=== PATIENT | male | born 1945 | race Caucasian/White ===

== ENCOUNTER → 2017-01-25 | Outpatient (CLI) | payer MEDICARE ==
[~2017-01-25] MED LIST: /MOM400 PO; /TIOT18INH INH; /WARF25TA PO; ACET50TA PO; ALDA25TA2 PO; ASPI325T PO; COMBVENT INH; FLAG500T; FLOVENT INH; LASI20TA PO; LEVA500T; LOPR50TA; NITROQUICK SL; OXYGEN; PERC7.5T12 PO; PRED10TA2; SENO8.6T9 PO; SIMV20TA2 PO; THERGRAN PO; TOPR25TA PO; XOPEAER INH
--- NOTE | 2017-01-25 11:09 | REP ---
PA and lateral chest: Comparisons are the PA and lateral chest dated 04/19/[address] of 03/12/2007. There is a chronic curvilinear parenchymal scar inferiorly in the left lung, unchanged, 2014. There is thickening of the minor fissure on the right as an interval change from both prior studies. This could represent fibrosis or a tiny volume of fluid in the minor fissure. No pleural fluid is identified in the lateral posterior sulci. There is chronic interstitial coarsening, unchanged, compatible with chronic lung disease. On the comparison CT there are numerous bulla throughout the lung mcadams compatible with bullous emphysema. Cardiac size is borderline, unchanged. There are sternotomy wires, unchanged from 2014 but not present on the comparison CT of 2006. The jeanie, mediastinum, and bony thorax are unchanged. Impression: Thickening of the minor fissure as a change from the prior studies, fibrosis versus small volume of fluid in the minor fissure. Parenchymal scar inferiorly in the left lung. Chronic lung disease with multiple small bulla and interstitial chronic coarsening. Sternotomy. Signed by Daniel Millan MD 01/25/2017 11:01 A
== END ==
LOC: M SMT 10:09
PROVIDERS: ATTEND Physician Assistant
DX: J44.1 Chronic obstructive pulmonary disease with (acute) exacerbation (principal); I50.32 Chronic diastolic (congestive) heart failure

== ENCOUNTER → 2017-01-29 | Outpatient (REF) | payer MEDICARE ==
[2017-01-29 19:50] LABS: ALBUMIN 3.4 GM/DL (3.2-5.2); ALBUMIN/GLOBULIN RATIO 1.03 (1.00-1.93); ALKALINE PHOSPHATASE 55 U/L (45-117); ALT/SGPT 21 U/L (12-78); ANION GAP 6 MEQ/L (8-16); AST/SGOT 16 U/L (15-37); BILIRUBIN,TOTAL 0.7 MG/DL (0.2-1.0); BLOOD UREA NITROGEN 24 MG/DL (7-18); CALCIUM LEVEL 9.2 MG/DL (8.8-10.2); CARBON DIOXIDE LEVEL 36 MEQ/L (21-32); CHLORIDE LEVEL 101 MEQ/L (98-107); CHOLESTEROL LEVEL 165 MG/DL (<200); CREATININE FOR GFR 1.08 MG/DL (0.70-1.30); GLOMERULAR FILTRATION RATE > 60.0 (>42); GLUCOSE, FASTING 97 MG/DL (83-110); POTASSIUM SERUM 4.5 MEQ/L (3.5-5.1); SODIUM LEVEL 143 MEQ/L (136-145); TOTAL PROTEIN 6.7 GM/DL (6.4-8.2); TRIGLYCERIDES LEVEL 110 MG/DL (<150)
== END ==
LOC: M LABDRWCV 16:15
PROVIDERS: ATTEND Physician Assistant
DX: I25.10 Atherosclerotic heart disease of native coronary artery without angina pectoris (principal); E78.00 Pure hypercholesterolemia, unspecified; I50.32 Chronic diastolic (congestive) heart failure

== ENCOUNTER → 2017-03-26 | Outpatient (CLI) | payer MEDICARE ==
[~2017-03-26] MED LIST changes: +ACET-683 PO; +ALBU17IN INH; +ATOR80TA59 PO; +AZIT500T2 PO; +BENCRE3 EXT; +FLUT22IN INH; +FURO40TA2 PO; +INCR1INH INH; +IPRASOL4 INH; +NITR4TASL SL; +PRED10TA2 PO; +SPIR25TA2 PO; +TOPR50TA PO; +VITMTA PO
--- NOTE | 2017-03-26 15:23 | REP ---
Chest x-ray: Two views. History: COPD. Comparison chest x-ray January 25, 2017. Findings: There is bibasilar linear fibrosis versus plate-like atelectasis. Median sternotomy wires and mediastinal clips are seen. The aorta is tortuous as before. Heart is at the upper range of normal in size. No pleural effusion is seen. No acute infiltrate is seen. No significant bony abnormality noted. Impression: Bibasilar fibrosis versus discoid atelectasis. Some interstitial fibrosis and pleural changes noted. Borderline heart size. Prior sternotomy. No acute infiltrate seen. Signed by Steven Blackman MD 03/26/2017 04:47 P
== END ==
LOC: M SMT 14:48
PROVIDERS: ATTEND Physician Assistant
DX: J44.1 Chronic obstructive pulmonary disease with (acute) exacerbation (principal); J98.4 Other disorders of lung
CPT/HCPCS: 71020; G0463

== ENCOUNTER → 2017-05-03 | Outpatient (REF) | payer MEDICARE ==
[2017-05-03 17:50] LABS: ALBUMIN 3.7 GM/DL (3.2-5.2); ANION GAP 3 MEQ/L (8-16); BLOOD UREA NITROGEN 20 MG/DL (7-18); CALCIUM LEVEL 9.2 MG/DL (8.8-10.2); CARBON DIOXIDE LEVEL 35 MEQ/L (21-32); CHLORIDE LEVEL 103 MEQ/L (98-107); CREATININE FOR GFR 1.09 MG/DL (0.70-1.30); GLOMERULAR FILTRATION RATE > 60.0 (>42); GLUCOSE, FASTING 93 MG/DL (83-110); MAGNESIUM LEVEL 2.5 MG/DL (1.8-2.4); PHOSPHORUS LEVEL 4.1 MG/DL (2.5-4.9); POTASSIUM SERUM 4.6 MEQ/L (3.5-5.1); SODIUM LEVEL 141 MEQ/L (136-145)
== END ==
LOC: M LABDRWCV 16:32
PROVIDERS: ATTEND Physician Assistant
DX: I50.32 Chronic diastolic (congestive) heart failure (principal); E83.42 Hypomagnesemia

== ENCOUNTER 2017-05-11 03:44 | Inpatient (IN) | payer MEDICARE ==
[~2017-05-11] VITALS: Ht 195.6 cm; Wt 101.4 kg
[2017-05-11] VITALS (9 sets, daily range): BP systolic 109–118; BP diastolic 51–66; O2SAT 88–94
[~2017-05-11 03:44] MED LIST changes: -ACET-683 PO; -ALBU17IN INH; -ATOR80TA59 PO; -AZIT500T2 PO; -BENCRE3 EXT; -FLUT22IN INH; -FURO40TA2 PO; -INCR1INH INH; -IPRASOL4 INH; -NITR4TASL SL; -PRED10TA2 PO; -SPIR25TA2 PO; -TOPR50TA PO; -VITMTA PO
[2017-05-11] MEDS ORDERED: IPRASOL4 INH (04:21)
[2017-05-11] MEDS ORDERED: INCR1INH INH (04:21)
[2017-05-11] MEDS ORDERED: IPRATROPIUM 0.5MG/ALBUTEROL 2.5MG INH SOL UD 3ML (DUONEB)(J7620) NEB ONE (04:45)
[2017-05-11] MEDS ORDERED: dexameTHASONE 20 MG/5 ML VIAL (J1100) IV ONE (04:45)
[2017-05-11 04:57] LABS: ADD MANUAL DIFFER YES; MEAN CORPUSCULAR HEMOGLOBIN 31.8 pg (27.0-33.0); MEAN CORPUSCULAR HGB CONC 33.2 g/dl (32.0-36.5); MEAN CORPUSCULAR VOLUME 95.7 fl (80.0-96.0); PLATELET COUNT, AUTOMATED 207 k/mm3 (150-450); RED CELL DISTRIBUTION WIDTH 13.9 % (11.5-14.5)
[2017-05-11 05:09] LABS: ANION GAP 5 MEQ/L (8-16); BLOOD UREA NITROGEN 25 MG/DL (7-18); CALCIUM LEVEL 9.1 MG/DL (8.8-10.2); CARBON DIOXIDE LEVEL 32 MEQ/L (21-32); CHLORIDE LEVEL 100 MEQ/L (98-107); CREATININE FOR GFR 1.14 MG/DL (0.70-1.30); GLOMERULAR FILTRATION RATE > 60.0 (>42); GLUCOSE, FASTING 147 MG/DL (83-110); POTASSIUM SERUM 4.1 MEQ/L (3.5-5.1); SODIUM LEVEL 137 MEQ/L (136-145)
[2017-05-11 05:17] LABS: ABG BASE EXCESS 3.4 (-2.0-2.0); ABG HCO3 29.7 MEQ/L (22.0-26.0); ABG PARTIAL PRESSURE CO2 51.7 mmHg (35.0-45.0); ABG PARTIAL PRESSURE O2 66.2 mmHg (75.0-100.0); ABG STANDARD HCO3 27.4 MEQ/L (22.0-26.0); ABG TOTAL CO2 31.3 MEQ/L (23.0-31.0); ABG pH (ARTERIAL) 7.377 UNITS (7.350-7.450)
[2017-05-11 05:19] LABS: BANDS 2 % (< 11)
[2017-05-11] MEDS ORDERED: CEFUROXIME SODIUM 1.5 GM in D5W MINI-BAG PLUS 50 ML IV ONE (05:30)
[2017-05-11] MEDS ORDERED: ALBU17IN INH (06:15)
[2017-05-11] MEDS ORDERED: VITMTA PO (06:15)
[2017-05-11] MEDS ORDERED: NITR4TASL SL (06:15)
[2017-05-11] MEDS ORDERED: ASPI325T PO (06:15)
[2017-05-11] MEDS ORDERED: FLUT22IN INH (06:15)
[2017-05-11] MEDS ORDERED: FURO40TA2 PO (06:15)
[2017-05-11] MEDS ORDERED: BENCRE3 EXT (06:15)
[2017-05-11] MEDS ORDERED: TOPR50TA PO (06:15)
[2017-05-11] MEDS ORDERED: ATOR80TA59 PO (06:15)
[2017-05-11] MEDS ORDERED: ACET-683 PO (06:15)
[2017-05-11] MEDS ORDERED: IPRATROPIUM 0.5MG/ALBUTEROL 2.5MG INH SOL UD 3ML (DUONEB)(J7620) NEB PRN (06:15)
[2017-05-11] MEDS ORDERED: SPIR25TA2 PO (06:15)
[2017-05-11] MEDS ORDERED: ONDANSETRON 4MG/2ML VIAL (J2405) IV PRN (06:15)
[2017-05-11] MEDS ORDERED: ACETAMINOPHEN TAB 650MG DOSE (2X325MG) PO PRN (06:15)
[2017-05-11] MEDS ORDERED: ANALGESIC BALM CRM 120 GM EXT PRN (06:30)
--- NOTE | 2017-05-11 07:38 | REP ---
PA and lateral chest: Comparison is 03/26/2017 and 04/19/2015. There is bibasilar chronic parenchymal scarring, unchanged from both prior studies. On the lateral view there is increased radiodensity posteriorly as a change from the comparison studies, compatible with lower lobe infiltrates. This should be correlated with clinical findings. Sternotomy wires mediastinal surgical clips are again identified. Cardiac size is borderline enlarged, unchanged. Impression: Question lower lobe infiltrates as seen on the lateral view. Chronic bibasilar parenchymal scarring. Borderline cardiac size, chronic. Signed by Daniel Millan MD 05/11/2017 07:30 A
--- NOTE | 2017-05-11 07:41 | ECGEPIP ---
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
[2017-05-11] MEDS ORDERED: methylPREDNISolone INJ 125 MG/2 ML VIAL (J2930) IV SCH (08:00)
[2017-05-11] MEDS: cefTRIAXone SOD 2 GM in D5W MINI-BAG PLUS 50 ML IV SCH (08:00)
[2017-05-11] MEDS: TIOTROPIUM INHALER/CAPSULE (SPIRIVA) INH SCH (08:09)
[2017-05-11] MEDS: FLUTICASONE HFA 220 MCG 12 GM INHALER (FLOVENT) INH SCH ×2 (08:10→20:09)
[2017-05-11] MEDS: guaiFENesin ER 600 MG TAB PO SCH ×2 (08:29→21:51)
[2017-05-11] MEDS: ASPIRIN 325 MG TAB PO SCH (08:30)
[2017-05-11] MEDS: SPIRONOLACTONE 25 MG TAB PO SCH (08:30)
[2017-05-11] MEDS: SENOKOT S TAB PO SCH ×2 (08:31→21:00)
[2017-05-11] MEDS: MULTIVITAMINS/MINERALS THERAP 1 TAB PO SCH (08:31)
[2017-05-11] MEDS: METOPROLOL SUCC (TopROL XL) 50MG **XL** TAB PO SCH (08:32)
[2017-05-11] MEDS: ENOXAPARIN 30 MG/0.3 ML SYR (J1650) SC SCH (08:32)
[2017-05-11] MEDS: AZITHROMYCIN INJ 500 MG, VIAL MATE ADAPTER 1 EACH in D5W 250 ML IV SCH (08:47)
[2017-05-11] MEDS: IPRATROPIUM 0.5MG/ALBUTEROL 2.5MG INH SOL UD 3ML (DUONEB)(J7620) NEB SCH ×3 (08:53→20:00)
--- NOTE | 2017-05-11 08:57 | HPE ---
DATE OF ADMISSION: 05/11/2017 PRIMARY CARE PROVIDER: NIKOLAY Vance Shortness of breath and subjective fevers and chill. HISTORY OF PRESENT ILLNESS: This is a 72-year-old male patient with underlying medical history of chronic obstructive pulmonary disease (COPD), oxygen dependent on 2 liters at home, and coronary artery disease with questionable congestive heart failure. As per patient, he was in his normal state of health until earlier last night developed an episode of shortness of breath with slightly worsening cough productive of mucus clear white and also feeling chills and shaking. As per patient, he gets upper respiratory tract infections quite often and has previously been treated with antibiotic by his primary doctor with azithromycin and prednisone with slight improvement, but this time has gotten worse again. In the emergency room, patient was found hypoxic down to 85, was requiring 35% Ventimask because patient was a mouth breather. Patient denies any chest pain, pressure or discomfort. Denies any palpitations, nausea or vomiting, abdominal pain. No sick contact at home. Otherwise, patient feels comfortable. After nebulizer treatment and steroid, patient reported feeling better. ALLERGIES: NO KNOWN DRUG ALLERGIES. PAST MEDICAL HISTORY: 1. COPD. 2. Coronary artery disease. 3. Questionable congestive heart failure (CHF). PAST SURGICAL HISTORY: 1. Coronary artery bypass graft (CABG) 2006. 2. Right hip arthroplasty secondary to fracture. SOCIAL HISTORY: Patient lives at [place] with his . History of smoking, quit smoking 2006, 1 pack per day for 40 years, 1 can of beers every month on average. FAMILY HISTORY: Father lived up to 94. Mother lived up to 87. Generally, family has been healthy. No history of cancer. REVIEW OF SYSTEMS: Reported shortness of breath, chills, shaking and cough. All other review of systems are negative. HOME MEDICATION: - acetaminophen 500 mg by mouth every 4 hours as needed - Ventolin inhalers every 6 hours as needed - DuoNebs every 6 hours as needed - aspirin 325 mg by mouth daily - Lipitor 80 mg by mouth nightly - Bengay as needed topical cream - Flovent inhalation twice a day - Lasix 40 mg by mouth daily - Ellipta 62.5 mcg inhalation daily - metoprolol succinate 50 mg by mouth daily - multivitamin one tablet by mouth daily - sublingual nitro 0.4 mg as needed - spironolactone 12.5 mg by mouth daily VITAL SIGNS: Temperature 97.6, pulse 85, respiration 22, blood pressure 109/70, pulse oximetry 88% on 3 liter nasal cannula. GENERAL: Patient alert, oriented times three, in no acute distress. HEENT: Normocephalic, atraumatic. CARDIAC: Regular rate and rhythm. S1, S2. No murmurs detected. PULMONARY: Right-sided rhonchi. No significant wheeze. ABDOMEN: Soft. Nontender. Positive bowel sounds. EXTREMITIES: No edema bilateral lower extremities. NEUROLOGIC: No focal deficits. EKG: Sinus rhythm at 89. T wave inversion V1 through V3, which is present on previous EKG as well. LABORATORY: WBC 11, hemoglobin and hematocrit 14.4/43.4, platelets 207. Chemistry: Sodium 137, potassium 4.1, chloride 100, bicarbonate 32, BUN 25, creatinine 1.14, C-reactive protein 1.12, brain natriuretic peptide 62.5. AB.37, 51.7, 66.8. ASSESSMENT AND PLAN: This is a 72-year-old male patient with underlying medical history of coronary artery disease with questionable congestive heart failure, chronic obstructive pulmonary disease, oxygen dependent, admitted for community-acquired bacterial pneumonia and hypoxia. PROBLEMS: 1. Acute hypoxic respiratory failure with chronic hypercarbia and hypoxia. Patient is on oxygen at home 2 liters. Likely secondary to upper respiratory infection (URI) verus early right-sided pneumonia. Followup respiratory panel, sputum cultures, blood cultures. Rocephin and azithromycin. Will start Solu-Medrol, nebulizer treatments. Continue home inhalers. 2. Coronary artery disease. Continue home medication, aspirin, beta-blockers, statins. 3. Hypertension. Patient has borderline blood pressure. Will continue beta-lyubov with holding parameters. Continue to monitor. 4. History of congestive heart failure. Patient currently compensated. Given active infection, will hold diuretics for now and continue to monitor. Strict intake and output, daily weight. 5. Deep venous thrombosis (DVT) prophylaxis. Lovenox subcu. DISPOSITION PLANNING: Pending clinical improvement. Physical therapy has been ordered.
[2017-05-11] MEDS ORDERED: SYMBICORT 160/4.5MCG INHALER 6GM INH SCH (09:00)
[2017-05-11] MEDS: methylPREDNISolone INJ 125 MG/2 ML VIAL (J2930) IV SCH ×2 (11:05→18:55)
--- NOTE | 2017-05-11 17:54 | IPNPDOC ---
Text Note Date of Service The patient was seen on 05/11/17. NOTE Patient was admitted early this a.m. by my colleague Dr. Stout. He was seen and examined by myself today 72-year-old male with COPD on 2 L, CAD status post CABG, potential history of CHF who presented to the emergency department with shortness of breath as well as subjective fever and chills. He is admitted with community-acquired pneumonia and COPD exacerbation. 1. Community-acquired pneumonia: The patient is requiring 4 L of oxygen, but usually only requires 2 L at home. He is currently afebrile with a white count of 11. We will continue him on the azithromycin and Rocephin. Blood cultures are pending, and we'll get a sputum culture. 2. COPD exacerbation: Continue Solu-Medrol and DuoNeb's. Continue home Flonase, Spiriva. 3. CAD status post CABG: The patient is currently without chest pain and his troponins are negative. Continue home beta lyubov, aspirin, statin. 4. Potential history of CHF: The patient currently appears compensated. Given his active infection, we are currently holding his home Lasix. We'll continue him on his home spironolactone. DVT prophylaxis: lovenox VS,Fishbone, I+O VS, Fishbone, I+O Laboratory Tests 05/11/17 04:41 Red Blood Count 4.54, Mean Corpuscular Volume 95.7, Mean Corpuscular Hemoglobin 31.8, Mean Corpuscular Hemoglobin Concent 33.2, Red Cell Distribution Width 13.9 , Calcium Level 9.1 Vital Signs Date Time Temp Pulse Resp B/P (MAP) Pulse Ox O2 Delivery O2 Flow Rate FiO2 05/11/17 15:30 98.0 72 18 117/66 (83) 90 Nasal Cannula 4.0 DAVID CAZARES May 11, 2017 17:54
[2017-05-11] MEDS: ATORVASTATIN 20 MG TAB PO SCH (21:52)
[2017-05-12] VITALS (23 sets, daily range): BP systolic 105–138; BP diastolic 60–74; O2SAT 79–96
[2017-05-12] MEDS: IPRATROPIUM 0.5MG/ALBUTEROL 2.5MG INH SOL UD 3ML (DUONEB)(J7620) NEB SCH ×4 (01:47→19:45)
[2017-05-12] MEDS: methylPREDNISolone INJ 125 MG/2 ML VIAL (J2930) IV SCH ×2 (03:26→11:24)
[2017-05-12 06:37] LABS: MEAN CORPUSCULAR HEMOGLOBIN 31.2 pg (27.0-33.0); MEAN CORPUSCULAR HGB CONC 32.4 g/dl (32.0-36.5); MEAN CORPUSCULAR VOLUME 96.4 fl (80.0-96.0); RED CELL DISTRIBUTION WIDTH 13.9 % (11.5-14.5); WHITE BLOOD COUNT 12.7 K/mm3 (4.0-10.0)
[2017-05-12 06:53] LABS: ANION GAP 5 MEQ/L (8-16); BLOOD UREA NITROGEN 23 MG/DL (7-18); CALCIUM LEVEL 9.1 MG/DL (8.8-10.2); CARBON DIOXIDE LEVEL 30 MEQ/L (21-32); CHLORIDE LEVEL 103 MEQ/L (98-107); CREATININE FOR GFR 0.86 MG/DL (0.70-1.30); GLOMERULAR FILTRATION RATE > 60.0 (>42); GLUCOSE, FASTING 146 MG/DL (83-110); MAGNESIUM LEVEL 2.5 MG/DL (1.8-2.4); POTASSIUM SERUM 4.4 MEQ/L (3.5-5.1); SODIUM LEVEL 138 MEQ/L (136-145)
[2017-05-12] MEDS: TIOTROPIUM INHALER/CAPSULE (SPIRIVA) INH SCH (07:56)
[2017-05-12] MEDS: FLUTICASONE HFA 220 MCG 12 GM INHALER (FLOVENT) INH SCH ×2 (07:57→19:45)
[2017-05-12] MEDS: cefTRIAXone SOD 2 GM in D5W MINI-BAG PLUS 50 ML IV SCH (08:47)
[2017-05-12] MEDS: ASPIRIN 325 MG TAB PO SCH (08:48)
[2017-05-12] MEDS: SPIRONOLACTONE 25 MG TAB PO SCH (08:48)
[2017-05-12] MEDS: SENOKOT S TAB PO SCH ×2 (08:48→21:09)
[2017-05-12] MEDS: ENOXAPARIN 30 MG/0.3 ML SYR (J1650) SC SCH (08:48)
[2017-05-12] MEDS: MULTIVITAMINS/MINERALS THERAP 1 TAB PO SCH (08:48)
[2017-05-12] MEDS: guaiFENesin ER 600 MG TAB PO SCH ×2 (08:49→21:08)
[2017-05-12] MEDS: METOPROLOL SUCC (TopROL XL) 50MG **XL** TAB PO SCH (08:50)
[2017-05-12] MEDS: AZITHROMYCIN INJ 500 MG, VIAL MATE ADAPTER 1 EACH in D5W 250 ML IV SCH (09:57)
--- NOTE | 2017-05-12 12:31 | IPNPDOC ---
Date Seen The patient was seen on 05/12/17. Progress Note Hospitalist Progress Note Subjective: Patient states that his breathing is very good. He has no complaints , and his sitting on the couch reading a book. Objective: Physical Exam: Vitals: Vital Sign - Last 24 Hours 05/11/17 05/11/17 05/11/17 05/11/17 12:30 12:45 13:00 13:15 Pulse 68 68 74 70 Pulse Ox 93 93 92 05/11/17 05/11/17 05/11/17 05/11/17 13:16 13:30 13:45 14:00 Pulse 72 68 66 B/P (MAP) 132/72 (92) Pulse Ox 91 92 91 05/11/17 05/11/17 05/11/17 05/11/17 14:15 14:16 14:30 14:30 Temp 98.9 Pulse 66 68 B/P (MAP) 127/70 (89) Pulse Ox 94 91 05/11/17 05/11/17 05/11/17 05/11/17 14:45 15:00 15:12 15:30 Pulse 70 70 Resp 18 B/P (MAP) 129/66 (87) Pulse Ox 91 90 O2 Delivery Nasal Cannula Nasal Cannula O2 Flow Rate 4.0 4.0 05/11/17 05/11/17 05/11/17 05/11/17 15:30 16:00 18:00 19:00 Temp 98.0 98.0 Pulse 72 74 Resp 18 20 B/P (MAP) 117/66 (83) 118/62 (80) Pulse Ox 90 94 94 91 O2 Delivery Nasal Cannula Nasal Cannula Nasal Cannula Nasal Cannula O2 Flow Rate 4.0 4.0 4.0 4.0 05/11/17 05/11/17 05/11/17 05/11/17 19:45 20:00 20:40 21:00 Temp 98.3 Pulse 66 Resp 20 B/P (MAP) 109/51 (70) Pulse Ox 89 89 91 O2 Delivery Nasal Cannula Nasal Cannula Nasal Cannula Nasal Cannula O2 Flow Rate 4.0 4.0 4.0 4.0 05/11/17 05/11/17 05/12/17 05/12/17 22:00 23:00 00:00 00:04 Temp 98.3 Pulse 77 Resp 20 B/P (MAP) 129/73 (91) Pulse Ox 88 93 87 90 O2 Delivery Nasal Cannula Nasal Cannula Nasal Cannula Nasal Cannula O2 Flow Rate 4.0 4.0 4.0 4.0 05/12/17 05/12/17 05/12/17 05/12/17 01:00 02:00 03:00 03:24 Temp 97.8 Pulse 70 Resp 20 B/P (MAP) 123/65 (84) Pulse Ox 89 92 88 88 O2 Delivery Nasal Cannula Nasal Cannula Nasal Cannula Nasal Cannula O2 Flow Rate 3.0 3.0 3.0 4.0 05/12/17 05/12/17 05/12/17 05/12/17 04:00 05:00 06:00 08:00 Temp 99.5 Pulse 75 Resp 18 B/P (MAP) 115/64 (81) Pulse Ox 91 92 92 92 O2 Delivery Nasal Cannula Nasal Cannula Nasal Cannula Nasal Cannula O2 Flow Rate 3.0 3.0 3.0 4.0 05/12/17 05/12/17 05/12/17 08:30 08:50 12:00 Temp 99.2 Pulse 75 67 Resp 18 B/P (MAP) 115/64 130/74 (92) Pulse Ox 93 O2 Delivery Nasal Cannula Nasal Cannula O2 Flow Rate 4.0 4.0 General: Awake, alert, no acute distress HEENT: Normocephalic, atraumatic, extraocular movements intact, moist mucous membranes CV: Regular rate and rhythm Lungs: Diminished at bases, with coarse breath sounds throughout, but no distinct wheeze or rhonchi Abd: Soft, nontender, nondistended Extremities: No edema Neuro: Alert and oriented 3, normal speech Psych: Normal Mood and affect Labs and Imaging: Laboratory Tests 05/12/17 06:02 Calcium Level 9.1 05/12/17 06:03 Red Blood Count 4.49, Mean Corpuscular Volume 96.4 H, Mean Corpuscular Hemoglobin 31.2, Mean Corpuscular Hemoglobin Concent 32.4, Red Cell Distribution Width 13.9 Assessment and Plan: 72-year-old male with COPD on 2 L, CAD status post CABG, potential history of CHF who presented to the emergency department with shortness of breath as well as subjective fever and chills. He is admitted with community-acquired pneumonia and COPD exacerbation. 1. Community-acquired pneumonia: The patient is requiring 3 L of oxygen, but usually only requires 2 L at home. He is currently afebrile. We will continue him on the azithromycin and Rocephin. Blood cultures and sputum cultures are pending. 2. COPD exacerbation: Wean Solu-Medrol and continue DuoNeb's. Continue home Flonase, Spiriva. 3. CAD status post CABG: The patient is currently without chest pain and his troponins are negative. Continue home beta lyubov, aspirin, statin. 4. Potential history of CHF: The patient currently appears compensated. Restart home Lasix. We'll continue him on his home spironolactone. DVT prophylaxis: lovenox VS, I&O, 24H, Fishbone Vital Signs/I&O Vital Signs Date Time Temp Pulse Resp B/P (MAP) Pulse Ox O2 Delivery O2 Flow Rate FiO2 05/12/17 12:00 99.2 67 18 130/74 (92) 93 Nasal Cannula 4.0 I&O- Last 24 Hours up to 6 AM 05/12/17 06:00 Intake Total 730 ml Output Total 600 ml Balance 130 ml Laboratory Data 24H LABS Laboratory Tests 2 05/12/17 06:02: Anion Gap 5L, Glomerular Filtration Rate > 60.0, Blood Urea Nitrogen 23H, Creatinine 0.86, Sodium Level 138, Potassium Level 4.4, Chloride Level 103, Carbon Dioxide Level 30, Calcium Level 9.1, Magnesium Level 2.5H, C-Reactive Protein, Quantitative 10.10H CBC/BMP Laboratory Tests 05/12/17 06:02 Calcium Level 9.1 05/12/17 06:03 Red Blood Count 4.49, Mean Corpuscular Volume 96.4 H, Mean Corpuscular Hemoglobin 31.2, Mean Corpuscular Hemoglobin Concent 32.4, Red Cell Distribution Width 13.9 Microbiology Microbiology 05/11/17 Blood Culture - Preliminary, Resulted No growth after 24 hours . All specim... 05/11/17 Blood Culture - Preliminary, Resulted No growth after 24 hours . All specim... DAVID CAZARES May 12, 2017 12:31
[2017-05-12] MEDS: FUROSEMIDE 40 MG TAB PO SCH (13:43)
[2017-05-12] MEDS: methylPREDNISolone INJ 40 MG/1 ML VIAL (J2920) IV SCH (18:59)
[2017-05-12] MEDS: ATORVASTATIN 20 MG TAB PO SCH (21:07)
[2017-05-13] VITALS (7 sets, daily range): BP systolic 118–136; BP diastolic 62–76; O2SAT 92–95
[2017-05-13] MEDS: IPRATROPIUM 0.5MG/ALBUTEROL 2.5MG INH SOL UD 3ML (DUONEB)(J7620) NEB SCH ×4 (01:38→19:46)
[2017-05-13] MEDS: methylPREDNISolone INJ 40 MG/1 ML VIAL (J2920) IV SCH ×2 (02:28→11:46)
[2017-05-13 06:46] LABS: MEAN CORPUSCULAR HEMOGLOBIN 31.5 pg (27.0-33.0); MEAN CORPUSCULAR HGB CONC 33.2 g/dl (32.0-36.5); WHITE BLOOD COUNT 11.5 K/mm3 (4.0-10.0)
[2017-05-13 07:09] LABS: ANION GAP 3 MEQ/L (8-16); BLOOD UREA NITROGEN 30 MG/DL (7-18); CALCIUM LEVEL 8.8 MG/DL (8.8-10.2); CARBON DIOXIDE LEVEL 32 MEQ/L (21-32); CHLORIDE LEVEL 102 MEQ/L (98-107); CREATININE FOR GFR 0.88 MG/DL (0.70-1.30); GLOMERULAR FILTRATION RATE > 60.0 (>42); GLUCOSE, FASTING 137 MG/DL (83-110); MAGNESIUM LEVEL 2.4 MG/DL (1.8-2.4); POTASSIUM SERUM 4.1 MEQ/L (3.5-5.1); SODIUM LEVEL 137 MEQ/L (136-145)
[2017-05-13] MEDS: TIOTROPIUM INHALER/CAPSULE (SPIRIVA) INH SCH (07:28)
[2017-05-13] MEDS: FLUTICASONE HFA 220 MCG 12 GM INHALER (FLOVENT) INH SCH ×2 (07:29→19:47)
[2017-05-13] MEDS: cefTRIAXone SOD 2 GM in D5W MINI-BAG PLUS 50 ML IV SCH (08:46)
[2017-05-13] MEDS: ASPIRIN 325 MG TAB PO SCH (08:47)
[2017-05-13] MEDS: ENOXAPARIN 30 MG/0.3 ML SYR (J1650) SC SCH (08:47)
[2017-05-13] MEDS: SPIRONOLACTONE 12.5MG PER 1/2 TABLET PO SCH (08:47)
[2017-05-13] MEDS: MULTIVITAMINS/MINERALS THERAP 1 TAB PO SCH (08:50)
[2017-05-13] MEDS: METOPROLOL SUCC (TopROL XL) 50MG **XL** TAB PO SCH (08:50)
[2017-05-13] MEDS: guaiFENesin ER 600 MG TAB PO SCH ×2 (08:50→20:47)
[2017-05-13] MEDS: FUROSEMIDE 40 MG TAB PO SCH (08:50)
[2017-05-13] MEDS: SENOKOT S TAB PO SCH ×2 (08:51→20:48)
[2017-05-13] MEDS: AZITHROMYCIN INJ 500 MG, VIAL MATE ADAPTER 1 EACH in D5W 250 ML IV SCH (10:21)
--- NOTE | 2017-05-13 10:43 | IPNPDOC ---
Date Seen The patient was seen on 05/13/17. Progress Note Hospitalist Progress Note Subjective: Patient states he feels well but was not able to sleep much last night Objective: Physical Exam: Vitals: Vital Sign - Last 24 Hours 05/12/17 05/12/17 05/12/17 05/12/17 11:00 12:00 12:00 13:00 Temp 99.2 Pulse 67 Resp 18 B/P (MAP) 130/74 (92) Pulse Ox 95 93 91 94 O2 Delivery Nasal Cannula Nasal Cannula Nasal Cannula Nasal Cannula O2 Flow Rate 3.0 4.0 3.0 3.0 05/12/17 05/12/17 05/12/17 05/12/17 14:00 15:00 16:00 17:00 Pulse Ox 96 93 94 93 O2 Delivery Nasal Cannula Nasal Cannula Nasal Cannula Nasal Cannula O2 Flow Rate 3.0 3.0 3.0 3.0 05/12/17 05/12/17 05/12/17 05/12/17 18:30 18:54 19:55 20:00 Temp 99.8 Pulse 79 Resp 20 B/P (MAP) 105/60 (75) Pulse Ox 93 79 90 O2 Delivery Nasal Cannula Nasal Cannula Room Air Nasal Cannula O2 Flow Rate 3.0 3.0 3.0 05/12/17 05/12/17 05/13/17 05/13/17 20:00 20:00 00:00 05:00 Temp 99.3 99.3 Pulse 75 77 Resp 20 18 B/P (MAP) 138/73 (94) 119/62 (81) Pulse Ox 90 93 95 O2 Delivery Nasal Cannula Nasal Cannula Nasal Cannula Nasal Cannula O2 Flow Rate 3.0 3.0 3.0 2.5 05/13/17 05/13/17 05/13/17 05/13/17 05:00 08:00 08:26 08:50 Temp 98.9 Pulse 75 74 Resp 18 B/P (MAP) 124/67 (86) 124/67 Pulse Ox 95 90 92 O2 Delivery Nasal Cannula Nasal Cannula Nasal Cannula O2 Flow Rate 2.5 2.5 2.5 General: Awake, alert, no acute distress HEENT: Normocephalic, atraumatic, extraocular movements intact, moist mucous membranes CV: Regular rate and rhythm Lungs: Diminished at bases, with coarse breath sounds throughout, but no distinct wheeze or rhonchi Abd: Soft, nontender, nondistended Extremities: No edema Neuro: Alert and oriented 3, normal speech Psych: Normal Mood and affect Labs and Imaging: Laboratory Tests 05/13/17 06:16 Red Blood Count 4.24 L, Mean Corpuscular Volume 95.0, Mean Corpuscular Hemoglobin 31.5, Mean Corpuscular Hemoglobin Concent 33.2, Red Cell Distribution Width 14.0 05/13/17 06:17 Calcium Level 8.8 Assessment and Plan: 72-year-old male with COPD on 2 L, CAD status post CABG, potential history of CHF who presented to the emergency department with shortness of breath as well as subjective fever and chills. He is admitted with community-acquired pneumonia and COPD exacerbation. 1. Community-acquired pneumonia: The patient is requiring 2.5 L of oxygen, but usually only requires 2 L at home. He is currently afebrile. We will continue him on the azithromycin and Rocephin. Blood cultures and RVP are negative, and sputum cultures are pending. 2. COPD exacerbation: Wean Solu-Medrol and continue DuoNeb's. Continue home Flonase, Spiriva. 3. CAD status post CABG: The patient is currently without chest pain and his troponins are negative. Continue home beta lyubov, aspirin, statin. 4. Potential history of CHF: The patient currently appears compensated. Continue home Lasix and spironolactone. DVT prophylaxis: lovenox Dispo: anticipate home tomorrow VS, I&O, 24H, Fishbone Vital Signs/I&O Vital Signs Date Time Temp Pulse Resp B/P (MAP) Pulse Ox O2 Delivery O2 Flow Rate FiO2 05/13/17 08:50 74 124/67 05/13/17 08:26 92 Nasal Cannula 2.5 05/13/17 08:00 98.9 18 I&O- Last 24 Hours up to 6 AM 05/13/17 06:00 Intake Total 900 ml Output Total 1875 ml Balance -975 ml Laboratory Data 24H LABS Laboratory Tests 2 05/13/17 06:17: Anion Gap 3L, Glomerular Filtration Rate > 60.0, Blood Urea Nitrogen 30H, Creatinine 0.88, Sodium Level 137, Potassium Level 4.1, Chloride Level 102, Carbon Dioxide Level 32, Calcium Level 8.8, Magnesium Level 2.4, C-Reactive Protein, Quantitative 5.07H CBC/BMP Laboratory Tests 05/13/17 06:16 Red Blood Count 4.24 L, Mean Corpuscular Volume 95.0, Mean Corpuscular Hemoglobin 31.5, Mean Corpuscular Hemoglobin Concent 33.2, Red Cell Distribution Width 14.0 05/13/17 06:17 Calcium Level 8.8 Microbiology Microbiology 05/11/17 Blood Culture - Preliminary, Resulted No Growth after 48 hours. All Specime... 05/11/17 Blood Culture - Preliminary, Resulted No Growth after 48 hours. All Specime... 05/13/17 Gram Stain - Final, Resulted 05/13/17 Sputum Culture, Resulted Pending 05/12/17 Respiratory Virus Panel (PCR) ([facility]) - Final, Complete DAVID CAZARES May 13, 2017 10:43
[2017-05-13] MEDS ORDERED: SLF 3 ML SYR IV PRN (12:45)
[2017-05-13] MEDS: SLF 3 ML SYR IV SCH (13:36)
[2017-05-13] MEDS: ATORVASTATIN 20 MG TAB PO SCH (20:47)
[2017-05-14] VITALS (9 sets, daily range): BP systolic 121–133; BP diastolic 70–84; O2SAT 91–94
[2017-05-14] MEDS: methylPREDNISolone INJ 40 MG/1 ML VIAL (J2920) IV SCH ×2 (00:42→12:07)
[2017-05-14] MEDS: SLF 3 ML SYR IV SCH ×3 (00:43→14:00)
[2017-05-14] MEDS: IPRATROPIUM 0.5MG/ALBUTEROL 2.5MG INH SOL UD 3ML (DUONEB)(J7620) NEB SCH ×3 (01:14→14:53)
[2017-05-14 07:01] LABS: MEAN CORPUSCULAR HEMOGLOBIN 31.7 pg (27.0-33.0); MEAN CORPUSCULAR HGB CONC 33.4 g/dl (32.0-36.5); RED CELL DISTRIBUTION WIDTH 14.1 % (11.5-14.5); WHITE BLOOD COUNT 9.7 K/mm3 (4.0-10.0)
[2017-05-14 07:22] LABS: ANION GAP 6 MEQ/L (8-16); BLOOD UREA NITROGEN 30 MG/DL (7-18); CALCIUM LEVEL 8.9 MG/DL (8.8-10.2); CARBON DIOXIDE LEVEL 32 MEQ/L (21-32); CHLORIDE LEVEL 99 MEQ/L (98-107); CREATININE FOR GFR 0.87 MG/DL (0.70-1.30); GLOMERULAR FILTRATION RATE > 60.0 (>42); GLUCOSE, FASTING 143 MG/DL (83-110); MAGNESIUM LEVEL 2.5 MG/DL (1.8-2.4); POTASSIUM SERUM 4.2 MEQ/L (3.5-5.1); SODIUM LEVEL 137 MEQ/L (136-145)
[2017-05-14] MEDS: TIOTROPIUM INHALER/CAPSULE (SPIRIVA) INH SCH (07:29)
[2017-05-14] MEDS: FLUTICASONE HFA 220 MCG 12 GM INHALER (FLOVENT) INH SCH (07:30)
[2017-05-14] MEDS: cefTRIAXone SOD 2 GM in D5W MINI-BAG PLUS 50 ML IV SCH (07:59)
[2017-05-14] MEDS: guaiFENesin ER 600 MG TAB PO SCH (08:49)
[2017-05-14] MEDS: ENOXAPARIN 30 MG/0.3 ML SYR (J1650) SC SCH (08:49)
[2017-05-14] MEDS: ASPIRIN 325 MG TAB PO SCH (08:49)
[2017-05-14] MEDS: SPIRONOLACTONE 12.5MG PER 1/2 TABLET PO SCH (08:49)
[2017-05-14] MEDS: FUROSEMIDE 40 MG TAB PO SCH (08:50)
[2017-05-14] MEDS: METOPROLOL SUCC (TopROL XL) 50MG **XL** TAB PO SCH (08:50)
[2017-05-14] MEDS: MULTIVITAMINS/MINERALS THERAP 1 TAB PO SCH (08:50)
[2017-05-14] MEDS: SENOKOT S TAB PO SCH (08:54)
[2017-05-14] MEDS ORDERED: AZITHROMYCIN 250 MG TAB PO SCH (09:00)
[2017-05-14] MEDS ORDERED: PRED10TA2 PO (14:18)
[2017-05-14] MEDS ORDERED: AZIT500T2 PO (14:18)
--- NOTE | 2017-05-14 14:20 | DS.PDOC ---
Discharge Summary General Date of Admission May 11, 2017 at 06:03 Date of Discharge 05/14/2017 Discharge Summary DISCHARGE SUMMARY DATE OF ADMISSION: 05/11/2017 DATE OF DISCHARGE: 05/14/2017 PRIMARY CARE PHYSICIAN: NIKOLAY Dasilva at [facility] in [place] DISCHARGE DIAGNOS(E)S: Community-acquired pneumonia COPD exacerbation HPI & HOSPITAL COURSE: 72-year-old male with COPD on 2 L, CAD status post CABG, potential history of CHF who presented to the emergency department with shortness of breath as well as subjective fever and chills. He is admitted with community-acquired pneumonia and COPD exacerbation. 1. Community-acquired pneumonia: The patient is requiring 2L of oxygen, which is what he reports he uses at home. He is currently afebrile. We will continue him on the azithromycin at discharge. Blood cultures and RVP are negative, and sputum cultures are pending. 2. COPD exacerbation: Wean Solu-Medrol to a prednisone taper at discharge and continue DuoNeb's. Continue home Flonase, Spiriva. The patient requested a prescription for portable oxygen, which was supplied to him at discharge. 3. CAD status post CABG: The patient is currently without chest pain and his troponins are negative. Continue home beta lyubov, aspirin, statin. 4. Potential history of CHF: The patient currently appears compensated. Continue home Lasix and spironolactone. DVT prophylaxis: lovenox PHYSICAL EXAMINATION ON DISCHARGE: VITAL SIGNS: Vital Sign - Last 24 Hours 05/13/17 05/13/17 05/13/17 05/13/17 16:00 20:30 20:30 20:30 Temp 99.0 98.4 Pulse 72 72 Resp 18 18 B/P (MAP) 118/63 (81) 136/76 (96) Pulse Ox 91 92 92 O2 Delivery Nasal Cannula Nasal Cannula Nasal Cannula Nasal Cannula O2 Flow Rate 2.5 2.5 2.5 2.5 05/14/17 05/14/17 05/14/17 05/14/17 00:00 01:00 04:15 06:15 Temp 99.9 Pulse 70 Resp 18 B/P (MAP) 127/72 (90) Pulse Ox 94 94 93 91 O2 Delivery Nasal Cannula Nasal Cannula Nasal Cannula Nasal Cannula O2 Flow Rate 2.0 2.0 2.0 05/14/17 05/14/17 05/14/1724/17 06:46 08:00 08:00 08:00 Temp 96.6 Pulse 63 Resp 22 B/P (MAP) 133/84 (100) Pulse Ox 93 93 98 O2 Delivery Nasal Cannula Nasal Cannula Nasal Cannula O2 Flow Rate 2.0 2.0 2.0 05/14/17 05/14/17 08:50 11:45 Pulse 70 B/P (MAP) 127/72 Pulse Ox 82 O2 Delivery Room Air General: Awake, alert, no acute distress HEENT: Normocephalic, atraumatic, extraocular movements intact, moist mucous membranes CV: Regular rate and rhythm Lungs: Diminished at bases, with coarse breath sounds throughout, but no distinct wheeze or rhonchi Abd: Soft, nontender, nondistended Extremities: No edema Neuro: Alert and oriented 3, normal speech Psych: Normal Mood and affect DISPOSITION: Home DISCHARGE INSTRUCTIONS: Follow-up with PCP within one week. If symptoms return, or if you experience worsening of your symptoms, please call your doctor or return to the emergency department. ITEMS THAT NEED OUTPATIENT FOLLOWUP: None Patient was seen and examined by me on the day of discharge, and I spent a total time of greater than 30 minutes on this discharge. Vital Signs/I&Os Vital Signs Date Time Temp Pulse Resp B/P (MAP) Pulse Ox O2 Delivery O2 Flow Rate FiO2 05/14/17 11:45 82 Room Air 05/14/17 08:50 70 127/72 05/14/17 08:00 96.6 22 05/14/17 08:00 2.0 I&O- Last 24 Hours up to 6 AM 05/14/17 06:00 Intake Total 1500 ml Output Total 2275 ml Balance -775 ml Laboratory Data Labs 24H Laboratory Tests 2 05/14/17 06:47: Anion Gap 6L, Glomerular Filtration Rate > 60.0, Blood Urea Nitrogen 30H, Creatinine 0.87, Sodium Level 137, Potassium Level 4.2, Chloride Level 99, Carbon Dioxide Level 32, Calcium Level 8.9, Magnesium Level 2.5H, C-Reactive Protein, Quantitative 2.47H CBC/BMP Laboratory Tests 05/14/17 06:47 Red Blood Count 4.34, Mean Corpuscular Volume 95.0, Mean Corpuscular Hemoglobin 31.7, Mean Corpuscular Hemoglobin Concent 33.4, Red Cell Distribution Width 14.1 , Calcium Level 8.9 Microbiology Microbiology 05/11/17 Blood Culture - Preliminary, Resulted No Growth after 72 hours. All specime... 05/11/17 Blood Culture - Preliminary, Resulted No Growth after 72 hours. All specime... 05/13/17 Gram Stain - Final, Resulted 05/13/17 Sputum Culture, Resulted Pending 05/12/17 Respiratory Virus Panel (PCR) (TUAN) - Final, Complete Discharge Medications Scheduled (Incruse Ellipta) 62.5 Mcg/Inh Inh, 62.5 MCG INH DAILY, (Reported) Aspirin (Aspirin) 325 Mg Tab, 325 MG PO DAILY, (Reported) Atorvastatin Calcium (Atorvastatin Calcium) 80 Mg Tab, 80 MG PO QHS, (Reported) Azithromycin (Azithromycin) 500 Mg Tab, 500 MG PO DAILY Fluticasone Propionate (Flovent Hfa 220 MCG) 120 Puff/12 Gm Aero, 2 PUFF INH BID , (Reported) Furosemide (Furosemide) 40 Mg Tab, 40 MG PO DAILY, (Reported) Metoprolol Succinate (Toprol Xl) 50 Mg Tab, 50 MG PO DAILY, (Reported) Multivitamins *[facility] STOCKED* (Thera M Plus *[facility] STOCKED*) 1 Tab Tab, 1 TAB PO DAILY, (Reported) Prednisone (Prednisone) 10 Mg Tab, 10 MG PO TAPER Take 4 tabs daily x 3 days, then 3 tabs daily x 3 days, then 2 tabs daily x 3 days, then 1 tab daily x 3 days and stop Spironolactone (Spironolactone) 25 Mg Tab, 12.5 MG PO DAILY, (Reported) Scheduled PRN (Bengay Greaseless 10-15 %) 1 Cre Cre, 1 CRE EXT DAILY PRN for PAIN, (Reported) USES ON SHOULDERS Acetaminophen (Acetaminophen Extra Stren) 500 Mg Tab, 500 MG PO Q4H PRN for PAIN , (Reported) Albuterol Sulfate (Ventolin Hfa) 200 Puff/8 Gm Aers, 2 PUFF INH Q6H PRN for SHORTNESS OF BREATH, (Reported) Albuterol/Ipratropium (Ipratropium [place]/Albut 0.5-2.5 (3) mg/3Ml) 1 Butch Butch, 1 BUTCH INH Q6H PRN for SHORTNESS OF BREATH, (Reported) Nitroglycerin (Nitrostat) 0.4 Mg Subl, 0.4 MG SL NITRO PRN for CHEST PAIN, ( Reported) Allergies Coded Allergies: No Known Drug Allergy (Verified Allergy, Unknown, 01/21/13) DAVID CAZARES May 14, 2017 14:20
== END 2017-05-14 18:09 | disposition home or self-care (01) | DRG 190 ==
LOC: M ED 03:44 → M ED INP 06:03 → M PCU 15:23 → M PED 05-12 18:11
PROVIDERS: ADMIT Hospitalist; ATTEND Hospitalist
DX: J44.1 Chronic obstructive pulmonary disease with (acute) exacerbation (principal); J96.21 Acute and chronic respiratory failure with hypoxia; J15.9 Unspecified bacterial pneumonia; J96.12 Chronic respiratory failure with hypercapnia; I50.9 Heart failure, unspecified; I25.10 Atherosclerotic heart disease of native coronary artery without angina pectoris; Z79.899 Other long term (current) drug therapy; Z79.82 Long term (current) use of aspirin; Z99.81 Dependence on supplemental oxygen; Z87.891 Personal history of nicotine dependence

== ENCOUNTER → 2017-05-29 | Outpatient (CLI) | payer MEDICARE ==
[~2017-05-29] MED LIST changes: +ACET-683 PO; +ALBU17IN INH; +ATOR80TA59 PO; +AZIT500T2 PO; +BENCRE3 EXT; +FLUT22IN INH; +FURO40TA2 PO; +INCR1INH INH; +IPRASOL4 INH; +NITR4TASL SL; +PRED10TA2 PO; +SPIR25TA2 PO; +TOPR50TA PO; +VITMTA PO
--- NOTE | 2017-05-29 12:42 | REP ---
Follow-up PA and lateral chest: Comparison is 05/11/2017. The bibasilar infiltrates have significantly improved. The remainder of the lung mcadams remain clear. Cardiac size is borderline enlarged, unchanged. Sternotomy wires and surgical clips are unchanged. Impression: Significantly improved bibasilar infiltrates. Signed by Daniel Millan MD 05/29/2017 12:34 P
== END ==
LOC: M SMT 11:05
PROVIDERS: ATTEND Physician Assistant
DX: J18.9 Pneumonia, unspecified organism (principal)

== ENCOUNTER → 2017-08-22 | Outpatient (REF) | payer MEDICARE ==
[2017-08-22 18:38] LABS: ALBUMIN 4.2 GM/DL (3.2-5.2); ALKALINE PHOSPHATASE 50 U/L (45-117); ALT/SGPT 25 U/L (12-78); ANION GAP 5 MEQ/L (8-16); AST/SGOT 25 U/L (7-37); BILIRUBIN,TOTAL 0.9 MG/DL (0.2-1.0); BLOOD UREA NITROGEN 24 MG/DL (7-18); CALCIUM LEVEL 9.3 MG/DL (8.8-10.2); CARBON DIOXIDE LEVEL 34 MEQ/L (21-32); CHLORIDE LEVEL 102 MEQ/L (98-107); CREATININE FOR GFR 1.25 MG/DL (0.70-1.30); GLOMERULAR FILTRATION RATE > 60.0 (>42); GLUCOSE, FASTING 108 MG/DL (83-110); POTASSIUM SERUM 4.5 MEQ/L (3.5-5.1); SODIUM LEVEL 141 MEQ/L (136-145)
== END ==
LOC: M LABDRWCV 16:35
PROVIDERS: ATTEND Physician Assistant
DX: I25.10 Atherosclerotic heart disease of native coronary artery without angina pectoris (principal); I50.32 Chronic diastolic (congestive) heart failure; E78.00 Pure hypercholesterolemia, unspecified; Z23 Encounter for immunization
CPT/HCPCS: 36415; 80053; 90662; G0008

== ENCOUNTER 2017-11-15 00:52 | Inpatient (IN) | payer MEDICARE ==
[2017-11-15] MEDS: methylPREDNISolone INJ 125 MG/2 ML VIAL (J2930) IV (01:45)
[2017-11-15 01:57] LABS: BASO % 0.2 % (0.0-1.0); EOS % 0.3 % (0.0-3.0); HEMOGLOBIN 13.5 g/dl (14.0-18.0); IMMATURE GRANULOCYTE % 0.3 % (0-0); LYMPH # 0.8 10^3/uL (1.5-4.5); LYMPH % 6.4 % (24.0-44.0); MEAN CORPUSCULAR HEMOGLOBIN 30.9 pg (27.0-33.0); MEAN CORPUSCULAR HGB CONC 32.9 g/dl (32.0-36.5); MEAN CORPUSCULAR VOLUME 93.8 fl (80.0-96.0); MONO # 0.7 10^3/uL (0.0-0.8); MONO % 5.8 % (0.0-5.0); NEUTROPHILS # 10.2 10^3/uL (1.8-7.7); PLATELET COUNT, AUTOMATED 162 10^3/uL (150-450); RED BLOOD COUNT 4.37 10^6/uL (4.30-6.10); RED CELL DISTRIBUTION WIDTH 14.8 % (11.5-14.5); WHITE BLOOD COUNT 11.7 10^3/uL (4.0-10.0)
[2017-11-15] MEDS: IPRATROPIUM 0.5MG/ALBUTEROL 2.5MG INH SOL UD 3ML (DUONEB)(J7620) NEB ×8 (01:58→22:43)
[2017-11-15 02:02] LABS: ABG BASE EXCESS 4.3 (-2.0-2.0); ABG HCO3 29.5 MEQ/L (22.0-26.0); ABG O2 SATURATION 94.3 % (95.0-99.0); ABG PARTIAL PRESSURE CO2 46.6 mmHg (35.0-45.0); ABG PARTIAL PRESSURE O2 65.7 mmHg (75.0-100.0); ABG STANDARD HCO3 28.2 MEQ/L (22.0-26.0)
[2017-11-15 02:27] LABS: LACTIC ACID SEPSIS PROTOCOL 1.3 MMOL/L (0.4-2.0)
[2017-11-15 02:28] LABS: ANION GAP 6 MEQ/L (8-16); BLOOD UREA NITROGEN 27 MG/DL (7-18); CALCIUM LEVEL 8.7 MG/DL (8.8-10.2); CARBON DIOXIDE LEVEL 32 MEQ/L (21-32); CHLORIDE LEVEL 102 MEQ/L (98-107); CPK CREATINE PHOSPHOKINASE 174 U/L (39-308); CREATININE FOR GFR 1.37 MG/DL (0.70-1.30); GLOMERULAR FILTRATION RATE 54.5 (>42); GLUCOSE, FASTING 125 MG/DL (70-100); POTASSIUM SERUM 4.4 MEQ/L (3.5-5.1); SODIUM LEVEL 140 MEQ/L (136-145); TROPONIN I < 0.02 NG/ML (< 0.10)
[2017-11-15 02:29] LABS: CK-MB VALUE MASS 1.4 NG/ML (0.0-3.6)
[2017-11-15 02:33] LABS: NT-PRO BNP 557 PG/ML (<125)
[2017-11-15] MEDS ORDERED: ONDANSETRON 4MG/2ML VIAL (J2405) IV (03:30)
[2017-11-15] MEDS: AZITHROMYCIN INJ 500 MG, VIAL MATE ADAPTER 1 EACH in D5W 250 ML IV (03:30)
[2017-11-15] MEDS ORDERED: ACETAMINOPHEN TAB 650MG DOSE (2X325MG) PO (03:30)
[2017-11-15] MEDS: CEFTRIAXONE SOD 2 GM in APPROPRIATE DILUENT 1 EA IV (03:41)
[2017-11-15] MEDS ORDERED: SPIRONOLACTONE 12.5MG PER 1/2 TABLET PO (09:00)
[2017-11-15] MEDS ORDERED: FUROSEMIDE 40 MG TAB PO (09:00)
[2017-11-15] MEDS: ASPIRIN ENTERIC 325 MG TAB PO (09:00)
[2017-11-15] MEDS: METOPROLOL SUCC (TopROL XL) 50MG **XL** TAB PO (09:00)
[2017-11-15] MEDS: FLUTICASONE HFA 220 MCG 12 GM INHALER (FLOVENT) INH ×2 (10:02→22:42)
[2017-11-15] MEDS: ENOXAPARIN 30 MG/0.3 ML SYR (J1650) SC (10:36)
[2017-11-15] MEDS: MULTIVITAMINS/MINERALS THERAP 1 TAB PO (10:36)
[2017-11-15] MEDS ORDERED: methylPREDNISolone 500 MG, VIAL MATE ADAPTER 1 EACH in D5W 250 ML IV (12:00)
[2017-11-15 12:22] LABS: CK-MB VALUE MASS 1.3 NG/ML (0.0-3.6); CPK CREATINE PHOSPHOKINASE 133 U/L (39-308); MB/CK RELATIVE INDEX 0.97 (< OR =4); TROPONIN I < 0.02 NG/ML (< 0.10)
[2017-11-15] MEDS: predniSONE 20 MG TAB PO (16:06)
[2017-11-15] MEDS: NS 1,000 ML IV (17:29)
[2017-11-15 18:55] LABS: CK-MB VALUE MASS 1.8 NG/ML (0.0-3.6); CPK CREATINE PHOSPHOKINASE 128 U/L (39-308); TROPONIN I < 0.02 NG/ML (< 0.10)
[2017-11-15] MEDS: ATORVASTATIN 20 MG TAB PO (21:11)
[2017-11-16 01:04] LABS: CK-MB VALUE MASS 1.4 NG/ML (0.0-3.6); CPK CREATINE PHOSPHOKINASE 106 U/L (39-308); MB/CK RELATIVE INDEX 1.32 (< OR =4); TROPONIN I < 0.02 NG/ML (< 0.10)
[2017-11-16] MEDS: IPRATROPIUM 0.5MG/ALBUTEROL 2.5MG INH SOL UD 3ML (DUONEB)(J7620) NEB ×6 (03:45→23:37)
[2017-11-16] MEDS: CEFTRIAXONE SOD 2 GM in APPROPRIATE DILUENT 1 EA IV (04:07)
[2017-11-16] MEDS: AZITHROMYCIN INJ 500 MG, VIAL MATE ADAPTER 1 EACH in D5W 250 ML IV (04:16)
[2017-11-16 06:53] LABS: BASO % 0.1 % (0.0-1.0); HEMATOCRIT 39.1 % (42.0-52.0); HEMOGLOBIN 12.8 g/dl (14.0-18.0); IMMATURE GRANULOCYTE # 0.1 10^3/uL (0-0); IMMATURE GRANULOCYTE % 0.6 % (0-0); LYMPH # 0.8 10^3/uL (1.5-4.5); LYMPH % 6.1 % (24.0-44.0); MEAN CORPUSCULAR HEMOGLOBIN 30.8 pg (27.0-33.0); MEAN CORPUSCULAR HGB CONC 32.7 g/dl (32.0-36.5); MEAN CORPUSCULAR VOLUME 94.2 fl (80.0-96.0); MONO % 7.4 % (0.0-5.0); NEUTROPHILS # 11.4 10^3/uL (1.8-7.7); NEUTROPHILS % 85.8 % (36.0-66.0); PLATELET COUNT, AUTOMATED 157 10^3/uL (150-450); RED BLOOD COUNT 4.15 10^6/uL (4.30-6.10); RED CELL DISTRIBUTION WIDTH 15.1 % (11.5-14.5); WHITE BLOOD COUNT 13.3 10^3/uL (4.0-10.0)
[2017-11-16 07:10] LABS: ANION GAP 3 MEQ/L (8-16); BLOOD UREA NITROGEN 25 MG/DL (7-18); CALCIUM LEVEL 9.3 MG/DL (8.8-10.2); CARBON DIOXIDE LEVEL 33 MEQ/L (21-32); CHLORIDE LEVEL 104 MEQ/L (98-107); CREATININE FOR GFR 0.98 MG/DL (0.70-1.30); GLOMERULAR FILTRATION RATE > 60.0 (>42); GLUCOSE, FASTING 132 MG/DL (70-100); POTASSIUM SERUM 4.5 MEQ/L (3.5-5.1); SODIUM LEVEL 140 MEQ/L (136-145)
[2017-11-16] MEDS: FLUTICASONE HFA 220 MCG 12 GM INHALER (FLOVENT) INH ×2 (08:10→21:28)
[2017-11-16] MEDS: predniSONE 20 MG TAB PO (08:32)
[2017-11-16] MEDS: MULTIVITAMINS/MINERALS THERAP 1 TAB PO (08:32)
[2017-11-16] MEDS: ENOXAPARIN 30 MG/0.3 ML SYR (J1650) SC (08:32)
[2017-11-16] MEDS: ASPIRIN ENTERIC 325 MG TAB PO (08:32)
[2017-11-16] MEDS: METOPROLOL SUCC (TopROL XL) 50MG **XL** TAB PO (08:32)
[2017-11-16] MEDS: INCRUSE ELLIPTA 62.5MCG (PATIENT'S OWN MED) INH (18:25)
[2017-11-16] MEDS ORDERED: NITROGLYCERIN 0.4 MG SUBL TABLET SL (19:00)
[2017-11-16] MEDS: ATORVASTATIN 20 MG TAB PO (21:20)
[2017-11-17] MEDS: IPRATROPIUM 0.5MG/ALBUTEROL 2.5MG INH SOL UD 3ML (DUONEB)(J7620) NEB ×3 (02:14→11:31)
[2017-11-17] MEDS: CEFTRIAXONE SOD 2 GM in APPROPRIATE DILUENT 1 EA IV (04:21)
[2017-11-17] MEDS: AZITHROMYCIN INJ 500 MG, VIAL MATE ADAPTER 1 EACH in D5W 250 ML IV (04:21)
[2017-11-17 06:01] LABS: BASO % 0.2 % (0.0-1.0); EOS % 0.1 % (0.0-3.0); IMMATURE GRANULOCYTE # 0.1 10^3/uL (0-0); IMMATURE GRANULOCYTE % 0.6 % (0-0); LYMPH # 0.9 10^3/uL (1.5-4.5); LYMPH % 9.1 % (24.0-44.0); MEAN CORPUSCULAR HEMOGLOBIN 30.3 pg (27.0-33.0); MEAN CORPUSCULAR HGB CONC 31.7 g/dl (32.0-36.5); MEAN CORPUSCULAR VOLUME 95.6 fl (80.0-96.0); MONO # 0.8 10^3/uL (0.0-0.8); MONO % 7.9 % (0.0-5.0); NEUTROPHILS # 8.1 10^3/uL (1.8-7.7); NEUTROPHILS % 82.1 % (36.0-66.0); PLATELET COUNT, AUTOMATED 187 10^3/uL (150-450); RED BLOOD COUNT 4.29 10^6/uL (4.30-6.10); RED CELL DISTRIBUTION WIDTH 15.2 % (11.5-14.5); WHITE BLOOD COUNT 9.8 10^3/uL (4.0-10.0)
[2017-11-17 06:18] LABS: ANION GAP 3 MEQ/L (8-16); BLOOD UREA NITROGEN 26 MG/DL (7-18); CALCIUM LEVEL 9.1 MG/DL (8.8-10.2); CARBON DIOXIDE LEVEL 34 MEQ/L (21-32); CHLORIDE LEVEL 103 MEQ/L (98-107); CREATININE FOR GFR 0.95 MG/DL (0.70-1.30); GLOMERULAR FILTRATION RATE > 60.0 (>42); GLUCOSE, FASTING 129 MG/DL (70-100); POTASSIUM SERUM 3.9 MEQ/L (3.5-5.1); SODIUM LEVEL 140 MEQ/L (136-145)
[2017-11-17] MEDS: METOPROLOL SUCC (TopROL XL) 50MG **XL** TAB PO (08:09)
[2017-11-17] MEDS: SPIRONOLACTONE 12.5MG PER 1/2 TABLET PO (08:09)
[2017-11-17] MEDS: ASPIRIN ENTERIC 325 MG TAB PO (08:09)
[2017-11-17] MEDS: MULTIVITAMINS/MINERALS THERAP 1 TAB PO (08:09)
[2017-11-17] MEDS: predniSONE 20 MG TAB PO (08:09)
[2017-11-17] MEDS: ENOXAPARIN 30 MG/0.3 ML SYR (J1650) SC (08:10)
[2017-11-17] MEDS: PNEUMOCOCCAL VACCINE 0.5ML SYRINGE(90732) PNEUMOVAX 23 IM (08:11)
[2017-11-17] MEDS: INCRUSE ELLIPTA 62.5MCG (PATIENT'S OWN MED) INH (08:18)
[2017-11-17] MEDS: FLUTICASONE HFA 220 MCG 12 GM INHALER (FLOVENT) INH (08:18)
[2017-11-17 14:12] LABS: BODY FLUID CULTURE Not Indicated (.); LEGIONELLA ANTIGEN URINE Negative (Negative); ORGANISM ID Not indicated. (.); SPECIMEN SOURCE Urine (.); URINE STREP PNEUMONIAE ANTIGEN Negative (Negative)
== END 2017-11-17 14:09 | disposition home or self-care (01) | DRG 194 ==
LOC: M MSPAV 03:25 → M ED 00:52 → M ED INP 03:25 → M MSPAV 13:53
DX: J18.9 Pneumonia, unspecified organism (principal); J44.1 Chronic obstructive pulmonary disease with (acute) exacerbation; I50.32 Chronic diastolic (congestive) heart failure; N17.9 Acute kidney failure, unspecified; I25.10 Atherosclerotic heart disease of native coronary artery without angina pectoris; I11.0 Hypertensive heart disease with heart failure; Z79.899 Other long term (current) drug therapy; Z87.891 Personal history of nicotine dependence; Z79.82 Long term (current) use of aspirin

== ENCOUNTER → 2017-11-20 | Outpatient (REF) | payer MEDICARE ==
[2017-11-20 18:10] LABS: ALBUMIN 3.8 GM/DL (3.2-5.2); ANION GAP 6 MEQ/L (8-16); BLOOD UREA NITROGEN 28 MG/DL (7-18); CALCIUM LEVEL 8.8 MG/DL (8.8-10.2); CARBON DIOXIDE LEVEL 31 MEQ/L (21-32); CHLORIDE LEVEL 101 MEQ/L (98-107); CREATININE FOR GFR 1.14 MG/DL (0.70-1.30); GLOMERULAR FILTRATION RATE > 60.0 (>42); GLUCOSE, FASTING 106 MG/DL (70-100); PHOSPHORUS LEVEL 4.2 MG/DL (2.5-4.9); POTASSIUM SERUM 4.6 MEQ/L (3.5-5.1); SODIUM LEVEL 138 MEQ/L (136-145)
== END ==
LOC: M LAB REF 16:40
DX: I50.32 Chronic diastolic (congestive) heart failure (principal)
CPT/HCPCS: 80069

== ENCOUNTER → 2018-02-25 | Outpatient (REF) | payer MEDICARE ==
[2018-02-25 18:28] LABS: ALBUMIN 3.9 GM/DL (3.2-5.2); ALBUMIN/GLOBULIN RATIO 1.26 (1.00-1.93); ALKALINE PHOSPHATASE 54 U/L (45-117); ALT/SGPT 19 U/L (12-78); ANION GAP 4 MEQ/L (8-16); AST/SGOT 26 U/L (7-37); BILIRUBIN,TOTAL 0.9 MG/DL (0.2-1.0); BLOOD UREA NITROGEN 20 MG/DL (7-18); CARBON DIOXIDE LEVEL 32 MEQ/L (21-32); CHLORIDE LEVEL 106 MEQ/L (98-107); CHOLESTEROL LEVEL 121 MG/DL (<200); CHOLESTEROL RISK RATIO 2.086 (<5); CREATININE FOR GFR 1.13 MG/DL (0.70-1.30); GLOMERULAR FILTRATION RATE > 60.0 (>42); GLUCOSE, FASTING 88 MG/DL (70-100); HDL CHOLESTEROL 58 MG/DL (>40); LDL CHOLESTEROL 49.4 MG/DL (<100); NON-HDL-C 63 MG/DL; POTASSIUM SERUM 4.4 MEQ/L (3.5-5.1); SODIUM LEVEL 142 MEQ/L (136-145); TRIGLYCERIDES LEVEL 68 MG/DL (<150)
[2018-02-25 18:43] LABS: HEMATOCRIT 41.4 % (42.0-52.0); HEMOGLOBIN 13.1 g/dl (13.5-17.5); MEAN CORPUSCULAR HEMOGLOBIN 30.3 pg (27.0-33.0); MEAN CORPUSCULAR HGB CONC 31.6 g/dl (32.0-36.5); MEAN CORPUSCULAR VOLUME 95.8 fl (80.0-96.0); PLATELET COUNT, AUTOMATED 215 10^3/uL (150-450); RED BLOOD COUNT 4.32 10^6/uL (4.30-6.10); RED CELL DISTRIBUTION WIDTH 15.3 % (11.5-14.5); WHITE BLOOD COUNT 5.7 10^3/uL (4.0-10.0)
== END ==
LOC: M LAB REF 17:40
DX: I25.10 Atherosclerotic heart disease of native coronary artery without angina pectoris (principal); I50.32 Chronic diastolic (congestive) heart failure; E78.00 Pure hypercholesterolemia, unspecified
CPT/HCPCS: 80053

== ENCOUNTER → 2018-06-07 | Outpatient (CLI) | payer MEDICARE | LOC: M CLY 09:39 | DX: M50.222 Other cervical disc displacement at C5-C6 level (principal); M50.221 Other cervical disc displacement at C4-C5 level | CPT/HCPCS: 72052 ==

== ENCOUNTER → 2018-06-26 | Outpatient (REF) | payer MEDICARE ==
[2018-06-26 19:48] LABS: ANION GAP 10 MEQ/L (8-16); BLOOD UREA NITROGEN 27 MG/DL (7-18); CALCIUM LEVEL 9.3 MG/DL (8.8-10.2); CARBON DIOXIDE LEVEL 29 MEQ/L (21-32); CHLORIDE LEVEL 103 MEQ/L (98-107); CREATININE FOR GFR 1.37 MG/DL (0.70-1.30); GLOMERULAR FILTRATION RATE 54.4 (>42); GLUCOSE, FASTING 80 MG/DL (70-100); POTASSIUM SERUM 4.4 MEQ/L (3.5-5.1); SODIUM LEVEL 142 MEQ/L (136-145)
== END ==
LOC: M LABDRWCV 18:31
DX: I50.32 Chronic diastolic (congestive) heart failure (principal)
CPT/HCPCS: 80048

== ENCOUNTER → 2018-09-25 | Outpatient (REF) | payer MEDICARE ==
[2018-09-25 17:09] LABS: ANION GAP 4 MEQ/L (8-16); BLOOD UREA NITROGEN 29 MG/DL (7-18); CALCIUM LEVEL 9.3 MG/DL (8.8-10.2); CARBON DIOXIDE LEVEL 34 MEQ/L (21-32); CHLORIDE LEVEL 102 MEQ/L (98-107); CREATININE FOR GFR 1.38 MG/DL (0.70-1.30); GLOMERULAR FILTRATION RATE 53.9 (>42); GLUCOSE, FASTING 78 MG/DL (70-100); POTASSIUM SERUM 4.5 MEQ/L (3.5-5.1); SODIUM LEVEL 140 MEQ/L (136-145)
== END ==
LOC: M LABDRWCV 16:24
DX: I50.32 Chronic diastolic (congestive) heart failure (principal)
CPT/HCPCS: 80048

== ENCOUNTER → 2018-12-16 | Outpatient (REF) | payer MEDICARE ==
[~2018-12-16] MED LIST changes: +ALEV220T26 PO; +ASPI325T25 PO; -BENCRE3 EXT; +BENG1CRE3 EXT; +CEFD1CAP8 PO; +IPRA0.00 INH; -IPRASOL4 INH; +MELO15TA28 PO; +MUCI600T37 PO; +SPIR-10 PO; -SPIR25TA2 PO; +TIOT18INH INH; -TOPR50TA PO; +TOPR50TA23 PO; +VENTAER INH; +[UNRECOGNIZED DRUG - CODE] EXT
[2018-12-16 17:35] LABS: CALCIUM LEVEL 8.9 MG/DL (8.8-10.2); CREATININE FOR GFR 1.33 MG/DL (0.70-1.30); GLOMERULAR FILTRATION RATE 56.3 (>42); MAGNESIUM LEVEL 2.2 MG/DL (1.8-2.4); POTASSIUM SERUM 4.7 MEQ/L (3.5-5.1)
== END ==
LOC: M LABDRWCV 16:53
PROVIDERS: ATTEND Physician Assistant
DX: I50.32 Chronic diastolic (congestive) heart failure (principal); E83.42 Hypomagnesemia

== ENCOUNTER 2019-01-10 16:22 | Inpatient (IN) | payer MEDICARE ==
[~2019-01-10] VITALS: Ht 195.6 cm; Wt 99.2 kg
[~2019-01-10 16:22] MED LIST changes: -MELO15TA28 PO; -VENTAER INH
[2019-01-10 17:23] LABS: BASO # 0.1 10^3/uL (0.0-0.2); BASO % 0.7 % (0.0-1.0); EOS # 0.2 10^3/uL (0.0-0.50); EOS % 2.3 % (0.0-3.0); HEMATOCRIT 28.5 % (42.0-52.0); HEMOGLOBIN 8.9 g/dl (13.5-17.5); LYMPH # 1.2 10^3/uL (1.5-4.5); LYMPH % 15.5 % (24.0-44.0); MEAN CORPUSCULAR HGB CONC 31.2 g/dl (32.0-36.5); MONO # 0.6 10^3/uL (0.0-0.8); MONO % 8.1 % (0.0-5.0); NEUTROPHILS # 5.5 10^3/uL (1.8-7.7); PLATELET COUNT, AUTOMATED 180 10^3/uL (150-450); RED BLOOD COUNT 2.97 10^6/uL (4.30-6.10); WHITE BLOOD COUNT 7.5 10^3/uL (4.0-10.0)
[2019-01-10 17:31] LABS: INR 1.12; PROTHROMBIN TIME 14.5 SECONDS (12.1-14.4)
[2019-01-10 17:47] LABS: ALBUMIN 3.3 GM/DL (3.2-5.2); ALT/SGPT 18 U/L (12-78); BILIRUBIN,DIRECT < 0.1 MG/DL (0.0-0.2); BILIRUBIN,TOTAL 0.4 MG/DL (0.2-1.0); BLOOD UREA NITROGEN 72 MG/DL (7-18); CALCIUM LEVEL 8.5 MG/DL (8.8-10.2); CARBON DIOXIDE LEVEL 28 MEQ/L (21-32); CHLORIDE LEVEL 106 MEQ/L (98-107); CPK CREATINE PHOSPHOKINASE 137 U/L (39-308); CREATININE FOR GFR 1.33 MG/DL (0.70-1.30); GLOMERULAR FILTRATION RATE 56.1 (>42); GLUCOSE, FASTING 127 MG/DL (70-100); INFLUENZA A AMPLIFICATION NEGATIVE (NEGATIVE); INFLUENZA B AMPLIFICATION NEGATIVE (NEGATIVE); MB/CK RELATIVE INDEX 2.19 (< OR =4); POTASSIUM SERUM 5.3 MEQ/L (3.5-5.1); SODIUM LEVEL 140 MEQ/L (136-145); TOTAL PROTEIN 5.9 GM/DL (6.4-8.2); TROPONIN I < 0.02 NG/ML (< 0.10)
[2019-01-10] MEDS ORDERED: PANTOPRAZOLE 40MG INJ (PROTONIX) (C9113) IV ONE (18:15)
[2019-01-10] MEDS ORDERED: VENTAER INH (18:46)
[2019-01-10] MEDS ORDERED: MELO15TA28 PO (18:46)
[2019-01-10] MEDS ORDERED: NS 500 ML IV ONE (19:00)
--- NOTE | 2019-01-10 20:56 | REP ---
CHEST, TWO VIEWS: Two views of the chest are performed. COMPARISON: 01/17/2018 There is chronic pleural and parenchymal fibrotic changes which appear stable. No definite new infiltrate is seen. Heart is not enlarged. Mediastinal silhouette is unchanged. Multiple sternal wires and mediastinal clips are present. There are degenerative changes of the spine. IMPRESSION: Stable chronic changes without acute infiltrate. Electronically Signed by Daniel Mcgovern MD 01/11/2019 06:41 P
[2019-01-10] MEDS ORDERED: MORPHINE 4 MG/ML 1ML VIAL/SYRINGE (J2270) IV PRN (21:00)
[2019-01-10] MEDS ORDERED: ACETAMINOPHEN TAB 650MG DOSE (2X325MG) PO PRN (21:00)
[2019-01-10] MEDS ORDERED: ONDANSETRON 4 MG TAB (S0181) PO PRN (21:00)
[2019-01-10] MEDS ORDERED: BISACODYL 5 MG TAB PO PRN (21:00)
[2019-01-10 22:40] VITALS: BP 110/70
[2019-01-11] VITALS: BP 112/68
--- NOTE | 2019-01-11 00:20 | HPEPDOC ---
[facility] Medical History & Physical Date of Admission Jan 10, 2019 History and Physical CHIEF COMPLAINT: [weakness] HPI - This is a 74 yo male with pmhx of CAD s/p quadrouple bypass onb 325 of aspirin, who presented to the ED for weakness and black stool. He noticed the black stool yesterday, since then had multiple episodes. Also noted on patient's med list is meloxican. Patient said this never happened before. He has been feeling lightheaded as well and syncopized while sitting in the ED. He denied any fever, chills, chest pain, sob hematuria, dysuria, nausea, vomiting or diarrhea. He complained of headache 2-3/10, said he usually have headaches in the morning when he wakes up, "more like a hang over feeling - nothing too serious ". ROS - all 14 point ros negative except for what's stated in HPI PAST MEDICAL HISTORY: 1. COPD ON 2L NC 2. Coronary artery disease. 3. Diastolic congestive heart failure (CHF). PAST SURGICAL HISTORY: 1. Coronary artery bypass graft (CABG) 2006. 2. Right hip arthroplasty secondary to fracture. 3. inguinal hernia repair SOCIAL HISTORY: Patient lives at [facility] with his . History of smoking, quit smoking 2006, 1 pack per day for 40 years, 1 can of beers every month on average. FAMILY HISTORY: Father lived up to 94. Mother lived up to 87 HTN, CAD. Brother has heart disease Physical Exam GEN: NAD , normal built, pale conjunctiva HEENT: normocephalic, atraumatic, PERRLA, EOMI, external ears appears normal, neck supple, no pharyngeal erythema CVS : normal S1, S2 no murmur, rubs or gallops , PMI nondisplaced RESP: no rals, rhonchi, crackles, or wheezes, LCTAB ABD - +BS, soft, NT, ND , no cva tenderness MSK no joint swelling, FROM, no muscle tenderness Neuro no focal deficit, AOAX3 Lymphatics- no lymphedema, no lymphadenopathy in cervical and supraclavicular chains Psych- normal mood and affect, good judgement and insight ALLERGIES: Please see below. HOME MEDICATIONS: Please see below. IMAGING: [ekg- NSR with first degree heart block, cxr - no acute process] MICROBIOLOGY: Please see below. ASSESSMENT AND PLAN UPPER GIB - s/p iv protonix 80mg - c/w iv 40mg bid protonix - npo for now - holding aspirin and meloxicam - GI consult - s/p one unit of prbc - H and H q6h - monitor for worsened gib or signs of hemodynamic instability Acute renal failure - likely due to acute blood loss and volume depletion - was orthostatic hypotensive in ED - syncopized - s/p prbc 1 unit - c/w ivf - transfuse if patient continues to lose blood and is symptomatic CAD s/p cabg//htn//chf - hold aspirin - monitor BP - hold bp meds for now - c/w metoprolol for now COPD on 2 L NC - resp status stable - monitor for now -c/w home meds - duoneb prn - c./w breo elipta dvt ppx - scd gi ppx full code, from home, Vital Signs Vital Signs Date Time Temp Pulse Resp B/P (MAP) Pulse Ox O2 Delivery O2 Flow Rate FiO2 01/10/19 21:00 98.0 82 16 96/66 (76) 97 Nasal Cannula 2.0 Laboratory Data Labs 24H Laboratory Tests 2 01/10/19 16:42: Immature Granulocyte % (Auto) 0.4, White Blood Count 7.5, Red Blood Count 2.97L, Hemoglobin 8.9L, Hematocrit 28.5L, Mean Corpuscular Volume 96.0, Mean Corpuscular Hemoglobin 30.0, Mean Corpuscular Hemoglobin Concent 31.2L, Red Cell Distribution Width 15.8H, Platelet Count 180, Neutrophils (%) (Auto) 73.0H, Lymphocytes (%) (Auto) 15.5L, Monocytes (%) (Auto) 8.1H, Eosinophils (%) (Auto) 2.3, Basophils (%) (Auto) 0.7, Neutrophils # (Auto) 5.5, Lymphocytes # (Auto) 1.2L, Monocytes # (Auto) 0.6, Eosinophils # (Auto) 0.2, Basophils # (Auto) 0.1, Nucleated Red Blood Cells % (auto) 0.0, Prothrombin Time 14.5H, Prothromb Time International Ratio 1.12, Anion Gap 6L, Glomerular Filtration Rate 56.1, Calcium Level 8.5L, Aspartate Amino Transf (AST/SGOT) 17, Alanine Aminotransferase (ALT/SGPT) 18, Alkaline Phosphatase 45, Total Bilirubin 0.4, Direct Bilirubin < 0.1, Total Creatine Kinase 137, Creatine Kinase MB 3.0, Creatine Kinase MB Relative Index 2.19, Troponin I < 0.02, Total Protein 5.9L, Albumin 3.3, Albumin/Globulin Ratio 1.27, Thyroid Stimulating Hormone (TSH) 2.370, Influenza Type A (RT-PCR) NEGATIVE, Influenza Type B (RT-PCR) NEGATIVE CBC/BMP Laboratory Tests 01/10/19 16:42 Red Blood Count 2.97 L, Mean Corpuscular Volume 96.0, Mean Corpuscular Hemoglobin 30.0, Mean Corpuscular Hemoglobin Concent 31.2 L, Red Cell Distribution Width 15.8 H, Neutrophils (%) (Auto) 73.0 H, Lymphocytes (%) (Auto) 15.5 L, Monocytes (%) (Auto) 8.1 H, Eosinophils (%) (Auto) 2.3, Basophils (%) (Auto) 0.7, Neutrophils # (Auto) 5.5, Lymphocytes # (Auto) 1.2 L, Monocytes # (Auto) 0.6, Eosinophils # (Auto) 0.2, Basophils # (Auto) 0.1 Home Medications Scheduled (Incruse Ellipta) 62.5 Mcg/Inh Inh, 62.5 MCG INH DAILY Aspirin (Aspirin EC) 325 Mg Tabec, 325 MG PO DAILY Atorvastatin Calcium (Atorvastatin Calcium) 80 Mg Tab, 80 MG PO QHS Fluticasone Propionate (Flovent Hfa) 220 Mcg/Act Aer, 2 PUFF INH BID Furosemide (Furosemide) 40 Mg Tab, 40 MG PO DAILY Meloxicam (Meloxicam) 15 Mg Tab, 15 MG PO DAILY Metoprolol Succinate (Toprol Xl) 50 Mg Tab, 50 MG PO DAILY Multivitamins *[facility] STOCKED* (Thera M Plus *[facility] STOCKED*) 1 Tab Tab, 1 TAB PO DAILY Spironolactone (Spironolactone) 25 Mg Tab, 12.5 MG PO DAILY Scheduled PRN Acetaminophen (Acetaminophen Extra Stren) 500 Mg Tab, 500 MG PO Q4H PRN for PAIN Albuterol Sulfate (Ventolin Hfa) 108 Mcg/Act Aer, 2 PUFFS INH QID PRN for SHORTNESS OF BREATH Albuterol/Ipratropium (Ipratropium [place]/Albut 0.5-2.5 (3) mg/3Ml) 1 Butch Butch, 1 BUTCH INH Q6H PRN for SHORTNESS OF BREATH Nitroglycerin (Nitrostat) 0.4 Mg Subl, 0.4 MG SL NITRO PRN for CHEST PAIN Allergies Coded Allergies: No Known Drug Allergy (Verified Allergy, Unknown, 11/15/17) BROOKLYN HARDEN MD Jan 10, 2019 22:00
[2019-01-11] MEDS ORDERED: IPRATROPIUM 0.5MG/ALBUTEROL 2.5MG INH SOL UD 3ML (DUONEB)(J7620) NEB PRN (01:00)
[2019-01-11 04:00] VITALS: BP 107/58
[2019-01-11] MEDS: NS 1,000 ML IV SCH ×2 (04:05→15:43)
[2019-01-11 05:08] LABS: BASO % 0.3 % (0.0-1.0); EOS # 0.2 10^3/uL (0.0-0.50); EOS % 2.8 % (0.0-3.0); HEMATOCRIT 24.6 % (42.0-52.0); HEMOGLOBIN 7.9 g/dl (13.5-17.5); LYMPH # 1.1 10^3/uL (1.5-4.5); LYMPH % 13.9 % (24.0-44.0); MEAN CORPUSCULAR HEMOGLOBIN 30.4 pg (27.0-33.0); MEAN CORPUSCULAR HGB CONC 32.1 g/dl (32.0-36.5); MEAN CORPUSCULAR VOLUME 94.6 fl (80.0-96.0); MONO # 0.6 10^3/uL (0.0-0.8); MONO % 8.1 % (0.0-5.0); NEUTROPHILS # 5.9 10^3/uL (1.8-7.7); NEUTROPHILS % 74.5 % (36.0-66.0); PLATELET COUNT, AUTOMATED 156 10^3/uL (150-450); WHITE BLOOD COUNT 7.9 10^3/uL (4.0-10.0)
[2019-01-11 05:37] LABS: BLOOD UREA NITROGEN 68 MG/DL (7-18); CALCIUM LEVEL 8.2 MG/DL (8.8-10.2); CARBON DIOXIDE LEVEL 29 MEQ/L (21-32); CHLORIDE LEVEL 108 MEQ/L (98-107); GLOMERULAR FILTRATION RATE > 60.0 (>42); GLUCOSE, FASTING 116 MG/DL (70-100); MAGNESIUM LEVEL 2.3 MG/DL (1.8-2.4); POTASSIUM SERUM 4.6 MEQ/L (3.5-5.1); SODIUM LEVEL 143 MEQ/L (136-145)
--- NOTE | 2019-01-11 07:17 | ECGEPIP ---
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
[2019-01-11 08:00] VITALS: BP 119/70
[2019-01-11] MEDS: PANTOPRAZOLE SODIUM 40 MG in D5W 50 ML IV SCH ×3 (08:09→17:06)
[2019-01-11] MEDS: FLUTICASONE HFA 220 MCG 12 GM INHALER (FLOVENT) INH SCH ×2 (08:11→20:51)
[2019-01-11] MEDS: ADVAIR HFA 115/21MCG INHALER INH SCH ×2 (09:00→20:50)
[2019-01-11] MEDS ORDERED: PANTOPRAZOLE 40MG INJ (PROTONIX) (C9113) IV SCH ×2 (09:00→21:00)
[2019-01-11] MEDS ORDERED: ENTER DRUG NAME HERE (PATIENT'S OWN MED) INH SCH (09:00)
[2019-01-11] MEDS ORDERED: LIDOCAINE 2% INJ 100 MG/5 ML SDV (FOR ANES.) As Ordered ONE (10:25)
[2019-01-11] MEDS ORDERED: PROPOFOL 200 MG/20 ML VIAL As Ordered ONE ×2 (10:25→10:26)
[2019-01-11] MEDS ORDERED: PHENYLephrine HCL 500 MCG/5 ML (100MCG/ML) SYRINGE (J2370) As Ordered ONE (10:26)
[2019-01-11] MEDS ORDERED: ePHEDrine SULFATE 25 MG/5 ML(5MG/ML) SYRINGE As Ordered ONE (10:32)
--- NOTE | 2019-01-11 11:10 | ROOR ---
Patient Name: Caesar Ruby Procedure Date: 01/11/2019 9:57 AM Date of : 1945 Age: 74 Gender: Male Note Status: Finalized Procedure: Upper GI endoscopy Indications: Acute post hemorrhagic anemia, Melena Providers: Willi TANG MD Referring MD: 2. Inpatient 2. Inpatient Requesting Provider: Medicines: Monitored Anesthesia Care Complications: No immediate complications. Procedure: Pre-Anesthesia Assessment: - The heart rate, respiratory rate, oxygen saturations, blood pressure, adequacy of pulmonary ventilation, and response to care were monitored throughout the procedure. The Endoscope was introduced through the mouth, and advanced to the third part of duodenum. The upper GI endoscopy was accomplished without difficulty. The patient tolerated the procedure well. Findings: One shallow gastric ulcer with two red spots/stigmata of recent bleeding was found in the gastric body. The lesion was 8 mm in largest dimension. For hemostasis, four hemostatic clips were successfully placed. There was no bleeding at the end of the procedure. Multiple small punctate erosions were found in the gastric fundus and in the gastric body. Biopsies were taken with a cold forceps for histology. A large hiatal hernia was present. The examined esophagus was normal. The examined duodenum was normal. Impression: - Non-bleeding gastric ulcer with two red spots (probable stigma of recent bleed). Clips were placed for bleeding prophylaxis. - Erosive gastropathy. Biopsied. - Large hiatal hernia. - Normal esophagus. - Normal examined duodenum. Recommendation: - Observe patient's clinical course. - Use PPI IV/PO. - Clear liquid diet today. - Recommend transfusion/observation on clears--BUN should decline over 24 hrs. - Advance diet tomorrow if stable Hct/vitals and decline in BUN. - Colonoscopy is on hold for now. Willi Tang MD Willi TANG MD 01/11/2019 11:09:24 AM Electronically signed by Willi TANG MD Number of Addenda: 0 Note Initiated On: 01/11/2019 9:57 AM Estimated Blood Loss: Estimated blood loss: none.
[2019-01-11 12:00] VITALS: BP 126/63
[2019-01-11 12:05] LABS: HEMATOCRIT 24.3 % (42.0-52.0); HEMOGLOBIN 7.8 g/dl (13.5-17.5)
[2019-01-11] MEDS: MULTIVITAMINS/MINERALS THERAP 1 TAB PO SCH (12:16)
[2019-01-11] MEDS: METOPROLOL SUCC (TopROL XL) 50MG **XL** TAB PO SCH (12:16)
[2019-01-11 16:00] VITALS: BP 118/66
[2019-01-11 18:34] LABS: HEMATOCRIT 26.2 % (42.0-52.0); HEMOGLOBIN 8.5 g/dl (13.5-17.5)
[2019-01-11 20:00] VITALS: BP 116/65
[2019-01-11] MEDS: ATORVASTATIN 20 MG TAB PO SCH (20:42)
[2019-01-12] VITALS (7 sets, daily range): BP systolic 81–140; BP diastolic 50–78
[2019-01-12 00:17] LABS: HEMATOCRIT 24.6 % (42.0-52.0); HEMOGLOBIN 8.1 g/dl (13.5-17.5)
[2019-01-12] MEDS: ADVAIR HFA 115/21MCG INHALER INH SCH ×2 (08:00→20:40)
[2019-01-12] MEDS: FLUTICASONE HFA 220 MCG 12 GM INHALER (FLOVENT) INH SCH ×2 (08:00→20:40)
[2019-01-12 08:08] LABS: HEMATOCRIT 26.3 % (42.0-52.0); HEMOGLOBIN 8.6 g/dl (13.5-17.5); MEAN CORPUSCULAR HEMOGLOBIN 30.1 pg (27.0-33.0); MEAN CORPUSCULAR HGB CONC 32.7 g/dl (32.0-36.5); PLATELET COUNT, AUTOMATED 135 10^3/uL (150-450); RED BLOOD COUNT 2.86 10^6/uL (4.30-6.10); WHITE BLOOD COUNT 6.8 10^3/uL (4.0-10.0)
[2019-01-12 08:36] LABS: BLOOD UREA NITROGEN 36 MG/DL (7-18); CALCIUM LEVEL 7.9 MG/DL (8.8-10.2); CARBON DIOXIDE LEVEL 28 MEQ/L (21-32); CHLORIDE LEVEL 110 MEQ/L (98-107); CREATININE FOR GFR 0.89 MG/DL (0.70-1.30); GLOMERULAR FILTRATION RATE > 60.0 (>42); GLUCOSE, FASTING 99 MG/DL (70-100); MAGNESIUM LEVEL 2.3 MG/DL (1.8-2.4); SODIUM LEVEL 143 MEQ/L (136-145)
[2019-01-12] MEDS ORDERED: SLF 3 ML SYR IV PRN (09:45)
[2019-01-12] MEDS: MULTIVITAMINS/MINERALS THERAP 1 TAB PO SCH (10:27)
[2019-01-12] MEDS: METOPROLOL SUCC (TopROL XL) 50MG **XL** TAB PO SCH (10:27)
[2019-01-12] MEDS: PANTOPRAZOLE 40MG TAB (PROTONIX) PO SCH ×2 (10:42→20:48)
--- NOTE | 2019-01-12 11:04 | IPN ---
DATE: 01/11/2019 The patient is seen and examined. No acute events overnight. Continued to have melanotic stool. Denies any chest pain, pressure or discomfort. Underwent esophagogastroduodenoscopy (EGD) today with non bleeding gastric ulcers with clipping. Denies any chest pain, pressure or discomfort. Still appears to be pale. VITAL SIGNS: Temperature 98.1, pulse 71, respirations 18, blood pressure 118/66, pulse oximetry 98% on 2 liters nasal cannula. LABORATORY DATA: WBC 7.9, hemoglobin and hematocrit 7.9/24.6, platelets 156. Chemistry: Sodium 143, potassium 4.6, chloride 108, bicarbonate 29, BUN 68, creatinine 1.2. PHYSICAL EXAMINATION: GENERAL: The patient is pale, alert, comfortable, in no acute distress. HEENT: Normocephalic, atraumatic. Extraocular muscles intact. PULMONARY: CARDIAC: Regular S1, S2. No murmurs detected. ABDOMEN: Soft, nontender. Positive bowel sounds. EXTREMITIES: No clubbing, cyanosis or edema. ASSESSMENT AND PLAN: This is a 74-year-old male patient with underlying medical history of coronary arterial disease with coronary artery bypass graft (CABG) on 325 mg of aspirin, sees Dr. Foote, chronic obstructive pulmonary disease (COPD) on 2 liters of oxygen, diastolic congestive heart failure (CHF), who presented with weakness, black stool, and upper gastrointestinal bleed. 1. Upper gastrointestinal bleed. Status post EGD with clipping by Dr. Tang. Clear liquid diet and advance as tolerated. Holding aspirin and meloxicam. Followup hemoglobin and hematocrit. Status post a total of 4 units of packed red blood cells. Hemoglobin and hematocrit every 6 hours. Protonix twice a day. Further recommendation as per GI. 2. Acute elevation of creatinine. Possibly secondary to gastrointestinal bleed. Currently improved after transfusion. We will monitor clinically. 3. Coronary arterial disease with coronary artery bypass graft (CABG). Holding aspirin. Beta lyubov has been restarted. Continue statin. 4. Chronic obstructive pulmonary disease (COPD). Continue home medications and oxygen supplementation. The patient currently does not have any wheeze. 5. Hypertension. Continue beta lyubov. Monitor blood pressure. 6. History of congestive heart failure (CHF). Monitor for volume overload. Lasix on hold. Consider giving additional Lasix if worsening respirations. Consider starting Lasix tomorrow. 7. Chronic obstructive pulmonary disease (COPD). Nebulizer treatments. Continue inhaler as ordered. Currently does not have any wheeze. Oxygen supplementation. 8. Deep vein thrombosis (DVT) prophylaxis. Thromboembolic compression stockings (TEDS) and sequentials. DISPOSITION: Stable hemoglobin and hematocrit. Physical therapy (PT) has been ordered.
[2019-01-12 12:12] LABS: HEMATOCRIT 27.8 % (42.0-52.0); HEMOGLOBIN 8.9 g/dl (13.5-17.5)
[2019-01-12] MEDS: SLF 3 ML SYR IV SCH ×2 (14:00→20:49)
--- NOTE | 2019-01-12 16:08 | IPNPDOC ---
Text Note Date of Service The patient was seen on 01/12/19. NOTE The patient is seen and examined. No acute events overnight. No further melanotic stool. Denies any chest pain, pressure or discomfort. Denies any chest pain, pressure or discomfort. Still appears to be pale. PHYSICAL EXAMINATION: GENERAL: The patient is pale, alert, comfortable, in no acute distress. HEENT: Normocephalic, atraumatic. Extraocular muscles intact. PULMONARY: clear to auscultation b/l CARDIAC: Regular S1, S2. No murmurs detected. ABDOMEN: Soft, nontender. Positive bowel sounds. EXTREMITIES: No clubbing, cyanosis or edema. ASSESSMENT AND PLAN: This is a 74-year-old male patient with underlying medical history of coronary arterial disease with coronary artery bypass graft (CABG) on 325 mg of aspirin, sees Dr. Foote, chronic obstructive pulmonary disease (COPD) on 2 liters of oxygen, diastolic congestive heart failure (CHF), who presented with weakness, black stool, and upper gastrointestinal bleed. 1. Upper gastrointestinal bleed. Status post EGD with clipping by Dr. Tang. advanced diet. Holding aspirin and meloxicam. Followup hemoglobin and hematocrit. Status post a total of 4 units of packed red blood cells. Hemoglobin and hematocrit every 6 hours. Protonix twice a day. Further recommendation as per GI. f/u orthostatic BP 2. Acute elevation of creatinine. Possibly secondary to gastrointestinal bleed. Currently improved after transfusion. We will monitor clinically. 3. Coronary arterial disease with coronary artery bypass graft (CABG). Holding aspirin. Beta lyubov has been restarted. Continue statin. 4. Chronic obstructive pulmonary disease (COPD). Continue home medications and oxygen supplementation. The patient currently does not have any wheeze. 5. Hypertension. Continue beta lyubov. Monitor blood pressure. 6. History of congestive heart failure (CHF). Monitor for volume overload. Lasix on hold. Consider giving additional Lasix if worsening respirations. Consider starting Lasix tomorrow. 7. Chronic obstructive pulmonary disease (COPD). Nebulizer treatments. Continue inhaler as ordered. Currently does not have any wheeze. Oxygen supplementation. 8. Deep vein thrombosis (DVT) prophylaxis. Thromboembolic compression stockings (TEDS) and sequentials. DISPOSITION: Stable hemoglobin and hematocrit. Physical therapy (PT) has been ordered. VS,Noemi, I+O VS, Noemi, I+O Laboratory Tests 01/11/19 18:15 01/12/19 00:01 01/12/19 07:47 Red Blood Count 2.86 L, Mean Corpuscular Volume 92.0, Mean Corpuscular Hemog lobin 30.1, Mean Corpuscular Hemoglobin Concent 32.7, Red Cell Distribution Width 15.9 H, Calcium Level 7.9 L 01/12/19 11:42 Vital Signs Date Time Temp Pulse Resp B/P (MAP) Pulse Ox O2 Delivery O2 Flow Rate FiO2 01/12/19 12:00 98.2 65 18 140/78 (98) 98 2.0 01/10/19 22:15 Nasal Cannula I&O- Last 24 Hours up to 6 AM 01/12/19 06:00 Intake Total 2216 ml Output Total 1400 ml Balance 816 ml ANDRZEJ COBURN MD Jan 12, 2019 16:08
[2019-01-12 18:15] LABS: HEMATOCRIT 27.2 % (42.0-52.0); HEMOGLOBIN 8.7 g/dl (13.5-17.5)
[2019-01-12] MEDS: ATORVASTATIN 20 MG TAB PO SCH (20:49)
[2019-01-13] VITALS (10 sets, daily range): BP systolic 80–130; BP diastolic 40–69
[2019-01-13 00:28] LABS: HEMATOCRIT 27.8 % (42.0-52.0)
[2019-01-13] MEDS ORDERED: NS 500 ML IV ONE (04:45)
[2019-01-13] MEDS: SLF 3 ML SYR IV SCH ×3 (04:47→20:50)
[2019-01-13 05:07] LABS: HEMATOCRIT 26.9 % (42.0-52.0); HEMOGLOBIN 8.6 g/dl (13.5-17.5); MEAN CORPUSCULAR HEMOGLOBIN 30.5 pg (27.0-33.0); MEAN CORPUSCULAR VOLUME 95.4 fl (80.0-96.0); PLATELET COUNT, AUTOMATED 151 10^3/uL (150-450); RED BLOOD COUNT 2.82 10^6/uL (4.30-6.10); WHITE BLOOD COUNT 6.1 10^3/uL (4.0-10.0)
[2019-01-13 05:27] LABS: BLOOD UREA NITROGEN 29 MG/DL (7-18); CALCIUM LEVEL 8.1 MG/DL (8.8-10.2); CARBON DIOXIDE LEVEL 32 MEQ/L (21-32); CHLORIDE LEVEL 109 MEQ/L (98-107); CREATININE FOR GFR 0.93 MG/DL (0.70-1.30); GLOMERULAR FILTRATION RATE > 60.0 (>42); GLUCOSE, FASTING 106 MG/DL (70-100); MAGNESIUM LEVEL 2.2 MG/DL (1.8-2.4); POTASSIUM SERUM 3.9 MEQ/L (3.5-5.1); SODIUM LEVEL 144 MEQ/L (136-145)
[2019-01-13] MEDS: FLUTICASONE HFA 220 MCG 12 GM INHALER (FLOVENT) INH SCH ×2 (08:05→20:41)
[2019-01-13] MEDS: ADVAIR HFA 115/21MCG INHALER INH SCH ×2 (08:08→20:41)
[2019-01-13] MEDS: METOPROLOL SUCC *XL* 25MG TAB (TopROL *XL*) PO SCH (08:21)
[2019-01-13] MEDS: PANTOPRAZOLE 40MG TAB (PROTONIX) PO SCH ×2 (08:21→20:49)
[2019-01-13] MEDS: MULTIVITAMINS/MINERALS THERAP 1 TAB PO SCH (08:21)
[2019-01-13] MEDS: MIDODRINE 2.5 MG TAB PO SCH ×2 (10:35→16:27)
[2019-01-13 14:14] LABS: HEMATOCRIT 30.2 % (42.0-52.0); HEMOGLOBIN 9.6 g/dl (13.5-17.5)
[2019-01-13] MEDS: ASPIRIN 81 MG ENTERIC TAB PO SCH (16:26)
--- NOTE | 2019-01-13 18:24 | IPNPDOC ---
Text Note Date of Service The patient was seen on 01/13/19. NOTE The patient is seen and examined. No acute events overnight. No further melanotic stool. Denies any chest pain, pressure or discomfort. Denies any chest pain, pressure or discomfort. orthostatic positive. But patient asymptomatic. PHYSICAL EXAMINATION: GENERAL: alert, comfortable, in no acute distress. HEENT: Normocephalic, atraumatic. Extraocular muscles intact. PULMONARY: clear to auscultation b/l CARDIAC: Regular S1, S2. No murmurs detected. ABDOMEN: Soft, nontender. Positive bowel sounds. EXTREMITIES: No clubbing, cyanosis or edema. ASSESSMENT AND PLAN: This is a 74-year-old male patient with underlying medical history of coronary arterial disease with coronary artery bypass graft (CABG) on 325 mg of aspirin, sees Dr. Foote, chronic obstructive pulmonary disease (COPD) on 2 liters of oxygen, diastolic congestive heart failure (CHF), who presented with weakness, black stool, and upper gastrointestinal bleed. 1. Upper gastrointestinal bleed. Status post EGD with clipping by Dr. Tang. advanced diet. Holding meloxicam. Followup hemoglobin and hematocrit. Status post a total of 4 units of packed red blood cells. Hemoglobin and hematocrit every 6 hours. Protonix twice a day. Further recommendation as per GI. f/u orthostatic BP. f/u GI in 2-3 months. d/w cardiology Dr Hdz and Dr Tang resume 81mg asa 2. Acute elevation of creatinine. Possibly secondary to gastrointestinal bleed. Currently improved after transfusion. We will monitor clinically. 3. Coronary arterial disease with coronary artery bypass graft (CABG). restart asa at 81mg . Beta lyubov has been restarted. Continue statin. 4. Chronic obstructive pulmonary disease (COPD). Continue home medications and oxygen supplementation. The patient currently does not have any wheeze. 5. Hypertension. Continue beta lyubov reduced dose. Monitor blood pressure. 6. History of congestive heart failure (CHF). Monitor for volume overload. Lasix on hold. Consider giving additional Lasix if worsening respirations. 7. Chronic obstructive pulmonary disease (COPD). Nebulizer treatments. Continue inhaler as ordered. Currently does not have any wheeze. Oxygen supplementation. 8. orthostatic hypotension, likely due to autonomic neuropathy, given hh improved, no further evidence of bleeding. patient asymptomatic. metoprolol decreased. Midodrine low dose. PT, fall precaution. 9. Deep vein thrombosis (DVT) prophylaxis. Thromboembolic compression stockings (TEDS) and sequentials. DISPOSITION: Stable hemoglobin and hematocrit. Physical therapy (PT) has been ordered. VS,Fishbone, I+O VS, Fishbone, I+O Laboratory Tests 01/12/19 23:54 01/13/19 04:36 Red Blood Count 2.82 L, Mean Corpuscular Volume 95.4, Mean Corpuscular Hemoglobin 30.5, Mean Corpuscular Hemoglobin Concent 32.0, Red Cell Distribution Width 15.8 H, Calcium Level 8.1 L 01/13/19 13:57 Vital Signs Date Time Temp Pulse Resp B/P (MAP) Pulse Ox O2 Delivery O2 Flow Rate FiO2 01/13/19 16:00 2.0 01/13/19 15:48 64 101/59 (73) 73 90/51 (64) 74 83/45 (58) 01/13/19 15:44 97.0 18 97 01/10/19 22:15 Nasal Cannula I&O- Last 24 Hours up to 6 AM 01/13/19 06:00 Intake Total 2230 ml Output Total 2100 ml Balance 130 ml ANDRZEJ COBURN MD Jan 13, 2019 18:24
[2019-01-13] MEDS: ATORVASTATIN 20 MG TAB PO SCH (20:49)
[2019-01-13] MEDS ORDERED: ANALGESIC BALM CRM 120 GM TOP PRN (23:00)
[2019-01-14] VITALS (8 sets, daily range): BP systolic 55–127; BP diastolic 45–74
[2019-01-14 06:00] LABS: HEMATOCRIT 27.7 % (42.0-52.0); HEMOGLOBIN 8.9 g/dl (13.5-17.5); MEAN CORPUSCULAR HEMOGLOBIN 30.7 pg (27.0-33.0); MEAN CORPUSCULAR HGB CONC 32.1 g/dl (32.0-36.5); MEAN CORPUSCULAR VOLUME 95.5 fl (80.0-96.0); PLATELET COUNT, AUTOMATED 176 10^3/uL (150-450); WHITE BLOOD COUNT 6.2 10^3/uL (4.0-10.0)
[2019-01-14] MEDS: SLF 3 ML SYR IV SCH ×3 (06:00→20:10)
[2019-01-14 06:21] LABS: BLOOD UREA NITROGEN 21 MG/DL (7-18); CALCIUM LEVEL 8.2 MG/DL (8.8-10.2); CARBON DIOXIDE LEVEL 30 MEQ/L (21-32); CHLORIDE LEVEL 107 MEQ/L (98-107); CREATININE FOR GFR 0.84 MG/DL (0.70-1.30); GLOMERULAR FILTRATION RATE > 60.0 (>42); GLUCOSE, FASTING 103 MG/DL (70-100); MAGNESIUM LEVEL 2.1 MG/DL (1.8-2.4); POTASSIUM SERUM 4.1 MEQ/L (3.5-5.1); SODIUM LEVEL 142 MEQ/L (136-145)
[2019-01-14] MEDS: PERCOCET 5MG/325MG TAB PO PRN ×2 (06:53→20:10)
[2019-01-14] MEDS: ASPIRIN 81 MG ENTERIC TAB PO SCH (08:06)
[2019-01-14] MEDS: METOPROLOL SUCC *XL* 25MG TAB (TopROL *XL*) PO SCH (08:06)
[2019-01-14] MEDS: MULTIVITAMINS/MINERALS THERAP 1 TAB PO SCH (08:06)
[2019-01-14] MEDS: PANTOPRAZOLE 40MG TAB (PROTONIX) PO SCH ×2 (08:06→20:10)
[2019-01-14] MEDS: MIDODRINE 2.5 MG TAB PO SCH ×2 (08:06→15:44)
[2019-01-14] MEDS: ADVAIR HFA 115/21MCG INHALER INH SCH ×2 (09:08→21:00)
[2019-01-14] MEDS: FLUTICASONE HFA 220 MCG 12 GM INHALER (FLOVENT) INH SCH ×2 (09:09→21:00)
[2019-01-14] MEDS: ATORVASTATIN 20 MG TAB PO SCH (20:09)
--- NOTE | 2019-01-14 22:32 | IPNPDOC ---
Text Note Date of Service The patient was seen on 01/14/19. NOTE The patient is seen and examined. No acute events overnight. No further melanotic stool. Denies any chest pain, pressure or discomfort. Denies any chest pain, pressure or discomfort. orthostatic positive. But patient asymptomatic. PHYSICAL EXAMINATION: GENERAL: alert, comfortable, in no acute distress. HEENT: Normocephalic, atraumatic. Extraocular muscles intact. PULMONARY: clear to auscultation b/l CARDIAC: Regular S1, S2. No murmurs detected. ABDOMEN: Soft, nontender. Positive bowel sounds. EXTREMITIES: No clubbing, cyanosis or edema. ASSESSMENT AND PLAN: This is a 74-year-old male patient with underlying medical history of coronary arterial disease with coronary artery bypass graft (CABG) on 325 mg of aspirin, sees Dr. Foote, chronic obstructive pulmonary disease (COPD) on 2 liters of oxygen, diastolic congestive heart failure (CHF), who presented with weakness, black stool, and upper gastrointestinal bleed. 1. acute blood loss anemia 2/2 Upper gastrointestinal bleed. Status post EGD with clipping by Dr. Tang. advanced diet. Holding meloxicam. Followup hemoglobin and hematocrit. Status post a total of 4 units of packed red blood cells. Hemoglobin and hematocrit every 6 hours. Protonix twice a day. Further recommendation as per GI. f/u orthostatic BP. f/u GI in 2-3 months. d/w cardiology Dr Hdz and Dr Tang resume 81mg asa 2. Acute elevation of creatinine. Possibly secondary to gastrointestinal bleed. Currently improved after transfusion. We will monitor clinically. 3. Coronary arterial disease with coronary artery bypass graft (CABG). restart asa at 81mg . Beta lyubov has been restarted. Continue statin. 4. Chronic obstructive pulmonary disease (COPD). Continue home medications and oxygen supplementation. The patient currently does not have any wheeze. 5. Hypertension. Continue beta lyubov reduced dose. Monitor blood pressure. 6. History of congestive heart failure (CHF). Monitor for volume overload. Lasix on hold given GI bleed and orthostatic hypotension. Consider giving addit ional Lasix if worsening respirations. 7. Chronic obstructive pulmonary disease (COPD). Nebulizer treatments. Continue inhaler as ordered. Currently does not have any wheeze. Oxygen supplementation. 8. orthostatic hypotension, likely due to autonomic neuropathy, given hh improved, no further evidence of bleeding. patient asymptomatic. metoprolol decreased. Midodrine low dose. PT, fall precaution. 9. Deep vein thrombosis (DVT) prophylaxis. Thromboembolic compression stockings (TEDS) and sequentials. DISPOSITION: Stable hemoglobin and hematocrit. Physical therapy (PT) has been ordered. VS,Fishbone, I+O VS, Fishbone, I+O Laboratory Tests 01/14/19 05:08 Red Blood Count 2.90 L, Mean Corpuscular Volume 95.5, Mean Corpuscular Hemoglobin 30.7, Mean Corpuscular Hemoglobin Concent 32.1, Red Cell Distribution Width 15.8 H, Calcium Level 8.2 L Vital Signs Date Time Temp Pulse Resp B/P (MAP) Pulse Ox O2 Delivery O2 Flow Rate FiO2 01/14/19 21:27 18 01/14/19 20:00 2.0 01/14/19 16:03 97.7 70 119/63 (81) 98 01/10/19 22:15 Nasal Cannula I&O- Last 24 Hours up to 6 AM0 01/14/19 06:00 Intake Total 1300 ml Output Total 350 ml Balance 950 ml ANDRZEJ COBURN MD Jan 14, 2019 22:32
[2019-01-15] VITALS: BP 116/65
[2019-01-15 05:37] VITALS: BP 104/59
[2019-01-15] MEDS: SLF 3 ML SYR IV SCH ×2 (05:39→14:00)
[2019-01-15 06:08] LABS: HEMATOCRIT 28.8 % (42.0-52.0); HEMOGLOBIN 9.3 g/dl (13.5-17.5); MEAN CORPUSCULAR HEMOGLOBIN 30.3 pg (27.0-33.0); MEAN CORPUSCULAR HGB CONC 32.3 g/dl (32.0-36.5); MEAN CORPUSCULAR VOLUME 93.8 fl (80.0-96.0); PLATELET COUNT, AUTOMATED 201 10^3/uL (150-450); RED BLOOD COUNT 3.07 10^6/uL (4.30-6.10); WHITE BLOOD COUNT 5.8 10^3/uL (4.0-10.0)
[2019-01-15 06:32] LABS: BLOOD UREA NITROGEN 17 MG/DL (7-18); CALCIUM LEVEL 8.6 MG/DL (8.8-10.2); CARBON DIOXIDE LEVEL 32 MEQ/L (21-32); CHLORIDE LEVEL 105 MEQ/L (98-107); GLOMERULAR FILTRATION RATE > 60.0 (>42); GLUCOSE, FASTING 103 MG/DL (70-100); MAGNESIUM LEVEL 2.1 MG/DL (1.8-2.4); POTASSIUM SERUM 4.1 MEQ/L (3.5-5.1); SODIUM LEVEL 140 MEQ/L (136-145)
[2019-01-15 08:00] VITALS: BP 108/66
[2019-01-15 08:15] VITALS: BP_SYST 108
[2019-01-15] MEDS: MIDODRINE 2.5 MG TAB PO SCH ×3 (08:15→15:17)
[2019-01-15] MEDS: PANTOPRAZOLE 40MG TAB (PROTONIX) PO SCH (08:15)
[2019-01-15] MEDS: ASPIRIN 81 MG ENTERIC TAB PO SCH (08:15)
[2019-01-15] MEDS: MULTIVITAMINS/MINERALS THERAP 1 TAB PO SCH (08:15)
[2019-01-15] MEDS: FLUTICASONE HFA 220 MCG 12 GM INHALER (FLOVENT) INH SCH (08:45)
[2019-01-15] MEDS: ADVAIR HFA 115/21MCG INHALER INH SCH (08:45)
[2019-01-15] MEDS ORDERED: METOPROLOL SUCC *XL* 12.5MG PER 1/2 TAB (TopROL *XL*) PO SCH (09:00)
[2019-01-15] MEDS ORDERED: MIDO2.5T PO (11:20)
[2019-01-15] MEDS ORDERED: PANT40TA3 PO (11:20)
[2019-01-15] MEDS ORDERED: METO1TAB32 PO (11:20)
[2019-01-15] MEDS ORDERED: ASPI81TAEC PO (11:20)
[2019-01-15 12:00] VITALS: BP 121/67
--- NOTE | 2019-01-15 20:26 | DSES ---
DATE OF ADMISSION: 01/10/2019 DATE OF DISCHARGE: 01/15/2019 PRIMARY CARE PROVIDER: Kanchan Argueta SURFACE HYDROLOGIST: Dr. Willi Tang EVAPORATOR HELPER: Dr. Foote covered by Dr. Hdz FINAL DIAGNOSES: 1. Acute blood loss anemia secondary to upper gastrointestinal bleed, status post esophagogastroduodenoscopy (EGD) and clipping. 2. Acute elevation of creatinine. 3. Prerenal azotemia due to gastrointestinal bleed. 4. History of coronary arterial disease with coronary artery bypass graft (CABG). 5. Chronic obstructive pulmonary disease (COPD). 6. Hypertension. 7. History of congestive heart failure (CHF). 8. Orthostatic hypotension. 9. Deconditioning. HISTORY OF PRESENT ILLNESS: This is a 74-year-old male patient with underlying medical history of coronary arterial disease with CABG and on 325 mg of aspirin, as well as COPD on 2 liters of oxygen intermittently at home, diastolic congestive heart failure (CHF), who presented to the emergency room with weakness and black stool. Noticed blood in the stool the day before admission with multiple episodes. The patient is on meloxicam. The patient denies any previous episode. Reported lightheadedness and syncope while sitting in the emergency department. Denies any fever or chills, chest pain, pressure or discomfort. Denies any shortness of breath, dyspnea. Does report headache that is not out of the ordinary, as per patient. HOSPITAL COURSE: THe patient was admitted to the hospital. Consulted hair or beauty salon manager. The patient was transfused. The patient's aspirin and meloxicam were on hold. 4 units of packed red blood cells were given. EGD was done by Dr. Tang with clipping. Serial hemoglobin and hematocrit checks were done. Protonix twice a day. Orthostatic vital signs were followed. The patient's kidney function was also monitored. Home medications of beta lyubov and statin were continued. Fluid status was monitored carefully. Blood pressure was monitored carefully. Blood pressure medications were initially on hold. Later attempted to start beta lyubov and the patient continued to be orthostatic, even with stable hemoglobin and hematocrit. Subsequently, beta lyubov was decreased. Case discussed with Dr. Hdz, who is covering for Dr. Foote, and Dr. Tang agreed to resume aspirin 81 mg. The patient's diuretic was on hold given severe orthostatic hypotension. Physical therapy (PT) was consulted. Midodrine was started and dose was adjusted. Currently, the patient is tolerating orally, still with orthostatic hypotension but much improved with no symptoms. Able to ambulate. Passed physical therapy (PT). Tolerating oral with no further signs of bleeding. Ready to be discharged for further care as an outpatient. VITAL SIGNS: Temperature 97.9, pulse 79, respirations 18, blood pressure 121/67, pulse oximetry 95% on 2 liters nasal cannula. LABORATORY DATA WBC 5.8, hemoglobin and hematocrit 9.3/28.8, platelets 201. Chemistry: Sodium 140, potassium 4.1, chloride 4.1, chloride 105, bicarbonate 32, BUN 17, creatinine 0.9. GENERAL: The patient is alert, comfortable and in no acute distress. HEENT: Normocephalic, atraumatic. PULMONARY: Bilaterally clear. CARDIAC: Regular. S1, S2. ABDOMEN: Soft, nontender. Positive bowel sounds. EXTREMITIES: No edema in bilateral lower extremities. DISCHARGE MEDICATIONS: - aspirin 81 mg by mouth daily enteric coated - metoprolol succinate 12.5 mg by mouth twice a day - midodrine 2.5 mg by mouth three times a day - Protonix 40 mg by mouth twice a day - acetaminophen 500 mg by mouth every 4 hours as needed - Ventolin inhaler four times a day as needed - DuoNeb every 6 hours as needed - Lipitor 80 mg by mouth at night - Flovent inhalation twice a day - Ellipta inhalation daily - resume meloxicam 15 mg by mouth daily - multivitamin one tablet by mouth daily DISCHARGE INSTRUCTIONS: Please see primary care provider in 5 days. Please see stopper setter as soon as possible. Followup orthostatic vital signs with stopper setter. Adjust blood pressure medication as per stopper setter. Restart diuretic as per stopper setter. Daily weights and call provider if weight gain more than 3 pounds to restart diuretic. Please check complete blood count (CBC), basic metabolic panel (BMP) with primary care provider. Please see DR. Tang in 2 weeks. Return if symptoms worsen.
== END 2019-01-15 15:21 | disposition home or self-care (01) | DRG 378 ==
LOC: M ED 16:22 → M ED INP 20:51 → M PCU 22:37
PROVIDERS: ADMIT Internal Medicine; ATTEND Hospitalist
PROC: 0DB68ZX Excision of Stomach, Via Natural or Artificial Opening Endoscopic, Diagnostic (ICD-10-PCS; 2019-01-10)
PROC: 30233N1 Transfusion of Nonautologous Red Blood Cells into Peripheral Vein, Percutaneous Approach (ICD-10-PCS; principal; 2019-01-11 01:51)
DX: K25.4 Chronic or unspecified gastric ulcer with hemorrhage (principal); D62 Acute posthemorrhagic anemia; I50.32 Chronic diastolic (congestive) heart failure; N17.9 Acute kidney failure, unspecified; G90.9 Disorder of the autonomic nervous system, unspecified; I95.1 Orthostatic hypotension; I11.0 Hypertensive heart disease with heart failure; I25.10 Atherosclerotic heart disease of native coronary artery without angina pectoris; Z95.1 Presence of aortocoronary bypass graft; J44.9 Chronic obstructive pulmonary disease, unspecified; Z79.82 Long term (current) use of aspirin; Z79.899 Other long term (current) drug therapy; Z87.891 Personal history of nicotine dependence; K44.9 Diaphragmatic hernia without obstruction or gangrene

== ENCOUNTER → 2019-01-20 | Outpatient (REF) | payer MEDICARE ==
[~2019-01-20] MED LIST changes: -/MOM400 PO; -/TIOT18INH INH; -/WARF25TA PO; -ACET50TA PO; +ASPI-1 PO; +ASPI-255 PO; -ASPI325T25 PO; +ASPI81TAEC PO; +COUM1TAB18 PO; +MAPA500T17 PO; +MELO15TA28 PO; +METO-1 PO; +METO1TAB32 PO; +MIDO2.5T PO; +MILK10SU PO; +PANT40TA3 PO; +SPIR1CAP INH; -TOPR25TA PO; +TOPR50TA PO; -TOPR50TA23 PO; +VENTAER INH
[2019-01-20 17:16] LABS: ALBUMIN 3.5 GM/DL (3.2-5.2); BILIRUBIN,TOTAL 0.7 MG/DL (0.2-1.0); CALCIUM LEVEL 8.6 MG/DL (8.8-10.2); CREATININE FOR GFR 1.45 MG/DL (0.70-1.30); GLOMERULAR FILTRATION RATE 50.8 (>42); POTASSIUM SERUM 4.7 MEQ/L (3.5-5.1); TOTAL PROTEIN 6.2 GM/DL (6.4-8.2)
[2019-01-20 17:28] LABS: BASO % 0.6 % (0.0-1.0); EOS # 0.3 10^3/uL (0.0-0.50); EOS % 5.4 % (0.0-3.0); HEMATOCRIT 29.8 % (42.0-52.0); HEMOGLOBIN 9.2 g/dl (13.5-17.5); LYMPH % 18.8 % (24.0-44.0); MEAN CORPUSCULAR HEMOGLOBIN 30.1 pg (27.0-33.0); MEAN CORPUSCULAR HGB CONC 30.9 g/dl (32.0-36.5); MEAN CORPUSCULAR VOLUME 97.4 fl (80.0-96.0); MONO # 0.6 10^3/uL (0.0-0.8); MONO % 11.1 % (0.0-5.0); NEUTROPHILS # 3.2 10^3/uL (1.8-7.7); NEUTROPHILS % 63.9 % (36.0-66.0); PLATELET COUNT, AUTOMATED 294 10^3/uL (150-450); RED BLOOD COUNT 3.06 10^6/uL (4.30-6.10)
== END ==
LOC: M SFHCCAPE 11:37
PROVIDERS: ATTEND Physician Assistant
DX: D50.0 Iron deficiency anemia secondary to blood loss (chronic) (principal)
CPT/HCPCS: 36415; 80053; 85025; 99496; G0463

== ENCOUNTER → 2019-02-03 | Outpatient (REF) | payer MEDICARE ==
[2019-02-03 19:08] LABS: CALCIUM LEVEL 8.9 MG/DL (8.8-10.2); CREATININE FOR GFR 1.34 MG/DL (0.70-1.30); GLOMERULAR FILTRATION RATE 55.6 (>42); POTASSIUM SERUM 4.2 MEQ/L (3.5-5.1)
== END ==
LOC: M LABDRWCV 16:58
PROVIDERS: ATTEND Physician Assistant
DX: I50.32 Chronic diastolic (congestive) heart failure (principal)

== ENCOUNTER → 2019-02-19 | Outpatient (REF) | payer MEDICARE ==
[2019-02-19 19:16] LABS: CALCIUM LEVEL 9.1 MG/DL (8.8-10.2); CREATININE FOR GFR 1.48 MG/DL (0.70-1.30); GLOMERULAR FILTRATION RATE 49.6 (>42); POTASSIUM SERUM 4.2 MEQ/L (3.5-5.1)
== END ==
LOC: M LABDRWCV 16:58
PROVIDERS: ATTEND Physician Assistant
DX: I50.32 Chronic diastolic (congestive) heart failure (principal)
CPT/HCPCS: 36415; 80048; G0463

== ENCOUNTER → 2019-03-05 | Outpatient (REF) | payer MEDICARE ==
[2019-03-05 16:48] LABS: BASO % 0.9 % (0.0-1.0); EOS # 0.5 10^3/uL (0.0-0.50); EOS % 11.6 % (0.0-3.0); HEMATOCRIT 32.4 % (42.0-52.0); HEMOGLOBIN 9.9 g/dl (13.5-17.5); LYMPH # 0.9 10^3/uL (1.5-4.5); MEAN CORPUSCULAR HEMOGLOBIN 27.9 pg (27.0-33.0); MEAN CORPUSCULAR HGB CONC 30.6 g/dl (32.0-36.5); MEAN CORPUSCULAR VOLUME 91.3 fl (80.0-96.0); MONO # 0.6 10^3/uL (0.0-0.8); MONO % 13.8 % (0.0-5.0); NEUTROPHILS # 2.4 10^3/uL (1.8-7.7); NEUTROPHILS % 53.5 % (36.0-66.0); PLATELET COUNT, AUTOMATED 229 10^3/uL (150-450); RED BLOOD COUNT 3.55 10^6/uL (4.30-6.10); WHITE BLOOD COUNT 4.5 10^3/uL (4.0-10.0)
[2019-03-05 16:56] LABS: CALCIUM LEVEL 9.6 MG/DL (8.8-10.2); CREATININE FOR GFR 1.47 MG/DL (0.70-1.30); POTASSIUM SERUM 4.3 MEQ/L (3.5-5.1)
== END ==
LOC: M LABDRWCV 16:18
PROVIDERS: ATTEND Internal Medicine Gastroenterology
DX: D62 Acute posthemorrhagic anemia (principal)

== ENCOUNTER → 2019-06-19 | Outpatient (REF) | payer MEDICARE ==
[2019-06-19 18:06] LABS: ALBUMIN 3.9 GM/DL (3.2-5.2); ALT/SGPT 21 U/L (12-78); BASO % 0.8 % (0.0-1.0); BILIRUBIN,TOTAL 0.8 MG/DL (0.2-1.0); BLOOD UREA NITROGEN 25 MG/DL (7-18); CALCIUM LEVEL 8.8 MG/DL (8.8-10.2); CARBON DIOXIDE LEVEL 33 MEQ/L (21-32); CHLORIDE LEVEL 102 MEQ/L (98-107); CREATININE FOR GFR 1.51 MG/DL (0.70-1.30); EOS # 0.4 10^3/uL (0.0-0.50); EOS % 7.9 % (0.0-3.0); FOLATE > 24.0 NG/ML; GLOMERULAR FILTRATION RATE 48.5 (>42); GLUCOSE, FASTING 133 MG/DL (70-100); HEMATOCRIT 33.6 % (42.0-52.0); IRON (FE) 37 UG/DL (65-175); LYMPH # 1.2 10^3/uL (1.5-4.5); LYMPH % 25.7 % (24.0-44.0); MEAN CORPUSCULAR HEMOGLOBIN 23.9 pg (27.0-33.0); MEAN CORPUSCULAR HGB CONC 29.8 g/dl (32.0-36.5); MEAN CORPUSCULAR VOLUME 80.4 fl (80.0-96.0); MONO # 0.6 10^3/uL (0.0-0.8); MONO % 13.3 % (0.0-5.0); NEUTROPHILS # 2.5 10^3/uL (1.8-7.7); NEUTROPHILS % 52.1 % (36.0-66.0); PERCENT SATURATION 7.5 % (19.7-50.0); PLATELET COUNT, AUTOMATED 261 10^3/uL (150-450); POTASSIUM SERUM 4.7 MEQ/L (3.5-5.1); RED BLOOD COUNT 4.18 10^6/uL (4.30-6.10); SODIUM LEVEL 139 MEQ/L (136-145); TOTAL IRON BINDING CAPACITY 493 UG/DL (250-450); TOTAL PROTEIN 7.1 GM/DL (6.4-8.2); VITAMIN B12 LEVEL 664 PG/ML; WHITE BLOOD COUNT 4.8 10^3/uL (4.0-10.0)
== END ==
LOC: M LABDRWCV 16:37
PROVIDERS: ATTEND Internal Medicine Gastroenterology
DX: D62 Acute posthemorrhagic anemia (principal)

== ENCOUNTER → 2019-06-24 | Outpatient (CLI) | payer MEDICARE ==
--- NOTE | 2019-06-24 08:45 | REP ---
Clinical: Follow up abnormal lung findings. Technique: PA and lateral. Comparison: 01/10/2019. Findings: Mediastinum and cardiac silhouette are stable with evidence for prior sternotomy and CABG again noted. Mild chronic cardiomegaly cannot be excluded. Lung mcadams demonstrate diffuse chronic interstitial changes. Superimposed bibasilar infiltrate/atelectasis cannot be excluded and should be correlated clinically. No pneumothorax. Skeletal structures intact. Impression: Chronic changes. Cannot exclude superimposed bibasilar infiltrate/atelectasis. Electronically Signed by Macario Bryant MD 06/24/2019 08:37 A
== END ==
LOC: M SMT 08:17
PROVIDERS: ATTEND Internal Medicine Pulmonary Disease
DX: R91.8 Other nonspecific abnormal finding of lung field (principal); J84.10 Pulmonary fibrosis, unspecified

== ENCOUNTER → 2019-07-08 | Outpatient (REF) | payer MEDICARE ==
[2019-07-08 17:13] LABS: HEMATOCRIT 34.4 % (42.0-52.0); HEMOGLOBIN 10.3 g/dl (13.5-17.5); MEAN CORPUSCULAR HEMOGLOBIN 24.1 pg (27.0-33.0); MEAN CORPUSCULAR HGB CONC 29.9 g/dl (32.0-36.5); MEAN CORPUSCULAR VOLUME 80.4 fl (80.0-96.0); PLATELET COUNT, AUTOMATED 248 10^3/uL (150-450); RED BLOOD COUNT 4.28 10^6/uL (4.30-6.10); WHITE BLOOD COUNT 5.3 10^3/uL (4.0-10.0)
[2019-07-08 17:15] LABS: ALBUMIN 3.8 GM/DL (3.2-5.2); BILIRUBIN,TOTAL 0.6 MG/DL (0.2-1.0); CALCIUM LEVEL 9.4 MG/DL (8.8-10.2); CHOLESTEROL RISK RATIO 2.096 (<5); CREATININE FOR GFR 1.49 MG/DL (0.70-1.30); GLOMERULAR FILTRATION RATE 49.2 (>42); MAGNESIUM LEVEL 2.5 MG/DL (1.8-2.4); POTASSIUM SERUM 4.4 MEQ/L (3.5-5.1); TOTAL PROTEIN 7.3 GM/DL (6.4-8.2)
== END ==
LOC: M LABDRWCV 16:15
PROVIDERS: ATTEND Physician Assistant
DX: I25.10 Atherosclerotic heart disease of native coronary artery without angina pectoris (principal); I50.32 Chronic diastolic (congestive) heart failure; E78.00 Pure hypercholesterolemia, unspecified; E83.42 Hypomagnesemia

== ENCOUNTER 2019-08-26 09:30 | Day surgery (SDC) | payer MEDICARE ==
[~2019-08-26] VITALS: Ht 195.6 cm; Wt 103.4 kg
[~2019-08-26 09:30] MED LIST changes: -AZIT500T2 PO; +AZIT500T5 PO; +NS 1,000 ML IV ONE
[2019-08-26] MEDS ORDERED: FURO40TA2 PO (10:39)
[2019-08-26] MEDS ORDERED: PROPOFOL 200 MG/20 ML VIAL As Ordered ONE ×2 (10:51→10:52)
[2019-08-26] MEDS ORDERED: LIDOCAINE 2% INJ 100 MG/5 ML SDV (FOR ANES.) As Ordered ONE ×2 (10:51→10:52)
--- NOTE | 2019-08-26 12:23 | ROOR ---
Patient Name: Caesar Ruby Procedure Date: 08/26/2019 11:57 AM Date of : 1945 Age: 74 Room: [facility] Gender: Male Note Status: Finalized Procedure: Upper GI endoscopy Indications: Iron deficiency anemia, Follow-up of acute gastric ulcer with hemorrhage Providers: Willi TANG MD Referring MD: NIKOLAY Vivar pa-c Requesting Provider: Medicines: Monitored Anesthesia Care Complications: No immediate complications. Procedure: Pre-Anesthesia Assessment: - The heart rate, respiratory rate, oxygen saturations, blood pressure, adequacy of pulmonary ventilation, and response to care were monitored throughout the procedure. The Endoscope was introduced through the mouth, and advanced to the third part of duodenum. The upper GI endoscopy was accomplished without difficulty. The patient tolerated the procedure well. Findings: Diffuse, white plaques were found in the entire esophagus. Biopsies were taken with a cold forceps for histology. A medium-sized hiatal hernia was present. The exam of the stomach was otherwise normal. The examined duodenum was normal. Biopsies for histology were taken with a cold forceps for evaluation of celiac disease. Impression: - Esophageal plaques were found, consistent with candidiasis. Biopsied. - Medium-sized hiatal hernia. - Previously seen erosions/ulcer has completely healed. Four hemoclips present in proximal gastric body. - Stomach is otherwise normal. - Normal examined duodenum. Biopsied. Recommendation: - Continue present medications. - Nystatin suspension 100,000 units PO QID for 2 weeks. Willi Tang MD Willi TANG MD 08/26/2019 12:23:06 PM Electronically signed by Willi TANG MD Number of Addenda: 0 Note Initiated On: 08/26/2019 11:57 AM Estimated Blood Loss: Estimated blood loss: none.
--- NOTE | 2019-08-26 12:59 | ROOR ---
Patient Name: Caesar Ruby Procedure Date: 08/26/2019 11:58 AM Date of : 1945 Age: 74 Room: [facility] Gender: Male Note Status: Finalized Procedure: Colonoscopy Indications: Iron deficiency anemia Providers: Willi TANG MD Referring MD: NIKOLAY Vivar pa-c Requesting Provider: Medicines: Monitored Anesthesia Care Complications: No immediate complications. Procedure: Pre-Anesthesia Assessment: - The heart rate, respiratory rate, oxygen saturations, blood pressure, adequacy of pulmonary ventilation, and response to care were monitored throughout the procedure. The Colonoscope was introduced through the anus and advanced to the terminal ileum, with identification of the appendiceal orifice and IC valve. The colonoscopy was somewhat difficult due to a redundant colon and suboptimal prep. Successful completion of the procedure was aided by lavage. The patient tolerated the procedure well. The quality of the bowel preparation was adequate. Findings: The perianal and digital rectal examinations were normal. Three sessile polyps were found in the ascending colon and cecum. The polyps were 5 to 6 mm in size. These polyps were removed with a cold snare. Resection and retrieval were complete. Multiple small and large-mouthed diverticula were found in the sigmoid colon. Internal hemorrhoids were found during retroflexion. The hemorrhoids were moderate. The exam was otherwise without abnormality on direct and retroflexion views. (EXAM: Complete, PREP: Fair/Adequate) Impression: - (EXAM: Complete, PREP: Fair/Adequate) - Three 5 to 6 mm polyps in the ascending colon and in the cecum, removed with a cold snare. Resected and retrieved. - Diverticulosis in the sigmoid colon. - Internal hemorrhoids. - The examination was otherwise normal on direct and retroflexion views. Recommendation: - To visualize the small bowel, perform video capsule endoscopy at appointment to be scheduled. - My office will call you in the next few days to set you up for this study/exam. - Repeat colonoscopy in 2 years because the bowel preparation was suboptimal. Willi Tang MD Willi TANG MD 08/26/2019 12:59:12 PM Electronically signed by Willi TANG MD Number of Addenda: 0 Note Initiated On: 08/26/2019 11:58 AM Estimated Blood Loss: Estimated blood loss: none.
[2019-08-26 13:25] VITALS: BP 101/60
== END 2019-08-26 13:43 | disposition home or self-care (01) ==
LOC: M OPP 09:30
PROVIDERS: ATTEND Internal Medicine Gastroenterology
DX: D12.2 Benign neoplasm of ascending colon (principal); D12.0 Benign neoplasm of cecum; K64.8 Other hemorrhoids; K57.30 Diverticulosis of large intestine without perforation or abscess without bleeding; D50.9 Iron deficiency anemia, unspecified; K22.9 Disease of esophagus, unspecified; K44.9 Diaphragmatic hernia without obstruction or gangrene; K25.0 Acute gastric ulcer with hemorrhage; I25.799 Atherosclerosis of other coronary artery bypass graft(s) with unspecified angina pectoris; J44.9 Chronic obstructive pulmonary disease, unspecified; Z79.82 Long term (current) use of aspirin; Z79.899 Other long term (current) drug therapy; Z87.891 Personal history of nicotine dependence

== ENCOUNTER → 2019-10-16 | Outpatient (REF) | payer MEDICARE ==
[~2019-10-16] MED LIST changes: -NS 1,000 ML IV ONE
[2019-10-16 19:49] LABS: CREATININE FOR GFR 1.43 MG/DL (0.70-1.30); GLOMERULAR FILTRATION RATE 51.6 (>42); POTASSIUM SERUM 4.7 MEQ/L (3.5-5.1)
== END ==
LOC: M LABDRWCV 16:34
PROVIDERS: ATTEND Physician Assistant
DX: I50.32 Chronic diastolic (congestive) heart failure (principal)

== ENCOUNTER → 2019-11-19 | Outpatient (CLI) | payer OTHER ==
--- NOTE | 2019-11-20 01:23 | REP ---
Clinical: Foreign body. Technique: Two supine views of the abdomen/pelvis. Findings: Rectangular foreign body in the left upper quadrant likely within the proximal descending colon consistent with camera pill. Moderate to significant fecal stasis suggested throughout the colon. No bowel obstruction. No obvious organomegaly. Skeletal structures demonstrate age-related degenerative changes. Impression: 1. Foreign body (camera pole) identified in the left upper quadrant likely within the proximal descending colon. Electronically Signed by Macario Bryant MD 11/20/2019 01:14 A
== END ==
LOC: M CLY 12:55
PROVIDERS: ATTEND Internal Medicine Gastroenterology
DX: T18.4XXA Foreign body in colon, initial encounter (principal); T18.3XXA Foreign body in small intestine, initial encounter

== ENCOUNTER → 2020-02-10 | Outpatient (REF) | payer OTHER ==
[2020-02-10 18:08] LABS: CALCIUM LEVEL 9.8 MG/DL (8.8-10.2); CREATININE FOR GFR 1.59 MG/DL (0.70-1.30); GLOMERULAR FILTRATION RATE 45.5 (>42)
== END ==
LOC: M LABDRAWC 16:10
PROVIDERS: ATTEND Physician Assistant
DX: I50.32 Chronic diastolic (congestive) heart failure (principal)

== ENCOUNTER → 2020-05-10 | Outpatient (REF) | payer OTHER ==
[~2020-05-10] MED LIST changes: +PANT40TA29 PO; -PANT40TA3 PO; +VALA1TAB5 PO
[2020-05-10 16:37] LABS: CALCIUM LEVEL 9.2 MG/DL (8.8-10.2); CREATININE FOR GFR 1.55 MG/DL (0.70-1.30); GLOMERULAR FILTRATION RATE 46.9 (>42); POTASSIUM SERUM 4.5 MEQ/L (3.5-5.1)
== END ==
LOC: M LABDRAWC 16:03
PROVIDERS: ATTEND Physician Assistant
DX: I50.32 Chronic diastolic (congestive) heart failure (principal); Z79.82 Long term (current) use of aspirin

== ENCOUNTER 2020-06-13 03:41 | Emergency (ER) | payer OTHER ==
[~2020-06-13] VITALS: Ht 195.6 cm; Wt 97.7 kg
[~2020-06-13 03:41] MED LIST changes: -VALA1TAB5 PO
[2020-06-13] MEDS ORDERED: VALA1TAB5 PO (03:50)
[2020-06-13] MEDS ORDERED: ACETAMINOPHEN 325 MG TAB PO ONE (06:30)
[2020-06-13 07:07] LABS: BASO % 0.7 % (0.0-1.0); EOS # 0.4 10^3/uL (0.0-0.5); EOS % 7.1 % (0.0-3.0); HEMATOCRIT 34.8 % (42.0-52.0); LYMPH # 0.9 10^3/uL (1.5-5.0); LYMPH % 16.3 % (24.0-44.0); MEAN CORPUSCULAR HEMOGLOBIN 26.3 pg (27.0-33.0); MEAN CORPUSCULAR HGB CONC 31.6 g/dl (32.0-36.5); MEAN CORPUSCULAR VOLUME 83.3 fl (80.0-96.0); MONO # 0.6 10^3/uL (0.0-0.8); MONO % 9.5 % (0.0-5.0); NEUTROPHILS # 3.8 10^3/uL (1.5-8.5); NEUTROPHILS % 66.2 % (36.0-66.0); PLATELET COUNT, AUTOMATED 265 10^3/uL (150-450); RED BLOOD COUNT 4.18 10^6/uL (4.30-6.10); WHITE BLOOD COUNT 5.8 10^3/uL (4.0-10.0)
[2020-06-13 07:39] LABS: ALBUMIN 3.7 GM/DL (3.2-5.2); ALT/SGPT 23 U/L (12-78); BILIRUBIN,DIRECT 0.3 MG/DL (0.0-0.2); BLOOD UREA NITROGEN 19 MG/DL (7-18); CALCIUM LEVEL 9.1 MG/DL (8.8-10.2); CARBON DIOXIDE LEVEL 32 MEQ/L (21-32); CHLORIDE LEVEL 99 MEQ/L (98-107); CREATININE FOR GFR 1.08 MG/DL (0.70-1.30); GLOMERULAR FILTRATION RATE > 60.0 (>42); GLUCOSE, FASTING 94 MG/DL (70-100); NT-PRO BNP 166 PG/ML (<125); POTASSIUM SERUM 4.4 MEQ/L (3.5-5.1); SODIUM LEVEL 136 MEQ/L (136-145); TOTAL PROTEIN 7.3 GM/DL (6.4-8.2)
[2020-06-13 07:49] VITALS: BP 158/79
[2020-06-13 08:02] LABS: INR 1.05; PROTHROMBIN TIME 13.9 SECONDS (11.8-14.0)
[2020-06-13 08:03] LABS: PARTIAL THROMBOPLASTIN TIME 33.9 SECONDS (25.0-38.4)
--- NOTE | 2020-07-16 09:30 | REP ---
EMERGENCY LEFT LOWER EXTREMITY DUPLEX VENOUS ULTRASOUND HISTORY: Swelling and pain, rule out deep vein thrombosis (DVT). FINDINGS: The deep veins are anechoic and fully compressible from the groin to the popliteal fossa in the left lower extremity on two-dimensional scanning. Color flow imaging is homogeneous. Spectral Doppler interrogation demonstrates intact respiratory variation flow and normal manual augmentation of flow. There is no evidence of DVT. IMPRESSION: Negative left lower extremity duplex venous ultrasound. No evidence of deep vein thrombosis (DVT). MTDD
== END 2020-06-13 08:20 | disposition home or self-care (01) ==
LOC: M ED 03:41
DX: B02.9 Zoster without complications (principal); R22.42 Localized swelling, mass and lump, left lower limb; I25.10 Atherosclerotic heart disease of native coronary artery without angina pectoris; J44.9 Chronic obstructive pulmonary disease, unspecified; E78.5 Hyperlipidemia, unspecified; F17.210 Nicotine dependence, cigarettes, uncomplicated; Z79.51 Long term (current) use of inhaled steroids; Z79.899 Other long term (current) drug therapy; J90 Pleural effusion, not elsewhere classified

== ENCOUNTER → 2020-07-13 | Outpatient (REF) | payer OTHER, MEDICARE ==
[~2020-07-13] MED LIST changes: +VALA1TAB5 PO
[2020-07-13 12:55] LABS: CALCIUM LEVEL 9.5 MG/DL (8.8-10.2); CREATININE FOR GFR 1.28 MG/DL (0.70-1.30); GLOMERULAR FILTRATION RATE 58.5 (>42); POTASSIUM SERUM 4.8 MEQ/L (3.5-5.1)
== END ==
LOC: M SFHCCLAY 11:39
PROVIDERS: ATTEND Physician Assistant
DX: B02.9 Zoster without complications (principal)

== ENCOUNTER → 2020-08-10 | Outpatient (REF) | payer OTHER, MEDICARE ==
[2020-08-10 16:46] LABS: CALCIUM LEVEL 9.5 MG/DL (8.8-10.2); CREATININE FOR GFR 1.39 MG/DL (0.70-1.30); GLOMERULAR FILTRATION RATE 53.2 (>42); POTASSIUM SERUM 4.5 MEQ/L (3.5-5.1)
== END ==
LOC: M LABDRAWC 15:51
PROVIDERS: ATTEND Physician Assistant
DX: I50.32 Chronic diastolic (congestive) heart failure (principal)

== ENCOUNTER → 2020-09-27 | Outpatient (REF) | payer MEDICARE ==
[2020-09-27 16:27] LABS: BASO % 0.7 % (0.0-1.0); EOS # 0.4 10^3/uL (0.0-0.5); EOS % 5.9 % (0.0-3.0); HEMATOCRIT 39.6 % (42.0-52.0); HEMOGLOBIN 11.6 g/dl (13.5-17.5); LYMPH # 1.3 10^3/uL (1.5-5.0); MEAN CORPUSCULAR HEMOGLOBIN 25.3 pg (27.0-33.0); MEAN CORPUSCULAR HGB CONC 29.3 g/dl (32.0-36.5); MEAN CORPUSCULAR VOLUME 86.3 fl (80.0-96.0); MONO # 0.8 10^3/uL (0.0-0.8); NEUTROPHILS # 3.5 10^3/uL (1.5-8.5); NEUTROPHILS % 58.2 % (36.0-66.0); PLATELET COUNT, AUTOMATED 215 10^3/uL (150-450); RED BLOOD COUNT 4.59 10^6/uL (4.30-6.10); WHITE BLOOD COUNT 5.9 10^3/uL (4.0-10.0)
[2020-09-27 17:07] LABS: ALBUMIN 3.8 GM/DL (3.2-5.2); BILIRUBIN,TOTAL 0.6 MG/DL (0.2-1.0); CALCIUM LEVEL 9.5 MG/DL (8.8-10.2); CHOLESTEROL RISK RATIO 1.848 (<5); CREATININE FOR GFR 1.44 MG/DL (0.70-1.30); GLOMERULAR FILTRATION RATE 51.1 (>42); POTASSIUM SERUM 4.6 MEQ/L (3.5-5.1); THYROID STIMULATING HORMONE 2.35 uIU/ML (0.358-3.740); TOTAL PROTEIN 7.5 GM/DL (6.4-8.2)
== END ==
LOC: M SFHCCLAY 10:15
PROVIDERS: ATTEND Physician Assistant
DX: E78.2 Mixed hyperlipidemia (principal)

== ENCOUNTER → 2020-11-15 | Outpatient (REF) | payer MEDICARE ==
[2020-11-15 11:58] LABS: HEMATOCRIT 39.1 % (42.0-52.0); HEMOGLOBIN 11.5 g/dl (13.5-17.5); MEAN CORPUSCULAR HEMOGLOBIN 24.9 pg (27.0-33.0); MEAN CORPUSCULAR HGB CONC 29.4 g/dl (32.0-36.5); MEAN CORPUSCULAR VOLUME 84.6 fl (80.0-96.0); PLATELET COUNT, AUTOMATED 202 10^3/uL (150-450); RED BLOOD COUNT 4.62 10^6/uL (4.30-6.10); WHITE BLOOD COUNT 5.3 10^3/uL (4.0-10.0)
[2020-11-15 12:41] LABS: ALBUMIN 3.9 GM/DL (3.2-5.2); BILIRUBIN,TOTAL 0.7 MG/DL (0.2-1.0); CALCIUM LEVEL 9.4 MG/DL (8.8-10.2); CHOLESTEROL RISK RATIO 1.76 (<5); CREATININE FOR GFR 1.39 MG/DL (0.70-1.30); GLOMERULAR FILTRATION RATE 53.2 (>42); MAGNESIUM LEVEL 2.5 MG/DL (1.8-2.4); POTASSIUM SERUM 4.8 MEQ/L (3.5-5.1); TOTAL PROTEIN 7.2 GM/DL (6.4-8.2)
== END ==
LOC: M LABDRAWC 11:33
PROVIDERS: ATTEND Physician Assistant
DX: I25.10 Atherosclerotic heart disease of native coronary artery without angina pectoris (principal); I50.32 Chronic diastolic (congestive) heart failure; E78.00 Pure hypercholesterolemia, unspecified; E83.42 Hypomagnesemia

== ENCOUNTER → 2021-02-23 | Outpatient (REF) | payer MEDICARE ==
[~2021-02-23] MED LIST changes: +ASPI-569 PO; -ASPI81TAEC PO
[2021-02-23 17:14] LABS: BASO # 0.1 10^3/uL (0.0-0.2); BASO % 1.1 % (0.0-1.0); EOS # 0.3 10^3/uL (0.0-0.5); EOS % 7.4 % (0.0-3.0); HEMOGLOBIN 11.5 g/dl (13.5-17.5); LYMPH # 1.1 10^3/uL (1.5-5.0); LYMPH % 23.4 % (24.0-44.0); MEAN CORPUSCULAR HEMOGLOBIN 23.8 pg (27.0-33.0); MEAN CORPUSCULAR HGB CONC 28.8 g/dl (32.0-36.5); MEAN CORPUSCULAR VOLUME 82.6 fl (80.0-96.0); MONO # 0.8 10^3/uL (0.0-0.8); MONO % 16.8 % (2.0-8.0); NEUTROPHILS # 2.3 10^3/uL (1.5-8.5); NEUTROPHILS % 51.1 % (36.0-66.0); PLATELET COUNT, AUTOMATED 208 10^3/uL (150-450); RED BLOOD COUNT 4.84 10^6/uL (4.30-6.10); WHITE BLOOD COUNT 4.6 10^3/uL (4.0-10.0)
[2021-02-23 17:30] LABS: ALBUMIN 3.5 GM/DL (3.2-5.2); ALT/SGPT 17 U/L (12-78); BILIRUBIN,TOTAL 0.6 MG/DL (0.2-1.0); BLOOD UREA NITROGEN 22 MG/DL (7-18); CALCIUM LEVEL 9.3 MG/DL (8.8-10.2); CARBON DIOXIDE LEVEL 39 MEQ/L (21-32); CHLORIDE LEVEL 100 MEQ/L (98-107); CREATININE FOR GFR 1.18 MG/DL (0.70-1.30); GLOMERULAR FILTRATION RATE > 60.0 (>42); GLUCOSE, FASTING 70 MG/DL (70-100); POTASSIUM SERUM 4.9 MEQ/L (3.5-5.1); RHEUMATOID FACTOR QUANT 10.5 IU/ML (<15.0); SODIUM LEVEL 140 MEQ/L (136-145); TOTAL PROTEIN 7.4 GM/DL (6.4-8.2)
[2021-02-23 17:31] LABS: VITAMIN B12 LEVEL 783 PG/ML
[2021-02-23 17:32] LABS: FOLATE > 24.0 NG/ML
[2021-02-23 18:05] LABS: HEMOGLOBIN A1c 6.3 %
[2021-02-23 18:17] LABS: ERYTHROCYTE SEDIMENTATION RATE 9 mm/hr (0-20)
[2021-02-24 14:10] LABS: ALBUMIN 3.89 GM/DL (3.29-5.55); ALBUMIN % 52.6 % (55.8-66.1); ALPHA-1-GLOBULIN % 4.7 % (2.9-4.9); ALPHA-1-GLOBULINS 0.35 GM/DL (0.17-0.41); ALPHA-2-GLOBULINS 0.81 GM/DL (0.42-0.99); ALPHA-2-GLOBULINS % 10.9 % (7.1-11.8); BETA-1-GLOBULINS 0.53 GM/DL (0.28-0.60)
[2021-02-24 14:11] LABS: BETA-1-GLOBULINS % 7.1 % (4.7-7.2); BETA-2-GLOBULINS 0.44 GM/DL (0.19-0.55); GAMMA GLOBULIN % 18.7 % (11.1-18.8); GAMMA GLOBULINS 1.38 GM/DL (0.65-1.58)
[2021-03-01 15:09] LABS: ANTINUCLEAR ANTIBODIES DIRECT Negative (Negative); VITAMIN B1 LEVEL WHOLE BLOOD 177.8 nmol/L (66.5-200.0)
== END ==
LOC: M LABDRWCV 16:06
PROVIDERS: ATTEND Psychiatry & Neurology Neurology
DX: G62.9 Polyneuropathy, unspecified (principal); Z79.899 Other long term (current) drug therapy

== ENCOUNTER → 2021-03-04 | Outpatient (CLI) | payer MEDICARE ==
--- NOTE | 2021-03-06 06:53 | REP ---
INDICATION: R/O FOREIGN BODY/METAL COMPARISON: None. TECHNIQUE: AP, lateral views of the skull.. FINDINGS: There is a tiny 2 mm metallic trudy in the region of the left orbit. IMPRESSION: Tiny metallic foreign body trudy in the region of the left orbit.. <Electronically signed by Macario Bryant > 03/06/21 0623
== END ==
LOC: M WUC 12:54
PROVIDERS: ATTEND Psychiatry & Neurology Neurology
DX: Z18.9 Retained foreign body fragments, unspecified material (principal)

== ENCOUNTER → 2021-03-15 | Outpatient (REF) | payer MEDICARE ==
[2021-03-15 16:57] LABS: CALCIUM LEVEL 9.7 MG/DL (8.8-10.2); CREATININE FOR GFR 1.36 MG/DL (0.70-1.30); GLOMERULAR FILTRATION RATE 54.4 (>42); POTASSIUM SERUM 4.8 MEQ/L (3.5-5.1)
== END ==
LOC: M LABDRWCV 15:45
PROVIDERS: ATTEND Physician Assistant
DX: I50.32 Chronic diastolic (congestive) heart failure (principal)

== ENCOUNTER → 2021-05-19 | Outpatient (CLI) | payer MEDICARE | LOC: M PLAIMG 13:45 | PROVIDERS: ATTEND Physician Assistant Medical | DX: M54.10 Radiculopathy, site unspecified (principal) ==

== ENCOUNTER → 2021-06-30 | Outpatient (REF) | payer MEDICARE ==
[2021-06-30 16:35] LABS: BLOOD UREA NITROGEN 23 MG/DL (7-18); CALCIUM LEVEL 9.1 MG/DL (8.8-10.2); CARBON DIOXIDE LEVEL 40 MEQ/L (21-32); CHLORIDE LEVEL 100 MEQ/L (98-107); CREATININE FOR GFR 1.26 MG/DL (0.70-1.30); GLOMERULAR FILTRATION RATE 59.4 (>42); GLUCOSE, FASTING 97 MG/DL (70-100); POTASSIUM SERUM 4.7 MEQ/L (3.5-5.1); SODIUM LEVEL 139 MEQ/L (136-145)
== END ==
LOC: M LABDRWCV 15:49
PROVIDERS: ATTEND Physician Assistant
DX: I50.32 Chronic diastolic (congestive) heart failure (principal)

== ENCOUNTER 2021-08-07 08:47 | Inpatient (IN) | payer MEDICARE ==
[~2021-08-07] VITALS: Ht 195.6 cm; Wt 102.1 kg
[~2021-08-07 08:47] MED LIST changes: -IPRA0.00 INH; +IPRA0.00 NEB
--- OUTSIDE RECORDS SUMMARY | 2021-08-07 08:56 | CCD | Continuity of Care Document ---
Author Author Caesar CRABTREE P.A.-C. Organization Unknown Address [address] [place] [address] Phone [phone] Care Team Providers Care Irrigation Tax Assessor Collector Name Role Phone Karen Argueta PA-C AUTM [phone] Problems Description No Information Available Social History Type Date Description Comments Sex Unknown Allergies, Adverse Reactions, Alerts Description No Known Drug Allergies Medications Description No Information Available Immunizations Description No Information Available Vital Signs Date Vital Result Comment 04/13/2021 8:28am BP Systolic 110 mmHg BP Diastolic 70 mmHg Heart Rate 76 /min Respiratory Rate 20 /min Results Test Acquired Date Facility Test Result H/L Range Note Hemoglobin A1c 02/23/2021 [facility] Hemoglobin A1c 6.3 % Normal 1 Estimated Average Glucose 134 mg/dL High 60-110 CBC With Differential 02/23/2021 [facility] White Blood Count 4.6 10 Normal 4.0-10.0 Red Blood Count 4.84 10 Normal 4.30-6.10 Hemoglobin 11.5 g/dL Low 13.5-17.5 Hematocrit 40.0 % Low 42.0-52.0 Mean Corpuscular Volume 82.6 fl Normal 80.0-96.0 Mean Corpuscular Hemoglobin 23.8 pg Low 27.0-33.0 Mean Corpuscular HGB Conc 28.8 g/dL Low 32.0-36.5 Red Cell Distribution Width 19.7 % High 11.5-14.5 Platelet Count, Automated 208 10 Normal 150-450 Neutrophils % 51.1 % Normal 36.0-66.0 Lymph % 23.4 % Low 24.0-44.0 [place] % 16.8 % High 2.0-8.0 Eos % 7.4 % High 0.0-3.0 Baso % 1.1 % High 0.0-1.0 Immature Granulocyte % 0.2 % Normal 0-3.0 Nucleated Red Blood Cell % 0.0 % Normal 0-0 Neutrophils # 2.3 10 Normal 1.5-8.5 Lymph # 1.1 10 Low 1.5-5.0 [place] # 0.8 10 Normal 0.0-0.8 Eos # 0.3 10 Normal 0.0-0.5 Baso # 0.1 10 Normal 0.0-0.2 Laboratory test finding 02/23/2021 [facility] Erythrocyte Sedimentation Rate 9 mm/hr Normal 0-20 Comprehensive Metabolic Profil 02/23/2021 [facility] Glucose, Fasting 70 mg/dL Normal 70-100 Blood Urea Nitrogen 22 mg/dL High 7-18 Creatinine For GFR 1.18 mg/dL Normal 0.70-1.30 Glomerular Filtration Rate > 60.0 Normal >42 2 Sodium Level 140 mEq/L Normal 136-145 Potassium Serum 4.9 mEq/L Normal 3.5-5.1 Chloride Level 100 mEq/L Normal 98-107 Carbon Dioxide Level 39 mEq/L High 21-32 Anion Gap 1 mEq/L Low 8-16 Calcium Level 9.3 mg/dL Normal 8.8-10.2 Ast/Sgot 21 U/L Normal 7-37 Alt/SGPT 17 U/L Normal 12-78 Alkaline Phosphatase 66 U/L Normal 45-117 Bilirubin,Total 0.6 mg/dL Normal 0.2-1.0 Total Protein 7.4 GM/DL Normal 6.4-8.2 Albumin 3.5 GM/DL Normal 3.2-5.2 Albumin/Globulin Ratio 0.9 Normal Serum Protein Electrophoresis 02/23/2021 [facility] Albumin % 52.6 % Low 55.8-66.1 Txtdy-8-Kxhvdkef % 4.7 % Normal 2.9-4.9 Xshri-2-Iptumkppc % 10.9 % Normal 7.1-11.8 Hubd-3-Nftzdobeh % 7.1 % Normal 4.7-7.2 Joup-6-Pspoagpbo % 6.0 % Normal 3.2-6.5 Gamma Globulin % 18.7 % Normal 11.1-18.8 Albumin 3.89 GM/DL Normal 3.29-5.55 Altlz-2-Apriddjvi 0.35 GM/DL Normal 0.17-0.41 Vrvgr-2-Kgympimyt 0.81 GM/DL Normal 0.42-0.99 Ayzy-6-Hjxklvkto 0.53 GM/DL Normal 0.28-0.60 Pzhh-7-Mkkzpcflu 0.44 GM/DL Normal 0.19-0.55 Gamma Globulins 1.38 GM/DL Normal 0.65-1.58 Total Protein 7.4 GM/DL Normal 6.4-8.2 Spep Interpretation SEE COMMENT Normal 3 Spep Pathologist Review REV'D BY Lolita KENNEY Normal Laboratory test finding 02/23/2021 [facility] Thyroid Stimulating Hormone 2.030 uIU/ML Normal 0.358-3.740 Vitamin B12 & Folate 02/23/2021 [facility] Vitamin B12 Level 783 pg/mL Normal 4 Folate > 24.0 NG/ML Normal 5 Laboratory test finding 02/23/2021 [facility] Syphilis NONREACTIVE Normal Nonreactive Rheumatoid Factor Quant 10.5 IU/mL Normal <15.0 Vitamin B1 Level Whole Blood 177.8 nmol/L Normal 66.5-200.0 6 Antinuclear Antibodies 02/23/2021 [facility] Antinuclear Antibodies Direct Negative Normal Negative 7 1 REFERENCE RANGES: <=5.6% NORMAL 5.7-6.4% SUGGESTS IMPAIRED GLUCOSE META BOLISM/PREDIABETIC >= 6.5% ABNORMAL 2 Units are mL/min/1.73 m2 Chronic Kidney Disease Staging per NKF: Stage I & II GFR >=60 Normal to Mildly Decreased Stage III GFR 30-59 Moderately Decreased Stage IV GFR 15-29 Severely Decreased Stage V GFR <15 Very Little GFR Left ESRD GFR <15 on DRILL PRESS OPERATOR FOR METAL 3 NO M-SPIKE(S)NOTED. 4 VITAMIN B12 NORMAL RANGE NORMAL 247 - 911 PG/ML INDETERMINATE 211 - 246 PG/ML DEFICIENT LESS THAN 211 PG/ML 5 FOLATE NORMAL RANGE NORMAL GREATER THAN 5.4 NG/ML INDETERMINATE 3.4-5.4 NG/ML DEFICIENT LESS THAN 3.4 NG/ML 6 Specimen Comment: Test(s) 12 1188-Vit. B1, Whole Blood Specimen Comment: was developed and its performance characteristics Specimen Comment: determined by [facility]. It has not been cleared or approved Specimen Comment: by the Food and Drug Administration. 7 Performed at: [address], [place] [id number] 61 Water Resource Engineer: Bal Dubose MD, Phone: [phone] Performed at: - [facility] [address] [id number] Water Resource Engineer: Marisabel Phillips MD, Phone: [phone] Procedures Date Code Description Status 06/21/2021 77565 Office/Outpatient Established Mo d MDM 30-39 Min Completed 04/13/2021 67118 Office/Outpatient Established Mo d MDM 30-39 Min Completed 03/22/2021 92151 Nerve Conduction 13+ Studies Com pleted 03/22/2021 70108 Needle Electromyography Complete , Five Or More Muscles Studied Completed 03/22/2021 00022 Needle Electromyography Complete , Five Or More Muscles Studied Completed 02/25/2021 26999 Sympathetic Skin Responses Compl eted 02/25/2021 14409 Test Autonomic Nervous System, C ardiovagal Innervation Completed 02/25/2021 10268 Artery Study Extremity Mult Leve ls Bilateral Completed 02/25/2021 48788 Artery Study Extremity Mult Leve ls Bilateral Completed 02/22/2021 42603 Office/Outpatient New Moderate M DM 45-59 Minutes Completed Medical Devices Description No Information Available Encounters Type Date Location Provider Dx Diagnosis Office Visit 06/21/2021 10:30a Main office - [place] Hemalatha camp P.A.-C. R26.2 Difficulty in walking, not elsewhere cla ssified G60.9 Hereditary and idiopathic ne uropathy, unspecified Office Visit 04/13/2021 9:30a Main office - [place] Cale Dennis.A.-C. G60.9 Hereditary and idiopathic neuropathy, un specified R26.2 Difficulty in walking, not e lsewhere classified I73.9 Peripheral vascular disease, unspecified Office Visit 02/22/2021 1:30p Main office - [place] Leticia Cherry M.D. M79.605 Pain in left leg R26.2 Difficulty in walking, not e lsewhere classified R20.2 Paresthesia of skin M62.9 Disorder of muscle, unspecif ied Assessments Date Code Description Provider 06/21/2021 R26.2 Difficulty in walking, not elsew here classified Hemalatha Crabtree P.A.-C. 06/21/2021 G60.9 Hereditary and idiopathic neurop athy, unspecified Karlie WalshC. 04/13/2021 G60.9 Hereditary and idiopathic neurop athy, unspecified Karlie WalshC. 04/13/2021 R26.2 Difficulty in walking, not elsew here classified Hemalatha Crabtree P.A.-C. 04/13/2021 I73.9 Peripheral vascular disease, uns pecified Karlie WalshC. 03/22/2021 M25.579 Pain in unspecified ankle and magdiel ints of unspecified foot Cassi Jo Ann, M.D. 03/22/2021 M54.16 Radiculopathy, lumbar region Abd ul Jo Ann, M.D. 03/22/2021 R20.2 Paresthesia of skin Cassi Jo Ann, M.D. 03/22/2021 G60.9 Hereditary and idiopathic neurop athy, unspecified Cassi Jo Ann, M.D. 02/25/2021 G60.8 Other hereditary and idiopathic neuropathies Leticia Jo Ann, M.D. 02/25/2021 G60.8 Other hereditary and idiopathic neuropathies Ans/VS 02/25/2021 I70.222 Atherosclerosis of n ative arteries of extremities with rest pain, left leg Elticia Jo Ann, M.D. 02/25/2021 I70.222 Atherosclerosis of n ative arteries of extremities with rest pain, left leg Ans/VS 02/22/2021 M79.605 Pain in left leg Leticia Jo Ann, M .D. 02/22/2021 R26.2 Difficulty in walking, not elsew here classified Leticia Jo Ann, M.D. 02/22/2021 R20.2 Paresthesia of skin Leticia Jo Ann , M.D. 02/22/2021 M62.9 Disorder of muscle, unspecified Leticia Jo Ann, M.D. Plan of Treatment Future Appointment(s):* 10/04/2021 10:00 am - Hemalatha Crabtree P.A.-C. at Main office [facility] 06/21/2021 - Hemalatha Crabtree P.A.-C.* R26.2 Difficulty in walking, not elsewhere classified * G60.9 Hereditary and idiopathic neuropathy, unspecified Functional Status Description No Information Available Mental Status Description No Information Available Referrals Description No Information Available
--- OUTSIDE RECORDS SUMMARY | 2021-08-07 08:56 | CCD | Continuity of Care Document ---
Author Author Caesar KRAUSEC Organization Unknown Address [address] [place] [address], [place] [address] Phone [phone] Care Team Providers Care Domestic Violence Counselor Name Role Phone AUTM Unavailable Jahaira Chung AUTM [phone] Anton Kenny MD AUTM [phone] Pedro Foote MD AUTM [phone] Bharath Miguel MD AUTM [phone] Karen Argueta PA-C AUTM [phone] Megan Cherry AUTM [phone] Problems Active Problems Provider Date Coronary arteriosclerosis NIKOLAY Benavidez-C Onset: 2011 History of coronary artery bypass grafting Cale Benavidez A-C Onset: 09/15/2015 Chronic diastolic heart failure Shawna Krause PA-C Onset: 02/08/2012 Benign hypertensive heart disease with congestive card iac failure Shawna Krause PA-C Onset: 02/08/2012 Aortic valve disorder Shawna Krause PA-C Onset: 02/08/2012 Dilatation of aorta Shawna Krause PA-C Onset: 03/27/2016 Mitral valve disorder Shawna Krause PA-C Onset: 02/08/2012 Pure hypercholesterolemia Shawna Krause PA-C Onset: 2011 Dietary management surveillance Shawna Krause PA-C Onset: 05/24/2017 Social History Type Date Description Comments Sex Unknown Tobacco Use Start: Unknown End: Unknown Former Cigarette Smo ker 40 years x 1/2 PPD, quit 11/2006 ETOH Use Consumes Beer only very rarely Tobacco Use Start: Unknown End: Unknown Patient is a former smoker 40 years x 1/2 PPD, quit 11/2006 Smoking Status Reviewed: 03/22/21 Patient is a former smoker 40 years x 1/2 PPD, quit 11/2006 Exercise Type/Frequency Does yardwork three time s a week cutting and stacking wood Exercise Type/Frequency Does housework sporadica lly Exercise Type/Frequency Does yardwork sporadical ly snow shoveling as needed Exercise Limitations Shortness Of Breath Allergies, Adverse Reactions, Alerts Description No Known Drug Allergies Medications Active Medications SIG Qnty Indications Ordering Provide r Date Lidocaine 5% Cream apply 1 application at night Unknown 03/21/2021 Albuterol Sulfate (2 .5mg/3ML) 0.083% Nebulizer every 6 hours as needed Unknown 02/21 Metoprolol Succinate ER 25mg Tablets ER 24HR 10/23 by mouth twice every day 90tabs Pedro rosenberg MD 08/16/2020 Gabapentin 300mg Capsules 1 by mouth four times a day Karen Argueta, PABrendaC 020 Ipratropium [place]/Albuterol Sulfate 0.5-2.5(3)mg/3ML Solution 1 nebulizer treatment 4 times a day (wit h each meal and bedtime). Unknown 02/16/2020 Furosemide 40mg Tablets 1 by mouth every day 90tabs I50.32 Pedro Foote MD 07/14/[address] 1 by mouth every day Unknown 01/19/2019 Pantoprazole Sodium 40mg Tablets D R 1 by mouth twice every day 180tabs Pedro Foote MD 019 Albuterol Sulfate HFA 108(90Base) mcg/Act Aerosol Unknown 12/31/2018 Atorvastatin Calcium 80mg Tablets 1 by mouth every night at bedtime 90tabs Pedro Foote MD 03/26/2016 Incruse Ellipta 62.5mcg/Inh Aeroso l 1 puff daily Anton Kenny MD 12/16/2015 Flovent HFA 220mcg/Act Aerosol 1 puff twice a day Anton Kenny MD 08/26/2014 Oxygen - Home 2 lpm concentrator machine for bedtime Anton Kenny MD 12/19/2012 Acetaminophen ER 650mg Tablets ER 1 po q4h prn pain Zehra Cornejo, BARTENDER HELPER-C 2011 Nitrostat 0.4mg Tablets Sub 1 sl every 5min x3 as needed for chest pain 25tabs I25.10 Pedro Foote MD 01/23/2008 Multi-Vitamin Tablets 1 PO d Garo Simms MD 01/23/2008 Immunizations Description No Information Available Vital Signs Date Vital Result Comment 03/22/2021 12:22pm Weight 225.00 lb Home Weight 225lb Height 77 inches 6'5" BMI (Body Mass Index) 26.7 kg/m2 Heart Rate 72 /min Regular Respiratory Rate 16 /min BP Systolic Right Arm 128 mmHg sitting, regular c uff BP Diastolic Right Arm 74 mmHg sitting, regular cuff BP Systolic Left Arm 124 mmHg sitting BP Diastolic Left Arm 68 mmHg sitting 12/15/2020 11:01am Weight 223.00 lb Home Weight 220lb Home weight Height 77 inches 6'5" BMI (Body Mass Index) 26.4 kg/m2 Heart Rate 68 /min Regular Respiratory Rate 16 /min BP Systolic Right Arm 126 mmHg sitting, regular c uff BP Diastolic Right Arm 64 mmHg sitting, regular cuff Results Test Acquired Date Facility Test Result H/L Range Note Basic Metabolic Profile 06/30/2021 [facility] [phone] Glucose, Fasting 97 mg/dL Normal 70-100 Blood Urea Nitrogen 23 mg/dL High 7-18 Creatinine For GFR 1.26 mg/dL Normal 0.70-1.30 Glomerular Filtration Rate 59.4 Normal >42 1 Sodium Level 139 mEq/L Normal 136-145 Potassium Serum 4.7 mEq/L Normal 3.5-5.1 Chloride Level 100 mEq/L Normal 98-107 Carbon Dioxide Level 40 mEq/L High 21-32 Calcium Level 9.1 mg/dL Normal 8.8-10.2 Basic Metabolic Profile 03/15/2021 [facility] [phone] Glucose, Fasting 58 mg/dL Low 70-100 Blood Urea Nitrogen 26 mg/dL High 7-18 Creatinine For GFR 1.36 mg/dL High 0.70-1.30 Glomerular Filtration Rate 54.4 Normal >42 2 Sodium Level 139 mEq/L Normal 136-145 Potassium Serum 4.8 mEq/L Normal 3.5-5.1 Chloride Level 99 mEq/L Normal 98-107 Carbon Dioxide Level 39 mEq/L High 21-32 Anion Gap 1 mEq/L Low 8-16 Calcium Level 9.7 mg/dL Normal 8.8-10.2 1 Units are mL/min/1.73 m2 Chronic Kidney Disease Staging per NKF: Stage I & II GFR >=60 Normal to Mildly Decreased Stage III GFR 30-59 Moderately Decreased Stage IV GFR 15-29 Severely Decreased Stage V GFR <15 Very Little GFR Left ESRD GFR <15 on EDGER AUTOMAT[employer] 2 Units are mL/min/1.73 m2 Chronic Kidney Disease Staging per NKF: Stage I & II GFR >=60 Normal to Mildly Decreased Stage III GFR 30-59 Moderately Decreased Stage IV GFR 15-29 Severely Decreased Stage V GFR <15 Very Little GFR Left ESRD GFR <15 on [employer]GER [employer] Procedures Date Code Description Status 03/22/2021 14216 Office/Outpatient Established Mo d MDM 30-39 Min Completed 03/22/2021 64416 ECG 12-Lead Completed Medical Devices Description No Information Available Encounters Type Date Location Provider Dx Diagnosis Office Visit 03/22/2021 12:30p Main Office Shawna Krause PA-C I25.1 0 Athscl heart disease of [place] coronary artery w/o ang pctrs Z95.1 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 I50.32 Chronic diastolic (congestiv e) heart failure I11.0 Hypertensive heart disease w ith heart failure I77.810 Thoracic aortic ectasia I35.1 Nonrheumatic aortic (valve) insufficiency I34.0 Nonrheumatic mitral (valve) insufficiency E78.00 Pure hypercholesterolemia, u nspecified Z71.3 Dietary counseling and surve illance Assessments Date Code Description Provider 03/22/2021 I25.10 Atherosclerotic heart disease of [place] coronary artery with Shawna Krause PA-C 03/22/2021 Z95.1 Presence of aortocoronary bypass graft Shawna Krause PA-C 03/22/2021 I50.32 Chronic diastolic (congestive) h eart failure Shawna Krause PA-C 03/22/2021 I11.0 Hypertensive heart disease with heart failure Shawna Krasue PA-C 03/22/2021 I77.810 Thoracic aortic ectasia Shawna jeffries PA-C 03/22/2021 I35.1 Nonrheumatic aortic (valve) insu fficiency Shawna Krause PA-C 03/22/2021 I34.0 Nonrheumatic mitral (valve) insu fficiency Shawna Krause PA-C 03/22/2021 E78.00 Pure hypercholesterolemia, unspe cified Shawna Krause PA-C 03/22/2021 Z71.3 Dietary counseling and surveilla nce Shawna Krause PA-C Plan of Treatment Future Appointment(s):* 07/05/2021 12:30 pm - Shawna Krause PA-C at Main Office 03/22/2021 - Shawna Krause PA-C* I25.10 Atherosclerotic heart disease of [place] coronary artery with * Z95.1 Presence of aortocoronary bypass graft * I50.32 Chronic diastolic (congestive) heart failure* Recommendations:* Follow a 2 grams sodium diet and 50 ounces fluid restriction per 24 hour and do daily weights. Call the office for weight gain of 3 lbs or more. * I11.0 Hypertensive heart disease with heart failure * I77.810 Thoracic aortic ectasia * I35.1 Nonrheumatic aortic (valve) insufficiency * I34.0 Nonrheumatic mitral (valve) insufficiency * E78.00 Pure hypercholesterolemia, unspecified * Z71.3 Dietary counseling and surveillance* Recommendations:* Follow a low fat/low cholesterol diet and do as much aerobic exercise as you can tolerate. * All * Follow up:* 3 month CV/CHF check. Functional Status Functional Condition Comment Date Status Independent with all ADL's Activ e Mental Status Description No Information Available Referrals Description No Information Available
--- OUTSIDE RECORDS SUMMARY | 2021-08-07 08:56 | CCD | Continuity of Care Document ---
Author Author Caesar KENNY MD Organization Unknown Address [address] [place] [address] Phone [phone] Care Team Providers Care Shearing Machine Feeder Name Role Phone Karen Argueta P.A.-C AUTM [phone] Tristen Nieves MD AUTM [phone] Problems Active Problems Provider Date Chronic hypoxemic respiratory failure Anton Kenny MD On set: 08/31/2015 Cough Jacqui Joshi, A.N.P. Onset: 2013 Dyspnea Anton Kenny MD Onset: 12/17/2012 Acute exacerbation of chronic obstructive airways dise ase Jacqui Joshi, A.N.P. Onset: 11/20/2012 Body mass index 30+ - obesity Anton Kenny MD Onset: Obesity Anton Kenny MD Onset: 07/12/2011 Patient on oxygen Anton Kenny MD Onset: 07/12/2011 Ex-smoker Anton Kenny MD Onset: 07/05/2011 Emphysematous bronchitis Anton Kenny MD Onset: 02/28/20 11 Chronic respiratory failure Anton Kenny MD Onset: 02/27 Congestive heart failure Anton Kenny MD Onset: 02/28/20 11 Noncompliance with treatment Anton Kenny MD Onset: 06/2011 Social History Type Date Description Comments Sex Unknown ETOH Use Denies alcohol use Tobacco Use Start: Unknown No Smoking Status Reviewed: 06/07/21 No Allergies, Adverse Reactions, Alerts Description No Known Drug Allergies Medications Active Medications SIG Qnty Indications Ordering Provide r Date Prednisone 10mg Tablets 40mg po qd x 4 days then 30mg qd x 4 days then 20mg qd x 4 days then 10mg qd x 4 days and stop 40tabs Anton Kenny MD 06/07/2021 Nystatin 170200Osbl/ML Suspension take 4 milliliters by mouth/swallow 4 times per day x 10 days 473ml Willi Tang MD 08/26/2019 Albuterol Sulfate HFA 108(90Base) mcg/Act Aerosol inhale 2 puffs by mouth 4 times daily as needed 8.500gm Anton Kenny MD 05/26/2019 Incruse Ellipta 62.5mcg/Inh Aeroso l 1 puff every day 30units Anton Kenny MD 09/21/2015 Flovent HFA 220mcg/Act Aerosol 2 puffs twice a day please 12gm Anton Kenny MD 1 Gabapentin 300mg Capsules as directed by pcp Unknown Meloxicam 15mg Tablets prn Unknown Furosemide 20mg Tablets 1/2 tabby mouth every day Unknown Pantoprazole Sodium 40mg Tablets D R 2 daily Unknown Atorvastatin Calcium 80mg Tablets hs Unknown Metoprolol Succinate ER 25mg Tablets ER 24HR 1/2 2 x a day Unknown Oxygen 2l hs [place] Unknown Ipratropium [place]/Albuterol Sulfate 0.5-2.5(3)mg/3ML Solution 1 vial via neb four times a day as needed Unknown Tylenol Arthritis Pain 650mg Table ts ER prn Unknown Nitroglycerin 0.4mg Tablets Sub prn Unknown Aspirin 81mg Tablets DR 1 po qd Unknown Multivitamin every day Unknown Immunizations CPT Code Status Date Vaccine Lot # [id number] Given 08/16/2016 Influenza Virus Split 3 Yrs And Above For Intramuscular Use 44686 Given 08/31/2015 Influenza Virus Split 3 Yrs And Above For Intramuscular Use 64117 Given 08/04/2014 Influenza Virus Split 3 Yrs And Above For Intramuscular Use Q2036 Given 07/22/2013 Influenza Vaccine 3 Years Of Age Or Older (Flulaval) Q2036 Given 07/22/2012 Influenza Vaccine 3 Years Of Age Or Older (Flulaval) 00985 Given 09/06/2011 Pneumococcal PPSV23 Q2036 Given 08/09/2011 Influenza Vaccine 3 Years Of Age Or Older (Flulaval) 84722 Given 08/30/2010 Influenza Virus Split 3 Yrs And Above For Intramuscular Use 59034 Given 09/03/2009 Influenza Vaccine Vital Signs Date Vital Result Comment 06/07/2021 2:03pm BP Systolic 90 mmHg BP Diastolic 68 mmHg Heart Rate 78 /min O2 % BldC Oximetry 72 % 88 2L Height 73 inches 6'1" Weight 230.00 lb BMI (Body Mass Index) 30.3 kg/m2 [place] Body Weight 184 lb Weight 104.328 kg BSA (Body Surface Area) 2.28 m2 02/01/2021 10:52am BP Systolic 90 mmHg BP Diastolic 48 mmHg Heart Rate 70 /min O2 % BldC Oximetry 75 % 90 2L Height 73 inches 6'1" Weight 229.00 lb BMI (Body Mass Index) 30.2 kg/m2 [place] Body Weight 184 lb Weight 103.874 kg BSA (Body Surface Area) 2.28 m2 Results Description No Information Available Procedures Date Code Description Status 02/01/2021 17099 Office/Outpatient Established Mo d MDM 30-39 Min Completed Medical Devices Description No Information Available Encounters Type Date Location Provider Dx Diagnosis Office Visit 02/01/2021 11:15a [facility] Pulmonary[facility]Thoracic [facility] tito Kenny MD J44.9 Chronic obstructive pulmonary disease, u nspecified R91.8 Other nonspecific abnormal f inding of lung field J96.11 Chronic respiratory failure with hypoxia Assessments Date Code Description Provider 06/07/2021 J44.9 Chronic obstructive pulmonary di sease, unspecified Anton Kenny MD 06/07/2021 R91.8 Other nonspecific abnormal findi ng of lung field Anton Kenny MD 06/07/2021 J96.11 Chronic respiratory failure with hypoxia Anton Kenny MD 06/07/2021 Z99.81 Dependence on supplemental oxyge n Anton Kenny MD 02/01/2021 J44.9 Chronic obstructive pulmonary di sease, unspecified Anton Kenny MD 02/01/2021 R91.8 Other nonspecific abnormal findi ng of lung field Anton Kenny MD 02/01/2021 J96.11 Chronic respiratory failure with hypoxia Anton Kenny MD Plan of Treatment Future Appointment(s):* 09/21/2021 2:15 pm - Anton Kenny MD at [facility] Pulmonary/Thoracic 06/07/2021 - Anton Kenny MD* J44.9 Chronic obstructive pulmonary disease, unspecified * R91.8 Other nonspecific abnormal finding of lung field * J96.11 Chronic respiratory failure with hypoxia * Z99.81 Dependence on supplemental oxygen * * New Labs:* FVL/[place], Ordered: 06/07/21 * Follow up:* 4 months with fvl Functional Status Description No Information Available Mental Status Description No Information Available Referrals Description No Information Available
--- OUTSIDE RECORDS SUMMARY | 2021-08-07 08:56 | CCD | Continuity of Care Document ---
Author Author Caesar KENNY MD Organization Unknown Address [address] [place] [address] Phone [phone] Care Team Providers Care Front Office Spec Name Role Phone Karen Argueta P.A.-C AUTM [phone] Tristen Nieves MD AUTM [phone] Problems Active Problems Provider Date Chronic hypoxemic [...] stop 40tabs Anton Kenny MD 06/07/2021 Nystatin [id number]/ML Suspension take 4 milliliters by mouth/swallow 4 [...] Unknown Oxygen 2l hs Marras Unknown Ipratropium [place]/Albuterol Sulfate 0.5-2.5(3)mg/3ML Solution 1 vial via neb four times a day as needed Unknown Tylenol Arthritis Pain 650mg Table ts ER prn Unknown Nitroglycerin 0.4mg Tablets Sub prn Unknown Aspirin 81mg Tablets DR 1 po qd Unknown Multivitamin every day Unknown Immunizations CPT Code Status Date Vaccine Lot # [id number] Given 08/16/2016 Influenza Virus Split 3 Yrs And Above For Intramuscular Use 47483 Given 08/31/2015 Influenza Virus Split 3 Yrs And Above For Intramuscular Use 85011 Given 08/04/2014 Influenza Virus Split 3 Yrs And Above For Intramuscular Use Q2036 Given 07/22/2013 Influenza Vaccine 3 Years Of Age Or Older (Flulaval) Q2036 Given 07/22/2012 Influenza Vaccine 3 Years Of Age Or Older (Flulaval) 51209 Given 09/06/2011 Pneumococcal PPSV23 Q2036 Given 08/09/2011 Influenza Vaccine 3 Years Of Age Or Older (Flulaval) 93811 Given 08/30/2010 Influenza Virus Split 3 Yrs And Above For Intramuscular Use 29016 Given 09/03/2009 Influenza Vaccine Vital Signs Date Vital Result Comment 06/07/2021 2:03pm BP Systolic 90 mmHg BP Diastolic 68 mmHg Heart Rate 78 /min O2 % BldC Oximetry 72 % 88 2L Height 73 inches 6'1" Weight 230.00 lb BMI (Body Mass Index) 30.3 kg/m2 [place] Body Weight 184 lb Weight 104.328 kg BSA (Body Surface Area) 2.28 m2 02/01/2021 10:52am BP Systolic 90 mmHg BP Diastolic 48 mmHg Heart Rate 70 /min O2 % BldC Oximetry 75 % 90 2L Height 73 inches 6'1" Weight 229.00 lb BMI (Body Mass Index) 30.2 kg/m2 [place] Body Weight 184 lb Weight 103.874 kg BSA (Body Surface Area) 2.28 m2 Results Description No Information Available Procedures Date Code Description Status 02/01/2021 62909 Office/Outpatient Established Mo d MDM 30-39 Min Completed Medical Devices Description No Information Available Encounters Type Date Location Provider Dx Diagnosis Office Visit 02/01/2021 11:15a [facility] Pulmonary/Thoracic [facility] tito Kenny MD J44.9 Chronic obstructive pulmonary [...] 2:15 pm - Anton Kenny MD at [facility] Pulmonary/Thoracic 06/07/2021 - Anton Kenny MD* J44.9 Chronic obstructive pulmonary disease, unspecified * R91.8 Other nonspecific abnormal finding of lung field * J96.11 Chronic respiratory failure with hypoxia * Z99.81 Dependence on supplemental oxygen * * New Labs:* FVL/[place], Ordered: 06/07/21 * Follow up:* 4 months with fvl Functional Status Description No Information Available Mental Status Description No Information Available Referrals Description No Information Available
--- OUTSIDE RECORDS SUMMARY | 2021-08-07 08:56 | CCD | Continuity of Care Document ---
Author Author Caesar KENNY MD Organization Unknown Address [address] [place] [address] Phone [phone] Care Team Providers Care Exchange Floor Manager Name Role Phone Karen Argueta P.A.-C AUTM [phone] Tristen Nieves MD AUTM [phone] Problems Active Problems Provider Date Chronic hypoxemic [...] stop 40tabs Anton Kenny MD 06/07/2021 Nystatin [id number]/ML Suspension take 4 milliliters by mouth/swallow 4 [...] Unknown Oxygen 2l hs Marras Unknown Ipratropium [place]/Albuterol Sulfate 0.5-2.5(3)mg/3ML Solution 1 vial via neb four times a day as needed Unknown Tylenol Arthritis Pain 650mg Table ts ER prn Unknown Nitroglycerin 0.4mg Tablets Sub prn Unknown Aspirin 81mg Tablets DR 1 po qd Unknown Multivitamin every day Unknown Immunizations CPT Code Status Date Vaccine Lot # [id number] Given 08/16/2016 Influenza Virus Split 3 Yrs And Above For Intramuscular Use 31267 Given 08/31/2015 Influenza Virus Split 3 Yrs And Above For Intramuscular Use 92640 Given 08/04/2014 Influenza Virus Split 3 Yrs And Above For Intramuscular Use Q2036 Given 07/22/2013 Influenza Vaccine 3 Years Of Age Or Older (Flulaval) Q2036 Given 07/22/2012 Influenza Vaccine 3 Years Of Age Or Older (Flulaval) 89243 Given 09/06/2011 Pneumococcal PPSV23 Q2036 Given 08/09/2011 Influenza Vaccine 3 Years Of Age Or Older (Flulaval) 95741 Given 08/30/2010 Influenza Virus Split 3 Yrs And Above For Intramuscular Use 38056 Given 09/03/2009 Influenza Vaccine Vital Signs Date Vital Result Comment 06/07/2021 2:03pm BP Systolic 90 mmHg BP Diastolic 68 mmHg Heart Rate 78 /min O2 % BldC Oximetry 72 % 88 2L Height 73 inches 6'1" Weight 230.00 lb BMI (Body Mass Index) 30.3 kg/m2 [place] Body Weight 184 lb Weight 104.328 kg BSA (Body Surface Area) 2.28 m2 02/01/2021 10:52am BP Systolic 90 mmHg BP Diastolic 48 mmHg Heart Rate 70 /min O2 % BldC Oximetry 75 % 90 2L Height 73 inches 6'1" Weight 229.00 lb BMI (Body Mass Index) 30.2 kg/m2 [place] Body Weight 184 lb Weight 103.874 kg BSA (Body Surface Area) 2.28 m2 Results Description No Information Available Procedures Date Code Description Status 02/01/2021 49363 Office/Outpatient Established Mo d MDM 30-39 Min Completed Medical Devices Description No Information Available Encounters Type Date Location Provider Dx Diagnosis Office Visit 02/01/2021 11:15a [facility] Pulmonary/Thoracic [facility] tito Kenny MD J44.9 Chronic obstructive pulmonary [...] 2:15 pm - Anton Kenny MD at [facility] Pulmonary/Thoracic 06/07/2021 - Anton Kenny MD* J44.9 Chronic obstructive pulmonary disease, unspecified * R91.8 Other nonspecific abnormal finding of lung field * J96.11 Chronic respiratory failure with hypoxia * Z99.81 Dependence on supplemental oxygen * * New Labs:* FVL/[place], Ordered: 06/07/21 * Follow up:* 4 months with fvl Functional Status Description No Information Available Mental Status Description No Information Available Referrals Description No Information Available
--- OUTSIDE RECORDS SUMMARY | 2021-08-07 08:56 | CCD ---
Author Author [facility] Organization [facility] Address Unknown Phone Unavailable Care Team Providers Care Cushion Filler Name Role Phone ArguetaKaren olvera Unavailable PROBLEMS Type Condition ICD9-CM Code [id number] Code Onset Dates Condition S tatus W/U Status Risk SNOMED Code Notes Problem COPD (chronic obstructive pulmonary disease) J44.9 Active confirmed 20376898 Problem Chronic diastolic heart failure I50.32 Active confi rmed 279295654 Problem COPD exacerbation J44.1 Active confirmed 19 0647219 Problem Gastroesophageal reflux dise ase, unspecified whether esophagitis present K21.9 Active confirmed 431980211 Problem Mixed hyperlipidemia E78.2 Active confirmed 904650304 Problem 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 Activ e confirmed 712918596 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 Active confirmed 3658413289844 Problem Anemia due to GI blood loss D50.0 Active confirmed 509500529 Problem Cataract of both eyes, unspecified cataract type H 26.9 Active confirmed 62166125 Problem Post herpetic neuralgia B02.29 Active confirmed 6597870 ALLERGIES No Known Allergies ENCOUNTERS from 1945 to 2021-07-12 Encounter Location Date Provider Diagnosis [address] [place] [address] Jun, Karen Argueta IMMUNIZATIONS Vaccine Route Administration Date Status Influenza 18 yrs & older Flublok IM Intramuscular Aug 09, 2020 Administered Influenza 18 yrs & older Flublok IM Intramuscular Jul 24, 2019 Administered Influenza 18 yrs & older Flublok IM Intramuscular Aug 07, 2018 Administered Influenza (High Dose 65 & up) IM Intramuscular Aug 22, 2017 A dministered Influenza (High Dose 65 & up) IM Intramuscular Aug 17, 2016 A dministered Pneumococcal Adult 0.5mL Pneumovax 23 IM Intramuscular Sep 11 016 Administered TDAP 0.5mL (Boostrix) IM Intramuscular Oct 19, 2014 Administe red Pneumococcal 0.5mL Prevnar 13 IM Intramuscular Sep 08, 2015 A dministered Influenza 6mo & up Fluzone IM Jul 22, 2012 Admin istered SOCIAL HISTORY Tobacco Use: Social History Observation Description Date Details (start date - stop date) Former Smoker Sex Assigned At : Social History Observation Description Sex Assigned At Unknown Audit Question Answer Notes Total Score: 1 Interpretation: Alcohol Education Drug and Alcohol Question Answer Notes Total Score: 0 Interpretation: No problems reported Alcohol Screening: Question Answer Notes Did you have a drink containing alcohol in the past year? Ye s Points 1 Interpretation Negative How often did you have six or more drinks on one occas ion in the past year? Never (0 points) How many drinks did you have on a typica l day when you were drinking in the past year? 1 or 2 (0 points) How often did you have a drink containing alcohol in t he past year? Monthly or less (1 point) BMI Care Goal Follow-Up Question Answer Notes Above Normal BMI Follow-Up Dietary management educatio n, guidance, and counseling Tobacco Use: Question Answer Notes Are you a: former smoker former smoker quit 2 007 Additional Findings: Tobacco User no Additional Findings: Tobacco Non-User Current non-smoker How long has it been since you last smoked? > 10 years REASON FOR REFERRAL No Information VITAL SIGNS No information MEDICATIONS Medication SIG (Take, Route, Frequency, Duration) Notes Start Da te End Date Status predniSONE 10 MG 6 tabs/day x 3 days, 4 tabs/ day x 3 days, 2 tabs/day x 3 days, 1 tab/day x 4 days Orally Daily for 13 days Aug, Not-Taking Doxycycline Hyclate 100 MG 1 tablet Orally Twice a day for 10 da y(s) Aug, Not-Taking Gabapentin 300 MG 2 capsules in am, 1 cap in a fternoon, 1 cap in pm Orally Daily for 90 days Jul, Active Ventolin HFA 2 puffs Inhalation bid Active Ipratropium-Albuterol 0.5-2.5 (3) MG/3ML 3 ml Inhalati on every 6 hrs as needed for 90 days Mar, Active Cephalexin 500 MG 1 tablet Orally every 12 hrs for 10 day(s) Jul, Not-Taking Lidocaine 5 % as directed Externally Apply a small amount to skin once daily as needed for pain for 30 Days Acti ve Aspirin 81 MG 1 tablet Orally Once a day Dec, Active Furosemide 40 MG 1/2 tablet Orally Once a day Not-Taking Meloxicam 15 MG 1 tablet Orally Once a day for 30 day(s) 1 May, Not-Taking Nebulizer - as directed Mar, Active Pantoprazole Sodium 40 MG 1 tablet Orally bid Dec, Active Midodrine HCl 2.5 MG 1 tablet Orally bid Dec, Not-Taking Oxygen 2 LPM Nasally qhs Active Toprol XL 25 MG 1/2 tab Orally bid Dec, Active Mucinex 600 MG 1 tablet as needed Orally every 12 hrs 13 2018 Active Multivitamins 1 tablet Orally daily Active Nebulizer/Tubing/Mouthpiece - as directed Mar, Active Incruse Ellipta 62.5 MCG/INH 1 puff Inhalation Once a day Active Atorvastatin Calcium 80 MG 1 tablet Orally Once a day Active Flovent HFA 220 MCG/ACT 1 puff Inhalation Twice a day Active Acetaminophen 500 MG 1 capsule as needed Orally every 6 hrs MDD 6 Dec, Active PROCEDURES No Information RESULTS No Results REASON FOR VISIT outside lab orders MEDICAL (GENERAL) HISTORY Type Description Date Medical History COPD Medical History Heart failure with quad bypass Medical History Hyperlipidemia Medical History history of upper GI bleed December [address] Vega. Medical History chronic neck pain-history of cervical spondylolisthesis, spondylosis Medical History postherpetic neuralgia-left lateral leg and left lateral foot Surgical History Open Heart 03/2007 Surgical History right hip fx with plate and screw Surgical History colonoscopy 08/2019 Surgical History cataract right eye 07/2020 Hospitalization History pneumonia 2006 Hospitalization History copd exacterbation with acute bronch itis 2012 Hospitalization History Pneumonia 05/11/2017 Hospitalization History [facility] for 5 days for bleeding ulcer 2018 Goals Section No Information Health Concerns No Information MEDICAL EQUIPMENT No Information MENTAL STATUS No Information FUNCTIONAL STATUS No Information ASSESSMENTS No Information PLAN OF TREATMENT Medication Medication Name Sig Start Date Stop Date Aspirin 81 MG 1 tablet Orally Once a day Dec, Atorvastatin Calcium 80 MG 1 tablet Orally Once a day Mucinex 600 MG 1 tablet as needed Orally every 12 hrs Aug, 019 Flovent HFA 220 MCG/ACT 1 puff Inhalation Twice a day Gabapentin 300 MG 2 capsules in am, 1 cap in a fternoon, 1 cap in pm Orally Daily for 90 days Jul, Ipratropium-Albuterol 0.5-2.5 (3) MG/3ML 3 ml Inhalati on every 6 hrs as needed for 90 days Mar, Pantoprazole Sodium 40 MG 1 tablet Orally bid Dec, Ventolin HFA 2 puffs Inhalation bid Oxygen 2 LPM Nasally qhs Nebulizer - as directed Mar, Lidocaine 5 % as directed Externally Apply a small amount to skin once daily as needed for pain for 30 Days Toprol XL 25 MG 1/2 tab Orally bid Dec, Nebulizer/Tubing/Mouthpiece - as directed Mar, Incruse Ellipta 62.5 MCG/INH 1 puff Inhalation Once a day Insurance Providers Payer Name Payer Address Payer Phone Insured Name Patient Relati onship to Insured Coverage Start Date Coverage End Date [employer] PREFERRED GOLD [address] [place] [address] [phone] [place] self
--- OUTSIDE RECORDS SUMMARY | 2021-08-07 08:56 | CCD | Continuity of Care Document ---
Author Author Caesar CRABTREE P.A.-C. Organization Unknown Address [address] [place] [address] Phone [phone] Care Team Providers Care Truck Crane Operator Name Role Phone Karen Argueta PA-C AUTM [phone] Problems Description No Information Available Social History Type Date Description Comments Sex Unknown Allergies, Adverse Reactions, Alerts Description No Known Drug Allergies Medications Description No Information Available Immunizations Description No Information Available Vital Signs Date Vital Result Comment 06/21/2021 5:20am BP Systolic 110 mmHg BP Diastolic 60 mmHg Heart Rate 64 /min Respiratory Rate 16 /min 04/13/2021 8:28am BP Systolic 110 mmHg BP Diastolic 70 mmHg Heart Rate 76 /min Respiratory Rate 20 /min Results Test Acquired Date Facility Test Result H/L Range Note Hemoglobin A1c 02/23/2021 [facility] Hemoglobin A1c 6.3 % Normal 1 Estimated Average Glucose 134 mg/dL High 60-110 CBC With Differential 02/23/2021 [facility] White Blood Count 4.6 10 Normal [...] 36.0-66.0 Lymph % 23.4 % Low 24.0-44.0 [place] % 16.8 % High 2.0-8.0 Eos % 7.4 % High 0.0-3.0 Baso % 1.1 % High 0.0-1.0 Immature Granulocyte % 0.2 % Normal 0-3.0 Nucleated Red Blood Cell % 0.0 % Normal 0-0 Neutrophils # 2.3 10 Normal 1.5-8.5 Lymph # 1.1 10 Low 1.5-5.0 [place] # 0.8 10 Normal 0.0-0.8 Eos # 0.3 10 Normal 0.0-0.5 Baso # 0.1 10 Normal 0.0-0.2 Laboratory test finding 02/23/2021 [facility] Erythrocyte Sedimentation Rate 9 mm/hr Normal 0-20 Comprehensive Metabolic Profil 02/23/2021 [facility] Glucose, Fasting 70 mg/dL Normal 70-100 [...] Ratio 0.9 Normal Serum Protein Electrophoresis 02/23/2021 [facility] Albumin % 52.6 % Low 55.8-66.1 Mjmzo-6-Hepyrqpw % 4.7 % Normal 2.9-4.9 Bfeza-7-Epzfbgfgk % 10.9 % Normal 7.1-11.8 Ogiy-7-Hwmkdjyxo % 7.1 % Normal 4.7-7.2 Eaoq-8-Kditnvtvk % 6.0 % Normal 3.2-6.5 Gamma Globulin % 18.7 % Normal 11.1-18.8 Albumin 3.89 GM/DL Normal 3.29-5.55 Fupjc-2-Jshuphedf 0.35 GM/DL Normal 0.17-0.41 Znrem-6-Gzlmtlxmx 0.81 GM/DL Normal 0.42-0.99 Nzmt-0-Bboqtfyad 0.53 GM/DL Normal 0.28-0.60 Vtcr-8-Xciyhncer 0.44 GM/DL Normal 0.19-0.55 Gamma Globulins 1.38 GM/DL Normal 0.65-1.58 Total Protein 7.4 GM/DL Normal 6.4-8.2 Spep Interpretation SEE COMMENT Normal 3 Spep Pathologist Review REV'D BY Lolita KENNEY Normal Laboratory test finding 02/23/2021 [facility] Thyroid Stimulating Hormone 2.030 uIU/ML Normal 0.358-3.740 Vitamin B12 & Folate 02/23/2021 [facility] Vitamin B12 Level 783 pg/mL Normal 4 Folate > 24.0 NG/ML Normal 5 Laboratory test finding 02/23/2021 [facility] Syphilis NONREACTIVE Normal Nonreactive Rheumatoid Factor Quant 10.5 IU/mL Normal <15.0 Vitamin B1 Level Whole Blood 177.8 nmol/L Normal 66.5-200.0 6 Antinuclear Antibodies 02/23/2021 [facility] Antinuclear Antibodies Direct Negative Normal Negative [...] Little GFR Left ESRD GFR <15 on RELASTER 3 NO M-SPIKE(S)NOTED. 4 VITAMIN B12 NORMAL RANGE NORMAL 247 - 911 PG/ML INDETERMINATE 211 - 246 PG/ML DEFICIENT LESS THAN 211 PG/ML 5 FOLATE NORMAL RANGE NORMAL GREATER THAN 5.4 NG/ML INDETERMINATE 3.4-5.4 NG/ML DEFICIENT LESS THAN 3.4 NG/ML 6 Specimen Comment: Test(s) 12 1188-Vit. B1, Whole Blood Specimen Comment: was developed and its performance characteristics Specimen Comment: determined by [facility]. It has not been cleared or approved Specimen Comment: by the Food and Drug Administration. 7 Performed at: - [facility] [id number] Restaurant Management Internship: Bal Dubose MD, Phone: [phone] Performed at: - [facility] [address] [id number] Restaurant Management Internship: Marisabel Phillips MD, Phone: [phone] Procedures Date Code Description Status 06/21/2021 29970 Office/Outpatient Established Mo d MDM 30-39 Min Completed 04/13/2021 86362 Office/Outpatient Established Mo d MDM 30-39 Min Completed 03/22/2021 91712 Nerve Conduction 13+ Studies Com pleted 03/22/2021 92110 Needle Electromyography Complete , Five Or More Muscles Studied Completed 03/22/2021 63152 Needle Electromyography Complete , Five Or More Muscles Studied Completed 02/25/2021 66397 Sympathetic Skin Responses Compl eted 02/25/2021 38827 Test Autonomic Nervous System, C ardiovagal Innervation Completed 02/25/2021 36446 Artery Study Extremity Mult Leve ls Bilateral Completed 02/25/2021 47774 Artery Study Extremity Mult Leve ls Bilateral Completed 02/22/2021 57724 Office/Outpatient New Moderate M DM 45-59 Minutes Completed Medical Devices Description No Information Available Encounters Type Date Location Provider Dx Diagnosis Office Visit 06/21/2021 10:30a Main office - [place] [facility], P.A.-C. R26.2 Difficulty in walking, not elsewhere cla ssified G60.9 Hereditary and idiopathic ne uropathy, unspecified Office Visit 04/13/2021 9:30a Main office - [place] [facility] P.A.-C. G60.9 Hereditary and idiopathic neuropathy, un specified R26.2 Difficulty in walking, not e lsewhere classified I73.9 Peripheral vascular disease, unspecified Office Visit 02/22/2021 1:30p [place] office - [place] M.[place]. M79.605 Pain in left leg R26.2 Difficulty in walking, not e lsewhere classified R20.2 Paresthesia of skin M62.9 Disorder of muscle, unspecif ied Assessments Date Code Description Provider 06/21/2021 R26.2 Difficulty in walking, not elsew here classified Karlie WalshC. 06/21/2021 G60.9 Hereditary and idiopathic neurop athy, unspecified Hem[facility] JCale Herrera.A.-C. 04/13/2021 G60.9 Hereditary and idiopathic neurop athy, unspecified Cale Walsh.A.-C. 04/13/2021 R26.2 Difficulty in walking, not elsew here classified Cale Walsh.A.-C. 04/13/2021 I73.9 Peripheral vascular disease, uns pecified Cale Walsh.AMandi-C. 03/22/2021 M25.579 Pain in unspecified ankle and [...] of extremities with rest pain, left leg Leticia Jo Ann, M.D. 02/25/2021 I70.222 Atherosclerosis of n ative arteries of extremities with rest pain, left leg Ans/VS 02/22/2021 M79.605 Pain in left leg Leticia Jo Ann, M .D. 02/22/2021 R26.2 Difficulty in walking, not elsew here classified Leticia Jo Ann, M.D. 02/22/2021 R20.2 Paresthesia of skin Leticia Jo Ann , M.D. 02/22/2021 M62.9 Disorder of muscle, unspecified Leticia Jo Ann, M.DMandi Plan of Treatment Future Appointment(s):* 10/04/2021 10:00 am - Hemalatha Crabtree P.A.-C. at [facility] 06/21/2021 - Hemalatha Crabtree P.A.-C.* R26.2 Difficulty in walking, not elsewhere classified* Comments:* He declines lumbar CT at this time. It can be considered in the future. He does not use a cane. * G60.9 Hereditary and idiopathic neuropathy, unspecified* Comments:* Continue gabapentin. * Follow up:* 3 months Functional Status Description No Information Available Mental Status Description No Information Available Referrals Description No Information Available
--- OUTSIDE RECORDS SUMMARY | 2021-08-07 08:56 | CCD | Continuity of Care Document ---
Author Author Caesar KRAUSEC Organization Unknown Address [address] [place] [address], [address] [place] [address] Phone [phone] Care Team Providers Care Lighting Designer Name Role Phone AUTM Unavailable Jahaira Chung AUTM [phone] Anton Kenny MD AUTM [phone] Pedro Foote MD AUTM [phone] Bharath Miguel MD AUTM [phone] Karen Argueat PA-C AUTM [phone] Megan Cherry AUTM [phone] Problems Active Problems Provider Date Coronary arteriosclerosis [...] 1/2 PPD, quit 11/2006 Smoking Status Reviewed: 07/05/21 Patient is a former smoker 40 years [...] SIG Qnty Indications Ordering Provide r Date Metoprolol Succinate ER 25mg Tablets ER 24HR /2 by mouth twice every day 90tabs Pedro rosenberg MD 08/16/2020 Gabapentin 300mg Capsules 1 by mouth four times a day Karen Argueta, PA-C 020 Ipratropium [place]/Albuterol Sulfate 0.5-2.5(3)mg/3ML Solution 1 nebulizer treatment 4 [...] 019 Albuterol Sulfate HFA 108(90Base) mcg/Act Aerosol 2 puffs four times daily Unknown 09/2019 Atorvastatin Calcium 80mg Tablets 1 by mouth [...] 1 po q4h prn pain Zehra Cornejo, SERVICE ARCHITECT-C 2011 Nitrostat 0.4mg Tablets Sub 1 sl every 5min x3 as needed for chest pain 25tabs I25.10 Pedro Foote MD 01/23/2008 Multi-Vitamin Tablets 1 PO d Garo Simms MD 01/23/2008 History Medications Lidocaine 5% Cream apply 1 application at night Unknown 03/21/2021 - Albuterol Sulfate (2 .5mg/3ML) 0.083% Nebulizer every 6 hours as needed Unknown 02/21 - 07/04/2021 Immunizations Description No Information Available Vital Signs Date Vital Result Comment 07/05/2021 12:32pm Weight 221.00 lb Home Weight 220lb Height 77 inches 6'5" BMI (Body Mass Index) 26.2 kg/m2 Heart Rate 76 /min Regular Respiratory Rate 16 /min BP Systolic Right Arm 126 mmHg sitting, regular c uff BP Diastolic Right Arm 66 mmHg sitting, regular cuff 03/22/2021 12:22pm Weight 225.00 lb Home Weight 225lb Height 77 inches 6'5" BMI (Body Mass Index) 26.7 kg/m2 Heart Rate 72 /min Regular Respiratory Rate 16 /min BP Systolic Right Arm 128 mmHg sitting, regular c uff BP Diastolic Right Arm 74 mmHg sitting, regular cuff BP Systolic Left Arm 124 mmHg sitting BP Diastolic Left Arm 68 mmHg sitting Results Test Acquired Date Facility Test Result H/L Range Note Basic Metabolic Profile 06/30/2021 [facility] [phone] Glucose, Fasting 97 mg/dL Normal 70-100 Blood Urea Nitrogen 23 mg/dL High 7-18 Creatinine For GFR 1.26 mg/dL Normal 0.70-1.30 Glomerular Filtration Rate 59.4 Normal >42 1 Sodium Level 139 mEq/L Normal 136-145 Potassium Serum 4.7 mEq/L Normal 3.5-5.1 Chloride Level 100 mEq/L Normal 98-107 Carbon Dioxide Level 40 mEq/L High 21-32 Calcium Level 9.1 mg/dL Normal 8.8-10.2 Basic Metabolic Profile 03/15/2021 [facility] [phone] Glucose, Fasting 58 mg/dL Low 70-100 Blood [...] Little GFR Left ESRD GFR <15 on DRY PASTE SUPERVISOR 2 Units are mL/min/1.73 m2 Chronic Kidney Disease Staging per NKF: Stage I & II GFR >=60 Normal to Mildly Decreased Stage III GFR 30-59 Moderately Decreased Stage IV GFR 15-29 Severely Decreased Stage V GFR <15 Very Little GFR Left ESRD GFR <15 on DRY PASTE SUPERVISOR Procedures Date Code Description Status 07/05/2021 90446 Office/Outpatient Established Lo w MDM 20-29 Min Completed 03/22/2021 67150 Office/Outpatient Established Mo d MDM 30-39 Min Completed 03/22/2021 87553 ECG 12-Lead Completed Medical Devices Description No Information Available Encounters Type Date Location Provider Dx Diagnosis Office Visit 07/05/2021 12:30p Main Office Shawna Krause PA-C I50.3 2 Chronic diastolic (congestive) heart failure Office Visit 03/22/2021 12:30p Main Office Shawna Krause PA-C I25.1 0 Athscl heart disease of [place] coronary artery w/o ang pctrs Z95.1 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 I50.32 Chronic diastolic (congestiv e) heart failure I11.0 Hypertensive heart disease w ith heart failure I77.810 Thoracic aortic ectasia I35.1 Nonrheumatic aortic (valve) insufficiency I34.0 Nonrheumatic mitral (valve) insufficiency E78.00 Pure hypercholesterolemia, u nspecified Z71.3 Dietary counseling and surve illance Assessments Date Code Description Provider 07/05/2021 I50.32 Chronic diastolic (congestive) h eart failure Shawna Krause PA-C 03/22/2021 I25.10 Atherosclerotic heart disease of [place] coronary artery with Shawna Krause PA-C 03/22/2021 Z95.1 Presence of aortocoronary bypass graft PEE BenavidezC 03/22/2021 I50.32 Chronic diastolic (congestive) h eart failure PEE BenavidezC 03/22/2021 I11.0 Hypertensive heart disease with heart failure PEE BenavidezC 03/22/2021 I77.810 Thoracic aortic ectasia PEE PedroC 03/22/2021 I35.1 Nonrheumatic aortic (valve) insu fficiency PEE BenavidezC 03/22/2021 I34.0 Nonrheumatic mitral (valve) insu fficiency PEE BenavidezC 03/22/2021 E78.00 Pure hypercholesterolemia, unspe cified PEE BenavidezC 03/22/2021 Z71.3 Dietary counseling and surveilla nctito Krause PA-C Plan of Treatment Future Appointment(s):* 10/04/2021 1:00 pm - Shawna Krause PA-C at Main Office 07/05/2021 - Shawna Krause PA-C* I50.32 Chronic diastolic (congestive) heart failure* New Labs:* Comprehensive Metabolic Profil, Scheduled: 10/04/21 * Magnesium Level, Scheduled: 10/04/21 * Recommendations:* Follow a 2 grams sodium diet and 50 ounces fluid restriction per 24 hour and do daily weights. Call the office for weight gain of 3 lbs or more. * All * Follow up:* 3 month follow up. Functional Status Functional Condition Comment Date Status Independent with all ADL's Activ e Mental Status Description No Information Available Referrals Description No Information Available
--- OUTSIDE RECORDS SUMMARY | 2021-08-07 08:56 | CCD ---
Author Author [facility] Organization [facility] Address Unknown Phone Unavailable Care Team Providers Care Looseleaf Binder Coverer Name Role Phone ArguetaKaren olvera Unavailable PROBLEMS Type Condition ICD9-CM Code WRT81-OA Code Onset Dates Condition S tatus W/U Status Risk SNOMED Code Notes Problem COPD (chronic obstructive pulmonary disease) J44.9 Active confirmed 93276561 Problem Chronic diastolic heart failure I50.32 Active confi rmed 029156283 Problem COPD exacerbation J44.1 Active confirmed 19 6637790 Problem Gastroesophageal reflux dise ase, unspecified whether esophagitis present K21.9 Active confirmed 011975449 Problem Mixed hyperlipidemia E78.2 Active confirmed 276675849 Problem 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 Activ e confirmed 433121207 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 Active confirmed 1468412322859 Problem Anemia due to GI blood loss D50.0 Active confirmed 694335205 Problem Cataract of both eyes, unspecified cataract type H 26.9 Active confirmed 35862501 Problem Post herpetic neuralgia B02.29 Active confirmed 2638658 ALLERGIES No Known Allergies ENCOUNTERS from 1945 to 2021-07-06 Encounter Location Date Provider Diagnosis [address] [phone] [place] [address] Mar, Karen Argueta IMMUNIZATIONS Vaccine Route Administration Date [...] Information RESULTS No Results REASON FOR VISIT No Information MEDICAL (GENERAL) HISTORY Type Description Date Medical [...] End Date MVP/MEDICARE PREFERRED GOLD [address] [place] [address] [phone] [place] self
--- OUTSIDE RECORDS SUMMARY | 2021-08-07 08:56 | CCD | Continuity of Care Document ---
Author Author Caesar KENNY MD Organization Unknown Address [address] [place] [address] Phone [phone] Care Team Providers Care Substance Abuse Nurse Name Role Phone Karen Argueta P.A.-C AUTM [phone] Tristen Nieves MD AUTM [phone] Problems Active Problems Provider Date Chronic hypoxemic [...] stop 40tabs Anton Kenny MD 06/07/2021 Nystatin 829201Zwrr/ML Suspension take 4 milliliters by mouth/swallow 4 [...] Unknown Oxygen 2l hs Marras Unknown Ipratropium [place]/Albuterol Sulfate 0.5-2.5(3)mg/3ML Solution 1 vial via neb four times a day as needed Unknown Tylenol Arthritis Pain 650mg Table ts ER prn Unknown Nitroglycerin 0.4mg Tablets Sub prn Unknown Aspirin 81mg Tablets DR 1 po qd Unknown Multivitamin every day Unknown Immunizations CPT Code Status Date Vaccine Lot # [id number] Given 08/16/2016 Influenza Virus Split 3 Yrs And Above For Intramuscular Use 18721 Given 08/31/2015 Influenza Virus Split 3 Yrs And Above For Intramuscular Use 35164 Given 08/04/2014 Influenza Virus Split 3 Yrs And Above For Intramuscular Use Q2036 Given 07/22/2013 Influenza Vaccine 3 Years Of Age Or Older (Flulaval) Q2036 Given 07/22/2012 Influenza Vaccine 3 Years Of Age Or Older (Flulaval) 58956 Given 09/06/2011 Pneumococcal PPSV23 Q2036 Given 08/09/2011 Influenza Vaccine 3 Years Of Age Or Older (Flulaval) 46500 Given 08/30/2010 Influenza Virus Split 3 Yrs And Above For Intramuscular Use 46123 Given 09/03/2009 Influenza Vaccine Vital Signs Date Vital Result Comment 06/07/2021 2:03pm BP Systolic 90 mmHg BP Diastolic 68 mmHg Heart Rate 78 /min O2 % BldC Oximetry 72 % 88 2L Height 73 inches 6'1" Weight 230.00 lb BMI (Body Mass Index) 30.3 kg/m2 [place] Body Weight 184 lb Weight 104.328 kg BSA (Body Surface Area) 2.28 m2 02/01/2021 10:52am BP Systolic 90 mmHg BP Diastolic 48 mmHg Heart Rate 70 /min O2 % BldC Oximetry 75 % 90 2L Height 73 inches 6'1" Weight 229.00 lb BMI (Body Mass Index) 30.2 kg/m2 [place] Body Weight 184 lb Weight 103.874 kg BSA (Body Surface Area) 2.28 m2 Results Description No Information Available Procedures Date Code Description Status 06/07/2021 82898 Office/Outpatient Established Mo d MDM 30-39 Min Completed 02/01/2021 07987 Office/Outpatient Established Mo d MDM 30-39 Min Completed Medical Devices Description No Information Available Encounters Type Date Location Provider Dx Diagnosis Office Visit 06/07/2021 2:30p [facility] Javier Kenny MD J44.9 Chronic obstructive pulmonary disease, u nspecified R91.8 Other nonspecific abnormal f inding of lung field J96.11 Chronic respiratory failure with hypoxia Z99.81 Dependence on supplemental o xygen Office Visit 02/01/2021 11:15a [facility] Javier Kenny MD J44.9 Chronic obstructive pulmonary disease, [...] 2:15 pm - Anton Kenny MD at [facility] Pulmonary/Thoracic 06/07/2021 - Anton Kenny MD* J44.9 Chronic obstructive pulmonary disease, unspecified * R91.8 Other nonspecific abnormal finding of lung field * J96.11 Chronic respiratory failure with hypoxia * Z99.81 Dependence on supplemental oxygen * * New Labs:* FVL/[place], Ordered: 06/07/21 * Comments:* ~ At this point, examined to have an exacerbation. With the recent weather, I am no surprised. We, again, discussed his oxygen therapy, and he states compliance, apparently, everywhere but here. He is up to date on his other medications, and the ones that needed refilled were electronically sent today.~ We did discuss routine infection surveillance. Immunizations managed through primary.~ I have offered him a follow-up visit here in a minimum of 4 months with spirometry, oximetry and flow volume loop for his obstructive lung disease, if he is up to it or, certainly, sooner if problems arise with which we can be of assistance. * Follow up:* 4 months with fvl Functional Status Description No Information Available Mental Status Description No Information Available Referrals Description No Information Available
--- OUTSIDE RECORDS SUMMARY | 2021-08-07 08:56 | CCD | Continuity of Care Document ---
Author Author Caesar KENNY MD Organization Unknown Address [address] [place] [address] Phone [phone] Care Team Providers Care Laydown Machine Operator Name Role Phone Karen Argueta P.A.-C AUTM [phone] Tristen Nieves MD AUTM [phone] Problems Active Problems Provider Date Chronic hypoxemic [...] stop 40tabs Anton Kenny MD 06/07/2021 Nystatin 091550Ylsw/ML Suspension take 4 milliliters by mouth/swallow 4 [...] Unknown Oxygen 2l hs Marras Unknown Ipratropium [place]/Albuterol Sulfate 0.5-2.5(3)mg/3ML Solution 1 vial via neb four times a day as needed Unknown Tylenol Arthritis Pain 650mg Table ts ER prn Unknown Nitroglycerin 0.4mg Tablets Sub prn Unknown Aspirin 81mg Tablets DR 1 po qd Unknown Multivitamin every day Unknown Immunizations CPT Code Status Date Vaccine Lot # [id number] Given 08/16/2016 Influenza Virus Split 3 Yrs And Above For Intramuscular Use 97820 Given 08/31/2015 Influenza Virus Split 3 Yrs And Above For Intramuscular Use 72210 Given 08/04/2014 Influenza Virus Split 3 Yrs And Above For Intramuscular Use Q2036 Given 07/22/2013 Influenza Vaccine 3 Years Of Age Or Older (Flulaval) Q2036 Given 07/22/2012 Influenza Vaccine 3 Years Of Age Or Older (Flulaval) 05710 Given 09/06/2011 Pneumococcal PPSV23 Q2036 Given 08/09/2011 Influenza Vaccine 3 Years Of Age Or Older (Flulaval) 04138 Given 08/30/2010 Influenza Virus Split 3 Yrs And Above For Intramuscular Use 69272 Given 09/03/2009 Influenza Vaccine Vital Signs Date Vital Result Comment 06/07/2021 2:03pm BP Systolic 90 mmHg BP Diastolic 68 mmHg Heart Rate 78 /min O2 % BldC Oximetry 72 % 88 2L Height 73 inches 6'1" Weight 230.00 lb BMI (Body Mass Index) 30.3 kg/m2 [place] Body Weight 184 lb Weight 104.328 kg BSA (Body Surface Area) 2.28 m2 02/01/2021 10:52am BP Systolic 90 mmHg BP Diastolic 48 mmHg Heart Rate 70 /min O2 % BldC Oximetry 75 % 90 2L Height 73 inches 6'1" Weight 229.00 lb BMI (Body Mass Index) 30.2 kg/m2 [place] Body Weight 184 lb Weight 103.874 kg BSA (Body Surface Area) 2.28 m2 Results Description No Information Available Procedures Date Code Description Status 02/01/2021 84533 Office/Outpatient Established Mo d MDM 30-39 Min Completed Medical Devices Description No Information Available Encounters Type Date Location Provider Dx Diagnosis Office Visit 02/01/2021 11:15a [facility] Pulmonary/Thoracic [facility] tito Kenny MD J44.9 Chronic obstructive pulmonary [...] 2:15 pm - Anton Kenny MD at [facility] Pulmonary/Thoracic 06/07/2021 - Anton Kenny MD* J44.9 Chronic obstructive pulmonary disease, unspecified * R91.8 Other nonspecific abnormal finding of lung field * J96.11 Chronic respiratory failure with hypoxia * Z99.81 Dependence on supplemental oxygen * * New Labs:* FVL/[place], Ordered: 06/07/21 * Follow up:* 4 months with fvl Functional Status Description No Information Available Mental Status Description No Information Available Referrals Description No Information Available
--- OUTSIDE RECORDS SUMMARY | 2021-08-07 08:56 | CCD | Continuity of Care Document ---
Author Author Caesar KENNY MD Organization Unknown Address [address] [place] [address] Phone [phone] Care Team Providers Care Webbing Tacker Name Role Phone Karen Argueta P.A.-C AUTM [phone] Tristen Nieves MD AUTM [phone] Problems Active Problems Provider Date Chronic hypoxemic [...] stop 40tabs Anton Kenny MD 06/07/2021 Nystatin 467500Urkx/ML Suspension take 4 milliliters by mouth/swallow 4 [...] Unknown Oxygen 2l hs Marras Unknown Ipratropium [place]/Albuterol Sulfate 0.5-2.5(3)mg/3ML Solution 1 vial via neb four times a day as needed Unknown Tylenol Arthritis Pain 650mg Table ts ER prn Unknown Nitroglycerin 0.4mg Tablets Sub prn Unknown Aspirin 81mg Tablets DR 1 po qd Unknown Multivitamin every day Unknown Immunizations CPT Code Status Date Vaccine Lot # [id number] Given 08/16/2016 Influenza Virus Split 3 Yrs And Above For Intramuscular Use 58741 Given 08/31/2015 Influenza Virus Split 3 Yrs And Above For Intramuscular Use 52520 Given 08/04/2014 Influenza Virus Split 3 Yrs And Above For Intramuscular Use Q2036 Given 07/22/2013 Influenza Vaccine 3 Years Of Age Or Older (Flulaval) Q2036 Given 07/22/2012 Influenza Vaccine 3 Years Of Age Or Older (Flulaval) 53879 Given 09/06/2011 Pneumococcal PPSV23 Q2036 Given 08/09/2011 Influenza Vaccine 3 Years Of Age Or Older (Flulaval) 15628 Given 08/30/2010 Influenza Virus Split 3 Yrs And Above For Intramuscular Use 65687 Given 09/03/2009 Influenza Vaccine Vital Signs Date Vital Result Comment 06/07/2021 2:03pm BP Systolic 90 mmHg BP Diastolic 68 mmHg Heart Rate 78 /min O2 % BldC Oximetry 72 % 88 2L Height 73 inches 6'1" Weight 230.00 lb BMI (Body Mass Index) 30.3 kg/m2 [place] Body Weight 184 lb Weight 104.328 kg BSA (Body Surface Area) 2.28 m2 02/01/2021 10:52am BP Systolic 90 mmHg BP Diastolic 48 mmHg Heart Rate 70 /min O2 % BldC Oximetry 75 % 90 2L Height 73 inches 6'1" Weight 229.00 lb BMI (Body Mass Index) 30.2 kg/m2 [place] Body Weight 184 lb Weight 103.874 kg BSA (Body Surface Area) 2.28 m2 Results Description No Information Available Procedures Date Code Description Status 02/01/2021 52589 Office/Outpatient Established Mo d MDM 30-39 Min Completed Medical Devices Description No Information Available Encounters Type Date Location Provider Dx Diagnosis Office Visit 02/01/2021 11:15a [facility]monary[facility]Th[facility]acic [facility] tito Kenny MD J44.9 Chronic [...] 2:15 pm - Anton Kenny MD at [facility] Pulmonary/Thoracic 06/07/2021 - Anton Kenny MD* J44.9 Chronic obstructive pulmonary disease, unspecified * R91.8 Other nonspecific abnormal finding of lung field * J96.11 Chronic respiratory failure with hypoxia * Z99.81 Dependence on supplemental oxygen * * New Labs:* FVL/[place], Ordered: 06/07/21 * Follow up:* 4 months with fvl Functional Status Description No Information Available Mental Status Description No Information Available Referrals Description No Information Available
--- OUTSIDE RECORDS SUMMARY | 2021-08-07 08:56 | CCD | Continuity of Care Document ---
Author Author Caesar CRABTREE P.A.-C. Organization Unknown Address [address] [place] [address] Phone [phone] Care Team Providers Care Radio Repairer Domestic Name Role Phone Karen Argueta PA-C AUTM [phone] Problems Description No Information Available Social History [...] Result H/L Range Note Hemoglobin A1c 02/23/2021 [facility] Hemoglobin A1c 6.3 % Normal 1 Estimated Average Glucose 134 mg/dL High 60-110 CBC With Differential 02/23/2021 [facility] White Blood Count 4.6 10 Normal 4.0-10.0 [...] 36.0-66.0 Lymph % 23.4 % Low 24.0-44.0 Rooks % 16.8 % High 2.0-8.0 Eos % 7.4 % High 0.0-3.0 Baso % 1.1 % High 0.0-1.0 Immature Granulocyte % 0.2 % Normal 0-3.0 Nucleated Red Blood Cell % 0.0 % Normal 0-0 Neutrophils # 2.3 10 Normal 1.5-8.5 Lymph # 1.1 10 Low 1.5-5.0 Rooks # 0.8 10 Normal 0.0-0.8 Eos # 0.3 10 Normal 0.0-0.5 Baso # 0.1 10 Normal 0.0-0.2 Laboratory test finding 02/23/2021 [facility] Erythrocyte Sedimentation Rate 9 mm/hr Normal 0-20 Comprehensive Metabolic Profil 02/23/2021 [facility] Glucose, Fasting 70 mg/dL Normal 70-100 Blood [...] Ratio 0.9 Normal Serum Protein Electrophoresis 02/23/2021 [facility] Albumin % 52.6 % Low 55.8-66.1 Pjnul-8-Oappdwvx % 4.7 % Normal 2.9-4.9 Jtqby-6-Qmwkigcym % 10.9 % Normal 7.1-11.8 Zxvv-7-Ubugzrrvi % 7.1 % Normal 4.7-7.2 Zxar-7-Caclmnhmu % 6.0 % Normal 3.2-6.5 Gamma Globulin % 18.7 % Normal 11.1-18.8 Albumin 3.89 GM/DL Normal 3.29-5.55 Tsbyb-7-Btvpkpptf 0.35 GM/DL Normal 0.17-0.41 Zjoef-4-Zufhusobu 0.81 GM/DL Normal 0.42-0.99 Myyj-7-Gimwsgyjn 0.53 GM/DL Normal 0.28-0.60 Lsue-3-Cgwvdomgd 0.44 GM/DL Normal 0.19-0.55 Gamma Globulins 1.38 GM/DL Normal 0.65-1.58 Total Protein 7.4 GM/DL Normal 6.4-8.2 Spep Interpretation SEE COMMENT Normal 3 Spep Pathologist Review REV'D BY Lolita KENNEY Normal Laboratory test finding 02/23/2021 [facility] Thyroid Stimulating Hormone 2.030 uIU/ML Normal 0.358-3.740 Vitamin B12 & Folate 02/23/2021 [facility] Vitamin B12 Level 783 pg/mL Normal 4 Folate > 24.0 NG/ML Normal 5 Laboratory test finding 02/23/2021 [facility] Syphilis NONREACTIVE Normal Nonreactive Rheumatoid Factor Quant 10.5 IU/mL Normal <15.0 Vitamin B1 Level Whole Blood 177.8 nmol/L Normal 66.5-200.0 6 Antinuclear Antibodies 02/23/2021 [facility] Antinuclear Antibodies Direct Negative Normal Negative 7 [...] Little GFR Left ESRD GFR <15 on CONCRETE TECHNICIAN 3 NO M-SPIKE(S)NOTED. 4 VITAMIN B12 NORMAL RANGE NORMAL 247 - 911 PG/ML INDETERMINATE 211 - 246 PG/ML DEFICIENT LESS THAN 211 PG/ML 5 FOLATE NORMAL RANGE NORMAL GREATER THAN 5.4 NG/ML INDETERMINATE 3.4-5.4 NG/ML DEFICIENT LESS THAN 3.4 NG/ML 6 Specimen Comment: Test(s) 12 1188-Vit. B1, Whole Blood Specimen Comment: was developed and its performance characteristics Specimen Comment: determined by [facility]. It has not been cleared or approved Specimen Comment: by the Food and Drug Administration. 7 Performed at: [address], [place] [id number] 61 Manager Core: Bal Dubose MD, Phone: [phone] Performed at: - [facility] [address] [id number] Manager Core: Marisabel Phillips MD, Phone: [phone] Procedures Date Code Description Status 06/21/2021 51109 Office/Outpatient Established Mo d MDM 30-39 Min Completed 04/13/2021 81807 Office/Outpatient Established Mo d MDM 30-39 Min Completed 03/22/2021 22207 Nerve Conduction 13+ Studies Com pleted 03/22/2021 00737 Needle Electromyography Complete , Five Or More Muscles Studied Completed 03/22/2021 97788 Needle Electromyography Complete , Five Or More Muscles Studied Completed 02/25/2021 69882 Sympathetic Skin Responses Compl eted 02/25/2021 21281 Test Autonomic Nervous System, C ardiovagal Innervation Completed 02/25/2021 68770 Artery Study Extremity Mult Leve ls Bilateral Completed 02/25/2021 59809 Artery Study Extremity Mult Leve ls Bilateral Completed 02/22/2021 08032 Office/Outpatient New Moderate M DM 45-59 Minutes Completed Medical Devices Description No Information Available Encounters Type Date Location Provider Dx Diagnosis Office Visit 06/21/2021 10:30a Main office - [place] Hemalatha camp P.A.-C. R26.2 Difficulty in walking, not elsewhere cla ssified G60.9 Hereditary and idiopathic ne uropathy, unspecified Office Visit 04/13/2021 9:30a Main office - [place] Cale Dennis.A.-C. G60.9 Hereditary and idiopathic neuropathy, un specified R26.2 Difficulty in walking, not e lsewhere classified I73.9 Peripheral vascular disease, unspecified Office Visit 02/22/2021 1:30p Main office - [place] Leticia Cherry M.D. M79.605 Pain in left [...] - Hemalatha Crabtree P.A.-C. at Main office [facility] 06/21/2021 - Hemalatha Crabtree P.A.-C.* R26.2 Difficulty in walking, not elsewhere classified * G60.9 Hereditary and idiopathic neuropathy, unspecified Functional Status Description No Information Available Mental Status Description No Information Available Referrals Description No Information Available
--- OUTSIDE RECORDS SUMMARY | 2021-08-07 08:57 | CCD ---
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 Care Nut Sifter Name Role Phone Macsherry, Zehra SERVICE AGENT Unavailable Unavailable Macsherry, Zehra SERVICE AGENT Unavailable Unavailable Macsherry, Zehra SERVICE AGENT Unavailable Unavailable Macsherry, Zehra SERVICE AGENT Unavailable Unavailable Macsherry, Zehra SERVICE AGENT Unavailable Unavailable Macsherry, Zehra SERVICE AGENT Unavailable Unavailable Macsherry, Zehra SERVICE AGENT Unavailable Unavailable Macsherry, Zehra SERVICE AGENT Unavailable Unavailable Macsherry, Zehra SERVICE AGENT Unavailable Unavailable Macsherry, Zehra SERVICE AGENT Unavailable Unavailable Macsherry, Zehra SERVICE AGENT Unavailable Unavailable Macsherry, Zehra SERVICE AGENT Unavailable Unavailable Macsherry, Zehra SERVICE AGENT Unavailable Unavailable Macsherry, Zehra SERVICE AGENT Unavailable Unavailable Macsherry, Zehra SERVICE AGENT Unavailable Unavailable Macsherry, Zehra SERVICE AGENT Unavailable Unavailable Macsherry, Zehra SERVICE AGENT Unavailable Unavailable Macsherry, Zehra SERVICE AGENT Unavailable Unavailable Macsherry, Zehra SERVICE AGENT Unavailable Unavailable Macsherry, Zehra SERVICE AGENT Unavailable Unavailable Macsherry, Zehra SERVICE AGENT Unavailable Unavailable Macsherry, Zehra SERVICE AGENT Unavailable Unavailable Macsherry, Zehra SERVICE AGENT Unavailable Unavailable Macsherry, Zehra SERVICE AGENT Unavailable Unavailable Macsherry, Zehra SERVICE AGENT Unavailable Unavailable Symenow, Soraya Shawna PA Unavailable Unavailable Symenow, Soraya Shawna PA Unavailable Unavailable Symenow, Soraya Shawna PA Unavailable Unavailable Symenow, Soraya Shawna PA Unavailable Unavailable Symenow, Soraya Shawna PA Unavailable Unavailable Symenow, Soraya Shawna PA Unavailable Unavailable Symenow, Soraya Shawna PA Unavailable Unavailable Symenow, Soraya Shawna PA Unavailable Unavailable Symenow, Soraya Shawna PA Unavailable Unavailable Symenow, Soraya Shawna PA Unavailable Unavailable Symenow, Soraya Shawna PA Unavailable Unavailable Symenow, Soraya Shawna PA Unavailable Unavailable Symenow, Soraya Shawna PA Unavailable Unavailable Symenow, Soraya Shawna PA Unavailable Unavailable Symenow, Soraya Shawna PA Unavailable Unavailable Symenow, Soraya Shawna PA Unavailable Unavailable Symenow, Soraya Shawna PA Unavailable Unavailable Symenow, Soraya Shawna PA Unavailable Unavailable Symenow, Soraya Shawna PA Unavailable Unavailable Symenow, Soraya Shawna PA Unavailable Unavailable Symenow, Soraya Shawna PA Unavailable Unavailable Symenow, Soraya Shawna PA Unavailable Unavailable Symenow, Soraya Shawna PA Unavailable Unavailable Symenow, Soraya Shawna PA Unavailable Unavailable Symenow, Soraya Shawna PA Unavailable Unavailable Symenow, Soraya Shawna PA Unavailable Unavailable Symenow, Soraya Shawna PA Unavailable Unavailable Symenow, Soraya Shawna PA Unavailable Unavailable Symenow, Soraya Shawna PA Unavailable Unavailable Symenow, Soraya Shawna PA Unavailable Unavailable Symenow, Soraya Shawna PA Unavailable Unavailable Symenow, Soraya Shawna PA Unavailable Unavailable Symenow, Soraya Shawna PA Unavailable Unavailable Symenow, Soraya Shawna PA Unavailable Unavailable Hortencia Logan MD Unavailable Unavailable Koloms, Hortencia MD Unavailable Unavailable Koloms, Hortencia MD Unavailable Unavailable Koloms, Hortencia MD Unavailable Unavailable Koloms, Hortencia MD Unavailable Unavailable Koloms, Hortencia MD Unavailable Unavailable Koloms, Hortencia MD Unavailable Unavailable Koloms, Hortencia MD Unavailable Unavailable Koloms, Hortencia MD Unavailable Unavailable Koloms, Hortencia MD Unavailable Unavailable Koloms, Hortencia MD Unavailable Unavailable Koloms, Hortencia MD Unavailable Unavailable Koloms, Hortencia MD Unavailable Unavailable Koloms, Hortencia MD Unavailable Unavailable Koloms, Hortencia MD Unavailable Unavailable Koloms, Hortencia MD Unavailable Unavailable Koloms, Hortencia MD Unavailable Unavailable Koloms, Hortencia MD Unavailable Unavailable Koloms, Hortencia MD Unavailable Unavailable Koloms, Hortencia MD Unavailable Unavailable Koloms, Hortencia MD Unavailable Unavailable Koloms, Hortencia MD Unavailable Unavailable Koloms, Hortencia MD Unavailable Unavailable Koloms, Hortencia MD Unavailable Unavailable Koloms, Hortencia MD Unavailable Unavailable Koloms, Hortencia MD Unavailable Unavailable Koloms, Hortencia MD Unavailable Unavailable Koloms, Hortencia MD Unavailable Unavailable Koloms, Hortencia MD Unavailable Unavailable Koloms, Hortencia MD Unavailable Unavailable Koloms, Hortencia MD Unavailable Unavailable Koloms, Hortencia MD Unavailable Unavailable Koloms, Hortencia MD Unavailable Unavailable EVELYN, MAGDIEL MD Unavailable Unavailable EVELYN, MAGDIEL MD Unavailable Unavailable EVELYN, MAGDIEL MD Unavailable Unavailable EVELYN, MAGDIEL MD Unavailable Unavailable EVELYN, MAGDIEL MD Unavailable Unavailable EVELYN, MAGDIEL MD Unavailable Unavailable EVELYN, MAGDIEL MD Unavailable Unavailable EVELYN, MAGDIEL MD Unavailable Unavailable EVELYN, MAGDIEL MD Unavailable Unavailable EVELYN, MAGDIEL MD Unavailable Unavailable EVELYN, MAGDIEL MD Unavailable Unavailable EVELYN, MAGDIEL MD Unavailable Unavailable EVELYN, MAGDIEL MD Unavailable Unavailable EVELYN, MAGDIEL MD Unavailable Unavailable EVELYN, MAGDIEL MD Unavailable Unavailable EVELYN, MAGDIEL MD Unavailable Unavailable EVELYN, MAGDIEL MD Unavailable Unavailable EVELYN, MAGDIEL MD Unavailable Unavailable EVELYN, MAGDIEL MD Unavailable Unavailable EVELYN, MAGDIEL MD Unavailable Unavailable EVELYN, MAGDIEL MD Unavailable Unavailable EVELYN, MAGDIEL MD Unavailable Unavailable EVELYN, MAGDIEL MD Unavailable Unavailable EVELYN, MAGDIEL MD Unavailable Unavailable EVELYN, MAGDIEL MD Unavailable Unavailable EVELYN, MAGDIEL MD Unavailable Unavailable EVELYN, MAGDIEL MD Unavailable Unavailable EVELYN, MAGDIEL MD Unavailable Unavailable EVELYN, MAGDIEL MD Unavailable Unavailable EVELYN, MAGDIEL MD Unavailable Unavailable EVELYN, MAGDIEL MD Unavailable Unavailable EVELYN, MAGDIEL MD Unavailable Unavailable MAGDIEL RIVAS MD Unavailable Unavailable MAGDIEL RIVAS MD Unavailable Unavailable MAGDIEL RIVAS MD Unavailable Unavailable EVELYN, MAGDIEL RAMEY Unavailable Unavailable EVELYN, MAGDIEL RAMEY Unavailable Unavailable EVELYN, MAGDIEL RAMEY Unavailable Unavailable EVELYN, MAGDIEL RAMEY Unavailable Unavailable EVELYN, MAGDIEL RAMEY Unavailable Unavailable EVELYN, MAGDIEL RAMEY Unavailable Unavailable MAGDIEL RIVAS MD Unavailable Unavailable MAGDIEL RIVAS MD Unavailable Unavailable Trickey, J Hemalatha PA Unavailable Unavailable Trickey, J Hemalatha PA Unavailable Unavailable Trickey, J Hemalatha PA Unavailable Unavailable Trickey, J Hemalatha PA Unavailable Unavailable Trickey, J Hemalatha PA Unavailable Unavailable Trickey, J Hemalatha PA Unavailable Unavailable Trickey, J Hemalatha PA Unavailable Unavailable Trickey, J Hemalatha PA Unavailable Unavailable Trickey, J Hemalatha PA Unavailable Unavailable Trickey, J Hemalatha PA Unavailable Unavailable Trickey, J Hemalatha PA Unavailable Unavailable Trickey, J Hemalatha PA Unavailable Unavailable Trickey, J Hemalatha PA Unavailable Unavailable Trickey, J Hemalatha PA Unavailable Unavailable Trickey, J Hemalatha PA Unavailable Unavailable Trickey, J Hemalatha PA Unavailable Unavailable Trickey, J Hemalatha PA Unavailable Unavailable Trickey, J Hemalatha PA Unavailable Unavailable Trickey, J Hemalatha PA Unavailable Unavailable Trickey, J Hemalatha PA Unavailable Unavailable Trickey, J Hemalatha PA Unavailable Unavailable Trickey, J Hemalatha PA Unavailable Unavailable Trickey, J Hemalatha PA Unavailable Unavailable Trickey, J Hemalatha PA Unavailable Unavailable Trickey, J Hemalatha PA Unavailable Unavailable Trickey, J Hemalatha PA Unavailable Unavailable Trickey, J Hemalatha PA Unavailable Unavailable Trickey, J Hemalatha PA Unavailable Unavailable Trickey, J Hemalatha PA Unavailable Unavailable Trickey, J Hemalatha PA Unavailable Unavailable Trickey, J Hemalatha PA Unavailable Unavailable Trickey, J Hemalatha PA Unavailable Unavailable Trickey, J Hemalatha PA Unavailable Unavailable Trickey, J Hemalatha PA Unavailable Unavailable Trickey, J Hemalatha PA Unavailable Unavailable Trickey, J Hemalatha PA Unavailable Unavailable Trickey, J Hemalatha PA Unavailable Unavailable Trickey, J Hemalatha PA Unavailable Unavailable Trickey, J Hemalatha PA Unavailable Unavailable Trickey, J Hemalatha PA Unavailable Unavailable Trickey, J Hemalatha PA Unavailable Unavailable Trickey, J Hemalatha PA Unavailable Unavailable Trickey, J Hemalatha PA Unavailable Unavailable Trickey, J Hemalatha PA Unavailable Unavailable Trickey, J Hemalatha PA Unavailable Unavailable Trickey, J Hemalatha PA Unavailable Unavailable Trickey, J Hemalatha PA Unavailable Unavailable Trickey, J Hemalatha PA Unavailable Unavailable Trickey, J Hemalatha PA Unavailable Unavailable Kenny, Jose Walton MD Unavailable Unavailable Kenny, Jose Walton MD Unavailable Unavailable Kenny, Jose Walton MD Unavailable Unavailable Kenny, Jose Walton MD Unavailable Unavailable Kenny, Jose Walton MD Unavailable Unavailable Kenny, Jose Walton MD Unavailable Unavailable Kenny, Jose Walton MD Unavailable Unavailable Kenny, Jose Walton MD Unavailable Unavailable Kenny, Jose Walton MD Unavailable Unavailable Kenny, Jose Walton MD Unavailable Unavailable Kenny, Jose Walton MD Unavailable Unavailable Kenny, Jose Walton MD Unavailable Unavailable Kenny, Jose Walton MD Unavailable Unavailable Kneny, Jose Walton MD Unavailable Unavailable Kenny, Jose Walton MD Unavailable Unavailable Kenny, Jose Walton MD Unavailable Unavailable Kenny, Jose Walton MD Unavailable Unavailable Kenny, Jose Walton MD Unavailable Unavailable Kenny, Jose Walton MD Unavailable Unavailable Kenny, Jose Walton MD Unavailable Unavailable Kenny, Jose Walton MD Unavailable Unavailable Kenny, Jose Walton MD Unavailable Unavailable Kenny, Jose Walton MD Unavailable Unavailable Kenny, Jose Walton MD Unavailable Unavailable Kenny, Jose Walton MD Unavailable Unavailable Kenny, Jose Walton MD Unavailable Unavailable Kenny, Jose Walton MD Unavailable Unavailable Kenny, Jose Walton MD Unavailable Unavailable Kenny, Jose Walton MD Unavailable Unavailable Kenny, Jose Walton MD Unavailable Unavailable Kenny, Jose Walton MD Unavailable Unavailable Kenny, Jose Walton MD Unavailable Unavailable Kenny, Jose Walton MD Unavailable Unavailable Kenny, Jose Walton MD Unavailable Unavailable Kenny, Jose Walton MD Unavailable Unavailable Kenny, Jose Walton MD Unavailable Unavailable Kenny, Jose Walton MD Unavailable Unavailable Kenny, Jose Walton MD Unavailable Unavailable Kenny, Jose Walton MD Unavailable Unavailable Kenny, Jose Walton MD Unavailable Unavailable Kenny, Jose Walton MD Unavailable Unavailable Kenny, Jose Walton MD Unavailable Unavailable Kenny, Jose Walton MD Unavailable Unavailable Kenny, Jose Walton MD Unavailable Unavailable Kenny, Jose Walton MD Unavailable Unavailable Kenny, Jose Walton MD Unavailable Unavailable Kenny, Jose Walton MD Unavailable Unavailable Kenny, Jose Walton MD Unavailable Unavailable Kenny, Jose Walton MD Unavailable Unavailable Kenny, Jose Walton MD Unavailable Unavailable Kenny, Jose Walton MD Unavailable Unavailable Kenny, Jose Walton MD Unavailable Unavailable Kenny, Jose Walton MD Unavailable Unavailable Kenny, Jose Walton MD Unavailable Unavailable Re-disclosure Warning The records that you are about to access may contain information from federally-assisted alcohol or drug abuse programs. If such information is present, then the following federally mandated warning applies: This information has been disclosed to you from records protected by federal confidentiality rules (42 CFR part 2). The federal rules prohibit you from making any further disclosure of this information unless further disclosure is expressly permitted by the written consent of the person to whom it pertains or as otherwise permitted by 42 CFR part 2. A general authorization for the release of medical or other information is NOT sufficient for this purpose. The Federal rules restrict any use of the information to criminally investigate or prosecute any alcohol or drug abuse patient.The records that you are about to access may contain highly sensitive health information, the redisclosure of which is protected by Article 27-F of the [place] [facility] Public Health law. If you continue you may have access to information: Regarding HIV / AIDS; Provided by facilities licensed or operated by the [facility] Office of Mental Health; or Provided by the [facility] Office for People With Developmental Disabilities. If such information is present, then the following [facility] mandated warning applies: This information has been disclosed to you from confidential records which are protected by state law. State law prohibits you from making any further disclosure of this information without the specific written consent of the person to whom it pertains, or as otherwise permitted by law. Any unauthorized further disclosure in violation of state law may result in a fine or long-term sentence or both. A general authorization for the release of medical or other information is NOT sufficient authorization for further disc losure. Allergies and Adverse Reactions Type Description Substance Reaction Status Data Source(s ) No Known Drug Allergies No Known Drug Allergies [facility] No Known Food Allergies No Known Food Allergies [facility] No Known Allergies No Known Allergies [facility] Family History Family Member Name Family Member Gender Family Member Status Date o f Status Description Data Source(s) Unknown Unknown Problem [facility] ([facility]) Unknown Unknown Problem [facility] Unknown Male Problem [facility] ([facility]) Unknown Male Problem [facility] ([facility] () Encounters Encounter Providers Location Date Indications Data Source(s ) Outpatient Attender: Shawna LINK Main Office 07/05/2021 12:30:00 PM EDT MED[facility] ([facility]) [place] [address] [address] 06/30/2021 12:00:00 AM EDT eCW1 ([facility]) Outpatient Attender: Hemalatha LINK Main office - [facility] n 06/21/2021 10:30:00 AM EDT MEDENT ([facility]) Outpatient Attender: Anton George/Tarun/Sukh/R eindl 06/07/2021 02:30:00 PM EDT [facility] ([facility] Outpatient Attender: Hemalatha LINK Main office - [facility] n 04/13/2021 09:30:00 AM EDT [facility] ([facility]) [place] [address] [address] 04/08/2021 12:00:00 AM EDT eCW1 ([facility]) [place] [address] [address] 03/24/2021 12:00:00 AM EDT eCW1 ([facility]) Outpatient Attender: hSawna LINK Main Office 03/22/2021 12:30:00 PM EDT MED[facility] ([facility]) [place] [address] [address] 03/15/2021 12:00:00 AM EDT eCW1 ([facility]) [place] [address] [address] 03/02/2021 12:00:00 AM EDT eCW1 ([facility]) [place] [address] [address] 02/23/2021 12:00:00 AM EDT eCW1 ([facility]) Outpatient Attender: MAGDIEL RIVAS MD Main office - [facility] n 02/22/2021 01:30:00 PM EDT MED[facility] ([facility]) [place] [address] [facility] [address] 02/10/2021 12:00:00 AM EDT eCW1 ([facility]) Outpatient Attender: Anton George/Tarun/Sukh/R eindl 02/01/2021 11:15:00 AM EDT [facility] ([facility] [place] [address] [facility] [address] 01/31/2021 12:00:00 AM EDT eCW1 ([facility]) [place] [address] [address] 01/14/2021 12:00:00 AM EDT eCW1 ([facility]) Outpatient Attender: Shawna LINK Main Office 12/15/2020 10:15:00 AM EST MED[facility] ([facility]) [place] [address] [address] 10/25/2020 12:00:00 AM EST eCW1 ([facility]) [place] [address] [address] 10/08/2020 12:00:00 AM EST eCW1 ([facility]) [place] [address] [facility] [place] [address] 10/08/2020 12:00:00 AM EST eCW1 ([facility]) [place] [address] [facility] [address] 09/27/2020 12:00:00 AM EST eCW1 ([facility]) Outpatient Attender: Hortencia Logan MDConsultant: Zehra Salmon NP 09/20/2020 10:15:00 AM EST - 09/20/2020 12:47:00 PM EST [facility] Patient discharged. [place] [address] [facility] [address] 09/14/2020 12:00:00 AM EST eCW1 ([facility]) [place] [address] [address] 09/06/2020 12:00:00 AM EST eCW1 ([facility]) [place] [address] [facility] [address] 09/03/2020 12:00:00 AM EST eCW1 ([facility]) Outpatient Attender: Hortencia Logan MDConsultant: Zehra Salmon NP 08/23/2020 07:15:00 AM EST - 08/23/2020 09:28:00 AM EST [facility] Patient discharged. [place] [address] [facility] [address] 08/19/2020 12:00:00 AM EDT eCW1 ([facility]) [place] [address] [address] 08/19/2020 12:00:00 AM EDT eCW1 ([facility]) Outpatient Attender: Hortencia Logan MDConsultant: Zehra Salmon NP 08/18/2020 04:31:08 PM EDT - 08/19/2020 11:00:00 AM EDT [facility] Patient discharged. Outpatient Attender: Shawna LINK Main Office 08/17/2020 12:30:00 PM EDT LUZ ([facility]) [place] [address] [facility] [address] 08/09/2020 12:00:00 AM EDT eCW1 ([facility]) Immunizations Vaccine Date Status Description Data Source(s) COVID-19 VACCINE Moderna 03/04/2021 12:00:00 AM EDT completed [facility] Vaccine Series Complete: YESThis Data wa s Submitted to [facility] Via [employer] COVID-19 VACCINE Moderna 02/04/2021 12:00:00 AM EDT completed [facility] Vaccine Series Complete: NOThis Data was Submitted to [facility] Via [employer] influenza, recombinant, quadrIvalent,injectable, prese rvative free 08/09/2020 11:07:00 AM EDT completed eCW1 ([facility]) influenza, recombinant, quadrIvalent,injectable, prese rvative free 08/09/2020 11:07:00 AM EDT completed eCW1 ([facility]) influenza, recombinant, quadrIvalent,injectable, prese rvative free 08/09/2020 11:07:00 AM EDT completed eCW1 ([facility]) influenza, recombinant, quadrIvalent,injectable, prese rvative free 08/09/2020 11:07:00 AM EDT completed eCW1 ([facility]) influenza, recombinant, quadrIvalent,injectable, prese rvative free 08/09/2020 11:07:00 AM EDT completed eCW1 ([facility]) influenza, recombinant, quadrIvalent,injectable, prese rvative free 08/09/2020 11:07:00 AM EDT completed eCW1 ([facility]) influenza, recombinant, quadrIvalent,injectable, prese rvative free 08/09/2020 11:07:00 AM EDT completed eCW1 ([facility]) influenza, recombinant, quadrIvalent,injectable, prese rvative free 08/09/2020 11:07:00 AM EDT completed eCW1 ([facility]) influenza, recombinant, quadrIvalent,injectable, prese rvative free 08/09/2020 11:07:00 AM EDT completed eCW1 ([facility]) influenza, recombinant, quadrIvalent,injectable, prese rvative free 08/09/2020 11:07:00 AM EDT completed eCW1 ([facility]) influenza, recombinant, quadrIvalent,injectable, prese rvative free 08/09/2020 11:07:00 AM EDT completed eCW1 ([facility]) influenza, recombinant, quadrIvalent,injectable, prese rvative free 08/09/2020 11:07:00 AM EDT completed eCW1 ([facility]) influenza, recombinant, quadrIvalent,injectable, prese rvative free 08/09/2020 11:07:00 AM EDT completed eCW1 ([facility]) influenza, recombinant, quadrIvalent,injectable, prese rvative free 08/09/2020 11:07:00 AM EDT completed eCW1 ([facility]) influenza, recombinant, quadrIvalent,injectable, prese rvative free 08/09/2020 11:07:00 AM EDT completed eCW1 ([facility]) influenza, recombinant, quadrIvalent,injectable, prese rvative free 08/09/2020 11:07:00 AM EDT completed eCW1 ([facility]) influenza, recombinant, quadrIvalent,injectable, prese rvative free 08/09/2020 11:07:00 AM EDT completed eCW1 ([facility]) influenza, recombinant, quadrIvalent,injectable, prese rvative free 08/09/2020 11:07:00 AM EDT completed eCW1 ([facility]) influenza, recombinant, quadrIvalent,injectable, prese rvative free 08/09/2020 11:07:00 AM EDT completed eCW1 ([facility]) Medications Medication Brand Name Start Date Product Form Dose Route Admi nistrative Instructions Pharmacy Instructions Status Indications Reaction Description Data Source(s) Prednisone 10 MG Oral Tablet Prednisone 06/07/2021 12:00:00 AM EDT ORAL active MEDENT ([facility] ) Albuterol 0.83 MG/ML Inhalant Solution Albuterol Sulfate 0 03/21/2021 12:00:00 AM EDT completed MEDENT ([facility]) Lidocaine 50 MG/ML Rectal Cream Lidocaine 03/21/2021 12:00:00 AM EDT completed [facility] ([facility]) Lidocaine 50 MG/ML Topical Cream Lidocaine 5 % Lidocaine 5 % 08/19/2020 12:00:00 AM EDT active Lidocaine 5 % eCW 1 ([facility]) Lidocaine 50 MG/ML Topical Cream Lidocaine 5 % Lidocaine 5 % 08/19/2020 12:00:00 AM EDT active Lidocaine 5 % eCW 1 ([facility]) Lidocaine 50 MG/ML Topical Cream Lidocaine 5 % Lidocaine 5 % 08/19/2020 12:00:00 AM EDT active Lidocaine 5 % eCW 1 ([facility]) Lidocaine 50 MG/ML Topical Cream Lidocaine 5 % Lidocaine 5 % 08/19/2020 12:00:00 AM EDT active Lidocaine 5 % eCW 1 ([facility]) Lidocaine 50 MG/ML Topical Cream Lidocaine 5 % Lidocaine 5 % 08/19/2020 12:00:00 AM EDT active Lidocaine 5 % eCW 1 ([facility]) Lidocaine 50 MG/ML Topical Cream Lidocaine 5 % Lidocaine 5 % 08/19/2020 12:00:00 AM EDT active Lidocaine 5 % eCW 1 ([facility]) Lidocaine 50 MG/ML Topical Cream Lidocaine 5 % Lidocaine 5 % 08/19/2020 12:00:00 AM EDT active Lidocaine 5 % eCW 1 ([facility]) Lidocaine 50 MG/ML Topical Cream Lidocaine 5 % Lidocaine 5 % 08/19/2020 12:00:00 AM EDT active Lidocaine 5 % eCW 1 ([facility]) Lidocaine 50 MG/ML Topical Cream Lidocaine 5 % Lidocaine 5 % 08/19/2020 12:00:00 AM EDT active Lidocaine 5 % eCW 1 ([facility]) Lidocaine 50 MG/ML Topical Cream Lidocaine 5 % Lidocaine 5 % 08/19/2020 12:00:00 AM EDT active Lidocaine 5 % eCW 1 ([facility]) gabapentin 300 MG Oral Capsule Gabapentin 08/16/2020 12:00:00 AM EDT ORAL active [facility] ([facility]) 24 HR metoprolol succinate 25 MG Extended Release Oral Tablet Metoprolol Succinate ER 08/16/2020 12:00:00 AM EDT ORAL active [facility] ([facility]) gabapentin 300 MG Oral Capsule Gabapentin 300 MG Gabapentin 300 MG 08/09/2020 12:00:00 AM EDT active Gabapent in 300 MG eCW1 ([facility]) gabapentin 300 MG Oral Capsule Gabapentin 300 MG Gabapentin 300 MG 08/09/2020 12:00:00 AM EDT active Gabapent in 300 MG eCW1 ([facility]) gabapentin 300 MG Oral Capsule Gabapentin 300 MG Gabapentin 300 MG 08/09/2020 12:00:00 AM EDT active Gabapent in 300 MG eCW1 ([facility]) gabapentin 300 MG Oral Capsule Gabapentin 300 MG Gabapentin 300 MG 08/09/2020 12:00:00 AM EDT active Gabapent in 300 MG eCW1 ([facility]) gabapentin 300 MG Oral Capsule Gabapentin 300 MG Gabapentin 300 MG 08/09/2020 12:00:00 AM EDT active Gabapent in 300 MG eCW1 ([facility]) gabapentin 300 MG Oral Capsule Gabapentin 300 MG Gabapentin 300 MG 08/09/2020 12:00:00 AM EDT active Gabapent in 300 MG eCW1 ([facility]) gabapentin 300 MG Oral Capsule Gabapentin 300 MG Gabapentin 300 MG 08/09/2020 12:00:00 AM EDT active Gabapent in 300 MG eCW1 ([facility]) gabapentin 300 MG Oral Capsule Gabapentin 300 MG Gabapentin 300 MG 08/09/2020 12:00:00 AM EDT active Gabapent in 300 MG eCW1 ([facility]) gabapentin 300 MG Oral Capsule Gabapentin 300 MG Gabapentin 300 MG 08/09/2020 12:00:00 AM EDT active Gabapent in 300 MG eCW1 ([facility]) gabapentin 300 MG Oral Capsule Gabapentin 300 MG Gabapentin 300 MG 08/09/2020 12:00:00 AM EDT active Gabapent in 300 MG eCW1 ([facility]) gabapentin 300 MG Oral Capsule Gabapentin 300 MG Gabapentin 300 MG 08/09/2020 12:00:00 AM EDT active Gabapent in 300 MG eCW1 ([facility]) gabapentin 300 MG Oral Capsule Gabapentin 300 MG Gabapentin 300 MG 08/09/2020 12:00:00 AM EDT active Gabapent in 300 MG eCW1 ([facility]) gabapentin 300 MG Oral Capsule Gabapentin 300 MG Gabapentin 300 MG 08/09/2020 12:00:00 AM EDT active Gabapent in 300 MG eCW1 ([facility]) gabapentin 300 MG Oral Capsule Gabapentin 300 MG Gabapentin 300 MG 08/09/2020 12:00:00 AM EDT active Gabapent in 300 MG eCW1 ([facility]) gabapentin 300 MG Oral Capsule Gabapentin 300 MG Gabapentin 300 MG 08/09/2020 12:00:00 AM EDT active Gabapent in 300 MG eCW1 ([facility]) gabapentin 300 MG Oral Capsule Gabapentin 300 MG Gabapentin 300 MG 08/09/2020 12:00:00 AM EDT active Gabapent in 300 MG eCW1 ([facility]) gabapentin 300 MG Oral Capsule Gabapentin 300 MG Gabapentin 300 MG 08/09/2020 12:00:00 AM EDT active Gabapent in 300 MG eCW1 ([facility]) gabapentin 300 MG Oral Capsule Gabapentin 300 MG Gabapentin 300 MG 08/09/2020 12:00:00 AM EDT active Gabapent in 300 MG eCW1 ([facility]) gabapentin 300 MG Oral Capsule Gabapentin 300 MG Gabapentin 300 MG 08/09/2020 12:00:00 AM EDT active Gabapent in 300 MG eCW1 ([facility]) Insurance Providers Payer name Policy type / Coverage type Policy ID Covered republican ID Covered republican's relationship to dupont Policy [place] Plan Information [place] Medigap Part B [id number] 2.0.1.269272.3.227.99.177.82641.0 Self D [id number] [facility] Health Maintenance Organization (HMO) [id number] Self [id number] [place] Medigap Part B [id number] 2.0.1.301209.3.227.99.991.48461.0 Self D [id number] [facility] [place] PPO [id number]/307 [id number] SP [id number] Medicare (Part B) Medicare Primary [id number] 2.0.1.382165.3.227.99.572.38069.0 Self 0 [id number] Medicare (Part B) Medicare Primary [id number] 2.0.1.516309.3.227.99.572.45392.0 Self 0 [id number] Blue Preferred Ppo Medigap Part B [id number].[id number] Self [id number] Medicare (Part B) Medicare Primary [id number].[id number] Self [id number] Medicare [facility] Medicare Primary [id number] 2.16840.1.394880.3.227.99.8646.6200.0 Self 0 [id number] Medicare (Part B) Medicare Primary [id number] 2.16840.1.550261.3.227.99.572.12526.0 Self 0 [id number] Blue Preferred Ppo Medigap Part B [id number] 2.16.840.1.412543.3.227.99.572.11142.0 Self D [id number] Medicare (Part B) Medicare Primary [id number] 2.16.840.1.659104.3.227.99.572.96301.0 Self 0 [id number] Blue Preferred Ppo Medigap Part B [id number] 2.16.840.1.695808.3.227.99.572.81084.0 Self D [id number] [employer] Ppo Medigap Part B [id number] 2.16.840.1.244609.3.227.99.572.27259.0 Self D [id number] [employer] Ppo Medigap Part B [id number] 2.16.840.1.368851.3.227.99.572.95454.0 Self D [id number] Medicare (Part B) Medicare Primary [id number] 2.16.840.1.941579.3.227.99.572.95036.0 Self 0 [id number] Blue Preferred Ppo Medigap Part B [id number] 2.16.840.1.268608.3.227.99.572.86870.0 Self D [id number] Medicare (Part B) Medicare Primary [id number] 2.16.840.1.583760.3.227.99.572.43624.0 Self 0 [id number] Blue Preferred Ppo Medigap Part B [id number] 2.16.840.1.928222.3.227.99.572.77301.0 Self D [id number] Medicare (Part B) Medicare Primary [id number] 2.16.840.1.128630.3.227.99.572.87378.0 Self 0 [id number] Blue Preferred Ppo Medigap Part B [id number] 2.16.840.1.530585.3.227.99.572.24348.0 Self D [id number] Medicare (Part B) Medicare Primary [id number] 2.16.840.1.055441.3.227.99.572.93376.0 Self 0 [id number] Blue Preferred Ppo Medigap Part B [id number] 2.16.840.1.438012.3.227.99.572.83370.0 Self D [id number] Medicare (Part B) Medicare Primary [id number] 2.16.840.1.050266.3.227.99.572.50303.0 Self 0 [id number] Blue Preferred Ppo Medigap Part B [id number] 2.16.840.1.913567.3.227.99.572.00177.0 Self D [id number] Medicare (Part B) Medicare Primary [id number] 2.16.840.1.954739.3.227.99.572.01371.0 Self 0 [id number] Blue Preferred Ppo Medigap Part B [id number] 2.16.840.1.979055.3.227.99.572.82780.0 Self D [id number] Medicare (Part B) Medicare Primary [id number] Self Blue Preferred Ppo Medigap Part B [id number] Self Medicare Medicare Primary [id number] [place] Primary [id number] 2.16.840.1.068756.3.227.99.8646.6200.0 Self 0 [id number] Blue Preferred Ppo Medigap Part B [id number] 2.16.840.1.748722.3.227.99.572.32419.0 Self D [id number] Blue Preferred Ppo Medigap Part B [id number] 2.16.840.1.636248.3.227.99.572.93551.0 Self D [id number] Medicare (Part B) Medicare Primary [id number] 2.16.840.1.900590.3.227.99.572.63117.0 Self 0 [id number] Medicare (Part B) Medicare Primary [id number] 2.16.840.1.728330.3.227.99.572.65630.0 Self 0 [id number] [place] Medicare Primary [id number] MRN.[id number] Self [id number] Blue Preferred Ppo Medigap Part B [id number] 2.16.840.1.279811.3.227.99.572.71253.0 Self D [id number] Blue Preferred Ppo Medigap Part B [id number] 2.16.840.1.621898.3.227.99.572.83466.0 Self D [id number] Medicare (Part B) Medicare Primary [id number] 2.16.840.1.421138.3.227.99.572.71704.0 Self 0 [id number] Medicare - [place] Medicare Primary [id number] 2.16.840.1.700461.3.227.99.177.95518.0 Self 0 [id number] Medicare - NGS Medicare Primary [id number] 2.16.840.1.901515.3.227.99.177.79650.0 Self 0 [id number] Blue Preferred Ppo Medigap Part B [id number] 2.16.840.1.129162.3.227.99.572.48852.0 Self D [id number] Medicare (Part B) Medicare Primary [id number] 2.16.840.1.639352.3.227.99.572.51558.0 Self 0 [id number] Blue Preferred Ppo Medigap Part B [id number] 2.16.840.1.553573.3.227.99.572.25567.0 Self D [id number] Medicare (Part B) Medicare Primary [id number] 2.16.840.1.476565.3.227.99.572.44540.0 Self 0 [id number] Medicare (Part B) Medicare Primary [id number] 2.16.840.1.575950.3.227.99.572.42104.0 Self 0 [id number] MVP [facility] Commercial [id number] 2.160.1.821428.3.227.99.572.91998.0 Self 8 [id number] MVP [employer] [facility] Commercial [id number] Self MVP [facility] Commercial [id number] 2.16.840.1.722561.3.227.99.572.62272.0 Self 8 [id number] MVP [employer] 3LM [id number] 2.160.1.925640.3.227.99.572.35552.0 Self 8 [id number] MVP [employer] 3LM [id number] 2.0.1.968152.3.227.99.572.77717.0 Self 8 [id number] MVP [facility] 3LM [id number] 2.0.1.431524.3.227.99.572.03957.0 Self [id number] MVP [facility] 3LM [id number] MRN.[id number] Self [id number] MVP [employer] 3LM [id number] 2.0.1.821785.3.227.99.572.91687.0 Self 8 [id number] MVP [facility] 3LM [id number] 2.0.1.381274.3.227.99.572.98429.0 Self 8 [id number] MVP [facility] 3LM [id number] 2.0.1.247951.3.227.99.572.47608.0 Self 8 [id number] MVP [facility] 3LM [id number] 2.160.1.844480.3.227.99.572.57898.0 Self 8 [id number] MVP [employer] 3LM [id number] 2.0.1.283908.3.227.99.572.23899.0 Self 8 [id number] MVP [employer] Commercial [id number] 2.16.840.1.596719.3.227.99.572.33530.0 Self 8 [id number] MVP [employer] Commercial [id number] 2.16.840.1.625232.3.227.99.572.60633.0 Self 8 [id number] MVP [facility] Commercial [id number] 2.16.840.1.164000.3.227.99.572.27067.0 Self 8 [id number] MVP [facility] Commercial [id number] 2.0.1.679822.3.227.99.572.92559.0 Self [id number] MVP [facility] Commercial [id number] 2.0.1.307022.3.227.99.572.32472.0 Self [id number] MVP [facility] Commercial [id number] 2.0.1.421981.3.227.99.572.61657.0 Self 8 [id number] MVP Medicare Commercial [id number] 2.0.1.522663.3.227.99.991.85 495.0 Self [id number] MVP Gold Commercial [id number] 2.0.1.605932.3.227.99.8646.6200. 0 Self [id number] MVP Gold Commercial [id number] MRN.[id number] Self [id number] MVP Medicare Commercial [id number] 2.0.1.579510.3.227.99.177.19 129.0 Self [id number] MVP Medicare Commercial [id number] 2.0.1.098719.3.227.99.177.19 129.0 Self [id number] MVP Gold Commercial [id number] 2.160.1.547886.3.227.99.8646.6200. 0 [facility] [id number] ANSI-Health Maintenance Organization ( O) [id number]-[id number]-nu6d-[id number] 003b62pu-6e10-2k93-kq9v-9o0x1lu99849 MVP GOLD [id number] SP [id number] MVP GOLD [id number] SP [id number] [facility] MVP MCR ADV - OP [id number] 18 8 [id number] MVP MCR HMO [id number] SP [id number] MVP MCR HMO [id number] SP [id number] MVP HEALTH CARE O [id number] S [id number] ANSI-Commercial 97qyp2rt-s909-0r11-wv04-73v9q2z144lr 86cvo5jm-p146-6i29-cn52-85s7i4y029uy ANSI-Medicare Part B [id number]-x76o8u108i29 a8ri0k91-h318-96y5-6n56-w16y1u254w02 ANSI-Health Maintenance Organization ( O) pk97s441-g5b3-1oa3-8624-60111r6id5m4 eu26k421-h0s4-6gq3-0907-02053s1ih7l1 ANSI-Commercial 4d7002su-3389-5f4k-u8t8-t4t12uz5018q 5s7700rn-2794-0t7s-j4q8-b9i34cl6328n ANSI-Health Maintenance Organization ( O) [id number]-x843-9j15-3ir5-y4ofj92u28w4 8x0927jv-r954-2y67-3xo1-p2fgm55h68h8 ANSI-Medicare Part B [id number] 4x33w8kx-fd37-2t60-9912-7436252uiw84 ANSI-Medicare Part B [id number]-j3gp-286z0sjyp887 94k8b021-6425-1675-l5hz-488g8euqy232 ANSI-Commercial 071837z5-o8e4-6an3-w081-9741c564899m 309538x0-t6z1-3iy7-o373-4741p984149m ANS-Health Maintenance Organization ( O) b41elg84-5359-3jg1-5f9v-m71p86hu58jg o80eow37-6160-7td0-7t0v-s26m37tp17bl [facility] 8n01kx22-m2e0-28s4-x631-74y2jr5h0nk8 5h58ap28-m8b8-99h3-d781-64e0yx1o8vb8 [facility]-Health Maintenance Organization ( O) [id number]-63jz-8755-3vnn-d9x10o97m945 7y99y44y-03rm-8156-0zwy-u4v01q67s598 ANSI-Medicare Part B [id number]-[id number] 11799h5s-0ocn-7996-661m-m0f976344m60 ANSI-Medicare Part B [id number]-s0p4-h0o0w9al11c0 e9692nh2-o1a1-51q3-o3d3-e2u2t5vp38c5 ANSI-Commercial tm11442v-p6d8-4b0x-5934-u995x9lq647x dg15512r-t8w7-1y6c-9212-a124z5em504x [facility]-Health Maintenance Organization ( O) 0541psf0-3453-8hx1-j01o-xmpt881b23r5 4435mmi1-5937-4qk5-f00u-kvpf359b12e5 MEDICARE [id number] SP [id number] ANSI-Commercial 49422940-7ws7-8t85-2419-3w9183v2mt8b 50759633-1fr5-0m33-8069-9m0709d9ks0r ANSI-Medicare Part B [id number]-615z-8d3z-30209f7756v9 62s88rx6-1c5z-288i-1p3v-17733h5459h9 ANSI-Health Maintenance Organization ( O) 6pl8n12u-a039-6o82-x3s7-c65es2e9b19a 2bf8x49a-e070-8l51-z4v8-c72tm8n0j31t ANSI-Commercial 3q8y3599-6887-6q31-a31j-960837578v98 5d9c5977-9957-6q65-b66s-032925661j56 ANSI-Health Maintenance Organization ( O) e2l9o09o-4334-3c3c-2162-uuw38g638l77 j7c9s65l-8995-5o7v-3984-ajs06h570s35 ANSI-Medicare Part B [id number]-v8y9-z2lu1mh027u7 0254x319-p4z5-7x12-f5c4-a2gy5tn021d5 ANSI-Medicare Part B [id number]-g1np-f5kma2c24828 p4198i58-e1m8-665l-n8nb-c5xmg6x61290 ANSI-Health Maintenance Organization ( O) [id number]w77644uf05 8q279918-0bo5-3i41-5y49-1kx04966hw30 ANSI-Commercial e8zy40yv-3y31-2535-c809-qv0346c1xc77 b2bj64rm-3y85-3324-q396-mo9505d1zh31 ANSI-Health Maintenance Organization ( O) p7p6iu4f-h32s-3f84-snw5-241928631q38 k2a1ng2w-b95b-6o09-kxh2-358826039v26 ANSI-Medicare Part B [id number]-5383-1nm3-s20q-20mq538701q5 o70x4c2p-5475-0ac6-a41u-47fh538865v8 ANSI-Commercial pi53eagt-6437-0i5u-gz53-464i7b465872 fh79pxer-5029-1a7f-xu69-039l3k471166 ANSI-Medicare Part B [id number]-g825-ud25b4f335e5 4gx59421-20g9-053j-q575-np24m6b294h8 ANSI-Commercial e6069j0f-7187-2p39-7769-64d7q8b14854 x4639p8m-7520-3w71-3027-94w8s4h68067 ANSI-Health Maintenance Organization ( O) 225b569j-138e-4qkb-56c5-l1z4n4u1r93u 904l712a-129l-8zja-70g0-a0i3f7e2v43v ANSI-Commercial 5hpo2s29-d01p-9185-8htp-lvlb5707zi94 5eqb1w82-e85s-9699-4gry-ktsc3304fl37 ANSI-Medicare Part B [id number]-[id number] 0d5652ef-5l30-3z85-z352-28f62s258tfr [facility]-Health Maintenance Organization ( O) 1047b60n-2197-158i-dktd-870128040k65 5352c33k-3391-867f-gwqc-038239962u22 [facility] ( O) 7y0ecwk3-2243-1c75-1x07-430i894y6188 6n1vtny7-2868-9o13-7d16-896u797g9648 ANSI-Commercial s55gj590-0cd2-4u78-l228-v69t6h05538w n31vc183-0gb2-1m56-m393-f14y7p28013i ANSI-Medicare Part B [id number]-1ci8-3605-y82f-w2h9c3k8v362 ee44b14r-7jj5-2080-p11h-n7i7s3e8p470 ANSI-Commercial 058h824i-w1i6-8k66-630c-7343q72go5x1 156o056l-z2w0-1w36-593h-3144w47lr6c8 ANSI-Medicare Part B [id number]-8b9p-1645-q3655q1b2117 072207h0-099i-7l6a-3539-c8834r4o3549 [facility]-Health Maintenance Organization ( O) 17388jz4-26z3-96aq-o7p9-96a66z3pi0f5 53905xh8-16p6-29vj-r2j0-90o00x9hy2g8 ANSI-Medicare Part B [id number]-594x-e916-8993x63345ms 254h4p63-65fh-713o-h732-6865k47987jo [facility]-Health Maintenance Organization ( O) 182b4994-i8t7-3789-fqii-h4ieq964987e 188a1729-k9u2-9706-grys-a1pou681039y ANSI-Commercial 4865918m-7601-8b75-dj74-6q067x8d25q9 6532333y-7405-0i04-sx39-7r679e3v11q7 [facility] [id number]-e125-53sv-[id number] 82b2d9zq-g224-18ch-[id number] [facility]-Health Maintenance Organization ( O) 62kkl491-t287-6271-ozkm-677m1450842a 63qjm433-l827-3589-cumw-628h3444168v ANSI-Commercial 3903l936-b5k3-20j0-m86c-3d9s178900u3 2628p779-f6l0-54p8-y20z-2l8p045781t9 [facility]-Health Maintenance Organization ( O) [id number]-8i80-17n5-58424582z196 jt56y813-572d-8u51-47w2-89162250h397 ANS-Commercial c5216774-3m39-7909-m889-75101434411g [id number]-w754-20183433496b [facility]-Medicare Part B [id number]-376c-svvu-[id number] 6shc0629-4c2k-954j-hqgi-h0j148r125k9 ANS-Commercial 1l76l308-850s-374r-01g6-3432krl96q06 6q89c770-657h-908j-67p5-1121dis82i06 ANSI-Medicare Part B [id number]-gw9t-[id number] hi7224ss-s968-285t-fc3g-cx1i48614163 [facility] (Medicare) [facility] Part B [id number] 2.16.840.1.762160.3.227.99.991.96593.0 Self 8 [id number] MEDICARE C [id number] S [id number] A MEDICARE [id number] SP [id number] A [facility] O [id number] S [id number] [employer] [place] PPO 302/307 [id number] SP [id number] [employer] [place] 306/806 [id number] SP [id number] [employer] [place] 306/8 S [id number] S [id number] A Problems, Conditions, and Diagnoses Code Display Name Description Problem Type Effective Dates Data Source(s) H2512 Age-related nuclear cataract, left eye A ge-related nuclear cataract, left eye Diagnosis 09/20/2020 10:15:00 AM [facility] H2511 Age-related nuclear cataract, right eye Age-related nuclear cataract, right eye Diagnosis 08/23/2020 07:15:00 AM [facility] P81934 Encounter for other preprocedural examin ation Encounter for other preprocedural examination Diagnosis 08/19/2020 10:40:00 AM EDT [facility] G57.92 [id number] Neuropathy of left lower extremity Proble m 01/31/2021 12:00:00 AM EDT eCW1 ([facility]) K21.9 Gastroesophageal reflux disease Gastroes ophageal reflux disease, unspecified whether esophagitis present Problem 01/31/2021 12:00:00 AM EDT eCW1 ([facility]) B02.29 1247101 Post herpetic neuralgia Problem 08/09/2020 1 2:00:00 AM EDT eCW1 ([facility]) H26.9 [id number] Cataract of both eyes, unspecified catara ct type Problem 08/09/2020 12:00:00 AM EDT eCW1 ([facility]) Surgeries/Procedures Procedure Description Date Indications Data Source(s) OFFICE OUTPATIENT VISIT 15 MINUTES 07/05/2021 12:00:00 AM EDT [facility] ([facility]) OFFICE OUTPATIENT VISIT 25 MINUTES 06/21/2021 12:00:00 AM EDT [facility] ([facility], ) OFFICE OUTPATIENT VISIT 25 MINUTES 06/07/2021 12:00:00 AM EDT [facility] ([facility], ) OFFICE OUTPATIENT VISIT 25 MINUTES 04/13/2021 12:00:00 AM EDT [facility] ([facility], ) ECG ROUTINE ECG W/LEAST 12 LDS W/I&R 03/22/2021 12:00: 00 AM EDT [facility] ([facility]) OFFICE OUTPATIENT VISIT 25 MINUTES 03/22/2021 12:00:00 AM EDT [facility] ([facility]) Needle electromyography, each extremity, with related paraspinal areas, when performed, done with nerve conduction, amplitude and latency/velocity study; complete, five or more muscles studied, innervated by three or more nerves or four or more spinal levels (list separately in addition to the code for primary procedure). 03/22/2021 12:00:00 AM EDT MEDEN T ([facility], ) Needle electromyography, each extremity, with related paraspinal areas, when performed, done with nerve conduction, amplitude and latency/velocity study; complete, five or more muscles studied, innervated by three or more nerves or four or more spinal levels (list separately in addition to the code for primary procedure). 03/22/2021 12:00:00 AM EDT MEDEN T ([facility], ) [address] Nerve conduction studies 13 or more studies NEW 201203/22/2021 12:00:00 AM EDT MEDENT ([facility], ) NON-INVASIVE PHYSIOLOGIC STUDY EXTREMITY 3 LEVLS 02/25 12:00:00 AM EDT MEDENT ([facility], ) NON-INVASIVE PHYSIOLOGIC STUDY EXTREMITY 3 LEVLS 02/25 12:00:00 AM EDT MED[facility] TSTG ANS FUNCJ CARDIOVAGAL INNERVAJ PARASYMP 12:00:00 AM EDT MEDENT [facility] TESTING AUTONOMIC NERVOUS SYSTEM FUNCTION 02/25/2021 1 2:00:00 AM EDT MEDENT ([facility], ) OFFICE OUTPATIENT NEW 45 MINUTES 02/22/2021 12:00:00 A M EDT MEDENT ([facility], ) OFFICE OUTPATIENT VISIT 25 MINUTES 02/01/2021 12:00:00 AM EDT MEDENT ([facility], ) ECG ROUTINE ECG W/LEAST 12 LDS W/I&R 08/17/2020 12:00: 00 AM EDT MEDENT ([facility]) Immunization: Flublok Quadrivalent (18 years & older) 0.5mL IM (Influenza) 08/09/2020 12:00:00 AM EDT eCW1 ([facility]) Results ID Date Data Source [id number] 06/30/2021 07:30:00 AM EDT MEDENT ([facility]) Name Value Range Interpretation Code Description Data Brittany rce(s) Supporting Document(s) Glucose, Fasting 97 mg/dL 70-100 [facility] Blood Urea Nitrogen 23 mg/dL 7-18 MEDENT ([facility]) Creatinine For GFR 1.26 mg/dL 0.70-1.30 MEDENT ([facility]) Glomerular Filtration Rate 59.4 MED ENT ([facility]) <content>Units are mL/min/1.73 m2</content>
<content></content>
<content>Chronic Kidney Disease Staging per NKF:</content>
<content></content>
<content>Stage I & II GFR >=60 Normal to Mildly Decreased</content>
<content>Stage III GFR 30-59 Moderately Decreased</content>
<content>Stage IV GFR 15-29 Severely Decreased</content>
<content>Stage V GFR <15 Very Little GFR Left</content>
<content>ESRD GFR <15 on GRAIN UNLOADER MACHINE</content>
<content></content> Sodium Level 139 meq/L 136-145 MEDENT ([facility]) Potassium Serum 4.7 meq/L 3.5-5.1 MEDENT ([facility]) Carbon Dioxide Level 40 meq/L 21-32 MEDENT ([facility]) Calcium Level 9.1 mg/dL 8.8-10.2 MEDENT ([facility]) Chloride Level 100 meq/L 98-107 MEDENT ([facility]) ID Date Data Source [id number] 03/15/2021 09:40:00 AM EDT MEDENT ([facility]) Name Value Range Interpretation Code Description Data Brittany rce(s) Supporting Document(s) Glucose, Fasting 58 mg/dL 70-100 MEDENT ([facility]) Blood Urea Nitrogen 26 mg/dL 7-18 MEDENT ([facility]) Creatinine For GFR 1.36 mg/dL 0.70-1.30 MEDENT ([facility]) Glomerular Filtration Rate 54.4 MED ENT ([facility]) <content>Units are mL/min/1.73 m2</content>
<content></content>
<content>Chronic Kidney Disease Staging per NKF:</content>
<content></content>
<content>Stage I & II GFR >=60 Normal to Mildly Decreased</content>
<content>Stage III GFR 30-59 Moderately Decreased</content>
<content>Stage IV GFR 15-29 Severely Decreased</content>
<content>Stage V GFR <15 Very Little GFR Left</content>
<content>ESRD GFR <15 on GRAIN UNLOADER MACHINE</content>
<content></content> Sodium Level 139 meq/L 136-145 MEDENT ([facility]) Potassium Serum 4.8 meq/L 3.5-5.1 MEDENT ([facility]) Chloride Level 99 meq/L 98-107 MEDENT ([facility]) Carbon Dioxide Level 39 meq/L 21-32 MED[facility] ([facility]) Anion Gap 1 meq/L 8-16 [facility] Calcium Level 9.7 mg/dL 8.8-10.2 MEDENT ([facility]) ID Date Data Source [id number] 02/23/2021 09:30:00 AM EDT [facility] Name Value Range Interpretation Code Description Data Brittany rce(s) Supporting Document(s) Antinuclear Antibodies Direct Laboratory test result [facility] ([facility]) Performed at: [facility] [address] [id number] Central Sterile Technician: Bal Dubose MD, Phone: [phone] Performed at: [facility] [id number] [address] [id number] Central Sterile Technician: Marisabel Phillips MD, Phone: [phone] ID Date Data Source [id number] 02/23/2021 09:30:00 AM EDT [facility], ) Name Value Range Interpretation Code Description Data Brittany rce(s) Supporting Document(s) Reagin Ab [Presence] in Serum by RPR Laboratory test result [facility] ([facility]) Thiamine [Mass/volume] in Blood 177.8 nmol/L 66.5-200.0 [facility]) Specimen Comment: Test(s) 364994-Cnf. B1 , Whole Blood Specimen Comment: was developed and its performance characteristics Specimen Comment: determined by [facility]. It has not been cleared or approved Specimen Comment: by the Food and Drug Administration. Rheumatoid factor [Units/volume] in Serum or Plasma 10.5 IU/ml [facility] ([facility]) ID Date Data Source [id number] 02/23/2021 09:30:00 AM EDT [facility]) Name Value Range Interpretation Code Description Data Brittany rce(s) Supporting Document(s) Vitamin B12 Level 783 pg/mL [facility] ([facility]) VITAMIN B12 NORMAL RANGE NORMAL 247 - 911 PG/ML INDETERMINATE 211 - 246 PG/ML DEFICIENT LESS THAN 211 PG/ML Folate Laboratory test result [facility] ([facility]) FOLATE NORMAL RANGE NORMAL GREATER THAN 5.4 NG/ML INDETERMINATE 3.4-5.4 NG/ML DEFICIENT LESS THAN 3.4 NG/ML ID Date Data Source [id number] 02/23/2021 09:30:00 AM EDT [facility]) Name Value Range Interpretation Code Description Data Brittany rce(s) Supporting Document(s) Thyrotropin [Units/volume] in Serum or Plasma 2.030 uIU/ML 0.358-3.74 0 [facility]) ID Date Data Source [id number] 02/23/2021 09:30:00 AM EDT [facility] ([facility]) Name Value Range Interpretation Code Description Data Brittany rce(s) Supporting Document(s) Albumin % 52.6 % 55.8-66.1 [facility] ([facility]) Oxvrn-2-Ivzvunhkv % 10.9 % 7.1-11.8 [facility] ([facility], ) Cqmoo-2-Qbmuzaej % 4.7 % 2.9-4.9 [facility] ([facility]) Adpp-4-Fdprdfekm % 7.1 % 4.7-7.2 [facility] ([facility]) Jvwm-2-Mfekmroxi % 6.0 % 3.2-6.5 [facility]) Gamma Globulin % 18.7 % 11.1-18.8 [facility] ([facility]) Albumin 3.89 GM/DL 3.29-5.55 [facility] Rfqaj-4-Dnrtizaex 0.81 GM/DL 0.42-0.99 [facility] ([facility]) Pwkfn-3-Ngpcrvtrb 0.35 GM/DL 0.17-0.41 [facility]) Cexp-2-Xpfdnlpwa 0.53 GM/DL 0.28-0.60 [facility] ([facility]) Dwqa-6-Koikckxvx 0.44 GM/DL 0.19-0.55 [facility] ([facility]) Gamma Globulins 1.38 GM/DL 0.65-1.58 [facility] ([facility]) Total Protein 7.4 GM/DL 6.4-8.2 [facility] ([facility]) Spep Interpretation Laboratory test result [facility] ([facility]) NO M-SPIKE(S)NOTED. Laboratory test finding (navigational concept) Laboratory test result [facility] ([facility]) ID Date Data Source [id number] 02/23/2021 09:30:00 AM EDT [facility]) Name Value Range Interpretation Code Description Data Brittany rce(s) Supporting Document(s) Glucose, Fasting 70 mg/dL 70-100 [facility]) Blood Urea Nitrogen 22 mg/dL 7-18 [facility] ([facility]) Creatinine For GFR 1.18 mg/dL 0.70-1.30 [facility] ([facility]) Glomerular Filtration Rate Laboratory test result [facility] ([facility]) <content>Units are mL/min/1.73 m2</content>
<content></content>
<content>Chronic Kidney Disease Staging per NKF:</content>
<content></content>
<content>Stage I & II GFR >=60 Normal to Mildly Decreased</content>
<content>Stage III GFR 30- 59 Moderately Decreased</content>
<content>Stage IV GFR 15-29 Severely Decreased</content>
<content>Stage V GFR <15 Very Little GFR Left</content>
<content>ESRD GFR <15 on GRAIN UNLOADER MACHINE</content>
<content></content> Sodium Level 140 meq/L 136-145 [facility] ([facility], ) Potassium Serum 4.9 meq/L 3.5-5.1 [facility] ([facility]) Carbon Dioxide Level 39 meq/L 21-32 [facility] ([facility]) Chloride Level 100 meq/L 98-107 [facility] ([facility], ) Anion Gap 1 meq/L 8-16 [facility] ([facility]) Calcium Level 9.3 mg/dL 8.8-10.2 [facility] ([facility]) Ast/Sgot 21 U/L 7-37 [facility] ([facility]) Alt/SGPT 17 U/L 12-78 [facility] ([facility]) Alkaline Phosphatase 66 U/L 45-117 [facility] ([facility]) Bilirubin,Total 0.6 mg/dL 0.2-1.0 [facility] ([facility]) Total Protein 7.4 GM/DL 6.4-8.2 [facility] ([facility], ) Albumin 3.5 GM/DL 3.2-5.2 [facility] ([facility]) Albumin/Globulin Ratio 0.9 [facility] ([facility]) ID Date Data Source [id number] 02/23/2021 09:30:00 AM EDT [facility] ([facility]) Name Value Range Interpretation Code Description Data Brittany rce(s) Supporting Document(s) Erythrocyte sedimentation rate by 2H Westergren method 9 mm/hr 0-2 0 [facility] ([facility]) ID Date Data Source [id number] 02/23/2021 09:30:00 AM EDT [facility] ([facility]) Name Value Range Interpretation Code Description Data Brittany rce(s) Supporting Document(s) White Blood Count 4.6 10 4.0-10.0 [facility] ([facility]) Red Blood Count 4.84 10 4.30-6.10 [facility] ([facility]) Hemoglobin 11.5 g/dL 13.5-17.5 [facility] ([facility]) Mean Corpuscular Volume 82.6 fl 80.0-96.0 M [facility]ENT ([facility]) Hematocrit 40.0 % 42.0-52.0 [facility] ([facility]) Mean Corpuscular Hemoglobin 23.8 pg 27.0-33.0 [facility] ([facility]) Mean Corpuscular HGB Conc 28.8 g/dL 32.0-36.5 [facility] ([facility]) Red Cell Distribution Width 19.7 % 11.5-14.5 [facility] ([facility]) Platelet Count, Automated 208 10 150-450 [facility] ([facility]) Neutrophils % 51.1 % 36.0-66.0 [facility] ([facility]) Benson % 16.8 % 2.0-8.0 [facility] ([facility]) Lymph % 23.4 % 24.0-44.0 [facility] ([facility]) Eos % 7.4 % 0.0-3.0 [facility] ([facility]) Baso % 1.1 % 0.0-1.0 [facility] ([facility]) Immature Granulocyte % 0.2 % 0-3.0 [facility] ([facility]) Neutrophils # 2.3 10 1.5-8.5 [facility] ([facility]) Nucleated Red Blood Cell % 0.0 % 0-0 [facility] ([facility]) Benson # 0.8 10 0.0-0.8 [facility] ([facility]) Lymph # 1.1 10 1.5-5.0 [facility] ([facility]) Baso # 0.1 10 0.0-0.2 [facility] ([facility]) Eos # 0.3 10 0.0-0.5 [facility] ([facility]) ID Date Data Source [id number] 02/23/2021 09:30:00 AM EDT [facility] ([facility]) Name Value Range Interpretation Code Description Data Brittany rce(s) Supporting Document(s) Hemoglobin A1c 6.3 % [facility] ([facility]) <content>REFERENCE RANGES:</content><br/ ><content></content>
<content><=5.6% NORMAL</content>
<content>5.7-6.4% SUGGESTS IMPAIRED GLUCOSE METABOLISM/PREDIABETIC</content>
<content>>= 6.5% ABNORMAL</content>
<content></content> Estimated Average Glucose 134 mg/dL 60-110 [facility] ([facility]) ID Date Data Source [id number] 11/15/2020 07:55:00 AM EST [facility] Name Value Range Interpretation Code Description Data Brittany rce(s) Supporting Document(s) Magnesium [Mass/volume] in Serum or Plasma 2.5 mg/dL 1.8-2.4 [facility] ([facility]) ID Date Data Source [id number] 11/15/2020 07:55:00 AM EST [facility] ([facility]) Name Value Range Interpretation Code Description Data Brittany rce(s) Supporting Document(s) White Blood Count 5.3 10 4.0-10.0 [facility] ([facility]) Red Blood Count 4.62 10 4.30-6.10 [facility] ([facility]) Hematocrit 39.1 % 42.0-52.0 [facility] ([facility]) Hemoglobin 11.5 g/dL 13.5-17.5 [facility] ([facility]) Mean Corpuscular Hemoglobin 24.9 pg 27.0-33.0 [facility] ([facility]) Mean Corpuscular Volume 84.6 fl 80.0-96.0 M [facility]ENT ([facility]) Mean Corpuscular HGB Conc 29.4 g/dL 32.0-36.5 [facility] ([facility]) Red Cell Distribution Width 18.8 % 11.5-14.5 [facility] (Cardiology [facility]) Platelet Count, Automated 202 10 150-450 [facility] ([facility]) Nucleated Red Blood Cell % 0.0 % 0-0 [facility] ([facility]) ID Date Data Source [id number] 11/15/2020 07:55:00 AM EST [facility] Name Value Range Interpretation Code Description Data Brittany rce(s) Supporting Document(s) Triglycerides Level 64 mg/dL [facility] ([facility]) Cholesterol Level 125 mg/dL [facility] ([facility]) HDL Cholesterol 71 mg/dL [facility] ([facility]) Non-HDL-C 54 mg/dL [facility] LDL Cholesterol 41 mg/dL [facility] ([facility]) Cholesterol Risk Ratio 1.760 [facility] ([facility]) ID Date Data Source [id number] 11/15/2020 07:55:00 AM EST [facility] ([facility]) Name Value Range Interpretation Code Description Data Brittany rce(s) Supporting Document(s) Glucose, Fasting 98 mg/dL 70-100 [facility] ([facility]) Blood Urea Nitrogen 30 mg/dL 7-18 [facility] ([facility]) Creatinine For GFR 1.39 mg/dL 0.70-1.30 [facility] ([facility]) Glomerular Filtration Rate 53.2 [facility] ([facility]) <content>Units are mL/min/1.73 m2</content>
<content></content>
<content>Chronic Kidney Disease Staging per NKF:</content>
<content></content>
<content>Stage I & II GFR >=60 Normal to Mildly Decreased</content>
<content>Stage III GFR 30- 59 Moderately Decreased</content>
<content>Stage IV GFR 15-29 Severely Decreased</content>
<content>Stage V GFR <15 Very Little GFR Left</content>
<content>ESRD GFR <15 on GRAIN UNLOADER MACHINE</content>
<content></content> Potassium Serum 4.8 meq/L 3.5-5.1 [facility] ([facility]) Sodium Level 140 meq/L 136-145 [facility] ([facility]) Carbon Dioxide Level 36 meq/L 21-32 [facility] ([facility]) Chloride Level 99 meq/L 98-107 [facility] ([facility]) Ast/Sgot 17 U/L 7-37 [facility] Calcium Level 9.4 mg/dL 8.8-10.2 [facility] ([facility]) Anion Gap 5 meq/L 8-16 [facility] Alt/SGPT 20 U/L 12-78 [facility] [place] Alkaline Phosphatase 61 U/L 45-117 [facility] ([facility]) Bilirubin,Total 0.7 mg/dL 0.2-1.0 [facility] ([facility]) Total Protein 7.2 GM/DL 6.4-8.2 [facility] ([facility] Albumin 3.9 GM/DL 3.2-5.2 [facility] ([facility]) Albumin/Globulin Ratio 1.2 [facility] ([facility]) ID Date Data Source [id number] 09/20/2020 12:32:00 [place] [address] OPERATIVE SUMMARYNAME: ALLEN Chavez DATE OF : 1945TTENDING PHYS: Hortencia Logan MD DATE: 09/20/20 MR#: [id number] OF PROCEDURE: 09/20/2020PREOPERATIVE DIAGNOSIS: Age-related nuclear cataract, left eye.POSTOPERATIVE DIAGNOSIS: Age-related nuclear cataract, left eye.PROCEDURE PERFORMED: Phacoemulsification of posterior chamber with intraocular lensimplantation, left eye.ANESTHESIA: Topical sedation.LENS USED: AUOOTO 22.0 diopters.DETAILS OF PROCEDURE: The eye was prepped and draped in the usual fashion. Lidspeculum was placed in the lid. A stab incision was made to the anterior chamber with asuperblade. 1% non-preserved lidocaine was instilled and viscoelastic instilled. The eye wasrefixated, and a 2.4 mm Keratome made a clear corneal and temporal limbal incision. The lens wasthen hydrodissected, and then it was grooved in two meridians at the phacoemulsification. The lenswas scrapped into four quadrants. Each quadrant was in good phacoemulsification. The remainingcortex was removed with I&A unit. The capsular bag was refilled with viscoelastic and theposterior chamber and intraocular lens were inserted into the capsular bag with no difficulty. Anyremaining viscoelastic was removed with the I&A, and the wound was hydrated and balanced saltand ceftriaxone were instilled. The patient tolerated the procedure well, and went to the recoveryroom in stable condition.DD: Hortencia Logan MD 09/20/20 12:19DT: TIAGO 09/20/20 12:31DS: Hortencia Logan MD 10/07/20 13:48 1 Name Value Range Interpretation Code Description Data Brittany rce(s) Supporting Document(s) ID Date Data Source [id number] 09/15/2020 08:03:00 AM EST [facility] Name Value Range Interpretation Code Description Data Brittany rce(s) Supporting Document(s) SARS-CoV-2 (COVID-19) [facility] This lab was ordered by [facility] and reported by [facility]. ID Date Data Source [id number] 08/23/2020 08:57:00 [place] [address] OPERATIVE SUMMARYNAME: ALLEN Chavez DATE OF : 7ATTENDING PHYS: Hortencia Logan MD DATE: 08/23/20 MR#: [id number] OF PROCEDURE: 08/23/2020PREOPERATIVE DIAGNOSIS: Age-related nuclear cataract, right eye.POSTOPERATIVE DIAGNOSIS: Age-related nuclear cataract, right eye.PROCEDURE PERFORMED: Phacoemulsification of posterior chamber with intraocular lensimplantation right eye.ANESTHESIA: Topical sedation.LENS USED: AUOOTO 24.0 diopters.DETAILS OF PROCEDURE: The eye was prepped and draped in the usual fashion. Lidspeculum was placed in the lid. A stab incision was made to the anterior chamber with asuperblade. 1% non-preserved lidocaine was instilled and viscoelastic instilled. The eye wasrefixated, and a 2.4 mm Keratome made a clear corneal and temporal limbal incision. The lens wasthen hydrodissected, and then it was grooved in two meridians at the phacoemulsification. The lenswas scrapped into four quadrants. Each quadrant was in good phacoemulsification. The remainingcortex was removed with I&A unit. The capsular bag was refilled with viscoelastic and theposterior chamber and intraocular lens were inserted into the capsular bag with no difficulty. Anyremaining viscoelastic was removed with the I&A, and the wound was hydrated and balanced saltand ceftriaxone were instilled. The patient tolerated the procedure well, and went to the recoveryroom in stable condition.DD: Hortencia Logan MD 08/23/20 08:55DT: TIAGO 08/23/20 08:56DS: Hortencia Logan MD 08/24/20 13:08 1 Name Value Range Interpretation Code Description Data Brittany rce(s) Supporting Document(s) ID Date Data Source [id number] 08/18/2020 08:10:00 AM EDT [facility] Name Value Range Interpretation Code Description Data Brittany rce(s) Supporting Document(s) SARS-CoV-2 (COVID19) [facility] This lab was ordered by [facility] and reported by [employer]. ID Date Data Source [id number] 08/10/2020 11:40:00 AM EDT [facility] ([facility]) Name Value Range Interpretation Code Description Data Brittany rce(s) Supporting Document(s) Glucose, Fasting 96 mg/dL 70-100 [facility] ([facility]) Blood Urea Nitrogen 26 mg/dL 7-18 [facility] ([facility]) Glomerular Filtration Rate 53.2 [facility] ([facility]) <content>Units are mL/min/1.73 m2</content>
<content></content>
<content>Chronic Kidney Disease Staging per NKF:</content>
<content></content>
<content>Stage I & II GFR >=60 Normal to Mildly Decreased</content>
<content>Stage III GFR 30- 59 Moderately Decreased</content>
<content>Stage IV GFR 15-29 Severely Decreased</content>
<content>Stage V GFR <15 Very Little GFR Left</content>
<content>ESRD GFR <15 on GRAIN UNLOADER MACHINE</content>
<content></content> Creatinine For GFR 1.39 mg/dL 0.70-1.30 [facility] ([facility]) Potassium Serum 4.5 meq/L 3.5-5.1 [facility] ([facility]) Chloride Level 100 meq/L 98-107 [facility] ([facility]) Sodium Level 138 meq/L 136-145 [facility] ([facility]) Carbon Dioxide Level 36 meq/L 21-32 [facility] ([facility]) Anion Gap 2 meq/L 8-16 [facility] Calcium Level 9.5 mg/dL 8.8-10.2 [facility] ([facility]) Procedure Social History Code Duration Value Status Description Data Source(s ) Smoking 07/05/2021 12:00:00 AM EDT Patient is a former smoker completed Patient is a former smoker [facility] ([facility]) Smoking 01/31/2021 12:00:00 AM EDT Former Smoker completed Former Smoker eCW1 ([facility]) Smoking 01/31/2021 12:00:00 AM EDT Former Smoker completed Former Smoker eCW1 ([facility]) Smoking 01/31/2021 12:00:00 AM EDT Former Smoker completed Former Smoker eCW1 ([facility]) Smoking 01/31/2021 12:00:00 AM EDT Former Smoker completed Former Smoker eCW1 ([facility]) Smoking 01/31/2021 12:00:00 AM EDT Former Smoker completed Former Smoker eCW1 ([facility]) Smoking 01/31/2021 12:00:00 AM EDT Former Smoker completed Former Smoker eCW1 ([facility]) Smoking 01/31/2021 12:00:00 AM EDT Former Smoker completed Former Smoker eCW1 ([facility]) Smoking 01/31/2021 12:00:00 AM EDT Former Smoker completed Former Smoker eCW1 ([facility]) Smoking 09/14/2020 12:00:00 AM EST Former Smoker completed Former Smoker eCW1 ([facility]) Smoking 09/14/2020 12:00:00 AM EST Former Smoker completed Former Smoker eCW1 ([facility]) Smoking 09/14/2020 12:00:00 AM EST Former Smoker completed Former Smoker eCW1 ([facility]) Smoking 09/14/2020 12:00:00 AM EST Former Smoker completed Former Smoker eCW1 ([facility]) Smoking 09/14/2020 12:00:00 AM EST Former Smoker completed Former Smoker eCW1 ([facility]) Smoking 09/14/2020 12:00:00 AM EST Former Smoker completed Former Smoker eCW1 ([facility]) Smoking 08/09/2020 12:00:00 AM EDT Former Smoker completed Former Smoker eCW1 ([facility]) Smoking 08/09/2020 12:00:00 AM EDT Former Smoker completed Former Smoker eCW1 ([facility]) Smoking 08/09/2020 12:00:00 AM EDT Former Smoker completed Former Smoker eCW1 ([facility]) Smoking 08/09/2020 12:00:00 AM EDT Former Smoker completed Former Smoker eCW1 ([facility]) Smoking 08/09/2020 12:00:00 AM EDT Former Smoker completed Former Smoker eCW1 ([facility]) Vital Signs ID Date Data Source UNK Name Value Range Interpretation Code Description Data Source(s) Respiratory rate 16 /min 16 /min [facility] ( [facility]) Systolic blood pressure 126 mm[Hg] 126 mm[Hg] M [facility]ENT ([facility]) sitting, regular cuff Diastolic blood pressure 66 mm[Hg] 66 mm[Hg] [facility] ([facility]) sitting, regular cuff Body weight 221.00 [lb_av] 221.00 [lb_av] MARIEN T ([facility]) Body height 77 [in_i] 77 [in_i] MEDYOLIS ([facility]) 6'5" Body mass index (BMI) [Ratio] 26.2 kg/m2 26.2 k g/m2 [facility] ([facility]) Heart rate 76 /min 76 /min [facility] ([facility]) Regular Systolic blood pressure 110 mm[Hg] 110 mm[Hg] [facility] ([facility]) Diastolic blood pressure 60 mm[Hg] 60 mm[Hg] [facility] ([facility]) Heart rate 64 /min 64 /min [facility] ([facility]) Respiratory rate 16 /min 16 /min [facility] ( [facility]) Diastolic blood pressure 68 mm[Hg] 68 mm[Hg] [facility] ([facility]) Heart rate 78 /min 78 /min [facility] ([facility]) Oxygen saturation in Arterial blood by Pulse oximetry 72 % 72 % [facility] ([facility]) 88 2L Systolic blood pressure 90 mm[Hg] 90 mm[Hg] [facility] ([facility]) Body height 73 [in_i] 73 [in_i] [facility] ([facility]) 6'1" Body weight 230.00 [lb_av] 230.00 [lb_av] MEDEN T ([facility]) [place] body weight 184 [lb_av] 184 [lb_av] MEDEN T ([facility]) Body weight 104.328 kg 104.328 kg [facility] ([facility]) Body surface area Derived from formula 2.28 m2 2.28 m2 [facility] ([facility]) Body mass index (BMI) [Ratio] 30.3 kg/m2 30.3 k g/m2 [facility] ([facility]) Systolic blood pressure 110 mm[Hg] 110 mm[Hg] [facility] ([facility]) Diastolic blood pressure 70 mm[Hg] 70 mm[Hg] [facility] ([facility]) Heart rate 76 /min 76 /min [facility] ([facility]) Respiratory rate 20 /min 20 /min [facility] ( [facility]) Body height 77 [in_i] 77 [in_i] [facility] ([facility]) 6'5" Body weight 225.00 [lb_av] 225.00 [lb_av] MEDEN T ([facility]) Body mass index (BMI) [Ratio] 26.7 kg/m2 26.7 k g/m2 [facility] Heart rate 72 /min 72 /min [facility] ([facility]) Regular Respiratory rate 16 /min 16 /min [facility] ( [facility]) Systolic blood pressure 128 mm[Hg] 128 mm[Hg] M [facility]ENT ([facility]) sitting, regular cuff Diastolic blood pressure 74 mm[Hg] 74 mm[Hg] [facility] ([facility]) sitting, regular cuff Systolic blood pressure 124 mm[Hg] 124 mm[Hg] M [facility] ([facility]) sitting Diastolic blood pressure 68 mm[Hg] 68 mm[Hg] [facility] ([facility]) sitting Oxygen saturation in Arterial blood by Pulse oximetry 75 % 75 % [facility] ([facility]) 90 2L Body height 73 [in_i] 73 [in_i] [facility] ([facility]) 6'1" Body weight 229.00 [lb_av] 229.00 [lb_av] [facility] Body mass index (BMI) [Ratio] 30.2 kg/m2 30.2 k g/m2 [facility] [facility] ([facility]) [place] body weight 184 [lb_av] 184 [lb_av] [facility] Body weight 103.874 kg 103.874 kg [facility] ([facility]) Body surface area Derived from formula 2.28 m2 2.28 m2 [facility] ([facility]) Body surface area Derived from formula 2.28 m2 2.28 m2 [facility] ([facility]) Systolic blood pressure 90 mm[Hg] 90 mm[Hg] [facility] Diastolic blood pressure 48 mm[Hg] 48 mm[Hg] [facility] ([facility]) Heart rate 70 /min 70 /min [facility] ([facility]) Oxygen saturation in Arterial blood by Pulse oximetry 75 % 75 % [facility] ([facility]) 90 2L Body height 73 [in_i] 73 [in_i] [facility] 6'1" Body weight 229.00 [lb_av] 229.00 [lb_av] [facility] ([facility]) Body mass index (BMI) [Ratio] 30.2 kg/m2 30.2 k g/m2 [facility] ([facility]) [place] body weight 184 [lb_av] 184 [lb_av] [facility] ([facility]) Body weight 103.874 kg 103.874 kg [facility] ([facility]) Body weight [lb_av] eCW1 ([facility]) Body height [in_i] eCW1 ([facility]) Body mass index (BMI) [Ratio] 26.92 kg/m2 26.92 kg/m2 eCW1 ([facility]) Heart rate 70 /min 70 /min eCW1 ([facility]) Respiratory rate 18 /min 18 /min eCW1 ([facility]) Body temperature 99.4 [degF] 99.4 [degF] eCW1 ( [facility]) Systolic blood pressure 103 mm[Hg] 103 mm[Hg] e CW1 ([facility]) Diastolic blood pressure 62 mm[Hg] 62 mm[Hg] eCW1 ([facility]) Body mass index (BMI) [Ratio] 26.4 kg/m2 26.4 k g/m2 [facility] ([facility]) Body weight 223.00 [lb_av] 223.00 [lb_av] [facility] T ([facility]) Systolic blood pressure 126 mm[Hg] 126 mm[Hg] M EDENT ([facility]) sitting, regular cuff Diastolic blood pressure 64 mm[Hg] 64 mm[Hg] [facility] ([facility]) sitting, regular cuff Body height 77 [in_i] 77 [in_i] [facility] ([facility] 6'5" Heart rate 68 /min 68 /min [facility] ([facility]) Regular Respiratory rate 16 /min 16 /min [facility] ( [facility]) Body height [in_i] eCW1 ([facility]) Body weight [lb_av] eCW1 ([facility]) Body mass index (BMI) [Ratio] 26.44 kg/m2 26.44 kg/m2 eCW1 ([facility]) Heart rate 69 /min 69 /min eCW1 ([facility]) Respiratory rate 20 /min 20 /min eCW1 ([facility]) Body temperature 98.4 [degF] 98.4 [degF] eCW1 ( [facility]) Systolic blood pressure 120 mm[Hg] 120 mm[Hg] e CW1 ([facility]) Diastolic blood pressure 66 mm[Hg] 66 mm[Hg] eCW1 ([facility]) Systolic blood pressure 128 mm[Hg] 128 mm[Hg] M EDENT ([facility]) sitting Body weight 223.00 [lb_av] 223.00 [lb_av] MEDEN T ([facility]) Body height 77 [in_i] 77 [in_i] [facility] ([facility] 6'5" Body mass index (BMI) [Ratio] 26.4 kg/m2 26.4 k g/m2 [facility] ([facility]) Heart rate 68 /min 68 /min [facility] ([facility]) Regular Respiratory rate 16 /min 16 /min [facility] ( [facility]) Systolic blood pressure 126 mm[Hg] 126 mm[Hg] M EDENT ([facility]) sitting, regular cuff Diastolic blood pressure 74 mm[Hg] 74 mm[Hg] [facility] ([facility]) sitting, regular cuff Diastolic blood pressure 74 mm[Hg] 74 mm[Hg] [facility] ([facility]) sitting Body height [in_i] eCW1 ([facility]) Diastolic blood pressure 58 mm[Hg] 58 mm[Hg] eCW1 ([facility]) Body weight 223 [lb_av] 223 [lb_av] eCW1 ([facility]) Body mass index (BMI) [Ratio] 26.44 kg/m2 26.44 kg/m2 eCW1 ([facility]) Heart rate 80 /min 80 /min eCW1 ([facility]) Respiratory rate 18 /min 18 /min eCW1 ([facility]) Body temperature 98.6 [degF] 98.6 [degF] eCW1 ( [facility]) Systolic blood pressure 98 mm[Hg] 98 mm[Hg] e CW1 ([facility]) Systolic blood pressure 98 mm[Hg] 98 mm[Hg] M EDENT ([facility]) Diastolic blood pressure 70 mm[Hg] 70 mm[Hg] [facility] Heart rate 68 /min 68 /min [facility] ([facility]) Oxygen saturation in Arterial blood by Pulse oximetry 85 % 85 % [facility] ([facility]) Room Air Body height 73 [in_i] 73 [in_i] [facility] ([facility]) 6'1" Body weight 215.00 [lb_av] 215.00 [lb_av] [facility] Body mass index (BMI) [Ratio] 28.4 kg/m2 28.4 k g/m2 [facility] ([facility]) [place] body weight 184 [lb_av] 184 [lb_av] [facility] Body weight 97.524 kg 97.524 kg [facility] ([facility]) Body surface area Derived from formula 2.22 m2 2.22 m2 [facility] ([facility]) ID Date Data Source [id number] 10/07/2020 01:49:12 PM [facility] Name Value Range Interpretation Code Description Data Source(s) WEIGHT RECORDED 233.00 pounds 233.00 pounds [facility] Height 77 Inches 077 Inches [facility] ID Date Data Source [id number] 08/26/2020 07:50:37 AM [facility] Name Value Range Interpretation Code Description Data Source(s) WEIGHT RECORDED 223.00 pounds 223.00 pounds [facility] Height 75 Inches 075 Inches [facility] Patient Treatment Plan of Care Planned Activity Planned Date Details Description Data Source (s) Lidocaine 50 MG/ML Topical Cream 08/19/2020 12:00:00 AM EDT eCW1 ([facility]) Lidocaine 50 MG/ML Topical Cream 08/19/2020 12:00:00 AM EDT eCW1 ([facility]) Lidocaine 50 MG/ML Topical Cream 08/19/2020 12:00:00 AM EDT eCW1 ([facility]) Lidocaine 50 MG/ML Topical Cream 08/19/2020 12:00:00 AM EDT eCW1 ([facility]) Lidocaine 50 MG/ML Topical Cream 08/19/2020 12:00:00 AM EDT eCW1 ([facility]) Lidocaine 50 MG/ML Topical Cream 08/19/2020 12:00:00 AM EDT eCW1 ([facility]) Lidocaine 50 MG/ML Topical Cream 08/19/2020 12:00:00 AM EDT eCW1 ([facility]) Lidocaine 50 MG/ML Topical Cream 08/19/2020 12:00:00 AM EDT eCW1 ([facility]) gabapentin 300 MG Oral Capsule 08/09/2020 12:00:00 AM EDT eCW1 ([facility]) gabapentin 300 MG Oral Capsule 08/09/2020 12:00:00 AM EDT eCW1 ([facility]) gabapentin 300 MG Oral Capsule 08/09/2020 12:00:00 AM EDT eCW1 ([facility]) gabapentin 300 MG Oral Capsule 08/09/2020 12:00:00 AM EDT eCW1 ([facility]) gabapentin 300 MG Oral Capsule 08/09/2020 12:00:00 AM EDT eCW1 ([facility]) gabapentin 300 MG Oral Capsule 08/09/2020 12:00:00 AM EDT eCW1 ([facility]) gabapentin 300 MG Oral Capsule 08/09/2020 12:00:00 AM EDT eCW1 ([facility]) gabapentin 300 MG Oral Capsule 08/09/2020 12:00:00 AM EDT eCW1 ([facility]) gabapentin 300 MG Oral Capsule 08/09/2020 12:00:00 AM EDT eCW1 ([facility]) gabapentin 300 MG Oral Capsule 08/09/2020 12:00:00 AM EDT eCW1 ([facility]) gabapentin 300 MG Oral Capsule 08/09/2020 12:00:00 AM EDT eCW1 ([facility]) gabapentin 300 MG Oral Capsule 08/09/2020 12:00:00 AM EDT eCW1 ([facility]) gabapentin 300 MG Oral Capsule 08/09/2020 12:00:00 AM EDT eCW1 ([facility]) gabapentin 300 MG Oral Capsule 08/09/2020 12:00:00 AM EDT eCW1 ([facility]) gabapentin 300 MG Oral Capsule 08/09/2020 12:00:00 AM EDT eCW1 ([facility]) gabapentin 300 MG Oral Capsule 08/09/2020 12:00:00 AM EDT eCW1 ([facility])
--- OUTSIDE RECORDS SUMMARY | 2021-08-07 08:57 | CCD | Continuity of Care Document ---
Author Author Caesar KENNY MD Organization Unknown Address [address] [place] [address] Phone [phone] Care Team Providers Care Mineral Resources Inspector Name Role Phone Karen Argueta P.A.-C AUTM [phone] Tristen Nieves MD AUTM [phone] Problems Active Problems Provider Date Chronic hypoxemic [...] stop 40tabs Anton Kenny MD 06/07/2021 Nystatin [id number]/ML Suspension take 4 milliliters by mouth/swallow 4 [...] Unknown Oxygen 2l hs [place] Unknown Ipratropium [place]/Albuterol Sulfate 0.5-2.5(3)mg/3ML Solution 1 vial via neb four times a day as needed Unknown Tylenol Arthritis Pain 650mg Table ts ER prn Unknown Nitroglycerin 0.4mg Tablets Sub prn Unknown Aspirin 81mg Tablets DR 1 po qd Unknown Multivitamin every day Unknown Immunizations CPT Code Status Date Vaccine Lot # 56814 Given 08/16/2016 Influenza Virus Split 3 Yrs And Above For Intramuscular Use 81016 Given 08/31/2015 Influenza Virus Split 3 Yrs And Above For Intramuscular Use 53661 Given 08/04/2014 Influenza Virus Split 3 Yrs And Above For Intramuscular Use Q2036 Given 07/22/2013 Influenza Vaccine 3 Years Of Age Or Older (Flulaval) Q2036 Given 07/22/2012 Influenza Vaccine 3 Years Of Age Or Older (Flulaval) 64164 Given 09/06/2011 Pneumococcal PPSV23 Q2036 Given 08/09/2011 Influenza Vaccine 3 Years Of Age Or Older (Flulaval) 69253 Given 08/30/2010 Influenza Virus Split 3 Yrs And Above For Intramuscular Use 29637 Given 09/03/2009 Influenza Vaccine Vital Signs Date Vital Result Comment 06/07/2021 2:03pm BP Systolic 90 mmHg BP Diastolic 68 mmHg Heart Rate 78 /min O2 % BldC Oximetry 72 % 88 2L Height 73 inches 6'1" Weight 230.00 lb BMI (Body Mass Index) 30.3 kg/m2 [place] [facility] Weight 184 lb Weight 104.328 kg BSA (Body Surface Area) 2.28 m2 02/01/2021 10:52am BP Systolic 90 mmHg BP Diastolic 48 mmHg Heart Rate 70 /min O2 % BldC Oximetry 75 % 90 2L Height 73 inches 6'1" Weight 229.00 lb BMI (Body Mass Index) 30.2 kg/m2 [place] Body Weight 184 lb Weight 103.874 kg BSA (Body Surface Area) 2.28 m2 Results Description No Information Available Procedures Date Code Description Status 02/01/2021 38172 Office/Outpatient Established Mo d MDM 30-39 Min Completed Medical Devices Description No Information Available Encounters Type Date Location Provider Dx Diagnosis Office Visit 02/01/2021 11:15a [facility] Pulmonary/Thoracic [facility] tito Kenny MD J44.9 Chronic obstructive pulmonary [...] 2:15 pm - Anton Kenny MD at [facility] Pulmonary/Thoracic 06/07/2021 - Anton Kenny MD* J44.9 Chronic obstructive pulmonary disease, unspecified * R91.8 Other nonspecific abnormal finding of lung field * J96.11 Chronic respiratory failure with hypoxia * Z99.81 Dependence on supplemental oxygen * * New Labs:* FVL/[place], Ordered: 06/07/21 * Follow up:* 4 months with fvl Functional Status Description No Information Available Mental Status Description No Information Available Referrals Description No Information Available
--- OUTSIDE RECORDS SUMMARY | 2021-08-07 08:57 | CCD | Continuity of Care Document ---
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 Name Role Phone Karen Argueta P.A.-C AUTM [phone] Tristen Nieves MD AUTM [phone] Problems Active Problems Provider Date Chronic hypoxemic [...] stop 40tabs Anton Kenny MD 06/07/2021 Nystatin 120803Epxa/ML Suspension take 4 milliliters by mouth/swallow 4 [...] Unknown Oxygen 2l hs [place] Unknown Ipratropium [place]/Albuterol Sulfate 0.5-2.5(3)mg/3ML Solution 1 vial via neb four times a day as needed Unknown Tylenol Arthritis Pain 650mg Table ts ER prn Unknown Nitroglycerin 0.4mg Tablets Sub prn Unknown Aspirin 81mg Tablets DR 1 po qd Unknown Multivitamin every day Unknown Immunizations CPT Code Status Date Vaccine Lot # [id number] Given 08/16/2016 Influenza Virus Split 3 Yrs And Above For Intramuscular Use 99501 Given 08/31/2015 Influenza Virus Split 3 Yrs And Above For Intramuscular Use 20948 Given 08/04/2014 Influenza Virus Split 3 Yrs And Above For Intramuscular Use Q2036 Given 07/22/2013 Influenza Vaccine 3 Years Of Age Or Older (Flulaval) Q2036 Given 07/22/2012 Influenza Vaccine 3 Years Of Age Or Older (Flulaval) 23652 Given 09/06/2011 Pneumococcal PPSV23 Q2036 Given 08/09/2011 Influenza Vaccine 3 Years Of Age Or Older (Flulaval) 91584 Given 08/30/2010 Influenza Virus Split 3 Yrs And Above For Intramuscular Use 17674 Given 09/03/2009 Influenza Vaccine Vital Signs Date Vital Result Comment 06/07/2021 2:03pm BP Systolic 90 mmHg BP Diastolic 68 mmHg Heart Rate 78 /min O2 % BldC Oximetry 72 % 88 2L Height 73 inches 6'1" Weight 230.00 lb BMI (Body Mass Index) 30.3 kg/m2 [place] Body Weight 184 lb Weight 104.328 kg BSA (Body Surface Area) 2.28 m2 02/01/2021 10:52am BP Systolic 90 mmHg BP Diastolic 48 mmHg Heart Rate 70 /min O2 % BldC Oximetry 75 % 90 2L Height 73 inches 6'1" Weight 229.00 lb BMI (Body Mass Index) 30.2 kg/m2 [place] Body Weight 184 lb Weight 103.874 kg BSA (Body Surface Area) 2.28 m2 Results Description No Information Available Procedures Date Code Description Status 02/01/2021 72338 Office/Outpatient Established Mo d MDM 30-39 Min Completed Medical Devices Description No Information Available Encounters Type Date Location Provider Dx Diagnosis Office Visit 02/01/2021 11:15a [facility] Pulmonary/Thoracic [facility] tito Kenny MD J44.9 Chronic obstructive [...] 2:15 pm - Anton Kenny MD at [facility] Pulmonary/Thoracic 06/07/2021 - Anton Kenny MD* J44.9 Chronic obstructive pulmonary disease, unspecified * R91.8 Other nonspecific abnormal finding of lung field * J96.11 Chronic respiratory failure with hypoxia * Z99.81 Dependence on supplemental oxygen * * New Labs:* FVL/[place], Ordered: 06/07/21 * Follow up:* 4 months with fvl Functional Status Description No Information Available Mental Status Description No Information Available Referrals Description No Information Available
--- OUTSIDE RECORDS SUMMARY | 2021-08-07 09:17 | CCD ---
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 Name Role Phone Macsherry, Zehra RADIO OFFICER Unavailable Unavailable Macsherry, Zehra RADIO OFFICER Unavailable Unavailable Macsherry, Zehra RADIO OFFICER Unavailable Unavailable Macsherry, Zehra RADIO OFFICER Unavailable Unavailable Macsherry, Zehra RADIO OFFICER Unavailable Unavailable Macsherry, Zehra RADIO OFFICER Unavailable Unavailable Macsherry, Zehra RADIO OFFICER Unavailable Unavailable Macsherry, Zehra RADIO OFFICER Unavailable Unavailable Macsherry, Zehra RADIO OFFICER Unavailable Unavailable Macsherry, Zehra RADIO OFFICER Unavailable Unavailable Macsherry, Zehra RADIO OFFICER Unavailable Unavailable Macsherry, Zehra RADIO OFFICER Unavailable Unavailable Macsherry, Zehra RADIO OFFICER Unavailable Unavailable Macsherry, Zehra RADIO OFFICER Unavailable Unavailable Macsherry, Zehra RADIO OFFICER Unavailable Unavailable Macsherry, Zehra RADIO OFFICER Unavailable Unavailable Macsherry, Zehra RADIO OFFICER Unavailable Unavailable Macsherry, Zehra RADIO OFFICER Unavailable Unavailable Macsherry, Zehra RADIO OFFICER Unavailable Unavailable Macsherry, Zehra RADIO OFFICER Unavailable Unavailable Macsherry, Zehra RADIO OFFICER Unavailable Unavailable Macsherry, Zehra RADIO OFFICER Unavailable Unavailable Macsherry, Zehra RADIO OFFICER Unavailable Unavailable Macsherry, Zehra RADIO OFFICER Unavailable Unavailable Macsherry, Zehra RADIO OFFICER Unavailable Unavailable Symenow, Soraya Shawna PA Unavailable [...] Unavailable Unavailable EVELYN, MAGDIEL MD Unavailable Unavailable EEVLYN, MAGDIEL MD Unavailable Unavailable EVELYN, MAGDIEL MD [...] is protected by Article 27-F of the [facility] Public Health law. If you continue you may have access to information: Regarding HIV / AIDS; Provided by facilities licensed or operated by the [facility] Office of Mental Health; or Provided by the [facility] Office for People With Developmental Disabilities. If such information is present, then the following [facility] mandated warning applies: This information has been [...] law may result in a fine or longterm sentence or both. A general authorization for the release of medical or other information is NOT sufficient authorization for further disc losure. Allergies and Adverse Reactions Type Description Substance Reaction Status Data Source(s ) No Known Drug Allergies No Known Drug Allergies [facility] No Known Food Allergies No Known Food Allergies [facility] No Known Allergies No Known Allergies [facility] Family History Family Member Name Family Member Gender Family Member Status Date o f Status Description Data Source(s) Unknown Unknown Problem MEDENT ([facility]) Unknown Unknown Problem [facility] ([facility]) Unknown Male Problem MEDENT ([facility]) Unknown Male Problem [facility] ([facility] () Encounters Encounter Providers Location Date Indications Data Source(s ) Outpatient Attender: Shawna LINK Main Office 07/05/2021 12:30:00 PM EDT MEDENT ([facility]) [place] [address] [facility] [address] 06/30/2021 12:00:00 AM EDT eCW1 ([facility]) Outpatient Attender: Hemalatha LINK [place] [facility] [place] 06/21/2021 10:30:00 AM EDT MEDENT ([facility]) Outpatient Attender: Anton George/Tarun/Sukh/R eindl 06/07/2021 02:30:00 PM EDT MEDENT ([facility]) Outpatient Attender: Hemalatha LINK Main [place] [facility] [place] 04/13/2021 09:30:00 AM EDT MEDENT ([facility]) [place] [address] [facility] [facility] [address] 04/08/2021 12:00:00 AM EDT eCW1 ([facility]) [place] [address] [facility] [facility] [address] 03/24/2021 12:00:00 AM EDT eCW1 ([facility]) Outpatient Attender: Shawna LINK Main Office 03/22/2021 12:30:00 PM EDT MEDENT ([facility]) [place] [address] [facility] [facility] [address] 03/15/2021 12:00:00 AM EDT eCW1 ([facility]) [place] [address] [facility] [facility] [address] 03/02/2021 12:00:00 AM EDT eCW1 ([facility]) [place] [address] [facility] [address] 02/23/2021 12:00:00 AM EDT eCW1 ([facility]) Outpatient Attender: MAGDIEL RIVAS MD Main office - [facility] [place] [facility] [place] 02/22/2021 01:30:00 PM EDT MEDENT ([facility]) [place] [address] [facility] [facility] [address] 02/10/2021 12:00:00 AM EDT eCW1 ([facility]) Outpatient Attender: Anton George/Tarun/Sukh/R eindl 02/01/2021 11:15:00 AM EDT MEDENT ([facility]) [place] [address] [facility] [address] 01/31/2021 12:00:00 AM EDT eCW1 ([facility]) [place] [address] [facility] [facility] [address] 01/14/2021 12:00:00 AM EDT eCW1 ([facility]) Outpatient Attender: Shawna LINK Main Office 12/15/2020 10:15:00 AM EST MEDENT ([facility]) [place] [address] [facility] [facility] [address] 10/25/2020 12:00:00 AM EST eCW1 ([facility]) [place] [address] [facility] [facility] [address] 10/08/2020 12:00:00 AM EST eCW1 ([facility]) [place] [address] [facility] [place] [address] 10/08/2020 12:00:00 AM EST eCW1 ([facility]) [place] [address] [facility] [facility] [address] 09/27/2020 12:00:00 AM EST eCW1 ([facility]) Outpatient Attender: Hortencia Logan MDConsultant: Zehra Salmon NP 09/20/2020 10:15:00 AM EST - 09/20/2020 12:47:00 PM EST [facility] Patient discharged. [place] [address] [facility] [address] 09/14/2020 12:00:00 AM EST eCW1 ([facility]) [place] [address] [facility] [facility] [address] 09/06/2020 12:00:00 AM EST eCW1 ([facility]) [place] [address] [facility] [facility] [address] 09/03/2020 12:00:00 AM EST eCW1 ([facility]) Outpatient Attender: Hortencia Logan MDConsultant: Zehra Salmon NP 08/23/2020 07:15:00 AM EST - 08/23/2020 09:28:00 AM EST [facility] Patient discharged. [place] [address] [facility] [address] 08/19/2020 12:00:00 AM EDT eCW1 ([facility]) [place] [address] [facility] [facility] [address] 08/19/2020 12:00:00 AM EDT eCW1 ([facility]) Outpatient Attender: Hortencia Logan MDConsultant: Zehra Salmon NP 08/18/2020 04:31:08 PM EDT - 08/19/2020 11:00:00 AM EDT [facility] Patient discharged. Outpatient Attender: Shawna LINK Main Office 08/17/2020 12:30:00 PM EDT LUZ ([facility]) [place] [address] [facility] [address] 08/09/2020 12:00:00 AM EDT eCW1 ([facility]) Immunizations Vaccine Date Status Description Data Source(s) COVID-19 VACCINE Moderna 03/04/2021 12:00:00 AM EDT completed [facility] Vaccine Series Complete: YESThis Data wa s Submitted to [facility] Via [employer]. COVID-19 VACCINE Moderna 02/04/2021 12:00:00 AM EDT completed [facility] Vaccine Series Complete: NOThis Data was Submitted to [facility] Via [employer]. influenza, recombinant, quadrIvalent,injectable, prese rvative free 08/09/2020 11:07:00 AM EDT completed eCW1 ([facility]) influenza, recombinant, quadrIvalent,injectable, prese rvative free 08/09/2020 11:07:00 AM EDT completed eCW1 ([facility]) influenza, recombinant, quadrIvalent,injectable, prese rvative free 08/09/2020 11:07:00 AM EDT completed eCW1 ([facility]) influenza, recombinant, quadrIvalent,injectable, prese rvative free 08/09/2020 11:07:00 AM EDT completed eCW1 ([facility]) influenza, recombinant, quadrIvalent,injectable, prese rvative free 08/09/2020 11:07:00 AM EDT completed eCW1 ([facility]) influenza, recombinant, quadrIvalent,injectable, prese rvative free 08/09/2020 11:07:00 AM EDT completed eCW1 ([facility]) influenza, recombinant, quadrIvalent,injectable, prese rvative free 08/09/2020 11:07:00 AM EDT completed eCW1 ([facility]) influenza, recombinant, quadrIvalent,injectable, prese rvative free 08/09/2020 11:07:00 AM EDT completed eCW1 ([facility]) influenza, recombinant, quadrIvalent,injectable, prese rvative free 08/09/2020 11:07:00 AM EDT completed eCW1 ([facility]) influenza, recombinant, quadrIvalent,injectable, prese rvative free 08/09/2020 11:07:00 AM EDT completed eCW1 ([facility]) influenza, recombinant, quadrIvalent,injectable, prese rvative free 08/09/2020 11:07:00 AM EDT completed eCW1 ([facility]) influenza, recombinant, quadrIvalent,injectable, prese rvative free 08/09/2020 11:07:00 AM EDT completed eCW1 ([facility]) influenza, recombinant, quadrIvalent,injectable, prese rvative free 08/09/2020 11:07:00 AM EDT completed eCW1 ([facility]) influenza, recombinant, quadrIvalent,injectable, prese rvative free 08/09/2020 11:07:00 AM EDT completed eCW1 ([facility]) influenza, recombinant, quadrIvalent,injectable, prese rvative free 08/09/2020 11:07:00 AM EDT completed eCW1 ([facility]) influenza, recombinant, quadrIvalent,injectable, prese rvative free 08/09/2020 11:07:00 AM EDT completed eCW1 ([facility]) influenza, recombinant, quadrIvalent,injectable, prese rvative free 08/09/2020 11:07:00 AM EDT completed eCW1 ([facility]) influenza, recombinant, quadrIvalent,injectable, prese rvative free 08/09/2020 11:07:00 AM EDT completed eCW1 ([facility]) influenza, recombinant, quadrIvalent,injectable, prese rvative free 08/09/2020 11:07:00 AM EDT completed eCW1 ([facility]) Medications Medication Brand Name Start Date Product Form Dose Route Admi nistrative Instructions Pharmacy Instructions Status Indications Reaction Description Data Source(s) Prednisone 10 MG Oral Tablet Prednisone 06/07/2021 12:00:00 AM EDT ORAL active MEDENT ([facility] ) Albuterol 0.83 MG/ML Inhalant Solution Albuterol Sulfate 0 03/21/2021 12:00:00 AM EDT completed MEDENT ([facility]) Lidocaine 50 MG/ML Rectal Cream Lidocaine 03/21/2021 12:00:00 AM EDT completed [facility] ([facility]) Lidocaine 50 MG/ML Topical Cream Lidocaine 5 % Lidocaine 5 % 08/19/2020 12:00:00 AM EDT active Lidocaine 5 % eCW 1 ([facility]) Lidocaine 50 MG/ML Topical Cream Lidocaine 5 % Lidocaine 5 % 08/19/2020 12:00:00 AM EDT active Lidocaine 5 % eCW 1 ([facility]) Lidocaine 50 MG/ML Topical Cream Lidocaine 5 % Lidocaine 5 % 08/19/2020 12:00:00 AM EDT active Lidocaine 5 % eCW 1 ([facility]) Lidocaine 50 MG/ML Topical Cream Lidocaine 5 % Lidocaine 5 % 08/19/2020 12:00:00 AM EDT active Lidocaine 5 % eCW 1 ([facility]) Lidocaine 50 MG/ML Topical Cream Lidocaine 5 % Lidocaine 5 % 08/19/2020 12:00:00 AM EDT active Lidocaine 5 % eCW 1 ([facility]) Lidocaine 50 MG/ML Topical Cream Lidocaine 5 % Lidocaine 5 % 08/19/2020 12:00:00 AM EDT active Lidocaine 5 % eCW 1 ([facility]) Lidocaine 50 MG/ML Topical Cream Lidocaine 5 % Lidocaine 5 % 08/19/2020 12:00:00 AM EDT active Lidocaine 5 % eCW 1 ([facility]) Lidocaine 50 MG/ML Topical Cream Lidocaine 5 % Lidocaine 5 % 08/19/2020 12:00:00 AM EDT active Lidocaine 5 % eCW 1 ([facility]) Lidocaine 50 MG/ML Topical Cream Lidocaine 5 % Lidocaine 5 % 08/19/2020 12:00:00 AM EDT active Lidocaine 5 % eCW 1 ([facility]) Lidocaine 50 MG/ML Topical Cream Lidocaine 5 % Lidocaine 5 % 08/19/2020 12:00:00 AM EDT active Lidocaine 5 % eCW 1 ([facility]) gabapentin 300 MG Oral Capsule Gabapentin 08/16/2020 12:00:00 AM EDT ORAL active [facility]ENT ([facility]) 24 HR metoprolol succinate 25 MG Extended Release Oral Tablet Metoprolol Succinate ER 08/16/2020 12:00:00 AM EDT ORAL active MEDENT ([facility]) gabapentin 300 MG Oral Capsule Gabapentin 300 MG Gabapentin 300 MG 08/09/2020 12:00:00 AM EDT active Gabapent in 300 MG eCW1 ([facility]) gabapentin 300 MG Oral Capsule Gabapentin 300 MG Gabapentin 300 MG 08/09/2020 12:00:00 AM EDT active Gabapent in 300 MG eCW1 ([facility]) gabapentin 300 MG Oral Capsule Gabapentin 300 MG Gabapentin 300 MG 08/09/2020 12:00:00 AM EDT active Gabapent in 300 MG eCW1 ([facility]) gabapentin 300 MG Oral Capsule Gabapentin 300 MG Gabapentin 300 MG 08/09/2020 12:00:00 AM EDT active Gabapent in 300 MG eCW1 ([facility]) gabapentin 300 MG Oral Capsule Gabapentin 300 MG Gabapentin 300 MG 08/09/2020 12:00:00 AM EDT active Gabapent in 300 MG eCW1 ([facility]) gabapentin 300 MG Oral Capsule Gabapentin 300 MG Gabapentin 300 MG 08/09/2020 12:00:00 AM EDT active Gabapent in 300 MG eCW1 ([facility]) gabapentin 300 MG Oral Capsule Gabapentin 300 MG Gabapentin 300 MG 08/09/2020 12:00:00 AM EDT active Gabapent in 300 MG eCW1 ([facility]) gabapentin 300 MG Oral Capsule Gabapentin 300 MG Gabapentin 300 MG 08/09/2020 12:00:00 AM EDT active Gabapent in 300 MG eCW1 ([facility]) gabapentin 300 MG Oral Capsule Gabapentin 300 MG Gabapentin 300 MG 08/09/2020 12:00:00 AM EDT active Gabapent in 300 MG eCW1 ([facility]) gabapentin 300 MG Oral Capsule Gabapentin 300 MG Gabapentin 300 MG 08/09/2020 12:00:00 AM EDT active Gabapent in 300 MG eCW1 ([facility]) gabapentin 300 MG Oral Capsule Gabapentin 300 MG Gabapentin 300 MG 08/09/2020 12:00:00 AM EDT active Gabapent in 300 MG eCW1 ([facility]) gabapentin 300 MG Oral Capsule Gabapentin 300 MG Gabapentin 300 MG 08/09/2020 12:00:00 AM EDT active Gabapent in 300 MG eCW1 ([facility]) gabapentin 300 MG Oral Capsule Gabapentin 300 MG Gabapentin 300 MG 08/09/2020 12:00:00 AM EDT active Gabapent in 300 MG eCW1 ([facility]) gabapentin 300 MG Oral Capsule Gabapentin 300 MG Gabapentin 300 MG 08/09/2020 12:00:00 AM EDT active Gabapent in 300 MG eCW1 ([facility]) gabapentin 300 MG Oral Capsule Gabapentin 300 MG Gabapentin 300 MG 08/09/2020 12:00:00 AM EDT active Gabapent in 300 MG eCW1 ([facility]) gabapentin 300 MG Oral Capsule Gabapentin 300 MG Gabapentin 300 MG 08/09/2020 12:00:00 AM EDT active Gabapent in 300 MG eCW1 ([facility]) gabapentin 300 MG Oral Capsule Gabapentin 300 MG Gabapentin 300 MG 08/09/2020 12:00:00 AM EDT active Gabapent in 300 MG eCW1 ([facility]) gabapentin 300 MG Oral Capsule Gabapentin 300 MG Gabapentin 300 MG 08/09/2020 12:00:00 AM EDT active Gabapent in 300 MG eCW1 ([facility]) gabapentin 300 MG Oral Capsule Gabapentin 300 MG Gabapentin 300 MG 08/09/2020 12:00:00 AM EDT active Gabapent in 300 MG eCW1 ([facility]) Insurance Providers Payer name Policy type / Coverage type Policy ID Covered libertarian ID Covered libertarian's relationship to dupont Policy Dupont Plan Information [place] Medigap Part B [id number] [id number] Self D [id number] [facility] Health Maintenance Organization (HMO) [id number] Self [id number] BS [place] Medigap Part B [id number] 2.0.1.284097.3.227.99.991.78832.0 Self D [id number] [facility] [place] [facility] PPO [id number] SP [id number] Medicare (Part B) Medicare Primary [id number] 2.0.1.517645.3.227.99.572.71234.0 Self 0 [id number] Medicare (Part B) Medicare Primary [id number] 2.0.1.734166.3.227.99.572.75066.0 Self [id number] [employer] Ppo Medigap Part B [id number] Self [id number] Medicare (Part B) Medicare Primary [id number] Self [id number] Medicare [facility] Medicare Primary [id number] 2.16840.1.908215.3.227.99.8646.6200.0 Self 0 [id number] Medicare (Part B) Medicare Primary [id number] 2.16840.1.095470.3.227.99.572.60442.0 Self 0 [id number] Blue Preferred Ppo Medigap Part B [id number] 2.16.840.1.167807.3.227.99.572.80225.0 Self D [id number] Medicare (Part B) Medicare Primary [id number] 2.16.840.1.704862.3.227.99.572.96708.0 Self [id number] Blue [employer]erred Ppo Medigap Part B [id number] 2.16.840.1.460952.3.227.99.572.83382.0 Self D [id number] [employer] Ppo Medigap Part B [id number] 2.16.840.1.618414.3.227.99.572.44329.0 Self D [id number] [employer] Ppo Medigap Part B [id number] 2.16.840.1.892359.3.227.99.572.21351.0 Self D [id number] Medicare (Part B) Medicare Primary [id number] 2.16.840.1.484808.3.227.99.572.38711.0 Self 0 [id number] Blue Preferred Ppo Medigap Part B [id number] 2.16.840.1.622267.3.227.99.572.47678.0 Self D [id number] Medicare (Part B) Medicare Primary [id number] 2.16.840.1.011539.3.227.99.572.56085.0 Self 0 [id number] Blue Preferred Ppo Medigap Part B [id number] 2.16.840.1.412996.3.227.99.572.97785.0 Self D [id number] Medicare (Part B) Medicare Primary [id number] 2.16.840.1.933906.3.227.99.572.76194.0 Self 0 [id number] Blue Preferred Ppo Medigap Part B [id number] 2.16.840.1.499655.3.227.99.572.53688.0 Self D [id number] Medicare (Part B) Medicare Primary [id number] 2.16.840.1.266341.3.227.99.572.27495.0 Self 0 [id number] Blue Preferred Ppo Medigap Part B [id number] 2.16.840.1.560547.3.227.99.572.41421.0 Self D [id number] Medicare (Part B) Medicare Primary [id number] 2.16.840.1.820607.3.227.99.572.77254.0 Self 0 [id number] Blue Preferred Ppo Medigap Part B [id number] 2.16.840.1.789590.3.227.99.572.96087.0 Self D [id number] Medicare (Part B) Medicare Primary [id number] 2.16.840.1.688562.3.227.99.572.20383.0 Self 0 [id number] Blue Preferred Ppo Medigap Part B [id number] 2.16.840.1.636988.3.227.99.572.21952.0 Self D [id number] Medicare (Part B) Medicare Primary [id number] Self Blue Preferred Ppo Medigap Part B [id number] Self Medicare Medicare Primary [id number] Self [place] Primary [id number] 2.16.840.1.535554.3.227.99.8646.6200.0 Self 0 [id number] Blue Preferred Ppo Medigap Part B [id number] 2.16.840.1.291864.3.227.99.572.13575.0 Self D [id number] [employer] Ppo Medigap Part B [id number] 2.16.840.1.642278.3.227.99.572.28228.0 Self D [id number] Medicare (Part B) Medicare Primary [id number] 2.16.840.1.769651.3.227.99.572.91699.0 Self 0 [id number] Medicare (Part B) Medicare Primary [id number] 2.16.840.1.718368.3.227.99.572.22177.0 Self 0 [id number] [place] Medicare Primary [id number] Self [id number] Blue Preferred Ppo Medigap Part B [id number] 2.16.840.1.807590.3.227.99.572.15921.0 Self D [id number] Blue Preferred Ppo Medigap Part B [id number] 2.16.840.1.632533.3.227.99.572.31677.0 Self D [id number] Medicare (Part B) Medicare Primary [id number] 2.16.840.1.610865.3.227.99.572.51528.0 Self 0 [id number] Medicare - [place] Medicare Primary [id number] 2.16.840.1.287810.3.227.99.177.53396.0 Self 0 [id number] Medicare - [place] Medicare Primary [id number] 2.16.840.1.772306.3.227.99.177.69381.0 Self 0 [id number] Blue Preferred Ppo Medigap Part B [id number] 2.16.840.1.964809.3.227.99.572.61727.0 Self D [id number] Medicare (Part B) Medicare Primary [id number] 2.16.840.1.175421.3.227.99.572.69612.0 Self 0 [id number] Blue Preferred Ppo Medigap Part B [id number] 2.16.840.1.195109.3.227.99.572.03676.0 Self D [id number] Medicare (Part B) Medicare Primary [id number] 2.16.840.1.517882.3.227.99.572.52370.0 Self 0 [id number] Medicare (Part B) Medicare Primary [id number] 2.16.840.1.757951.3.227.99.572.21452.0 Self 0 [id number] MVP [employer] [facility] Commercial [id number] 2.160.1.899192.3.227.99.572.01919.0 Self [id number] MVP [employer] [facility] Commercial [id number] Self MVP [employer] [facility] Commercial [id number] 2.16.840.1.750092.3.227.99.572.33360.0 Self [id number] MVP [employer] [facility] Queryday [id number] 2.160.1.160543.3.227.99.572.70081.0 Self 8 [id number] MVP [employer] [facility] Queryday [id number] 2.0.1.645054.3.227.99.572.17359.0 Self [id number] MVP [employer] [facility] Queryday [id number] 2.0.1.930987.3.227.99.572.55843.0 Self [id number] MVP [employer] [facility] Queryday [id number] Self [id number] MVP [employer] [facility] Queryday [id number] 2.0.1.783986.3.227.99.572.38061.0 Self [id number] MVP [employer] [facility] Queryday [id number] 2.0.1.578880.3.227.99.572.98262.0 Self [id number] MVP [employer] [facility] Queryday [id number] 2.0.1.118442.3.227.99.572.73795.0 Self [id number] MVP [employer] [facility] Queryday [id number] 2.160.1.664880.3.227.99.572.96584.0 Self [id number] [employer] [facility] Queryday [id number] 2.0.1.021774.3.227.99.572.41237.0 Self [id number] [employer] [facility] Commercial [id number] 2.16.840.1.133589.3.227.99.572.83405.0 Self [id number] [employer] [facility] Commercial [id number] 2.16.840.1.317141.3.227.99.572.71468.0 Self [id number] [employer] [facility] Commercial [id number] 2.16.840.1.372819.3.227.99.572.56449.0 Self 8 [id number] MVP [employer] [facility] Commercial [id number] 2.0.1.326925.3.227.99.572.33339.0 Self [id number] [employer] [facility] Commercial [id number] 2.0.1.642271.3.227.99.572.03148.0 Self 8 [id number] [employer] [facility] Commercial [id number] 2.0.1.978628.3.227.99.572.52330.0 Self [id number] MVP Medicare Commercial [id number] 2.0.1.037560.3.227.99.991.85 495.0 Self [id number] MVP Gold Commercial [id number] 2.0.1.633043.3.227.99.8646.6200. 0 Self [id number] MVP Gold Commercial [id number] Self [id number] MVP Medicare Commercial [id number] 2.0.1.968374.3.227.99.177.19 129.0 Self [id number] MVP Medicare Commercial [id number] 2.0.1.714461.3.227.99.177.19 129.0 Self [id number] MVP Gold Commercial [id number] 2.160.1.096400.3.227.99.8646.6200. 0 [facility] [id number] ANSI-Health Maintenance Organization ( O) [id number] MVP GOLD [id number] SP [id number] MVP GOLD [id number] SP [id number] [facility] MVP MCR ADV - OP [id number] 18 [id number] MVP MCR HMO [id number] SP [id number] MVP MCR HMO [id number] SP [id number] [facility] O [id number] S [id number] ANSI-Commercial [id number] ANSI-Medicare Part B [id number] ANSI-[employer] Maintenance [employer] ( O) [id number] ANSI-Commercial [id number] ANSI-Health Maintenance Organization ( O) [id number] ANSI-Medicare Part B [id number] ANSI-Medicare Part B [id number] ANSI-Commercial [id number] ANS-Health Maintenance Organization ( O) [id number] [facility] [id number] [facility]-Health Maintenance Organization ( O) [id number] ANSI-Medicare Part B [id number] ANSI-Medicare Part B [id number] ANSI-Commercial [id number] [facility]-Health Maintenance Organization ( O) [id number] MEDICARE [id number] SP [id number] ANSI-Commercial [id number] ANSI-Medicare Part B [id number] ANSI-Health Maintenance Organization ( O) [id number] ANSI-Commercial [id number] ANSI-Health Maintenance Organization ( O) [id number] ANSI-Medicare Part B [id number] ANSI-Medicare Part B [id number] ANSI-Health Maintenance Organization ( O) [id number] ANSI-Commercial [id number] ANSI-Health Maintenance Organization ( O) [id number] ANSI-Medicare Part B [id number] ANSI-Commercial [id number] ANSI-Medicare Part B [id number] ANSI-Commercial [id number] ANSI-Health Maintenance Organization ( O) [id number] ANSI-Commercial [id number] ANSI-Medicare Part B [id number] [facility]-Health Maintenance Organization ( O) [id number] [facility] ( O) [id number] ANSI-Commercial [id number] ANSI-Medicare Part B [id number] ANSI-Commercial [id number] ANSI-Medicare Part B [id number] [facility]-Health Maintenance Organization ( O) [id number] ANSI-Medicare Part B [id number] [facility]-Health Maintenance Organization ( O) [id number] ANSI-Commercial [id number] [facility] [id number] [facility]-Health Maintenance Organization ( O) [id number] ANSI-Commercial [id number] [facility]-Health Maintenance Organization ( O) [id number] ANS-Commercial [id number] [facility]-Medicare Part B [id number] ANS-Commercial [id number] ANSI-Medicare Part B [id number] [facility] (Medicare) [facility] Part B [id number] Self 8 [id number] MEDICARE C [id number] S [id number] A MEDICARE [id number] SP [id number] A [facility] O [id number] S [id number] [place]/307 [id number] SP [id number] [employer] 306/806 [id number] SP [id number] [place] 306/8 S [id number] S [id number] A Problems, Conditions, and Diagnoses Code Display Name Description Problem Type Effective Dates Data Source(s) H2512 Age-related nuclear cataract, left eye A ge-related nuclear cataract, left eye Diagnosis 09/20/2020 10:15:00 AM [facility] H2511 Age-related nuclear cataract, right eye Age-related nuclear cataract, right eye Diagnosis 08/23/2020 07:15:00 AM [facility] Q18449 Encounter for other preprocedural examin ation Encounter for other preprocedural examination Diagnosis 08/19/2020 10:40:00 AM EDT [facility] G57.92 [id number] Neuropathy of left lower extremity Proble m 01/31/2021 12:00:00 AM EDT eCW1 ([facility]) K21.9 Gastroesophageal reflux disease Gastroes ophageal reflux disease, unspecified whether esophagitis present Problem 01/31/2021 12:00:00 AM EDT eCW1 ([facility]) B02.29 [id number] Post herpetic neuralgia Problem 08/09/2020 1 2:00:00 AM EDT eCW1 ([facility]) H26.9 [id number] Cataract of both eyes, unspecified catara ct type Problem 08/09/2020 12:00:00 AM EDT eCW1 ([facility]) Surgeries/Procedures Procedure Description Date Indications Data Source(s) OFFICE OUTPATIENT VISIT 15 MINUTES 07/05/2021 12:00:00 AM EDT [facility] ([facility]) OFFICE OUTPATIENT VISIT 25 MINUTES 06/21/2021 12:00:00 AM EDT [facility] ([facility], ) OFFICE OUTPATIENT VISIT 25 MINUTES 06/07/2021 12:00:00 AM EDT [facility] ([facility], ) OFFICE OUTPATIENT VISIT 25 MINUTES 04/13/2021 12:00:00 AM EDT [facility] ([facility], ) ECG ROUTINE ECG W/LEAST 12 LDS W/I&R 03/22/2021 12:00: 00 AM EDT [facility] ([facility]) OFFICE OUTPATIENT VISIT 25 MINUTES 03/22/2021 12:00:00 AM EDT [facility] ([facility]) Needle electromyography, each extremity, with related paraspinal areas, when performed, done with nerve conduction, amplitude and latency/velocity study; complete, five or more muscles studied, innervated by three or more nerves or four or more spinal levels (list separately in addition to the code for primary procedure). 03/22/2021 12:00:00 AM EDT MEDEN T ([facility], ) Needle electromyography, each extremity, with related paraspinal areas, when performed, done with nerve conduction, amplitude and latency/velocity study; complete, five or more muscles studied, innervated by three or more nerves or four or more spinal levels (list separately in addition to the code for primary procedure). 03/22/2021 12:00:00 AM EDT MEDEN T ([facility], ) 64299 Nerve conduction studies 13 or more studies NEW 201203/22/2021 12:00:00 AM EDT [facility] ([facility], ) NON-INVASIVE PHYSIOLOGIC STUDY EXTREMITY 3 LEVLS 02/25 12:00:00 AM EDT [facility] ([facility], ) NON-INVASIVE PHYSIOLOGIC STUDY EXTREMITY 3 LEVLS 02/25 12:00:00 AM EDT [facility] TSTG ANS FUNCJ CARDIOVAGAL INNERVAJ PARASYMP 12:00:00 AM EDT [facility] TESTING AUTONOMIC NERVOUS SYSTEM FUNCTION 02/25/2021 1 2:00:00 AM EDT [facility] ([facility], ) OFFICE OUTPATIENT NEW 45 MINUTES 02/22/2021 12:00:00 A M EDT [facility] ([facility], ) OFFICE OUTPATIENT VISIT 25 MINUTES 02/01/2021 12:00:00 AM EDT [facility] ([facility], ) ECG ROUTINE ECG W/LEAST 12 LDS W/I&R 08/17/2020 12:00: 00 AM EDT [facility] ([facility]) Immunization: Flublok Quadrivalent (18 years & older) 0.5mL IM (Influenza) 08/09/2020 12:00:00 AM EDT eCW1 ([facility]) Results ID Date Data Source [id number] 06/30/2021 07:30:00 AM EDT [facility] ([facility]) Name Value Range Interpretation Code Description Data Brittany rce(s) Supporting Document(s) Glucose, Fasting 97 mg/dL 70-100 [facility] Blood Urea Nitrogen 23 mg/dL 7-18 [facility] ([facility]) Creatinine For GFR 1.26 mg/dL 0.70-1.30 [facility] ([facility]) Glomerular Filtration Rate 59.4 MED ENT ([facility]) <content>Units are mL/min/1.73 m2</content>
<content></content>
<content>Chronic Kidney Disease Staging per NKF:</content>
<content></content>
<content>Stage I & II GFR >=60 Normal to Mildly Decreased</content>
<content>Stage III GFR 30-59 Moderately Decreased</content>
<content>Stage IV GFR 15-29 Severely Decreased</content>
<content>Stage V GFR <15 Very Little GFR Left</content>
<content>ESRD GFR <15 on RATOPRINTER</content>
<content></content> Sodium Level 139 meq/L 136-145 [facility] ([facility]) Potassium Serum 4.7 meq/L 3.5-5.1 [facility] ([facility]) Carbon Dioxide Level 40 meq/L 21-32 [facility] (C [facility]) Calcium Level 9.1 mg/dL 8.8-10.2 [facility] ([facility]) Chloride Level 100 meq/L 98-107 [facility] ([facility]) ID Date Data Source [id number] 03/15/2021 09:40:00 AM EDT [facility] ([facility]) Name Value Range Interpretation Code Description Data Brittany rce(s) Supporting Document(s) Glucose, Fasting 58 mg/dL 70-100 [facility] ([facility]) Blood Urea Nitrogen 26 mg/dL 7-18 [facility] ([facility]) Creatinine For GFR 1.36 mg/dL 0.70-1.30 [facility] ([facility]) Glomerular Filtration Rate 54.4 MED E[facility] ([facility]) <content>Units are mL/min/1.73 m2</content>
<content></content>
<content>Chronic Kidney Disease Staging per NKF:</content>
<content></content>
<content>Stage I & II GFR >=60 Normal to Mildly Decreased</content>
<content>Stage III GFR 30-59 Moderately Decreased</content>
<content>Stage IV GFR 15-29 Severely Decreased</content>
<content>Stage V GFR <15 Very Little GFR Left</content>
<content>ESRD GFR <15 on RATOPRINTER</content>
<content></content> Sodium Level 139 meq/L 136-145 [facility] ([facility]) Potassium Serum 4.8 meq/L 3.5-5.1 [facility] ([facility]) Chloride Level 99 meq/L 98-107 [facility] ([facility]) Carbon Dioxide Level 39 meq/L 21-32 [facility] (C [facility]) Anion Gap 1 meq/L 8-16 [facility] Calcium Level 9.7 mg/dL 8.8-10.2 [facility] ([facility]) ID Date Data Source [id number] 02/23/2021 09:30:00 AM EDT [facility], ) Name Value Range Interpretation Code Description Data Brittany rce(s) Supporting Document(s) Antinuclear Antibodies Direct Laboratory test result [facility] ([facility]) Performed at: [facility] [id number] [employer] Instructor: Bal Dubose MD, Phone: [phone] Performed at: [facility] [id number] [employer] Instructor: Marisabel Phillips MD, Phone: [phone] ID Date Data Source [id number] 02/23/2021 09:30:00 AM EDT [facility] ([facility], ) Name Value Range Interpretation Code Description Data Brittany rce(s) Supporting Document(s) Reagin Ab [Presence] in Serum by RPR Laboratory test result [facility] ([facility]) Thiamine [Mass/volume] in Blood 177.8 nmol/L 66.5-200.0 [facility] ([facility]) Specimen Comment: Test(s) 988420-Dne. B1 , Whole Blood Specimen Comment: was developed and its performance characteristics Specimen Comment: determined by [facility]. It has not been cleared or approved Specimen Comment: by the Food and Drug Administration. Rheumatoid factor [Units/volume] in Serum or Plasma 10.5 IU/ml [facility] ([facility]) ID Date Data Source [id number] 02/23/2021 09:30:00 AM EDT [facility] ([facility]) Name Value Range Interpretation Code Description Data Brittany rce(s) Supporting Document(s) Vitamin B12 Level 783 pg/mL [facility] ([facility]) VITAMIN B12 NORMAL RANGE NORMAL 247 - 911 PG/ML INDETERMINATE 211 - 246 PG/ML DEFICIENT LESS THAN 211 PG/ML Folate Laboratory test result [facility] ([facility]) FOLATE NORMAL RANGE NORMAL GREATER THAN 5.4 NG/ML INDETERMINATE 3.4-5.4 NG/ML DEFICIENT LESS THAN 3.4 NG/ML ID Date Data Source [id number] 02/23/2021 09:30:00 AM EDT [facility] ([facility]) Name Value Range Interpretation Code Description Data Brittany rce(s) Supporting Document(s) Thyrotropin [Units/volume] in Serum or Plasma 2.030 uIU/ML 0.358-3.74 0 [facility] ([facility]) ID Date Data Source [id number] 02/23/2021 09:30:00 AM EDT [facility] ([facility]) Name Value Range Interpretation Code Description Data Brittany rce(s) Supporting Document(s) Albumin % 52.6 % 55.8-66.1 [facility] ([facility]) Fgcnh-1-Eimcfzfje % 10.9 % 7.1-11.8 [facility] ([facility], ) Cccxx-1-Pshsdejx % 4.7 % 2.9-4.9 [facility] ([facility]) Ozfi-8-Fexgctgnz % 7.1 % 4.7-7.2 [facility] ([facility]) Onqn-1-Bdtgtjqdp % 6.0 % 3.2-6.5 [facility]) Gamma Globulin % 18.7 % 11.1-18.8 [facility] ([facility]) Albumin 3.89 GM/DL 3.29-5.55 [facility] Qvoys-1-Okwcwgdnt 0.81 GM/DL 0.42-0.99 [facility] ([facility]) Stpcy-3-Oiqjoixbw 0.35 GM/DL 0.17-0.41 [facility]) Ptbp-9-Fxppfrual 0.53 GM/DL 0.28-0.60 [facility] ([facility]) Zzjf-7-Cubflroxf 0.44 GM/DL 0.19-0.55 [facility] ([facility]) Gamma Globulins 1.38 GM/DL 0.65-1.58 [facility] ([facility]) Total Protein 7.4 GM/DL 6.4-8.2 [facility] ([facility]) Spep Interpretation Laboratory test result [facility] ([facility]) NO M-SPIKE(S)NOTED. Laboratory test finding (navigational concept) Laboratory test result [facility] ([facility]) ID Date Data Source [id number] 02/23/2021 09:30:00 AM EDT [facility] ([facility]) Name Value Range Interpretation Code Description Data Brittany rce(s) Supporting Document(s) Glucose, Fasting 70 mg/dL 70-100 [facility]) Blood Urea Nitrogen 22 mg/dL 7-18 [facility] ([facility]) Creatinine For GFR 1.18 mg/dL 0.70-1.30 [facility] ([facility]) Glomerular Filtration Rate Laboratory test result [facility] ([facility]) <content>Units are mL/min/1.73 m2</content>
<content></content>
<content>Chronic Kidney Disease Staging per NKF:</content>
<content></content>
<content>Stage I & II GFR >=60 Normal to Mildly Decreased</content>
<content>Stage III GFR 30- 59 Moderately Decreased</content>
<content>Stage IV GFR 15-29 Severely Decreased</content>
<content>Stage V GFR <15 Very Little GFR Left</content>
<content>ESRD GFR <15 on RATOPRINTER</content>
<content></content> Sodium Level 140 meq/L 136-145 [facility] ([facility], ) Potassium Serum 4.9 meq/L 3.5-5.1 [facility] ([facility]) Carbon Dioxide Level 39 meq/L 21-32 [facility] ([facility]) Chloride Level 100 meq/L 98-107 [facility] ([facility], ) Anion Gap 1 meq/L 8-16 [facility] ([facility]) Calcium Level 9.3 mg/dL 8.8-10.2 [facility] ([facility]) Ast/Sgot 21 U/L 7-37 [facility] ([facility]) Alt/SGPT 17 U/L 12-78 [facility] ([facility]) Alkaline Phosphatase 66 U/L 45-117 [facility] ([facility]) Bilirubin,Total 0.6 mg/dL 0.2-1.0 [facility] ([facility]) Total Protein 7.4 GM/DL 6.4-8.2 [facility] ([facility], ) Albumin 3.5 GM/DL 3.2-5.2 [facility] ([facility]) Albumin/Globulin Ratio 0.9 [facility] ([facility]) ID Date Data Source [id number] 02/23/2021 09:30:00 AM EDT [facility] ([facility]) Name Value Range Interpretation Code Description Data Brittany rce(s) Supporting Document(s) Erythrocyte sedimentation rate by 2H Westergren method 9 mm/hr 0-2 0 [facility] ([facility]) ID Date Data Source [id number] 02/23/2021 09:30:00 AM EDT [facility] ([facility]) Name Value Range Interpretation Code Description Data Brittany rce(s) Supporting Document(s) White Blood Count 4.6 10 4.0-10.0 [facility] ([facility]) Red Blood Count 4.84 10 4.30-6.10 [facility] ([facility]) Hemoglobin 11.5 g/dL 13.5-17.5 [facility] ([facility]) Mean Corpuscular Volume 82.6 fl 80.0-96.0 M EDENT ([facility]) Hematocrit 40.0 % 42.0-52.0 [facility] ([facility]) Mean Corpuscular Hemoglobin 23.8 pg 27.0-33.0 [facility] ([facility]) Mean Corpuscular HGB Conc 28.8 g/dL 32.0-36.5 [facility] ([facility]) Red Cell Distribution Width 19.7 % 11.5-14.5 [facility] ([facility]) Platelet Count, Automated 208 10 150-450 [facility] ([facility]) Neutrophils % 51.1 % 36.0-66.0 [facility] ([facility]) [place] % 16.8 % 2.0-8.0 [facility] ([facility]) Lymph % 23.4 % 24.0-44.0 [facility] ([facility]) Eos % 7.4 % 0.0-3.0 [facility] ([facility]) Baso % 1.1 % 0.0-1.0 [facility] ([facility]) Immature Granulocyte % 0.2 % 0-3.0 [facility] ([facility]) Neutrophils # 2.3 10 1.5-8.5 [facility] ([facility]) Nucleated Red Blood Cell % 0.0 % 0-0 MED [facility] ([facility]) [place] # 0.8 10 0.0-0.8 [facility] ([facility]) Lymph # 1.1 10 1.5-5.0 [facility] ([facility]) Baso # 0.1 10 0.0-0.2 [facility] ([facility]) Eos # 0.3 10 0.0-0.5 [facility] ([facility]) ID Date Data Source [id number] 02/23/2021 09:30:00 AM EDT [facility] ([facility]) Name Value Range Interpretation Code Description Data Brittany rce(s) Supporting Document(s) Hemoglobin A1c 6.3 % [facility] ([facility]) <content>REFERENCE RANGES:</content><br/ ><content></content>
<content><=5.6% NORMAL</content>
<content>5.7-6.4% SUGGESTS IMPAIRED GLUCOSE METABOLISM/PREDIABETIC</content>
<content>>= 6.5% ABNORMAL</content>
<content></content> Estimated Average Glucose 134 mg/dL 60-110 [facility] ([facility]) ID Date Data Source [id number] 11/15/2020 07:55:00 AM EST [facility] Name Value Range Interpretation Code Description Data Brittany rce(s) Supporting Document(s) Magnesium [Mass/volume] in Serum or Plasma 2.5 mg/dL 1.8-2.4 [facility] ([facility]) ID Date Data Source [id number] 11/15/2020 07:55:00 AM EST [facility] Name Value Range Interpretation Code Description Data Brittany rce(s) Supporting Document(s) White Blood Count 5.3 10 4.0-10.0 [facility] ([facility]) Red Blood Count 4.62 10 4.30-6.10 [facility] ([facility]io [facility]) Hematocrit 39.1 % 42.0-52.0 [facility] ([facility]) Hemoglobin 11.5 g/dL 13.5-17.5 [facility] ([facility]) Mean Corpuscular Hemoglobin 24.9 pg 27.0-33.0 [facility] ([facility]) Mean Corpuscular Volume 84.6 fl 80.0-96.0 M EDENT ([facility]) Mean Corpuscular HGB Conc 29.4 g/dL 32.0-36.5 [facility] ([facility]) Red Cell Distribution Width 18.8 % 11.5-14.5 MEDENT ([facility]) Platelet Count, Automated 202 10 150-450 MED[facility] ([facility]) Nucleated Red Blood Cell % 0.0 % 0-0 MED ENT ([facility]) ID Date Data Source [id number] 11/15/2020 07:55:00 AM EST [facility] Name Value Range Interpretation Code Description Data Brittany rce(s) Supporting Document(s) Triglycerides Level 64 mg/dL MED[facility] ([facility]) Cholesterol Level 125 mg/dL [facility] ([facility]) HDL Cholesterol 71 mg/dL [facility] ([facility]) Non-HDL-C 54 mg/dL [facility] LDL Cholesterol 41 mg/dL [facility] ([facility]) Cholesterol Risk Ratio 1.760 MED[facility] ([facility]) ID Date Data Source [id number] 11/15/2020 07:55:00 AM EST [facility] ([facility] Name Value Range Interpretation Code Description Data Brittany rce(s) Supporting Document(s) Glucose, Fasting 98 mg/dL 70-100 [facility] ([facility] Blood Urea Nitrogen 30 mg/dL 7-18 MED[facility] ([facility]) Creatinine For GFR 1.39 mg/dL 0.70-1.30 MEDENT ([facility]) Glomerular Filtration Rate 53.2 MED ENT ([facility]) <content>Units are mL/min/1.73 m2</content>
<content></content>
<content>Chronic Kidney Disease Staging per [facility]:</content>
<content></content>
<content>Stage I & II GFR >=60 Normal to Mildly Decreased</content>
<content>Stage III GFR 30- 59 Moderately Decreased</content>
<content>Stage IV GFR 15-29 Severely Decreased</content>
<content>Stage V GFR <15 Very Little GFR Left</content>
<content>ESRD GFR <15 on RATOPRINTER</content>
<content></content> Potassium Serum 4.8 meq/L 3.5-5.1 [facility] ([facility]) Sodium Level 140 meq/L 136-145 [facility] ([facility]) Carbon Dioxide Level 36 meq/L 21-32 [facility] (C [facility]di[facility]) Chloride Level 99 meq/L 98-107 [facility] ([facility]) Ast/Sgot 17 U/L 7-37 [facility] [place] Calcium Level 9.4 mg/dL 8.8-10.2 [facility] ([facility] Anion Gap 5 meq/L 8-16 [facility] ([facility] Alt/SGPT 20 U/L 12-78 [facility] Alkaline Phosphatase 61 U/L 45-117 [facility] ([facility]) Bilirubin,Total 0.7 mg/dL 0.2-1.0 [facility] ([facility]) Total Protein 7.2 GM/DL 6.4-8.2 [facility] ([facility] Albumin 3.9 GM/DL 3.2-5.2 [facility] ([facility]) Albumin/Globulin Ratio 1.2 [facility] ([facility]) ID Date Data Source [id number] 09/20/2020 12:32:00 [place] [address] OPERATIVE SUMMARYNAME: ALLEN Chavez DATE OF : 1945TTENDING PHYS: Hortencia Logan MD DATE: 09/20/20 MR#: [id number] PROCEDURE: 09/20/2020PREOPERATIVE DIAGNOSIS: Age-related nuclear cataract, [...] rce(s) Supporting Document(s) ID Date Data Source [id number] 09/15/2020 08:03:00 AM EST [facility] Name Value Range Interpretation Code Description Data Brittany rce(s) Supporting Document(s) SARS-CoV-2 (COVID-19) [facility] This lab was ordered by [facility] and reported by [facility]. ID Date Data Source [id number] 08/23/2020 08:57:00 [place] [address] OPERATIVE SUMMARYNAME: ALLEN Chavez DATE OF : 7ATTENDING PHYS: Hortencia Logan MD DATE: 08/23/20 MR#: [id number] PROCEDURE: 08/23/2020PREOPERATIVE DIAGNOSIS: Age-related nuclear cataract, [...] rce(s) Supporting Document(s) ID Date Data Source [id number] 08/18/2020 08:10:00 AM EDT [facility] Name Value Range Interpretation Code Description Data Brittany rce(s) Supporting Document(s) SARS-CoV-2 (COVID19) [facility] This lab was ordered by [facility] and reported by [facility]. ID Date Data Source [id number] 08/10/2020 11:40:00 AM EDT [facility] ([facility] Name Value Range Interpretation Code Description Data Brittany rce(s) Supporting Document(s) Glucose, Fasting 96 mg/dL 70-100 [facility] ([facility]) Blood Urea Nitrogen 26 mg/dL 7-18 [facility] (Ca [facility]ology [facility]) Glomerular Filtration Rate 53.2 MED ENT ([facility]) <content>Units are mL/min/1.73 m2</content>
<content></content>
<content>Chronic Kidney Disease Staging per NKF:</content>
<content></content>
<content>Stage I & II GFR >=60 Normal to Mildly Decreased</content>
<content>Stage III GFR 30- 59 Moderately Decreased</content>
<content>Stage IV GFR 15-29 Severely Decreased</content>
<content>Stage V GFR <15 Very Little GFR Left</content>
<content>ESRD GFR <15 on RATOPRINTER</content>
<content></content> Creatinine For GFR 1.39 mg/dL 0.70-1.30 [facility] ([facility]) Potassium Serum 4.5 meq/L 3.5-5.1 [facility] ([facility]) Chloride Level 100 meq/L 98-107 [facility] ([facility]) Sodium Level 138 meq/L 136-145 [facility] ([facility]) Carbon Dioxide Level 36 meq/L 21-32 [facility] ([facility]) Anion Gap 2 meq/L 8-16 [facility] Calcium Level 9.5 mg/dL 8.8-10.2 [facility] ([facility]) Procedure Social History Code Duration Value Status Description Data Source(s ) Smoking 07/05/2021 12:00:00 AM EDT Patient is a former smoker completed Patient is a former smoker [facility] ([facility]) Smoking 01/31/2021 12:00:00 AM EDT Former Smoker completed Former Smoker eCW1 ([facility]) Smoking 01/31/2021 12:00:00 AM EDT Former Smoker completed Former Smoker eCW1 ([facility]) Smoking 01/31/2021 12:00:00 AM EDT Former Smoker completed Former Smoker eCW1 ([facility]) Smoking 01/31/2021 12:00:00 AM EDT Former Smoker completed Former Smoker eCW1 ([facility]) Smoking 01/31/2021 12:00:00 AM EDT Former Smoker completed Former Smoker eCW1 ([facility]) Smoking 01/31/2021 12:00:00 AM EDT Former Smoker completed Former Smoker eCW1 ([facility]) Smoking 01/31/2021 12:00:00 AM EDT Former Smoker completed Former Smoker eCW1 ([facility]) Smoking 01/31/2021 12:00:00 AM EDT Former Smoker completed Former Smoker eCW1 ([facility]) Smoking 09/14/2020 12:00:00 AM EST Former Smoker completed Former Smoker eCW1 ([facility]) Smoking 09/14/2020 12:00:00 AM EST Former Smoker completed Former Smoker eCW1 ([facility]) Smoking 09/14/2020 12:00:00 AM EST Former Smoker completed Former Smoker eCW1 ([facility]) Smoking 09/14/2020 12:00:00 AM EST Former Smoker completed Former Smoker eCW1 ([facility]) Smoking 09/14/2020 12:00:00 AM EST Former Smoker completed Former Smoker eCW1 ([facility]) Smoking 09/14/2020 12:00:00 AM EST Former Smoker completed Former Smoker eCW1 ([facility]) Smoking 08/09/2020 12:00:00 AM EDT Former Smoker completed Former Smoker eCW1 ([facility]) Smoking 08/09/2020 12:00:00 AM EDT Former Smoker completed Former Smoker eCW1 ([facility]) Smoking 08/09/2020 12:00:00 AM EDT Former Smoker completed Former Smoker eCW1 ([facility]) Smoking 08/09/2020 12:00:00 AM EDT Former Smoker completed Former Smoker eCW1 ([facility]) Smoking 08/09/2020 12:00:00 AM EDT Former Smoker completed Former Smoker eCW1 ([facility]) Vital Signs ID Date Data Source UNK Name Value Range Interpretation Code Description Data Source(s) Body weight 221.00 [lb_av] 221.00 [lb_av] EMMANUEL T ([facility]) Body height 77 [in_i] 77 [in_i] [facility] ([facility]) 6'5" Body mass index (BMI) [Ratio] 26.2 kg/m2 26.2 k g/m2 [facility] ([facility]) Heart rate 76 /min 76 /min [facility] ([facility]) Regular Respiratory rate 16 /min 16 /min [facility] ( [facility]) Systolic blood pressure 126 mm[Hg] 126 mm[Hg] M EDENT ([facility]) sitting, regular cuff Diastolic blood pressure 66 mm[Hg] 66 mm[Hg] [facility] ([facility]) sitting, regular cuff Systolic blood pressure 110 mm[Hg] 110 mm[Hg] M [facility] ([facility]) Diastolic blood pressure 60 mm[Hg] 60 mm[Hg] [facility] ([facility]) Heart rate 64 /min 64 /min [facility] ([facility]) Respiratory rate 16 /min 16 /min [facility] ( [facility]) Systolic blood pressure 90 mm[Hg] 90 mm[Hg] M [facility] ([facility]) Diastolic blood pressure 68 mm[Hg] 68 mm[Hg] [facility] ([facility]) Heart rate 78 /min 78 /min [facility] ([facility]) Oxygen saturation in Arterial blood by Pulse oximetry 72 % 72 % [facility] ([facility]) 88 2L [place] body weight 184 [lb_av] 184 [lb_av] MEDEN T ([facility]) Body weight 104.328 kg 104.328 kg [facility] ([facility]) Body surface area Derived from formula 2.28 m2 2.28 m2 [facility] ([facility]) Body height 73 [in_i] 73 [in_i] [facility] ([facility]) 6'1" Body weight 230.00 [lb_av] 230.00 [lb_av] MEDEN T ([facility]) Body mass index (BMI) [Ratio] 30.3 kg/m2 30.3 k g/m2 [facility] ([facility]) Systolic blood pressure 110 mm[Hg] 110 mm[Hg] M [facility] ([facility]) Diastolic blood pressure 70 mm[Hg] 70 mm[Hg] [facility] ([facility]) Heart rate 76 /min 76 /min [facility] ([facility]) Respiratory rate 20 /min 20 /min [facility] ( [facility]) Body weight 225.00 [lb_av] 225.00 [lb_av] MEDEN T ([facility]) Body height 77 [in_i] 77 [in_i] [facility] ([facility] 6'5" Body mass index (BMI) [Ratio] 26.7 kg/m2 26.7 k g/m2 [facility] ([facility]) Heart rate 72 /min 72 /min [facility] ([facility]) Regular Respiratory rate 16 /min 16 /min [facility] ( [facility]) Systolic blood pressure 128 mm[Hg] 128 mm[Hg] M EDENT ([facility]) sitting, regular cuff Diastolic blood pressure 74 mm[Hg] 74 mm[Hg] [facility] ([facility]) sitting, regular cuff Systolic blood pressure 124 mm[Hg] 124 mm[Hg] M EDENT ([facility]) sitting Diastolic blood pressure 68 mm[Hg] 68 mm[Hg] [facility] ([facility]) sitting Oxygen saturation in Arterial blood by Pulse oximetry 75 % 75 % [facility] ([facility]) 90 2L Body height 73 [in_i] 73 [in_i] [facility] ([facility]) 6'1" Body weight 229.00 [lb_av] 229.00 [facility]_av] [facility] Body mass index (BMI) [Ratio] 30.2 kg/m2 30.2 k g/m2 [facility] ([facility]) [place] body weight 184 [lb_av] 184 [lb_av] [facility] Body weight 103.874 kg 103.874 kg [facility] ([facility]) Body surface area Derived from formula 2.28 m2 2.28 m2 [facility] ([facility]) Systolic blood pressure 90 mm[Hg] 90 mm[Hg] M EDENT ([facility]) Diastolic blood pressure 48 mm[Hg] 48 mm[Hg] [facility] ([facility]) Heart rate 70 /min 70 /min [facility] ([facility]) Oxygen saturation in Arterial blood by Pulse oximetry 75 % 75 % [facility] ([facility]) 90 2L Body surface area Derived from formula 2.28 m2 2.28 m2 [facility] ([facility]) Body height 73 [in_i] 73 [in_i] [facility] ([facility]) 6'1" Body weight 229.00 [lb_av] 229.00 [lb_av] MEDEN T ([facility]) Body mass index (BMI) [Ratio] 30.2 kg/m2 30.2 k g/m2 [facility] ([facility]) [place] body weight 184 [lb_av] 184 [lb_av] MEDEN T ([facility]) Body weight 103.874 kg 103.874 kg [facility] ([facility]) Body weight [lb_av] eCW1 ([facility]) Body height [in_i] eCW1 ([facility]) Body mass index (BMI) [Ratio] 26.92 kg/m2 26.92 kg/m2 eCW1 ([facility]) Heart rate 70 /min 70 /min eCW1 ([facility]) Respiratory rate 18 /min 18 /min eCW1 ([facility]) Body temperature 99.4 [degF] 99.4 [degF] eCW1 ( [facility]) Systolic blood pressure 103 mm[Hg] 103 mm[Hg] e CW1 ([facility]) Diastolic blood pressure 62 mm[Hg] 62 mm[Hg] eCW1 ([facility]) Body weight 223.00 [lb_av] 223.00 [lb_av] MEDEN T ([facility]) Body height 77 [in_i] 77 [in_i] [facility] ([facility]) 6'5" Body mass index (BMI) [Ratio] 26.4 kg/m2 26.4 k g/m2 [facility] ([facility]) Systolic blood pressure 126 mm[Hg] 126 mm[Hg] M EDENT ([facility]) sitting, regular cuff Diastolic blood pressure 64 mm[Hg] 64 mm[Hg] [facility] ([facility]) sitting, regular cuff Heart rate 68 /min 68 /min [facility] ([facility]) Regular Respiratory rate 16 /min 16 /min [facility] ( [facility]) Body weight [lb_av] eCW1 ([facility]) Body height [in_i] eCW1 ([facility]) Body mass index (BMI) [Ratio] 26.44 kg/m2 26.44 kg/m2 eCW1 ([facility]) Heart rate 69 /min 69 /min eCW1 ([facility]) Respiratory rate 20 /min 20 /min eCW1 ([facility]) Body temperature 98.4 [degF] 98.4 [degF] eCW1 ( [facility]) Systolic blood pressure 120 mm[Hg] 120 mm[Hg] e CW1 ([facility]) Diastolic blood pressure 66 mm[Hg] 66 mm[Hg] eCW1 ([facility]) Body weight 223.00 [lb_av] 223.00 [lb_av] MEDEN T ([facility]) Body height 77 [in_i] 77 [in_i] [facility] ([facility]) 6'5" Body mass index (BMI) [Ratio] 26.4 kg/m2 26.4 k g/m2 [facility] ([facility]) Heart rate 68 /min 68 /min [facility] ([facility]) Regular Respiratory rate 16 /min 16 /min [facility] ( [facility]) Systolic blood pressure 126 mm[Hg] 126 mm[Hg] M EDENT ([facility]) sitting, regular cuff Diastolic blood pressure 74 mm[Hg] 74 mm[Hg] [facility] ([facility]) sitting, regular cuff Systolic blood pressure 128 mm[Hg] 128 mm[Hg] M EDENT ([facility]) sitting Diastolic blood pressure 74 mm[Hg] 74 mm[Hg] [facility] ([facility]) sitting Body weight 223 [lb_av] 223 [lb_av] eCW1 ([facility]) Diastolic blood pressure 58 mm[Hg] 58 mm[Hg] eCW1 ([facility]) Body height [in_i] eCW1 ([facility]) Body mass index (BMI) [Ratio] 26.44 kg/m2 26.44 kg/m2 eCW1 ([facility]) Heart rate 80 /min 80 /min eCW1 ([facility]) Respiratory rate 18 /min 18 /min eCW1 ([facility]) Body temperature 98.6 [degF] 98.6 [degF] eCW1 ( [facility]) Systolic blood pressure 98 mm[Hg] 98 mm[Hg] e CW1 ([facility]) Systolic blood pressure 98 mm[Hg] 98 mm[Hg] M EDENT ([facility]) Diastolic blood pressure 70 mm[Hg] 70 mm[Hg] [facility]) Heart rate 68 /min 68 /min [facility] ([facility]) Oxygen saturation in Arterial blood by Pulse oximetry 85 % 85 % [facility] ([facility]) Room Air Body height 73 [in_i] 73 [in_i] [facility] ([facility]) 6'1" Body weight 215.00 [lb_av] 215.00 [[facility]_av] [facility] Body mass index (BMI) [Ratio] 28.4 kg/m2 28.4 k g/m2 [facility] ([facility]) [place] body weight 184 [lb_av] 184 [lb_av] [facility] Body weight 97.524 kg 97.524 kg [facility] ([facility]) Body surface area Derived from formula 2.22 m2 2.22 m2 [facility] ([facility]) ID Date Data Source [id number] 10/07/2020 01:49:12 PM [facility] Name Value Range Interpretation Code Description Data Source(s) WEIGHT RECORDED 233.00 pounds 233.00 pounds [facility] Height 77 Inches 077 Inches [facility] ID Date Data Source [id number] 08/26/2020 07:50:37 AM [facility] Name Value Range Interpretation Code Description Data Source(s) WEIGHT RECORDED 223.00 pounds 223.00 pounds [facility] Height 75 Inches 075 Inches [facility] Patient Treatment Plan of Care Planned Activity Planned Date Details Description Data Source (s) Lidocaine 50 MG/ML Topical Cream 08/19/2020 12:00:00 AM EDT eCW1 ([facility]) Lidocaine 50 MG/ML Topical Cream 08/19/2020 12:00:00 AM EDT eCW1 ([facility]) Lidocaine 50 MG/ML Topical Cream 08/19/2020 12:00:00 AM EDT eCW1 ([facility]) Lidocaine 50 MG/ML Topical Cream 08/19/2020 12:00:00 AM EDT eCW1 ([facility]) Lidocaine 50 MG/ML Topical Cream 08/19/2020 12:00:00 AM EDT eCW1 ([facility]) Lidocaine 50 MG/ML Topical Cream 08/19/2020 12:00:00 AM EDT eCW1 ([facility]) Lidocaine 50 MG/ML Topical Cream 08/19/2020 12:00:00 AM EDT eCW1 ([facility]) Lidocaine 50 MG/ML Topical Cream 08/19/2020 12:00:00 AM EDT eCW1 ([facility]) gabapentin 300 MG Oral Capsule 08/09/2020 12:00:00 AM EDT eCW1 ([facility]) gabapentin 300 MG Oral Capsule 08/09/2020 12:00:00 AM EDT eCW1 ([facility]) gabapentin 300 MG Oral Capsule 08/09/2020 12:00:00 AM EDT eCW1 ([facility]) gabapentin 300 MG Oral Capsule 08/09/2020 12:00:00 AM EDT eCW1 ([facility]) gabapentin 300 MG Oral Capsule 08/09/2020 12:00:00 AM EDT eCW1 ([facility]) gabapentin 300 MG Oral Capsule 08/09/2020 12:00:00 AM EDT eCW1 ([facility]) gabapentin 300 MG Oral Capsule 08/09/2020 12:00:00 AM EDT eCW1 ([facility]) gabapentin 300 MG Oral Capsule 08/09/2020 12:00:00 AM EDT eCW1 ([facility]) gabapentin 300 MG Oral Capsule 08/09/2020 12:00:00 AM EDT eCW1 ([facility]) gabapentin 300 MG Oral Capsule 08/09/2020 12:00:00 AM EDT eCW1 ([facility]) gabapentin 300 MG Oral Capsule 08/09/2020 12:00:00 AM EDT eCW1 ([facility]) gabapentin 300 MG Oral Capsule 08/09/2020 12:00:00 AM EDT eCW1 ([facility]) gabapentin 300 MG Oral Capsule 08/09/2020 12:00:00 AM EDT eCW1 ([facility]) gabapentin 300 MG Oral Capsule 08/09/2020 12:00:00 AM EDT eCW1 ([facility]) gabapentin 300 MG Oral Capsule 08/09/2020 12:00:00 AM EDT eCW1 ([facility]) gabapentin 300 MG Oral Capsule 08/09/2020 12:00:00 AM EDT eCW1 ([facility])
--- NOTE | 2021-08-07 11:33 | REP ---
INDICATION: sob COMPARISON: 06/24/2019 TECHNIQUE: Portable AP view of the chest FINDINGS: Mediastinum and cardiac silhouette are stable with cardiomegaly and evidence for prior sternotomy and CABG again noted. Lung mcadams demonstrate diffuse chronic pleuroparenchymal changes bilaterally. Subtle superimposed acute process cannot be excluded. No effusion or pneumothorax identified. IMPRESSION: Chronic appearing changes although subtle superimposed process cannot be excluded. No effusion. <Electronically signed by Macario Bryant > 08/07/21 [id number]
[2021-08-07] MEDS ORDERED: methylPREDNISolone 125MG 2ML VIAL IV ONE (11:45)
[2021-08-07] MEDS ORDERED: ALBUTEROL 90 MCG/ACT 8GM HFA INHALER INH ONE (11:45)
[2021-08-07] MEDS ORDERED: ACETAMINOPHEN 325 MG TAB PO ONE (11:45)
[2021-08-07] MEDS ORDERED: GABA-282 PO (12:16)
[2021-08-07 12:20] LABS: BASO % 0.5 % (0.0-1.0); EOS % 0.2 % (0.0-3.0); HEMATOCRIT 41.8 % (42.0-52.0); HEMOGLOBIN 12.8 g/dl (13.5-17.5); LYMPH # 0.7 10^3/uL (1.5-5.0); LYMPH % 11.4 % (24.0-44.0); MEAN CORPUSCULAR HEMOGLOBIN 25.7 pg (27.0-33.0); MEAN CORPUSCULAR HGB CONC 30.6 g/dl (32.0-36.5); MEAN CORPUSCULAR VOLUME 83.8 fl (80.0-96.0); MONO # 0.9 10^3/uL (0.0-0.8); MONO % 13.4 % (2.0-8.0); NEUTROPHILS # 4.8 10^3/uL (1.5-8.5); NEUTROPHILS % 74.2 % (36.0-66.0); PLATELET COUNT, AUTOMATED 151 10^3/uL (150-450); RED BLOOD COUNT 4.99 10^6/uL (4.30-6.10); WHITE BLOOD COUNT 6.5 10^3/uL (4.0-10.0)
[2021-08-07 12:32] LABS: INR 1.07; PROTHROMBIN TIME 14.3 SECONDS (12.7-14.5)
[2021-08-07 12:59] LABS: ALBUMIN 3.4 GM/DL (3.2-5.2); ALT/SGPT 21 U/L (12-78); BILIRUBIN,DIRECT 0.3 MG/DL (0.0-0.2); BILIRUBIN,TOTAL 0.8 MG/DL (0.2-1.0); CK-MB VALUE MASS 1.7 NG/ML (<3.6); CPK CREATINE PHOSPHOKINASE 171 U/L (39-308); MB/CK RELATIVE INDEX 0.99 (< OR =4); NT-PRO BNP 403 PG/ML (<450); THYROXINE (T4) 6.3 UG/DL (4.5-12.0); TOTAL PROTEIN 7.9 GM/DL (6.4-8.2); TROPONIN I < 0.02 NG/ML (< 0.10)
[2021-08-07] MEDS ORDERED: ISOVUE-370 76% 100ML VIAL As Ordered ONE (13:25)
--- NOTE | 2021-08-07 13:55 | REP ---
INDICATION: sob/hypoxia COMPARISON: None. TECHNIQUE: Axial contrast enhanced images from the thoracic inlet to the upper abdomen using pulmonary embolus technique with multiplanar re-formations. 75 ml Isovue 370 intravenous contrast material administered without complication. This CT examination was performed using the following dose reduction techniques: Automated exposure control, adjustment of mA and/or kv according to the patient's size, and use of iterative reconstruction technique. FINDINGS: Satisfactory enhancement of the pulmonary vasculature is achieved and no filling defects are identified to suggest pulmonary embolus. Cardiomegaly is appreciated with evidence for prior sternotomy and CABG. Atherosclerotic changes to the thoracic aorta and coronary arteries noted without aortic aneurysm or dissection. No pericardial effusion. Lung mcadams demonstrate chronic emphysematous and interstitial changes along with prominent pulmonary vasculature raising the possibility of pulmonary vascular congestion. Moderate bibasilar atelectasis is identified. No effusion or pneumothorax. There is a small irregular area of subpleural density at the posterior right apex and active process versus scarring cannot be differentiated. IMPRESSION: 1. No pulmonary embolus. 2. Cardiomegaly and findings to suggest chronic pulmonary vascular congestion. 3. Mild to moderate bibasilar atelectasis. 4. Small area of ill-defined opacity along the posterior right apex. Consider short-term 3 to 6 month follow-up examination to evaluate for stability. <Electronically signed by Macario Bryant > 08/07/21 [id number]
[2021-08-07 13:56] LABS: ABG BASE EXCESS 6.8 (-2.0-2.0); ABG HCO3 35.2 MEQ/L (22.0-26.0); ABG O2 SATURATION 98.9 % (95.0-99.0); ABG PARTIAL PRESSURE O2 156.9 mmHg (75.0-100.0); ABG STANDARD HCO3 30.7 MEQ/L (22.0-26.0); ABG TOTAL CO2 37.4 MEQ/L (23.0-31.0)
[2021-08-07 14:00] LABS: ABG PARTIAL PRESSURE CO2 69.9 mmHg (35.0-45.0)
--- NOTE | 2021-08-07 16:19 | HPEPDOC ---
[facility] Medical History & Physical Date of Admission Aug 07, 2021 Date of Service: Aug 07, 2021 History and Physical CHIEF COMPLAINT: Shortness of breath HISTORY OF PRESENT ILLNESS: 76-year-old male with a past medical history of COPD on 2 L at home, coronary artery disease status post CABG in 2006, diastolic congestive heart failure, presented to the ER complaining of shortness of breath. Presented with shortness of breath and acute hypoxia to 88% requires 3 L of nasal cannula. Patient had a low-grade temperature of 100.3. ABG shows respiratory acidosis with a pH of 7.32 PCO2 69.9 and a PO2 of 157. Patient had an elevated creatinine of 1.4. His BNP is 403. Troponin less than 0.02. Patient was suspected of having acute COPD exacerbation and was given albuterol inhalation as well as 120 mg of IV Solu-Medrol. Of note patient describes a left abdominal rash which he believes is shingles outbreak although the rash is bull's-eye in character. Patient be admitted to hospitalist service for the management of acute hypoxic respiratory failure secondary to acute COPD exacerbation. PAST MEDICAL HISTORY: COPD on 2 L CAD status post CABG in thousand and seven Diastolic congestive heart Candidal esophagitis Upper GI bleed Post-herpetic neuralgia L lateral leg and L lateral foot HLD PAST SURGICAL HISTORY: CABG 03/2007 RIGHT HIP FX WITH PLATE AND SCREW COLONOSCOPY 08/2019 CATARACT RIGHT EYE 07/2020 SOCIAL HISTORY: Patient denies smoking Patient denies etoh use Patient denies illicit drug use FAMILY HX: FATHER: 94 YRS, NO KNOWN MEDICAL PROBLEMS MOTHER: , HYPERTENSION, CARDIAC DISEASE, HEART SURGERY, DIAGNOSED WITH UNSPECIFIED HEART DISEASE 2 BROTHER(S) , 1 SISTER(S) . 1 SON(S) , 2 DAUGHTER(S) . ALLERGIES: Please see below. REVIEW OF SYSTEMS: 10 point ROS conducted, relevant findings are noted in HPI HOME MEDICATIONS: Please see below. PHYSICAL EXAMINATION: VITAL SIGNS: please see below General: NAD, comfortable HEENT: PERRLA, EOMI, sclerae clear. 3L NC. Neck: supple, normal ROM, no JVD Respiratory: lungs CTAB, no wheeze, no rales, no crackles CVS: RRR, normal S1, S2, no murmurs Abdo: soft, no masses, no hepatosplenomegaly, BS+, no rebound tenderness Extremities: no edema, pulses 2+ MSK: no joint deformities, normal ROM Neuro: no focal neuro deficits, moving all 4 extremities, CN2-12 intact. Strength 5/5 in all 4 extremities. No nystagmus. Psych: calm, cooperative, AAO x 3 LABORATORY DATA: See below. IMAGING: CTA chest (08/07/21): IMPRESSION: 1. No pulmonary embolus. 2. Cardiomegaly and findings to suggest chronic pulmonary vascular congestion. 3. Mild to moderate bibasilar atelectasis. 4. Small area of ill-defined opacity along the posterior right apex. Consider short-term 3 to 6 month follow-up examination to evaluate for stability. CXR (08/07/21): IMPRESSION: Chronic appearing changes although subtle superimposed process cannot be excluded. No effusion. MICROBIOLOGY: Please see below. ASSESSMENT: : 76-year-old male with a past medical history of COPD on 2 L at home, coronary artery disease status post CABG in 2006, diastolic congestive heart failure, presented to the ER complaining of shortness of breath. Patient was diagnosed with acute hypoxic respiratory failure likely secondary to COPD. Patient also complaining of a left-sided abdominal rash extending down to his left thigh questionable shingles versus Lyme disease. Patient was started empiric doxycycline continues valacyclovir. PLAN: Acute Hypoxic Respiratory Failure likely 2/2 COPD exacerbation: ABG showing respiratory acidosis. Maintaining 93% on 3L NS. S/p solumedrol 125 mg IV, albuterol inh in ER. Admit to M/S floor. C/w solumedrol 80 mg IV TID. Duonebs. Resume home inh. Empiric treatment with ceftriaxone and doxycycline given feat ures of pneumonitis on CT angio. R posterior apical nodue: repeat CT imaging in 3-6 months. D/w Dr. Leal, who reviewed CTA. Agrees. CAD s/p CABG 2006: c/w ASA, statin. Needs cardiology follow up. Hx of HFpEF: euvolemic. BNP 400. Abdominal Bulls Eye rash: states has been outdoors of late, possible tic bite. Rash is bulls eye in shape. ER sent labs for lyme serology. Will start empiric doxycycline. Sent tic borne panel Dispo: admission expect to last > 2 midnights Vital Signs Vital Signs Date Time Temp Pulse Resp B/P (MAP) Pulse Ox O2 Delivery O2 Flow Rate FiO2 10/17/21 16:12 94 4.0 08/07/21 16:08 135/87 (103) 08/07/21 16:02 84 08/07/21 12:17 Nasal Cannula 08/07/21 08:48 100.3 18 Laboratory Data Labs 24H Laboratory Tests 2 08/07/21 11:44: Immature Granulocyte % (Auto) 0.3, Neutrophils (%) (Auto) 74.2H, Lymphocytes (%) (Auto) 11.4L, Monocytes (%) (Auto) 13.4H, Eosinophils (%) (Auto) 0.2, Basophils (%) (Auto) 0.5, Neutrophils # (Auto) 4.8, Lymphocytes # (Auto) 0.7L, Monocytes # (Auto) 0.9H, Eosinophils # (Auto) 0.0, Basophils # (Auto) 0.0, Nucleated Red Blood Cells % (auto) 0.0, Prothrombin Time 14.3H, Prothromb Time International Ratio 1.07, Lactic Acid Level 1.3, Total Bilirubin 0.8, Direct Bilirubin 0.3H, Aspartate Amino Transf (AST/SGOT) 24, Alanine Aminotransferase (ALT/SGPT) 21, Alkaline Phosphatase 70, Total Creatine Kinase 171, Creatine Kinase MB 1.7, Creatine Kinase MB Relative Index 0.99, Troponin I < 0.02, LE-Mgy-S-Type Natriuretic Peptide 403, Total Protein 7.9, Albumin 3.4, Albumin/Globulin Ratio 0.8, Thyroid Stimulating Hormone (TSH) 1.110, Thyroxine (T4) 6.3 08/07/21 11:56: 08/07/21 12:09: POC Glucose (Misc Panel) 115H, POC Sodium (Misc Panel) 137, POC Potassium (Misc Panel) 4.1, POC Chloride (Misc Panel) 92L, POC Total CO2 (Misc Panel) 34.0H, POC Blood Urea Nitrogen (Misc Panel 22, POC Ionized Calcium (Misc Panel) 4.7, POC Creatinine (Misc Panel) 1.4H, POC Hematocrit (Misc Panel) 44.0 08/07/21 12:10: POC Troponin I (Misc) 0.00 08/07/21 13:46: Blood Gas Bicarbonate Standard 30.7H, Arterial Blood pH 7.320L, Arterial Blood Partial Pressure CO2 69.9*H, Arterial Blood Partial Pressure O2 156.9H, Arterial Blood Total CO2 37.4H, Arterial Blood HCO3 35.2H, Arterial Blood Base Excess 6.8H, Arterial Blood Oxygen Saturation 98.9 CBC/BMP Laboratory Tests 08/07/21 11:44 Microbiology Microbiology 08/07/21 Blood Culture, Received Pending 08/07/21 Blood Culture, Received Pending 08/07/21 Respiratory Virus Panel (PCR) (TUAN) - Final, Complete Home Medications Scheduled Aspirin (Aspirin EC) 81 Mg Tabec, 81 MG PO DAILY Atorvastatin Calcium (Atorvastatin Calcium) 80 Mg Tab, 80 MG PO QHS Fluticasone Propionate (Flovent Hfa) 220 Mcg/Act Aer, 2 PUFF INH BID Furosemide (Furosemide) 40 Mg Tablet, 1 TAB PO DAILY Gabapentin (Gabapentin) 300 Mg Capsule, PO TID Metoprolol Succinate (Metoprolol Succinate) 25 Mg Tab, 12.5 MG PO BID Multivitamins (Thera M Plus Tablet) 1 Tab Tab, 1 TAB PO DAILY Pantoprazole Sodium (Pantoprazole Sodium) 40 Mg Tab, 40 MG PO BID Umeclidinium [place] (Incruse Ellipta) 62.5 Mcg/Inh Inh, 62.5 MCG INH DAILY Valacyclovir HCl (Valacyclovir) 1,000 Mg Tablet, 1 GRAM PO TID Scheduled PRN Acetaminophen (Acetaminophen) 500 Mg Tab, 500 MG PO Q4H PRN for PAIN Albuterol Sulfate (Ventolin Hfa) 108 Mcg/Act Aer, 2 PUFFS INH QID PRN for SHORTNESS OF BREATH Ipratropium/Albuterol Sulfate (Iprat-Albut 0.5-3(2.5) mg/3 ml) 1 Butch Butch, 1 BUTCH INH Q6H PRN for SHORTNESS OF BREATH Allergies Coded Allergies: No Known Allergies (Unverified , 01/15/19) A-FIB/CHADSVASC A-FIB History Current/History of A-Fib/PAF?: No Current PO Anticoag Therapy: No DAMARIS RESTREPO MD Aug 07, 2021 16:19
--- OUTSIDE RECORDS SUMMARY | 2021-08-07 16:25 | CCD ---
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 Care Director Of Critical Care Name Role Phone Macsherry, Zehra SUPERVISOR STENO POOL Unavailable Unavailable Macsherry, Zehra SUPERVISOR STENO POOL Unavailable Unavailable Macsherry, Zehra SUPERVISOR STENO POOL Unavailable Unavailable Macsherry, Zehra SUPERVISOR STENO POOL Unavailable Unavailable Macsherry, Zehra SUPERVISOR STENO POOL Unavailable Unavailable Macsherry, Zehra SUPERVISOR STENO POOL Unavailable Unavailable Macsherry, Zehra SUPERVISOR STENO POOL Unavailable Unavailable Macsherry, Zehra SUPERVISOR STENO POOL Unavailable Unavailable Macsherry, Zehra SUPERVISOR STENO POOL Unavailable Unavailable Macsherry, Zehra SUPERVISOR STENO POOL Unavailable Unavailable Macsherry, Zehra SUPERVISOR STENO POOL Unavailable Unavailable Macsherry, Zehra SUPERVISOR STENO POOL Unavailable Unavailable Macsherry, Zehra SUPERVISOR STENO POOL Unavailable Unavailable Macsherry, Zehra SUPERVISOR STENO POOL Unavailable Unavailable Macsherry, Zehra SUPERVISOR STENO POOL Unavailable Unavailable Macsherry, Zehra SUPERVISOR STENO POOL Unavailable Unavailable Macsherry, Zehra SUPERVISOR STENO POOL Unavailable Unavailable Macsherry, Zehra SUPERVISOR STENO POOL Unavailable Unavailable Macsherry, Zehra SUPERVISOR STENO POOL Unavailable Unavailable Macsherry, Zehra SUPERVISOR STENO POOL Unavailable Unavailable Macsherry, Zehra SUPERVISOR STENO POOL Unavailable Unavailable Macsherry, Zehra SUPERVISOR STENO POOL Unavailable Unavailable Macsherry, Zehra SUPERVISOR STENO POOL Unavailable Unavailable Macsherry, Zehra SUPERVISOR STENO POOL Unavailable Unavailable Macsherry, Zehra SUPERVISOR STENO POOL Unavailable Unavailable Symenow, Soraya Shawna PA Unavailable [...] is protected by Article 27-F of the [facility] Public Health law. If you continue you may have access to information: Regarding HIV / AIDS; Provided by facilities licensed or operated by the [facility] Office of Mental Health; or Provided by the [facility] Office for People With Developmental Disabilities. If such information is present, then the following [facility] mandated warning applies: This information has been [...] law may result in a fine or long term sentence or both. A general authorization for the release of medical or other information is NOT sufficient authorization for further disc losure. Allergies and Adverse Reactions Type Description Substance Reaction Status Data Source(s ) No Known Drug Allergies No Known Drug Allergies [facility] No Known Food Allergies No Known Food Allergies [facility] No Known Allergies No Known Allergies [facility] Family History Family Member Name Family Member Gender Family Member Status Date o f Status Description Data Source(s) Unknown Unknown Problem MEDENT ([facility]) Unknown Unknown Problem [facility]) Unknown Male Problem MEDENT ([facility]) Unknown Male Problem [facility] ([facility] () Encounters Encounter Providers Location Date Indications Data Source(s ) Outpatient Attender: Shawna LINK Main Office 07/05/2021 12:30:00 PM EDT MEDENT ([facility]) [place] [address] [facility] [place] [address] 06/30/2021 12:00:00 AM EDT eCW1 ([facility]) Outpatient Attender: Hemalatha LINK Main office - [facility] n 06/21/2021 10:30:00 AM EDT MEDENT ([facility]) Outpatient Attender: Anton George/Tarun/Sukh/R eindl 06/07/2021 02:30:00 PM EDT MEDENT ([facility] Outpatient Attender: Hemalatha LINK Main office - [facility] n 04/13/2021 09:30:00 AM EDT MEDENT ([facility]) Unknown [address] [facility] [place] [address] 04/08/2021 12:00:00 AM EDT eCW1 ([facility]) Unknown [address] [facility] [address] 03/24/2021 12:00:00 AM EDT eCW1 ([facility]) Outpatient Attender: Shawna LINK Main Office 03/22/2021 12:30:00 PM EDT MEDENT ([facility]) [place] [address] [facility] [address] 03/15/2021 12:00:00 AM EDT eCW1 ([facility]) Unknown [address] [facility] [address] 03/02/2021 12:00:00 AM EDT eCW1 ([facility]) Outpatient [address] [facility] [address] 02/23/2021 12:00:00 AM EDT eCW1 ([facility]) Outpatient Attender: MAGDIEL RIVAS MD Main office - [facility] n 02/22/2021 01:30:00 PM EDT MEDENT ([facility]) Unknown [address] [facility] [address] 02/10/2021 12:00:00 AM EDT eCW1 ([facility]) Outpatient Attender: Anton George/Tarun/Sukh/R eindl 02/01/2021 11:15:00 AM EDT MED[facility] ([facility] [place] [address] [facility] [address] 01/31/2021 12:00:00 AM EDT eCW1 ([facility]) Unknown [address] [facility] [address] 01/14/2021 12:00:00 AM EDT eCW1 ([facility]) Outpatient Attender: Shawna LINK Main Office 12/15/2020 10:15:00 AM EST MEDENT ([facility]) Unknown [address] [facility] [address] 10/25/2020 12:00:00 AM EST eCW1 ([facility]) Unknown [address] [facility] [address] 10/08/2020 12:00:00 AM EST eCW1 ([facility]) [place] [address] [facility] [place] [address] 10/08/2020 12:00:00 AM EST eCW1 ([facility]) Unknown [address] [facility] [address] 09/27/2020 12:00:00 AM EST eCW1 ([facility]) Outpatient Attender: Hortencia Logan MDConsultant: Zehra Salmon NP 09/20/2020 10:15:00 AM EST - 09/20/2020 12:47:00 PM EST [facility] Patient discharged. Outpatient [address] [facility] [address] 09/14/2020 12:00:00 AM EST eCW1 ([facility]) Unknown [address] [facility] [address] 09/06/2020 12:00:00 AM EST eCW1 ([facility]) Unknown [address] [facility] [address] 09/03/2020 12:00:00 AM EST eCW1 ([facility]) Outpatient Attender: Hortencia Logan MDConsultant: Zehra Salmon NP 08/23/2020 07:15:00 AM EST - 08/23/2020 09:28:00 AM EST [facility] Patient discharged. Unknown [address] [facility] [address] 08/19/2020 12:00:00 AM EDT eCW1 ([facility]) Unknown [address] [facility] [address] 08/19/2020 12:00:00 AM EDT eCW1 ([facility]) Outpatient Attender: Hortencia Logan MDConsultant: Zehra Salmon NP 08/18/2020 04:31:08 PM EDT - 08/19/2020 11:00:00 AM EDT [facility] Patient discharged. Outpatient Attender: Shawna LINK Main Office 08/17/2020 12:30:00 PM EDT LUZ ([facility]) Outpatient [address] [facility] [address] 08/09/2020 12:00:00 AM EDT eCW1 ([facility]) Immunizations Vaccine Date Status Description Data Source(s) COVID-19 VACCINE Moderna 03/04/2021 12:00:00 AM EDT completed NYSIIS Vaccine Series Complete: YESThis Data wa s Submitted to [facility] Via Jalbum. COVID-19 VACCINE Moderna 02/04/2021 12:00:00 AM EDT completed NYSIIS Vaccine Series Complete: NOThis Data was Submitted to [facility] Via Jalbum. influenza, recombinant, quadrIvalent,injectable, prese rvative free 08/09/2020 11:07:00 AM EDT completed [facility] influenza, recombinant, quadrIvalent,injectable, prese rvative free 08/09/2020 11:07:00 AM EDT completed eCW1 ([facility]) influenza, recombinant, quadrIvalent,injectable, prese rvative free 08/09/2020 11:07:00 AM EDT completed eCW1 ([facility]) influenza, recombinant, quadrIvalent,injectable, prese rvative free 08/09/2020 11:07:00 AM EDT completed eCW1 ([facility]) influenza, recombinant, quadrIvalent,injectable, prese rvative free 08/09/2020 11:07:00 AM EDT completed eCW1 ([facility]) influenza, recombinant, quadrIvalent,injectable, prese rvative free 08/09/2020 11:07:00 AM EDT completed eCW1 ([facility]) influenza, recombinant, quadrIvalent,injectable, prese rvative free 08/09/2020 11:07:00 AM EDT completed eCW1 ([facility]) influenza, recombinant, quadrIvalent,injectable, prese rvative free 08/09/2020 11:07:00 AM EDT completed eCW1 ([facility] hospital) influenza, recombinant, quadrIvalent,injectable, prese rvative free 08/09/2020 11:07:00 AM EDT completed eCW1 ([facility] hospital) influenza, recombinant, quadrIvalent,injectable, prese rvative free 08/09/2020 11:07:00 AM EDT completed eCW1 ([facility] hospital) influenza, recombinant, quadrIvalent,injectable, prese rvative free 08/09/2020 11:07:00 AM EDT completed eCW1 ([facility] hospital) influenza, recombinant, quadrIvalent,injectable, prese rvative free 08/09/2020 11:07:00 AM EDT completed eCW1 ([facility] hospital) influenza, recombinant, quadrIvalent,injectable, prese rvative free 08/09/2020 11:07:00 AM EDT completed eCW1 ([facility] hospital) influenza, recombinant, quadrIvalent,injectable, prese rvative free 08/09/2020 11:07:00 AM EDT completed eCW1 ([facility] hospital) influenza, recombinant, quadrIvalent,injectable, prese rvative free 08/09/2020 11:07:00 AM EDT completed eCW1 ([facility] hospital) influenza, recombinant, quadrIvalent,injectable, prese rvative free 08/09/2020 11:07:00 AM EDT completed eCW1 ([facility] hospital) influenza, recombinant, quadrIvalent,injectable, prese rvative free 08/09/2020 11:07:00 AM EDT completed eCW1 (Critical access hospital) influenza, recombinant, quadrIvalent,injectable, prese rvative free 08/09/2020 11:07:00 AM EDT completed eCW1 (Critical access hospital) influenza, recombinant, quadrIvalent,injectable, prese rvative free 08/09/2020 11:07:00 AM EDT completed eCW1 (Critical [facility] hospital) Medications Medication Brand Name Start Date Product Form Dose Route Admi nistrative Instructions Pharmacy Instructions Status Indications Reaction Description Data Source(s) Prednisone 10 MG Oral Tablet Prednisone 06/07/2021 12:00:00 AM EDT ORAL active MEDENT ([facility] ) Albuterol 0.83 MG/ML Inhalant Solution Albuterol Sulfate 0 03/21/2021 12:00:00 AM EDT completed MEDENT ([facility]) Lidocaine 50 MG/ML Rectal Cream Lidocaine 03/21/2021 12:00:00 AM EDT completed [facility]ENT ([facility]) Lidocaine 50 MG/ML Topical Cream Lidocaine 5 % Lidocaine 5 % 08/19/2020 12:00:00 AM EDT active Lidocaine 5 % eCW 1 ([facility]) Lidocaine 50 MG/ML Topical Cream Lidocaine 5 % Lidocaine 5 % 08/19/2020 12:00:00 AM EDT active Lidocaine 5 % eCW 1 ([facility]) Lidocaine 50 MG/ML Topical Cream Lidocaine 5 % Lidocaine 5 % 08/19/2020 12:00:00 AM EDT active Lidocaine 5 % eCW 1 ([facility]) Lidocaine 50 MG/ML Topical Cream Lidocaine 5 % Lidocaine 5 % 08/19/2020 12:00:00 AM EDT active Lidocaine 5 % eCW 1 ([facility]) Lidocaine 50 MG/ML Topical Cream Lidocaine 5 % Lidocaine 5 % 08/19/2020 12:00:00 AM EDT active Lidocaine 5 % eCW 1 ([facility]) Lidocaine 50 MG/ML Topical Cream Lidocaine 5 % Lidocaine 5 % 08/19/2020 12:00:00 AM EDT active Lidocaine 5 % eCW 1 ([facility]) Lidocaine 50 MG/ML Topical Cream Lidocaine 5 % Lidocaine 5 % 08/19/2020 12:00:00 AM EDT active Lidocaine 5 % eCW 1 ([facility]) Lidocaine 50 MG/ML Topical Cream Lidocaine 5 % Lidocaine 5 % 08/19/2020 12:00:00 AM EDT active Lidocaine 5 % eCW 1 ([facility]) Lidocaine 50 MG/ML Topical Cream Lidocaine 5 % Lidocaine 5 % 08/19/2020 12:00:00 AM EDT active Lidocaine 5 % eCW 1 ([facility]) Lidocaine 50 MG/ML Topical Cream Lidocaine 5 % Lidocaine 5 % 08/19/2020 12:00:00 AM EDT active Lidocaine 5 % eCW 1 ([facility]) gabapentin 300 MG Oral Capsule Gabapentin 08/16/2020 12:00:00 AM EDT ORAL active MEDENT ([facility]) 24 HR metoprolol succinate 25 MG Extended Release Oral Tablet Metoprolol Succinate ER 08/16/2020 12:00:00 AM EDT ORAL active MEDENT ([facility]) gabapentin 300 MG Oral Capsule Gabapentin 300 MG Gabapentin 300 MG 08/09/2020 12:00:00 AM EDT active Gabapent in 300 MG eCW1 ([facility]) gabapentin 300 MG Oral Capsule Gabapentin 300 MG Gabapentin 300 MG 08/09/2020 12:00:00 AM EDT active Gabapent in 300 MG eCW1 ([facility]) gabapentin 300 MG Oral Capsule Gabapentin 300 MG Gabapentin 300 MG 08/09/2020 12:00:00 AM EDT active Gabapent in 300 MG eCW1 ([facility]) gabapentin 300 MG Oral Capsule Gabapentin 300 MG Gabapentin 300 MG 08/09/2020 12:00:00 AM EDT active Gabapent in 300 MG eCW1 ([facility]) gabapentin 300 MG Oral Capsule Gabapentin 300 MG Gabapentin 300 MG 08/09/2020 12:00:00 AM EDT active Gabapent in 300 MG eCW1 ([facility]) gabapentin 300 MG Oral Capsule Gabapentin 300 MG Gabapentin 300 MG 08/09/2020 12:00:00 AM EDT active Gabapent in 300 MG eCW1 ([facility]) gabapentin 300 MG Oral Capsule Gabapentin 300 MG Gabapentin 300 MG 08/09/2020 12:00:00 AM EDT active Gabapent in 300 MG eCW1 ([facility]) gabapentin 300 MG Oral Capsule Gabapentin 300 MG Gabapentin 300 MG 08/09/2020 12:00:00 AM EDT active Gabapent in 300 MG eCW1 ([facility]) gabapentin 300 MG Oral Capsule Gabapentin 300 MG Gabapentin 300 MG 08/09/2020 12:00:00 AM EDT active Gabapent in 300 MG eCW1 ([facility]) gabapentin 300 MG Oral Capsule Gabapentin 300 MG Gabapentin 300 MG 08/09/2020 12:00:00 AM EDT active Gabapent in 300 MG eCW1 ([facility]) gabapentin 300 MG Oral Capsule Gabapentin 300 MG Gabapentin 300 MG 08/09/2020 12:00:00 AM EDT active Gabapent in 300 MG eCW1 ([facility]) gabapentin 300 MG Oral Capsule Gabapentin 300 MG Gabapentin 300 MG 08/09/2020 12:00:00 AM EDT active Gabapent in 300 MG eCW1 ([facility]) gabapentin 300 MG Oral Capsule Gabapentin 300 MG Gabapentin 300 MG 08/09/2020 12:00:00 AM EDT active Gabapent in 300 MG eCW1 ([facility]) gabapentin 300 MG Oral Capsule Gabapentin 300 MG Gabapentin 300 MG 08/09/2020 12:00:00 AM EDT active Gabapent in 300 MG eCW1 ([facility]) gabapentin 300 MG Oral Capsule Gabapentin 300 MG Gabapentin 300 MG 08/09/2020 12:00:00 AM EDT active Gabapent in 300 MG eCW1 ([facility]) gabapentin 300 MG Oral Capsule Gabapentin 300 MG Gabapentin 300 MG 08/09/2020 12:00:00 AM EDT active Gabapent in 300 MG eCW1 ([facility]) gabapentin 300 MG Oral Capsule Gabapentin 300 MG Gabapentin 300 MG 08/09/2020 12:00:00 AM EDT active Gabapent in 300 MG eCW1 ([facility]) gabapentin 300 MG Oral Capsule Gabapentin 300 MG Gabapentin 300 MG 08/09/2020 12:00:00 AM EDT active Gabapent in 300 MG eCW1 ([facility]) gabapentin 300 MG Oral Capsule Gabapentin 300 MG Gabapentin 300 MG 08/09/2020 12:00:00 AM EDT active Gabapent in 300 MG eCW1 ([facility]) Insurance Providers Payer name Policy type / Coverage type Policy ID Covered alliance party ID Covered alliance party's relationship to dupont Policy [place] Plan Information [place] Medigap Part B [id number] [id number] Self D [id number] [facility] Health Maintenance Organization (HMO) [id number] Self [id number] BS [place] Medigap Part B [id number] 2.0.1.416995.3.227.99.991.29000.0 Self D [id number] [facility] [place] PPO 302/[id number] SP [id number] Medicare (Part B) Medicare Primary [id number] 2.0.1.509585.3.227.99.572.79793.0 Self 0 [id number] Medicare (Part B) Medicare Primary [id number] 2.0.1.433766.3.227.99.572.86838.0 Self [id number] [employer] Ppo Medigap Part B [id number] Self [id number] Medicare (Part B) Medicare Primary [id number] Self [id number] Medicare [facility] Medicare Primary [id number] 2.16840.1.760121.3.227.99.8646.6200.0 Self 0 [id number] Medicare (Part B) Medicare Primary [id number] 2.16840.1.776028.3.227.99.572.72697.0 Self 0 [id number] [employer] Ppo Medigap Part B [id number] 2.16.840.1.119079.3.227.99.572.67180.0 Self D [id number] Medicare (Part B) Medicare Primary [id number] 2.16.840.1.933170.3.227.99.572.86311.0 Self [id number] [employer] Ppo Medigap Part B [id number] 2.16.840.1.923535.3.227.99.572.52465.0 Self D [id number] [employer] Ppo Medigap Part B [id number] 2.16.840.1.539973.3.227.99.572.28243.0 Self D [id number] [employer] Ppo Medigap Part B [id number] 2.16.840.1.172121.3.227.99.572.00364.0 Self D [id number] Medicare (Part B) Medicare Primary [id number] 2.16.840.1.551568.3.227.99.572.79877.0 Self 0 [id number] Blue [employer]erred Ppo Medigap Part B [id number] 2.16.840.1.773293.3.227.99.572.81838.0 Self D [id number] Medicare (Part B) Medicare Primary [id number] 2.16.840.1.767880.3.227.99.572.97844.0 Self 0 [id number] Blue Preferred Ppo Medigap Part B [id number] 2.16.840.1.110683.3.227.99.572.41080.0 Self D [id number] Medicare (Part B) Medicare Primary [id number] 2.16.840.1.380547.3.227.99.572.18959.0 Self 0 [id number] Blue Preferred Ppo Medigap Part B [id number] 2.16.840.1.229925.3.227.99.572.59508.0 Self D [id number] Medicare (Part B) Medicare Primary [id number] 2.16.840.1.834732.3.227.99.572.58026.0 Self 0 [id number] Blue Preferred Ppo Medigap Part B [id number] 2.16.840.1.707802.3.227.99.572.89599.0 Self D [id number] Medicare (Part B) Medicare Primary [id number] 2.16.840.1.963333.3.227.99.572.83465.0 Self 0 [id number] Blue Preferred Ppo Medigap Part B [id number] 2.16.840.1.546340.3.227.99.572.85803.0 Self D [id number] Medicare (Part B) Medicare Primary [id number] 2.16.840.1.345180.3.227.99.572.37191.0 Self 0 [id number] Blue Preferred Ppo Medigap Part B [id number] 2.16.840.1.773228.3.227.99.572.63446.0 Self D [id number] Medicare (Part B) Medicare Primary [id number] Self Blue Preferred Ppo Medigap Part B [id number] Self Medicare Medicare Primary [id number] Self [place] Primary [id number] 2.16.840.1.939537.3.227.99.8646.6200.0 Self 0 [id number] Blue Preferred Ppo Medigap Part B [id number] 2.16.840.1.934049.3.227.99.572.20704.0 Self D [id number] [employer] Ppo Medigap Part B [id number] 2.16.840.1.979538.3.227.99.572.30261.0 Self D [id number] Medicare (Part B) Medicare Primary [id number] 2.16.840.1.462197.3.227.99.572.49262.0 Self 0 [id number] Medicare (Part B) Medicare Primary [id number] 2.16.840.1.875784.3.227.99.572.19722.0 Self 0 [id number] [place] Medicare Primary [id number] Self [id number] Blue Preferred Ppo Medigap Part B [id number] 2.16.840.1.200129.3.227.99.572.18840.0 Self D [id number] Blue Preferred Ppo Medigap Part B [id number] 2.16.840.1.485711.3.227.99.572.84168.0 Self D [id number] Medicare (Part B) Medicare Primary [id number] 2.16.840.1.609408.3.227.99.572.93778.0 Self 0 [id number] Medicare - [place] Medicare Primary [id number] 2.16.840.1.657921.3.227.99.177.37975.0 Self 0 [id number] Medicare - [place] Medicare Primary [id number] 2.16.840.1.976953.3.227.99.177.75766.0 Self 0 [id number] Blue Preferred Ppo Medigap Part B [id number] 2.16.840.1.083388.3.227.99.572.29237.0 Self D [id number] Medicare (Part B) Medicare Primary [id number] 2.16.840.1.636465.3.227.99.572.90114.0 Self 0 [id number] Blue Preferred Ppo Medigap Part B [id number] 2.16.840.1.059581.3.227.99.572.49973.0 Self D [id number] Medicare (Part B) Medicare Primary [id number] 2.16.840.1.342145.3.227.99.572.92416.0 Self 0 [id number] Medicare (Part B) Medicare Primary [id number] 2.16.840.1.025125.3.227.99.572.70444.0 Self 0 [id number] MVP [employer] [facility] Commercial [id number] 2.160.1.334183.3.227.99.572.95982.0 Self [id number] MVP [employer] [facility] Commercial [id number] Self MVP [employer] [facility] Commercial [id number] 2.16.840.1.497005.3.227.99.572.79902.0 Self [id number] MVP [employer] [facility] [employer] [id number] 2.160.1.327683.3.227.99.572.68877.0 Self [id number] MVP [employer] [facility] [employer] [id number] 2.0.1.206237.3.227.99.572.90839.0 Self [id number] MVP [employer] [facility] [employer] [id number] 2.0.1.958750.3.227.99.572.38962.0 Self [id number] MVP [employer] [facility] [employer] [id number] Self [id number] MVP [employer] [facility] [employer] [id number] 2.0.1.439691.3.227.99.572.27208.0 Self [id number] MVP [employer] [facility] [employer] [id number] 2.0.1.983763.3.227.99.572.20189.0 Self [id number] MVP [employer] [facility] [employer] [id number] 2.0.1.657177.3.227.99.572.64157.0 Self [id number] MVP [employer] [facility] [employer] [id number] 2.160.1.639674.3.227.99.572.04815.0 Self [id number] MVP [employer] [facility] [employer] [id number] 2.0.1.171441.3.227.99.572.22266.0 Self [id number] MVP [employer] [facility] Commercial [id number] 2.16.840.1.343073.3.227.99.572.53915.0 Self [id number] MVP [employer] [facility] Commercial [id number] 2.16.840.1.841722.3.227.99.572.90994.0 Self [id number] MVP [employer] [facility] Commercial [id number] 2.16.840.1.409863.3.227.99.572.39564.0 Self [id number] MVP [employer] [facility] Commercial [id number] 2.0.1.580366.3.227.99.572.02142.0 Self [id number] MVP [employer] [facility] Commercial [id number] 2.0.1.487779.3.227.99.572.76676.0 Self [id number] MVP [employer] [facility] Commercial [id number] 2.0.1.673260.3.227.99.572.07490.0 Self 8 [id number] MVP Medicare Commercial [id number] 2.0.1.539537.3.227.99.991.85 495.0 Self [id number] MVP Gold Commercial [id number] 2.0.1.734425.3.227.99.8646.6200. 0 Self [id number] MVP Gold Commercial [id number] Self [id number] MVP Medicare Commercial [id number] 2.0.1.488409.3.227.99.177.19 129.0 Self [id number] MVP Medicare Commercial [id number] 2.0.1.191334.3.227.99.177.19 129.0 Self [id number] MVP Gold Commercial [id number] 2.160.1.764059.3.227.99.8646.6200. [address] [facility] [id number] ANSI-Health Maintenance Organization ( O) [id number] MVP GOLD [id number] SP [id number] [facility] MVP MCR ADV - OP [id number] 18 [id number] MVP MCR O [id number] SP [id number] MVP MCR O [id number] SP [id number] [facility] O [id number] S [id number] ANSI-Commercial [id number] ANSI-Medicare Part B [id number] ANSI-Health Maintenance Organization ( O) [id number] ANSI-Commercial [id number] ANSI-Health Maintenance Organization ( O) [id number] ANSI-Medicare Part B [id number] ANSI-Medicare Part B [id number] ANSI-Commercial [id number] [facility]-Health Maintenance Organization ( O) [id number] ANSI-Commercial [id number] [facility]-Health Maintenance Organization ( O) [id number] ANSI-Medicare Part B [id number] ANSI-Medicare Part B [id number] ANSI-Commercial [id number] [facility]-Health Maintenance Organization ( O) [id number] MEDICARE [id number] SP [id number] ANSI-Commercial [id number] ANSI-Medicare Part B [id number] ANSI-Health Maintenance Organization ( O) [id number] ANSI-Commercial [id number] ANSI-Health Maintenance Organization ( O) [id number] ANSI-Medicare Part B [id number] ANSI-Medicare Part B [id number] ANSI-Health Maintenance Organization ( O) [id number] ANSI-Commercial [id number] ANSI-Health Maintenance Organization ( O) [id number] ANSI-Medicare Part B [id number] ANSI-Commercial [id number] ANSI-Medicare Part B [id number] ANSI-Commercial [id number] ANSI-Health Maintenance Organization ( O) [id number] ANSI-Commercial [id number] ANSI-Medicare Part B [id number] [facility] ( O) [id number] ANSI-Health Maintenance Organization ( O) [id number] ANSI-Commercial [id number] ANSI-Medicare Part B [id number] ANSI-Commercial [id number] ANSI-Medicare Part B [id number] ANSI-Health Maintenance Organization ( O) [id number] ANSI-Medicare Part B [id number] ANS-Health Maintenance Organization ( O) [id number] ANSI-Commercial [id number] ANSI-Medicare Part B [id number] [facility]-Health Maintenance Organization ( O) [id number] ANSI-Commercial [id number] ANS-Health Maintenance Organization ( O) [id number] [facility]-Commercial [id number] ANSI-Medicare Part B [id number] ANS-Commercial [id number] ANSI-Medicare Part B [id number] MVP GOLD [id number] SP [id number] MVP Gold (Medicare) [facility] Part B [id number] Self 8 [id number] MEDICARE C [id number] S [id number] A MEDICARE [id number] SP [id number] A [facility] O [id number] S [id number] [place] P[place] 302/307 [id number] SP [id number] [employer] [place] 306/806 [id number] SP [id number] [employer] [place] 306/8 S [id number] S [id number] A Problems, Conditions, and Diagnoses Code Display Name Description Problem Type Effective Dates Data Source(s) H2512 Age-related nuclear cataract, left eye A ge-related nuclear cataract, left eye Diagnosis 09/20/2020 10:15:00 AM [facility] H2511 Age-related nuclear cataract, right eye Age-related nuclear cataract, right eye Diagnosis 08/23/2020 07:15:00 AM [facility] [id number] Encounter for other preprocedural examin ation Encounter for other preprocedural examination Diagnosis 08/19/2020 10:40:00 AM EDT [facility] G57.92 [id number] Neuropathy of left lower extremity Proble m 01/31/2021 12:00:00 AM EDT eCW1 ([facility]) K21.9 Gastroesophageal reflux disease Gastroes ophageal reflux disease, unspecified whether esophagitis present Problem 01/31/2021 12:00:00 AM EDT eCW1 ([facility]) B02.29 [id number] Post herpetic neuralgia Problem 08/09/2020 1 2:00:00 AM EDT eCW1 ([facility]) H26.9 [id number] Cataract of both eyes, unspecified catara ct type Problem 08/09/2020 12:00:00 AM EDT eCW1 ([facility]) Surgeries/Procedures Procedure Description Date Indications Data Source(s) OFFICE OUTPATIENT VISIT 15 MINUTES 07/05/2021 12:00:00 AM EDT [facility] ([facility]) OFFICE OUTPATIENT VISIT 25 MINUTES 06/21/2021 12:00:00 AM EDT [facility] ([facility], ) OFFICE OUTPATIENT VISIT 25 MINUTES 06/07/2021 12:00:00 AM EDT [facility] ([facility], ) OFFICE OUTPATIENT VISIT 25 MINUTES 04/13/2021 12:00:00 AM EDT [facility] ([facility], ) ECG ROUTINE ECG W/LEAST 12 LDS W/I&R 03/22/2021 12:00: 00 AM EDT [facility] ([facility]) OFFICE OUTPATIENT VISIT 25 MINUTES 03/22/2021 12:00:00 AM EDT [facility] ([facility]) Needle electromyography, each extremity, with related paraspinal areas, when performed, done with nerve conduction, amplitude and latency/velocity study; complete, five or more muscles studied, innervated by three or more nerves or four or more spinal levels (list separately in addition to the code for primary procedure). 03/22/2021 12:00:00 AM EDT [facility] T ([facility], ) Needle electromyography, each extremity, with related paraspinal areas, when performed, done with nerve conduction, amplitude and latency/velocity study; complete, five or more muscles studied, innervated by three or more nerves or four or more spinal levels (list separately in addition to the code for primary procedure). 03/22/2021 12:00:00 AM EDT [facility] T ([facility], ) 91243 Nerve conduction studies 13 or more studies NEW 201203/22/2021 12:00:00 AM EDT [facility] ([facility], ) NON-INVASIVE PHYSIOLOGIC STUDY EXTREMITY 3 LEVLS 02/25 12:00:00 AM EDT [facility] ([facility], ) NON-INVASIVE PHYSIOLOGIC STUDY EXTREMITY 3 LEVLS 02/25 12:00:00 AM EDT [facility] TSTG ANS FUNCJ CARDIOVAGAL INNERVAJ PARASYMP 12:00:00 AM EDT [facility] TESTING AUTONOMIC NERVOUS SYSTEM FUNCTION 02/25/2021 1 2:00:00 AM EDT [facility] ([facility], ) OFFICE OUTPATIENT NEW 45 MINUTES 02/22/2021 12:00:00 A M EDT [facility] ([facility], ) OFFICE OUTPATIENT VISIT 25 MINUTES 02/01/2021 12:00:00 AM EDT [facility] ([facility], ) ECG ROUTINE ECG W/LEAST 12 LDS W/I&R 08/17/2020 12:00: 00 AM EDT [facility] ([facility]) Immunization: Flublok Quadrivalent (18 years & older) 0.5mL IM (Influenza) 08/09/2020 12:00:00 AM EDT eCW1 ([facility]) Results ID Date Data Source [id number] 06/30/2021 07:30:00 AM EDT [facility] ([facility]) Name Value Range Interpretation Code Description Data Britatny rce(s) Supporting Document(s) Glucose, Fasting 97 mg/dL 70-100 [facility] Blood Urea Nitrogen 23 mg/dL 7-18 [facility] ([facility]) Creatinine For GFR 1.26 mg/dL 0.70-1.30 [facility] ([facility]) Glomerular Filtration Rate 59.4 [facility] ([facility]) <content>Units are mL/min/1.73 m2</content>
<content></content>
<content>Chronic Kidney Disease Staging per NKF:</content>
<content></content>
<content>Stage I & II GFR >=60 Normal to Mildly Decreased</content>
<content>Stage III GFR 30-59 Moderately Decreased</content>
<content>Stage IV GFR 15-29 Severely Decreased</content>
<content>Stage V GFR <15 Very Little GFR Left</content>
<content>ESRD GFR <15 on CYLINDRICAL MIXER</content>
<content></content> Sodium Level 139 meq/L 136-145 [facility] ([facility]) Potassium Serum 4.7 meq/L 3.5-5.1 [facility] ([facility]) Carbon Dioxide Level 40 meq/L 21-32 [facility] ([facility]) Calcium Level 9.1 mg/dL 8.8-10.2 [facility] ([facility]) Chloride Level 100 meq/L 98-107 [facility] ([facility]) ID Date Data Source [id number] 03/15/2021 09:40:00 AM EDT [facility] ([facility]) Name Value Range Interpretation Code Description Data Brittany rce(s) Supporting Document(s) Glucose, Fasting 58 mg/dL 70-100 [facility] ([facility]) Blood Urea Nitrogen 26 mg/dL 7-18 [facility] ([facility]) Creatinine For GFR 1.36 mg/dL 0.70-1.30 [facility] ([facility]) Glomerular Filtration Rate 54.4 [facility] ([facility]) <content>Units are mL/min/1.73 m2</content>
<content></content>
<content>Chronic Kidney Disease Staging per NKF:</content>
<content></content>
<content>Stage I & II GFR >=60 Normal to Mildly Decreased</content>
<content>Stage III GFR 30-59 Moderately Decreased</content>
<content>Stage IV GFR 15-29 Severely Decreased</content>
<content>Stage V GFR <15 Very Little GFR Left</content>
<content>ESRD GFR <15 on CYLINDRICAL MIXER</content>
<content></content> Sodium Level 139 meq/L 136-145 [facility] ([facility]) Potassium Serum 4.8 meq/L 3.5-5.1 [facility] ([facility]) Chloride Level 99 meq/L 98-107 [facility] ([facility]) Carbon Dioxide Level 39 meq/L 21-32 [facility] ([facility]) Anion Gap 1 meq/L 8-16 [facility] Calcium Level 9.7 mg/dL 8.8-10.2 [facility] ([facility]) ID Date Data Source [id number] 02/23/2021 09:30:00 AM EDT [facility], ) Name Value Range Interpretation Code Description Data Brittany rce(s) Supporting Document(s) Antinuclear Antibodies Direct Laboratory test result [facility] ([facility]) Performed at: [facility] [id number]r: Bal Dubose MD, Phone: [phone] Performed at: [facility] [id number] [employer]r: Marisabel Phillips MD, Phone: [phone] ID Date Data Source [id number] 02/23/2021 09:30:00 AM EDT [facility] ([facility], ) Name Value Range Interpretation Code Description Data Brittany rce(s) Supporting Document(s) Reagin Ab [Presence] in Serum by RPR Laboratory test result [facility] ([facility]) Thiamine [Mass/volume] in Blood 177.8 nmol/L 66.5-200.0 [facility] ([facility]) Specimen Comment: Test(s) [id number]-Twf. B1 , Whole Blood Specimen Comment: was developed and its performance characteristics Specimen Comment: determined by [facility]. It has not been cleared or approved Specimen Comment: by the Food and Drug Administration. Rheumatoid factor [Units/volume] in Serum or Plasma 10.5 IU/ml [facility] ([facility]) ID Date Data Source [id number] 02/23/2021 09:30:00 AM EDT [facility] ([facility]) Name Value Range Interpretation Code Description Data Brittany rce(s) Supporting Document(s) Vitamin B12 Level 783 pg/mL [facility] ([facility]) VITAMIN B12 NORMAL RANGE NORMAL 247 - 911 PG/ML INDETERMINATE 211 - 246 PG/ML DEFICIENT LESS THAN 211 PG/ML Folate Laboratory test result [facility] ([facility]) FOLATE NORMAL RANGE NORMAL GREATER THAN 5.4 NG/ML INDETERMINATE 3.4-5.4 NG/ML DEFICIENT LESS THAN 3.4 NG/ML ID Date Data Source [id number] 02/23/2021 09:30:00 AM EDT [facility] ([facility]) Name Value Range Interpretation Code Description Data Brittany rce(s) Supporting Document(s) Thyrotropin [Units/volume] in Serum or Plasma 2.030 uIU/ML 0.358-3.74 0 [facility] ([facility]) ID Date Data Source [id number] 02/23/2021 09:30:00 AM EDT [facility] ([facility]) Name Value Range Interpretation Code Description Data Brittany rce(s) Supporting Document(s) Albumin % 52.6 % 55.8-66.1 [facility] ([facility]) Bvnoo-2-Igmqpjphd % 10.9 % 7.1-11.8 [facility] ([facility], ) Dxdna-6-Htcublan % 4.7 % 2.9-4.9 [facility] ([facility]) Zlme-5-Fsgbjygku % 7.1 % 4.7-7.2 [facility] ([facility]) Ojfq-6-Krhrlnvhw % 6.0 % 3.2-6.5 [facility] ([facility]) Gamma Globulin % 18.7 % 11.1-18.8 [facility] ([facility]) Albumin 3.89 GM[facility]DL [facility].29[facility]5.55 [facility] Lpyrb-6-Wgrfysgnm 0.81 GM/DL 0.42-0.99 [facility] ([facility]) Wmydf-0-Xgqyfuyds 0.35 GM/DL 0.17-0.41 [facility] ([facility]) Xtnm-2-Vidlwfeyc 0.53 GM/DL 0.28-0.60 [facility] ([facility]) Guqx-7-Jqeddmhoz 0.44 GM/DL 0.19-0.55 [facility] ([facility]) Gamma Globulins 1.38 GM/DL 0.65-1.58 [facility] ([facility]) Total Protein 7.4 GM/DL 6.4-8.2 [facility] ([facility]) Spep Interpretation Laboratory test result [facility] ([facility]) NO M-SPIKE(S)NOTED. Laboratory test finding (navigational concept) Laboratory test result [facility] ([facility]) ID Date Data Source [id number] 02/23/2021 09:30:00 AM EDT [facility] ([facility]) Name Value Range Interpretation Code Description Data Brittany rce(s) Supporting Document(s) Glucose, Fasting 70 mg/dL 70-100 [facility] ([facility]) Blood Urea Nitrogen 22 mg/dL 7-18 [facility] ([facility]) Creatinine For GFR 1.18 mg/dL 0.70-1.30 [facility] ([facility]) Glomerular Filtration Rate Laboratory test result [facility] ([facility]) <content>Units are mL/min/1.73 m2</content>
<content></content>
<content>Chronic Kidney Disease Staging per NKF:</content>
<content></content>
<content>Stage I & II GFR >=60 Normal to Mildly Decreased</content>
<content>Stage III GFR 30- 59 Moderately Decreased</content>
<content>Stage IV GFR 15-29 Severely Decreased</content>
<content>Stage V GFR <15 Very Little GFR Left</content>
<content>ESRD GFR <15 on CYLINDRICAL MIXER</content>
<content></content> Sodium Level 140 meq/L 136-145 [facility] ([facility], ) Potassium Serum 4.9 meq/L 3.5-5.1 [facility] ([facility]) Carbon Dioxide Level 39 meq/L 21-32 [facility] ([facility]) Chloride Level 100 meq/L 98-107 [facility] ([facility], ) Anion Gap 1 meq/L 8-16 [facility] ([facility]) Calcium Level 9.3 mg/dL 8.8-10.2 [facility] ([facility]) Ast/Sgot 21 U/L 7-37 [facility] ([facility]) Alt/SGPT 17 U/L 12-78 [facility] ([facility]) Alkaline Phosphatase 66 U/L 45-117 [facility] ([facility]) Bilirubin,Total 0.6 mg/dL 0.2-1.0 [facility] ([facility]) Total Protein 7.4 GM/DL 6.4-8.2 [facility] ([facility], ) Albumin 3.5 GM/DL 3.2-5.2 [facility] ([facility]) Albumin/Globulin Ratio 0.9 [facility] ([facility]) ID Date Data Source [id number] 02/23/2021 09:30:00 AM EDT [facility] ([facility]) Name Value Range Interpretation Code Description Data Brittany rce(s) Supporting Document(s) Erythrocyte sedimentation rate by 2H Westergren method 9 mm/hr 0-2 0 [facility] ([facility]) ID Date Data Source [id number] 02/23/2021 09:30:00 AM EDT [facility] ([facility]) Name Value Range Interpretation Code Description Data Brittany rce(s) Supporting Document(s) White Blood Count 4.6 10 4.0-10.0 [facility] ([facility]) Red Blood Count 4.84 10 4.30-6.10 [facility] ([facility]) Hemoglobin 11.5 g/dL 13.5-17.5 [facility] ([facility]) Mean Corpuscular Volume 82.6 fl 80.0-96.0 M [facility] ([facility]) Hematocrit 40.0 % 42.0-52.0 [facility] ([facility]) Mean Corpuscular Hemoglobin 23.8 pg 27.0-33.0 [facility] ([facility]) Mean Corpuscular HGB Conc 28.8 g/dL 32.0-36.5 [facility] ([facility]) Red Cell Distribution Width 19.7 % 11.5-14.5 [facility] ([facility]) Platelet Count, Automated 208 10 150-450 [facility] ([facility]) Neutrophils % 51.1 % 36.0-66.0 [facility] ([facility]) Brown % 16.8 % 2.0-8.0 [facility] ([facility]) Lymph % 23.4 % 24.0-44.0 [facility] ([facility]) Eos % 7.4 % 0.0-3.0 [facility] ([facility]) Baso % 1.1 % 0.0-1.0 [facility] ([facility]) Immature Granulocyte % 0.2 % 0-3.0 [facility] ([facility]) Neutrophils # 2.3 10 1.5-8.5 [facility] ([facility]) Nucleated Red Blood Cell % 0.0 % 0-0 [facility] ([facility]) Brown # 0.8 10 0.0-0.8 [facility] ([facility]) Lymph # 1.1 10 1.5-5.0 [facility] ([facility]) Baso # 0.1 10 0.0-0.2 [facility] ([facility]) Eos # 0.3 10 0.0-0.5 [facility] ([facility]) ID Date Data Source [id number] 02/23/2021 09:30:00 AM EDT [facility] ([facility]) Name Value Range Interpretation Code Description Data Brittany rce(s) Supporting Document(s) Hemoglobin A1c 6.3 % [facility] ([facility]) <content>REFERENCE RANGES:</content><br/ ><content></content>
<content><=5.6% NORMAL</content>
<content>5.7-6.4% SUGGESTS IMPAIRED GLUCOSE METABOLISM/PREDIABETIC</content>
<content>>= 6.5% ABNORMAL</content>
<content></content> Estimated Average Glucose 134 mg/dL 60-110 [facility] ([facility]) ID Date Data Source [id number] 11/15/2020 07:55:00 AM EST [facility] Name Value Range Interpretation Code Description Data Brittany rce(s) Supporting Document(s) Magnesium [Mass/volume] in Serum or Plasma 2.5 mg/dL 1.8-2.4 [facility] ([facility]) ID Date Data Source [id number] 11/15/2020 07:55:00 AM EST [facility] Name Value Range Interpretation Code Description Data Brittany rce(s) Supporting Document(s) White Blood Count 5.3 10 4.0-10.0 [facility] ([facility]) Red Blood Count 4.62 10 4.30-6.10 [facility] ([facility]) Hematocrit 39.1 % 42.0-52.0 [facility] ([facility]) Hemoglobin 11.5 g/dL 13.5-17.5 [facility] ([facility]) Mean Corpuscular Hemoglobin 24.9 pg 27.0-33.0 [facility] ([facility]) Mean Corpuscular Volume 84.6 fl 80.0-96.0 M [facility] ([facility]) Mean Corpuscular HGB Conc 29.4 g/dL 32.0-36.5 [facility] ([facility]) Red Cell Distribution Width 18.8 % 11.5-14.5 [facility] ([facility]) Platelet Count, Automated 202 10 150-450 [facility] ([facility]) Nucleated Red Blood Cell % 0.0 % 0-0 [facility] ([facility]) ID Date Data Source [id number] 11/15/2020 07:55:00 AM EST [facility] Name Value Range Interpretation Code Description Data Brittany rce(s) Supporting Document(s) Triglycerides Level 64 mg/dL [facility] ([facility]) Cholesterol Level 125 mg/dL [facility] ([facility]) HDL Cholesterol 71 mg/dL [facility] ([facility]) Non-HDL-C 54 mg/dL [facility] LDL Cholesterol 41 mg/dL [facility] ([facility]) Cholesterol Risk Ratio 1.760 [facility] ([facility]) ID Date Data Source [id number] 11/15/2020 07:55:00 AM EST [facility] ([facility]) Name Value Range Interpretation Code Description Data Brittany rce(s) Supporting Document(s) Glucose, Fasting 98 mg/dL 70-100 [facility] ([facility]) Blood Urea Nitrogen 30 mg/dL 7-18 [facility] ([facility]) Creatinine For GFR 1.39 mg/dL 0.70-1.30 [facility] ([facility]) Glomerular Filtration Rate 53.2 [facility] ([facility]) <content>Units are mL/min/1.73 m2</content>
<content></content>
<content>Chronic Kidney Disease Staging per NK[facility]:</content>
<content></content>
<content>Stage I & II GFR >=60 Normal to Mildly Decreased</content>
<content>Stage III GFR 30- 59 Moderately Decreased</content>
<content>Stage IV GFR 15-29 Severely Decreased</content>
<content>Stage V GFR <15 Very Little GFR Left</content>
<content>ESRD GFR <15 on CYLINDRICAL MIXER</content>
<content></content> Potassium Serum 4.8 meq/L 3.5-5.1 [facility] ([facility]) Sodium Level 140 meq/L 136-145 [facility] ([facility]) Carbon Dioxide Level 36 meq/L 21-32 [facility] ([facility]) Chloride Level 99 meq/L 98-107 [facility] ([facility]) Ast/Sgot 17 U/L 7-37 [facility] ([facility] [place] Calcium Level 9.4 mg/dL 8.8-10.2 [facility] ([facility] [place] Anion Gap 5 meq/L 8-16 [facility] ([facility] [place] Alt/SGPT 20 U/L 12-78 [facility] [place] Alkaline Phosphatase 61 U/L 45-117 [facility] ([facility]) Bilirubin,Total 0.7 mg/dL 0.2-1.0 [facility] ([facility]) Total Protein 7.2 GM/DL 6.4-8.2 [facility] ([facility]) Albumin 3.9 GM/DL 3.2-5.2 [facility] ([facility]) Albumin/Globulin Ratio 1.2 [facility] ([facility] [place]) ID Date Data Source [id number] 09/20/2020 12:32:00 [place] [address] OPERATIVE SUMMARYNAME: ALLEN Chavez DATE OF : 1945TTENDING PHYS: Hortencia Logan MD DATE: 09/20/20 MR#: [id number] OF PROCEDURE: 09/20/2020PREOPERATIVE DIAGNOSIS: Age-related nuclear cataract, [...] rce(s) Supporting Document(s) ID Date Data Source [id number] 09/15/2020 08:03:00 AM EST [facility] Name Value Range Interpretation Code Description Data Brittany rce(s) Supporting Document(s) SARS-CoV-2 (COVID-19) [facility] This lab was ordered by [facility] and reported by [facility]. ID Date Data Source [id number] 08/23/2020 08:57:00 [place] [address] OPERATIVE SUMMARYNAME: ALLEN Chavez DATE OF : 7ATTENDING PHYS: Hortencia Logan MD DATE: 08/23/20 MR#: [id number] OF PROCEDURE: 08/23/2020PREOPERATIVE DIAGNOSIS: Age-related nuclear cataract, [...] rce(s) Supporting Document(s) ID Date Data Source [id number] 08/18/2020 08:10:00 AM EDT [facility] Name Value Range Interpretation Code Description Data Brittany rce(s) Supporting Document(s) SARS-CoV-2 (COVID19) [facility] This lab was ordered by [facility] and reported by [facility]. ID Date Data Source [id number] 08/10/2020 11:40:00 AM EDT [facility] Name Value Range Interpretation Code Description Data Brittany rce(s) Supporting Document(s) Glucose, Fasting 96 mg/dL 70-100 [facility] ([facility]) Blood Urea Nitrogen 26 mg/dL 7-18 [facility] ([facility]) Glomerular Filtration Rate 53.2 MED ENT ([facility]) <content>Units are mL/min/1.73 m2</content>
<content></content>
<content>Chronic Kidney Disease Staging per NKF:</content>
<content></content>
<content>Stage I & II GFR >=60 Normal to Mildly Decreased</content>
<content>Stage III GFR 30- 59 Moderately Decreased</content>
<content>Stage IV GFR 15-29 Severely Decreased</content>
<content>Stage V GFR <15 Very Little GFR Left</content>
<content>ESRD GFR <15 on CYLINDRICAL MIXER</content>
<content></content> Creatinine For GFR 1.39 mg/dL 0.70-1.30 [facility] ([facility]) Potassium Serum 4.5 meq/L 3.5-5.1 [facility] ([facility]) Chloride Level 100 meq/L 98-107 [facility] ([facility]) Sodium Level 138 meq/L 136-145 [facility] ([facility]) Carbon Dioxide Level 36 meq/L 21-32 [facility] ([facility]) Anion Gap 2 meq/L 8-16 [facility] Calcium Level 9.5 mg/dL 8.8-10.2 [facility] ([facility]) Procedure Social History Code Duration Value Status Description Data Source(s ) Smoking 07/05/2021 12:00:00 AM EDT Patient is a former smoker completed Patient is a former smoker [facility] ([facility]) Smoking 01/31/2021 12:00:00 AM EDT Former Smoker completed Former Smoker eCW1 ([facility]) Smoking 01/31/2021 12:00:00 AM EDT Former Smoker completed Former Smoker eCW1 ([facility]) Smoking 01/31/2021 12:00:00 AM EDT Former Smoker completed Former Smoker eCW1 ([facility]) Smoking 01/31/2021 12:00:00 AM EDT Former Smoker completed Former Smoker eCW1 ([facility]) Smoking 01/31/2021 12:00:00 AM EDT Former Smoker completed Former Smoker eCW1 ([facility]) Smoking 01/31/2021 12:00:00 AM EDT Former Smoker completed Former Smoker eCW1 ([facility]) Smoking 01/31/2021 12:00:00 AM EDT Former Smoker completed Former Smoker eCW1 ([facility]) Smoking 01/31/2021 12:00:00 AM EDT Former Smoker completed Former Smoker eCW1 ([facility]) Smoking 09/14/2020 12:00:00 AM EST Former Smoker completed Former Smoker eCW1 ([facility]) Smoking 09/14/2020 12:00:00 AM EST Former Smoker completed Former Smoker eCW1 ([facility]) Smoking 09/14/2020 12:00:00 AM EST Former Smoker completed Former Smoker eCW1 ([facility]) Smoking 09/14/2020 12:00:00 AM EST Former Smoker completed Former Smoker eCW1 ([facility]) Smoking 09/14/2020 12:00:00 AM EST Former Smoker completed Former Smoker eCW1 ([facility]) Smoking 09/14/2020 12:00:00 AM EST Former Smoker completed Former Smoker eCW1 ([facility]) Smoking 08/09/2020 12:00:00 AM EDT Former Smoker completed Former Smoker eCW1 ([facility]) Smoking 08/09/2020 12:00:00 AM EDT Former Smoker completed Former Smoker eCW1 ([facility]) Smoking 08/09/2020 12:00:00 AM EDT Former Smoker completed Former Smoker eCW1 ([facility]) Smoking 08/09/2020 12:00:00 AM EDT Former Smoker completed Former Smoker eCW1 ([facility]) Smoking 08/09/2020 12:00:00 AM EDT Former Smoker completed Former Smoker eCW1 ([facility]) Vital Signs ID Date Data Source UNK Name Value Range Interpretation Code Description Data Source(s) Respiratory rate 16 /min 16 /min [facility] ( [facility]) Body weight 221.00 [lb_av] 221.00 [lb_av] MEDEN T ([facility]) Body height 77 [in_i] 77 [in_i] [facility] ([facility]) 6'5" Body mass index (BMI) [Ratio] 26.2 kg/m2 26.2 k g/m2 [facility] ([facility]) Heart rate 76 /min 76 /min [facility] ([facility]) Regular Systolic blood pressure 126 mm[Hg] 126 mm[Hg] M EDENT ([facility]) sitting, regular cuff Diastolic blood pressure 66 mm[Hg] 66 mm[Hg] [facility] ([facility]) sitting, regular cuff Systolic blood pressure 110 mm[Hg] 110 mm[Hg] M [facility] ([facility]) Diastolic blood pressure 60 mm[Hg] 60 mm[Hg] [facility] ([facility]) Heart rate 64 /min 64 /min [facility] ([facility]) Respiratory rate 16 /min 16 /min [facility] ( [facility]) Diastolic blood pressure 68 mm[Hg] 68 mm[Hg] [facility] ([facility]) Systolic blood pressure 90 mm[Hg] 90 mm[Hg] M [facility] ([facility]) Heart rate 78 /min 78 /min [facility] ([facility]) Oxygen saturation in Arterial blood by Pulse oximetry 72 % 72 % [facility] ([facility]) 88 2L [place] body weight 184 [lb_av] 184 [lb_av] [facility] Body height 73 [in_i] 73 [in_i] [facility] ([facility]) 6'1" Body weight 104.328 kg 104.328 kg [facility] ([facility]) Body weight 230.00 [lb_av] 230.00 [lb_av] [facility] Body mass index (BMI) [Ratio] 30.3 kg/m2 30.3 k g/m2 [facility] ([facility]) Body surface area Derived from formula 2.28 m2 2.28 m2 [facility] ([facility]) Systolic blood pressure 110 mm[Hg] 110 mm[Hg] [facility] ([facility]) Diastolic blood pressure 70 mm[Hg] 70 mm[Hg] [facility] ([facility]) Heart rate 76 /min 76 /min [facility] ([facility]) Respiratory rate 20 /min 20 /min [facility] ( [facility]) Body height 77 [in_i] 77 [in_i] [facility] 6'5" Body mass index (BMI) [Ratio] 26.7 kg/m2 26.7 k g/m2 [facility] Heart rate 72 /min 72 /min [facility] ([facility]) Regular Respiratory rate 16 /min 16 /min [facility]) Systolic blood pressure 128 mm[Hg] 128 mm[Hg] [facility] sitting, regular cuff Diastolic blood pressure 74 mm[Hg] 74 mm[Hg] [facility] ([facility]) sitting, regular cuff Systolic blood pressure 124 mm[Hg] 124 mm[Hg] [facility] sitting Diastolic blood pressure 68 mm[Hg] 68 mm[Hg] [facility] sitting Body weight 225.00 [lb_av] 225.00 [lb_av] MEDEN T ([facility]) Oxygen saturation in Arterial blood by Pulse oximetry 75 % 75 % [facility] ([facility]) 90 2L Body height 73 [in_i] 73 [in_i] [facility] ([facility]) 6'1" [place] body weight 184 [lb_av] 184 [lb_av] MEDEN T ([facility]) Body weight 103.874 kg 103.874 kg [facility] ([facility]) Body surface area Derived from formula 2.28 m2 2.28 m2 [facility] ([facility]) Body mass index (BMI) [Ratio] 30.2 kg/m2 30.2 k g/m2 [facility] ([facility]) Body weight 229.00 [lb_av] 229.00 [lb_av] [facility] Body surface area Derived from formula 2.28 m2 2.28 m2 [facility] ([facility]) Systolic blood pressure 90 mm[Hg] 90 mm[Hg] [facility] ([facility]) Body height 73 [in_i] 73 [in_i] [facility] ([facility]) 6'1" Diastolic blood pressure 48 mm[Hg] 48 mm[Hg] [facility] ([facility]) Heart rate 70 /min 70 /min [facility] ([facility]) Body weight 229.00 [lb_av] 229.00 [lb_av] MEDEN T ([facility]) Oxygen saturation in Arterial blood by Pulse oximetry 75 % 75 % [facility] ([facility]) 90 2L Body mass index (BMI) [Ratio] 30.2 kg/m2 30.2 k g/m2 [facility] ([facility]) [place] body weight 184 [lb_av] 184 [lb_av] MEDEN T ([facility]) Body weight 103.874 kg 103.874 kg [facility] ([facility]) Body weight [lb_av] eCW1 ([facility]) Body height [in_i] eCW1 ([facility]) Body mass index (BMI) [Ratio] 26.92 kg/m2 26.92 kg/m2 eCW1 ([facility]) Heart rate 70 /min 70 /min eCW1 ([facility]) Respiratory rate 18 /min 18 /min eCW1 ([facility]) Body temperature 99.4 [degF] 99.4 [degF] eCW1 ( [facility]) Systolic blood pressure 103 mm[Hg] 103 mm[Hg] e CW1 ([facility]) Diastolic blood pressure 62 mm[Hg] 62 mm[Hg] eCW1 ([facility]) Body weight 223.00 [lb_av] 223.00 [lb_av] MEDEN T ([facility]) Body mass index (BMI) [Ratio] 26.4 kg/m2 26.4 k g/m2 [facility] ([facility]) Systolic blood pressure 126 mm[Hg] 126 mm[Hg] M EDENT ([facility]) sitting, regular cuff Diastolic blood pressure 64 mm[Hg] 64 mm[Hg] [facility] ([facility]) sitting, regular cuff Body height 77 [in_i] 77 [in_i] [facility] ([facility]) 6'5" Heart rate 68 /min 68 /min [facility] ([facility]) Regular Respiratory rate 16 /min 16 /min [facility] ( [facility]) Body weight [lb_av] eCW1 ([facility]) Body height [in_i] eCW1 ([facility]) Body mass index (BMI) [Ratio] 26.44 kg/m2 26.44 kg/m2 eCW1 ([facility]) Heart rate 69 /min 69 /min eCW1 ([facility]) Respiratory rate 20 /min 20 /min eCW1 ([facility]) Body temperature 98.4 [degF] 98.4 [degF] eCW1 ( [facility]) Systolic blood pressure 120 mm[Hg] 120 mm[Hg] e CW1 ([facility]) Diastolic blood pressure 66 mm[Hg] 66 mm[Hg] eCW1 ([facility]) Body weight 223.00 [lb_av] 223.00 [lb_av] MEDEN T ([facility]) Systolic blood pressure 128 mm[Hg] 128 mm[Hg] M EDENT ([facility]) sitting Body height 77 [in_i] 77 [in_i] [facility] ([facility]) 6'5" Body mass index (BMI) [Ratio] 26.4 kg/m2 26.4 k g/m2 [facility] ([facility]) Heart rate 68 /min 68 /min [facility] ([facility]) Regular Respiratory rate 16 /min 16 /min [facility] ( [facility]) Systolic blood pressure 126 mm[Hg] 126 mm[Hg] M EDENT ([facility]) sitting, regular cuff Diastolic blood pressure 74 mm[Hg] 74 mm[Hg] [facility] ([facility]) sitting, regular cuff Diastolic blood pressure 74 mm[Hg] 74 mm[Hg] [facility] ([facility]) sitting Diastolic blood pressure 58 mm[Hg] 58 mm[Hg] eCW1 ([facility]) Body weight 223 [lb_av] 223 [lb_av] eCW1 ([facility]) Body height [in_i] eCW1 ([facility]) Body mass index (BMI) [Ratio] 26.44 kg/m2 26.44 kg/m2 eCW1 ([facility]) Heart rate 80 /min 80 /min eCW1 ([facility]) Respiratory rate 18 /min 18 /min eCW1 ([facility]) Body temperature 98.6 [degF] 98.6 [degF] eCW1 ( [facility]) Systolic blood pressure 98 mm[Hg] 98 mm[Hg] e CW1 ([facility]) Systolic blood pressure 98 mm[Hg] 98 mm[Hg] M EDENT ([facility]) Diastolic blood pressure 70 mm[Hg] 70 mm[Hg] [facility] Heart rate 68 /min 68 /min [facility] ([facility]) Oxygen saturation in Arterial blood by Pulse oximetry 85 % 85 % [facility] ([facility]) Room Air Body height 73 [in_i] 73 [in_i] [facility] ([facility]) 6'1" Body weight 215.00 [lb_av] 215.00 [facility]_av] [facility] Body mass index (BMI) [Ratio] 28.4 kg/m2 28.4 k g/m2 [facility] ([facility]) [place] body weight 184 [lb_av] 184 [lb_av] [facility] Body weight 97.524 kg 97.524 kg [facility] ([facility]) Body surface area Derived from formula 2.22 m2 2.22 m2 [facility] ([facility]) ID Date Data Source [id number] 10/07/2020 01:49:12 PM [facility] Name Value Range Interpretation Code Description Data Source(s) WEIGHT RECORDED 233.00 pounds 233.00 pounds [facility] Height 77 Inches 077 Inches [facility] ID Date Data Source [id number] 08/26/2020 07:50:37 AM [facility] Name Value Range Interpretation Code Description Data Source(s) WEIGHT RECORDED 223.00 pounds 223.00 pounds [facility] Height 75 Inches 075 Inches [facility] Patient Treatment Plan of Care Planned Activity Planned Date Details Description Data Source (s) Lidocaine 50 MG/ML Topical Cream 08/19/2020 12:00:00 AM EDT eCW1 ([facility]) Lidocaine 50 MG/ML Topical Cream 08/19/2020 12:00:00 AM EDT eCW1 ([facility]) Lidocaine 50 MG/ML Topical Cream 08/19/2020 12:00:00 AM EDT eCW1 ([facility]) Lidocaine 50 MG/ML Topical Cream 08/19/2020 12:00:00 AM EDT eCW1 ([facility]) Lidocaine 50 MG/ML Topical Cream 08/19/2020 12:00:00 AM EDT eCW1 ([facility]) Lidocaine 50 MG/ML Topical Cream 08/19/2020 12:00:00 AM EDT eCW1 ([facility]) Lidocaine 50 MG/ML Topical Cream 08/19/2020 12:00:00 AM EDT eCW1 ([facility]) Lidocaine 50 MG/ML Topical Cream 08/19/2020 12:00:00 AM EDT eCW1 ([facility]) gabapentin 300 MG Oral Capsule 08/09/2020 12:00:00 AM EDT eCW1 ([facility]) gabapentin 300 MG Oral Capsule 08/09/2020 12:00:00 AM EDT eCW1 ([facility]) gabapentin 300 MG Oral Capsule 08/09/2020 12:00:00 AM EDT eCW1 ([facility]) gabapentin 300 MG Oral Capsule 08/09/2020 12:00:00 AM EDT eCW1 ([facility]) gabapentin 300 MG Oral Capsule 08/09/2020 12:00:00 AM EDT eCW1 ([facility]) gabapentin 300 MG Oral Capsule 08/09/2020 12:00:00 AM EDT eCW1 ([facility]) gabapentin 300 MG Oral Capsule 08/09/2020 12:00:00 AM EDT eCW1 ([facility]) gabapentin 300 MG Oral Capsule 08/09/2020 12:00:00 AM EDT eCW1 ([facility]) gabapentin 300 MG Oral Capsule 08/09/2020 12:00:00 AM EDT eCW1 ([facility]) gabapentin 300 MG Oral Capsule 08/09/2020 12:00:00 AM EDT eCW1 ([facility]) gabapentin 300 MG Oral Capsule 08/09/2020 12:00:00 AM EDT eCW1 ([facility]) gabapentin 300 MG Oral Capsule 08/09/2020 12:00:00 AM EDT eCW1 ([facility]) gabapentin 300 MG Oral Capsule 08/09/2020 12:00:00 AM EDT eCW1 ([facility]) gabapentin 300 MG Oral Capsule 08/09/2020 12:00:00 AM EDT eCW1 ([facility]) gabapentin 300 MG Oral Capsule 08/09/2020 12:00:00 AM EDT eCW1 ([facility]) gabapentin 300 MG Oral Capsule 08/09/2020 12:00:00 AM EDT eCW1 ([facility])
[2021-08-07] MEDS ORDERED: NS 1,000 ML IV SCH (17:00)
[2021-08-07] MEDS: cefTRIAXone SOD 1 GM in D5W MINI-BAG PLUS 50 ML IV SCH (17:34)
[2021-08-07] MEDS ORDERED: PANT-23 PO (18:30)
[2021-08-07] MEDS ORDERED: METO1TAB32 PO (18:30)
[2021-08-07] MEDS ORDERED: LIDO5CRE6 TOP (18:30)
[2021-08-07] MEDS ORDERED: ASPI81TA26 PO (18:30)
[2021-08-07] MEDS ORDERED: HOME MED LIST COMPLETE! XX SCH (18:35)
--- NOTE | 2021-08-07 19:53 | ECGEPIP ---
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
[2021-08-07] MEDS: DOXYCYCLINE HYCLATE 100 MG in D5W MINI-BAG PLUS 100 ML IV SCH (20:00)
[2021-08-07] MEDS: IPRATROPIUM 0.5MG/ALBUTEROL 2.5MG INH SOL UD 3ML (DUONEB) NEB SCH ×2 (20:41→23:41)
[2021-08-07 21:50] VITALS: BP 132/83
[2021-08-07] MEDS: HEPARIN SOD (PORCINE) 5000UNITS/ML 1ML VIAL/SYRINGE SC SCH (22:14)
[2021-08-07] MEDS: guaiFENesin ER 600 MG TAB PO SCH (22:14)
[2021-08-07 22:28] VITALS: O2SAT 92
[2021-08-08] MEDS: IPRATROPIUM 0.5MG/ALBUTEROL 2.5MG INH SOL UD 3ML (DUONEB) NEB SCH ×5 (03:13→17:56)
[2021-08-08] MEDS: HEPARIN SOD (PORCINE) 5000UNITS/ML 1ML VIAL/SYRINGE SC SCH ×4 (05:50→22:04)
[2021-08-08 06:00] VITALS: BP 94/52
[2021-08-08 06:05] LABS: BASO % 0.1 % (0.0-1.0); HEMOGLOBIN 12.1 g/dl (13.5-17.5); LYMPH # 0.4 10^3/uL (1.5-5.0); LYMPH % 6.1 % (24.0-44.0); MEAN CORPUSCULAR HEMOGLOBIN 25.4 pg (27.0-33.0); MEAN CORPUSCULAR HGB CONC 30.3 g/dl (32.0-36.5); MONO # 0.4 10^3/uL (0.0-0.8); MONO % 5.8 % (2.0-8.0); NEUTROPHILS # 5.9 10^3/uL (1.5-8.5); NEUTROPHILS % 87.9 % (36.0-66.0); PLATELET COUNT, AUTOMATED 137 10^3/uL (150-450); RED BLOOD COUNT 4.76 10^6/uL (4.30-6.10); WHITE BLOOD COUNT 6.7 10^3/uL (4.0-10.0)
[2021-08-08 06:34] LABS: ALBUMIN 2.9 GM/DL (3.2-5.2); ALT/SGPT 19 U/L (12-78); BILIRUBIN,TOTAL 0.5 MG/DL (0.2-1.0); BLOOD UREA NITROGEN 18 MG/DL (7-18); CALCIUM LEVEL 8.9 MG/DL (8.8-10.2); CARBON DIOXIDE LEVEL 36 MEQ/L (21-32); CHLORIDE LEVEL 103 MEQ/L (98-107); CREATININE FOR GFR 0.91 MG/DL (0.70-1.30); GLOMERULAR FILTRATION RATE > 60.0 (>42); GLUCOSE, FASTING 125 MG/DL (70-100); MAGNESIUM LEVEL 2.2 MG/DL (1.8-2.4); POTASSIUM SERUM 4.3 MEQ/L (3.5-5.1); SODIUM LEVEL 140 MEQ/L (136-145); TOTAL PROTEIN 6.4 GM/DL (6.4-8.2)
[2021-08-08 07:41] VITALS: BP 116/64
[2021-08-08] MEDS ORDERED: FLUBLOK(EGG FREE)(QUAD)INFLUENZA VACC 0.5ML SYRINGE 18YRS & OLDER IM ONE (09:00)
[2021-08-08] MEDS: DOXYCYCLINE HYCLATE 100 MG in D5W MINI-BAG PLUS 100 ML IV SCH ×2 (09:14→22:03)
[2021-08-08] MEDS: guaiFENesin ER 600 MG TAB PO SCH ×2 (09:15→22:03)
[2021-08-08] MEDS ORDERED: ALBUTEROL 90 MCG/ACT 8GM HFA INHALER INH PRN (13:45)
--- NOTE | 2021-08-08 13:46 | IPNPDOC ---
Date Seen The patient was seen on 08/08/21. Progress Note SUBJECTIVE: Patient was seen examined at bedside this morning. He states he feels much better today. He is still on 3 to 4 L of oxygen and saturating at 92 to 94%. Denies any chest pain palpitations nausea vomiting diarrhea. He is afebrile OBJECTIVE PHYSICAL EXAMINATION: VITAL SIGNS: please see below General: NAD, comfortable HEENT: PERRLA, EOMI, sclerae clear. 3L NC. Neck: supple, normal ROM, no JVD Respiratory: Reduced inspiratory effort, slight wheeze at lung bases. No rales or rhonchi noted CVS: RRR, normal S1, S2, no murmurs Abdo: soft, no masses, no hepatosplenomegaly, BS+, no rebound tenderness Extremities: no edema, pulses 2+ MSK: no joint deformities, normal ROM Neuro: no focal neuro deficits, moving all 4 extremities, CN2-12 intact. Strength 5/5 in all 4 extremities. No nystagmus. Psych: calm, cooperative, AAO x 3 LABORATORY DATA, IMAGING STUDIES, MICROBIOLOGY: Please see below. CTA chest (08/07/21): IMPRESSION: 1. No pulmonary embolus. 2. Cardiomegaly and findings to suggest chronic pulmonary vascular congestion. 3. Mild to moderate bibasilar atelectasis. 4. Small area of ill-defined opacity along the posterior right apex. Consider short-term 3 to 6 month follow-up examination to evaluate for stability. CXR (08/07/21): IMPRESSION: Chronic appearing changes although subtle superimposed process cannot be excluded. No effusion. DVT prophylaxis ordered?: Heparin ASSESSMENT: : 76-year-old male with a past medical history of COPD on 2 L at home, coronary artery disease status post CABG in 2006, diastolic congestive heart failure, presented to the ER complaining of shortness of breath. Patient was diagnosed with acute hypoxic respiratory failure likely secondary to COPD. Patient also complaining of a left-sided abdominal rash extending down to his left thigh questionable shingles versus Lyme disease. Patient was started empiric doxycycline continues valacyclovir. PLAN: Acute Hypoxic Respiratory Failure likely 2/2 COPD exacerbation: ABG showing respiratory acidosis. Maintaining 93% on 3L NS. S/p solumedrol 125 mg IV, albuterol inh in ER. Admit to M/S floor. C/w solumedrol 80 mg IV TID. Duonebs. Resume home inh. Empiric treatment with ceftriaxone and doxycycline given features of pneumonitis on CT angio. R posterior apical nodue: repeat CT imaging in 3-6 months. D/w Dr. Leal, who reviewed CTA. Agrees. CAD s/p CABG 2006: c/w ASA, statin. Needs cardiology follow up. BATSHEVA - no prior hx of CKD - Cr 1.4 on admission, repeat 0.9 this morning Hx of HFpEF: euvolemic. BNP 400. GERD: resume pantoprazole 40 mg BID PO. Abdominal Bulls Eye rash: states has been outdoors of late, possible tic bite. Rash is bulls eye in shape. ER sent labs for lyme serology. Will start empiric doxycycline. Sent tic borne panel. Dispo: admission expect to last > 2 midnights VS, I&O, 24H, Fishbone Vital Signs/I&O Vital Signs Date Time Temp Pulse Resp B/P (MAP) Pulse Ox O2 Delivery O2 Flow Rate FiO2 08/08/21 07:41 116/64 (81) 08/08/21 06:00 98.0 77 16 92 Nasal Cannula 3.0 I&O- Last 24 Hours up to 6 AM 08/08/21 06:00 Intake Total 1720 ml Output Total 375 ml Balance 1345 ml Laboratory Data 24H LABS Laboratory Tests 2 08/07/21 13:46: Blood Gas Bicarbonate Standard 30.7H, Arterial Blood pH 7.320L, Arterial Blood Partial Pressure CO2 69.9*H, Arterial Blood Partial Pressure O2 156.9H, Arterial Blood Total CO2 37.4H, Arterial Blood HCO3 35.2H, Arterial Blood Base Excess 6.8H, Arterial Blood Oxygen Saturation 98.9 08/08/21 05:29: Immature Granulocyte % (Auto) 0.1, Neutrophils (%) (Auto) 87.9H, Lymphocytes (%) (Auto) 6.1L, Monocytes (%) (Auto) 5.8, Eosinophils (%) (Auto) 0.0, Basophils (%) (Auto) 0.1, Neutrophils # (Auto) 5.9, Lymphocytes # (Auto) 0.4L, Monocytes # (Auto) 0.4, Eosinophils # (Auto) 0.0, Basophils # (Auto) 0.0, Nucleated Red Blood Cells % (auto) 0.0, Anion Gap 1L, Glomerular Filtration Rate > 60.0, Calcium Level 8.9, Magnesium Level 2.2, Total Bilirubin 0.5, Aspartate Amino Transf (AST/SGOT) 21, Alanine Aminotransferase (ALT/SGPT) 19, Alkaline Phosphatase 60, Total Protein 6.4, Albumin 2.9L, Albumin/Globulin Ratio 0.8 CBC/BMP Laboratory Tests 08/08/21 05:29 Microbiology Microbiology 08/07/21 Blood Culture - Preliminary, Resulted No growth after 24 hours . All specim... 08/07/21 Blood Culture - Preliminary, Resulted No growth after 24 hours . All specim... 08/07/21 Respiratory Virus Panel (PCR) ([facility]AN) - Final, Complete MADALYNNKEVDAMARIS CARIAS MD Aug 08, 2021 13:46
[2021-08-08 14:00] VITALS: BP 107/54
[2021-08-08] MEDS: ASPIRIN 81MG ENTERIC TABLET PO SCH (17:26)
[2021-08-08] MEDS: FUROSEMIDE 40 MG TAB PO SCH (17:28)
[2021-08-08] MEDS: PANTOPRAZOLE 40MG TAB (PROTONIX) PO SCH ×2 (17:28→22:03)
[2021-08-08] MEDS: MULTIVITAMINS/MINERALS THERAP 1 TAB PO SCH (17:29)
[2021-08-08] MEDS: GABAPENTIN 300 MG CAP PO SCH ×3 (17:29→22:03)
[2021-08-08] MEDS: METOPROLOL SUCC *XL* 12.5MG PER 1/2 TAB (TopROL *XL*) PO SCH (17:29)
[2021-08-08] MEDS: cefTRIAXone SOD 1 GM in D5W MINI-BAG PLUS 50 ML IV SCH (17:30)
[2021-08-08] MEDS: FLUTICASONE HFA 220 MCG 12 GM INHALER (FLOVENT) INH SCH (17:56)
[2021-08-08] MEDS ORDERED: ATORVASTATIN 20 MG TAB PO SCH (21:00)
[2021-08-08 22:00] VITALS: BP 118/68; O2SAT 92
[2021-08-09] MEDS: IPRATROPIUM 0.5MG/ALBUTEROL 2.5MG INH SOL UD 3ML (DUONEB) NEB SCH ×4 (04:00→12:24)
[2021-08-09] MEDS: HEPARIN SOD (PORCINE) 5000UNITS/ML 1ML VIAL/SYRINGE SC SCH ×2 (05:51→13:18)
[2021-08-09 06:01] LABS: BASO % 0.7 % (0.0-1.0); EOS # 0.1 10^3/uL (0.0-0.5); EOS % 2.3 % (0.0-3.0); HEMOGLOBIN 11.7 g/dl (13.5-17.5); LYMPH # 1.2 10^3/uL (1.5-5.0); LYMPH % 18.7 % (24.0-44.0); MEAN CORPUSCULAR HEMOGLOBIN 25.8 pg (27.0-33.0); MEAN CORPUSCULAR HGB CONC 30.8 g/dl (32.0-36.5); MEAN CORPUSCULAR VOLUME 83.7 fl (80.0-96.0); MONO % 15.9 % (2.0-8.0); NEUTROPHILS # 3.8 10^3/uL (1.5-8.5); NEUTROPHILS % 62.2 % (36.0-66.0); PLATELET COUNT, AUTOMATED 157 10^3/uL (150-450); RED BLOOD COUNT 4.54 10^6/uL (4.30-6.10); WHITE BLOOD COUNT 6.2 10^3/uL (4.0-10.0)
[2021-08-09 06:21] LABS: ALBUMIN 2.7 GM/DL (3.2-5.2); ALT/SGPT 19 U/L (12-78); BILIRUBIN,TOTAL 0.5 MG/DL (0.2-1.0); BLOOD UREA NITROGEN 24 MG/DL (7-18); CALCIUM LEVEL 8.4 MG/DL (8.8-10.2); CARBON DIOXIDE LEVEL 40 MEQ/L (21-32); CHLORIDE LEVEL 101 MEQ/L (98-107); GLOMERULAR FILTRATION RATE > 60.0 (>42); GLUCOSE, FASTING 81 MG/DL (70-100); MAGNESIUM LEVEL 2.2 MG/DL (1.8-2.4); POTASSIUM SERUM 4.1 MEQ/L (3.5-5.1); SODIUM LEVEL 141 MEQ/L (136-145); TOTAL PROTEIN 6.3 GM/DL (6.4-8.2)
[2021-08-09 06:46] VITALS: BP 119/62
[2021-08-09] MEDS: FLUTICASONE HFA 220 MCG 12 GM INHALER (FLOVENT) INH SCH (07:32)
[2021-08-09] MEDS: ASPIRIN 81MG ENTERIC TABLET PO SCH (08:48)
[2021-08-09] MEDS: GABAPENTIN 300 MG CAP PO SCH ×2 (08:48→13:18)
[2021-08-09] MEDS: PANTOPRAZOLE 40MG TAB (PROTONIX) PO SCH (08:48)
[2021-08-09] MEDS: guaiFENesin ER 600 MG TAB PO SCH (08:48)
[2021-08-09] MEDS: FUROSEMIDE 40 MG TAB PO SCH (08:48)
[2021-08-09] MEDS: MULTIVITAMINS/MINERALS THERAP 1 TAB PO SCH (08:48)
[2021-08-09] MEDS: DOXYCYCLINE HYCLATE 100 MG in D5W MINI-BAG PLUS 100 ML IV SCH (08:49)
[2021-08-09 08:50] VITALS: BP 116/63
[2021-08-09] MEDS: METOPROLOL SUCC *XL* 12.5MG PER 1/2 TAB (TopROL *XL*) PO SCH (08:50)
[2021-08-09 09:00] VITALS: O2SAT 91
[2021-08-09] MEDS ORDERED: TORS10TA3 PO (12:22)
[2021-08-09] MEDS ORDERED: DOXY100C3 PO (12:22)
[2021-08-09] MEDS ORDERED: PRED10TA2 PO (12:25)
[2021-08-09 14:00] VITALS: BP_SYST 115; BP_SYST 119; BP_DIAS 66; BP_DIAS 72
[2021-08-09 16:10] LABS: Lyme Disease IgG/IgM Antibodie <0.91 ISR (0.00-0.90); Lyme Disease IgM Ab Quantitati <0.80 index (0.00-0.79)
--- NOTE | 2021-08-09 19:37 | DS.PDOC ---
Discharge Summary General Date of Admission Aug 07, 2021 at 16:07 Date of Discharge 08/09/21 Discharge Summary PROCEDURES PERFORMED DURING STAY: [None]. ADMITTING DIAGNOSES: Acute Hypoxic Respiratory Failure COPD exacerbation R posterior apical nodule CAD s/p CABG 2006 Hx of HFpEF Abdominal rash DISCHARGE DIAGNOSES: Acute Hypoxic Respiratory Failure COPD exacerbation R posterior apical nodule CAD s/p CABG 2006 Hx of HFpEF Abdominal rash COMPLICATIONS/CHIEF COMPLAINT: Copd,Copd With Exacerbation,Hypoxia. HISTORY OF PRESENT ILLNESS: 76-year-old male with a past medical history of COPD on 2 L at home, coronary artery disease status post CABG in 2006, diastolic congestive heart failure, presented to the ER complaining of shortness of breath. Presented with shortness of breath and acute hypoxia to 88% requires 3 L of nasal cannula. Patient had a low-grade temperature of 100.3. ABG shows respiratory acidosis with a pH of 7.32 PCO2 69.9 and a PO2 of 157. Patient had an elevated creatinine of 1.4. His BNP is 403. Troponin less than 0.02. Patient was suspected of having acute COPD exacerbation and was given albuterol inhalation as well as 120 mg of IV Solu-Medrol. Of note patient describes a left abdominal rash which he believes is shingles outbreak although the rash is bull's-eye in character. Patient be admitted to hospitalist service for the management of acute hypoxic respiratory failure secondary to acute COPD exacerbation. HOSPITAL COURSE: During the hospital stay the following issue addressed Acute Hypoxic Respiratory Failure likely 2/2 COPD exacerbation: ABG showing respiratory acidosis. Maintaining 93% on 3L NS. S/p solumedrol 125 mg IV, albuterol inh in ER.patient received treatment with solumedrol 80 mg IV TID. Duonebs. Empiric treatment with ceftriaxone and doxycycline given features of pneumonitis on CT angio. R posterior apical nodue: repeat CT imaging in 3-6 months. D/w Dr. Leal, who reviewed CTA. Agrees. CAD s/p CABG 2006: c/w ASA, statin. Needs cardiology follow up. BATSHEVA - no prior hx of CKD - Cr 1.4 on admission, repeat 0.9 this morning Hx of HFpEF: euvolemic. BNP 400. GERD: resume pantoprazole 40 mg BID PO. Abdominal Bulls Eye rash: states has been outdoors of late, possible tic bite. Rash is bulls eye in shape. ER sent labs for lyme serology. Will start empiric doxycycline. Sent tic borne panel, pending. Lyme serology negative. Patient will need to take doxycycline 100 mg p.o. twice daily for 10 days. DISCHARGE MEDICATIONS: Please see below. ALLERGIES: Please see below. PHYSICAL EXAMINATION ON DISCHARGE: VITAL SIGNS: please see below General: NAD, comfortable HEENT: PERRLA, EOMI, sclerae clear. 3L NC. Neck: supple, normal ROM, no JVD Respiratory: Reduced inspiratory effort, slight wheeze at lung bases. No rales or rhonchi noted CVS: RRR, normal S1, S2, no murmurs Abdo: soft, no masses, no hepatosplenomegaly, BS+, no rebound tenderness, rash over left flank Extremities: no edema, pulses 2+ MSK: no joint deformities, normal ROM Neuro: no focal neuro deficits, moving all 4 extremities, CN2-12 intact. Strength 5/5 in all 4 extremities. No nystagmus. Psych: calm, cooperative, AAO x 3 LABORATORY DATA: Please see below. IMAGING: [facility] NAME: CELE VILLA DATE OF : 1945 AGE: 76 SEX: M REPORT #: [id number] ROOM: ED TECHNOLOGIST: KELLEN DOCTOR: ALFRED VILLALOBOS PA-C Ordered for Date&Time: 08/07/21 1309 cc: [~ rep ct ivnm] Service Date&Time: 08/07/21 1332 This report is in Signed status. If this report is in a DRAFT status it has not yet been reviewed by the radiologist for accuracy. Thank you for having your radiology procedures performed at [facility] RADIOLOGY REPORT Date&Time printed: [~ rep prt dt last] [~ rep prt tm last] Page 2 of 2 [place] [address] RADIOLOGY REPORT This report is in Signed status. If this report is in a DRAFT status it has not yet been reviewed by the radiologist for accuracy. Thank you for having your radiology procedures performed at [facility] RADIOLOGY REPORT Date&Time printed: [~ rep prt dt last] [~ rep prt tm last] Page 1 of 2 INDICATION: sob/hypoxia COMPARISON: None. TECHNIQUE: Axial contrast enhanced images from the thoracic inlet to the upper abdomen using pulmonary embolus technique with multiplanar re-formations. 75 ml Isovue 370 intravenous contrast material administered without complication. This CT examination was performed using the following dose reduction techniques: Automated exposure control, adjustment of mA and/or kv according to the pa tient's size, and use of iterative reconstruction technique. FINDINGS: Satisfactory enhancement of the pulmonary vasculature is achieved and no filling defects are identified to suggest pulmonary embolus. Cardiomegaly is appreciated with evidence for prior sternotomy and CABG. Atherosclerotic changes to the thoracic aorta and coronary arteries noted without aortic aneurysm or dissection. No pericardial effusion. Lung mcadams demonstrate chronic emphysematous and interstitial changes along wi th prominent pulmonary vasculature raising the possibility of pulmonary vascular congestion. Moderate bibasilar atelectasis is identified. No effusion or pneumothorax. There is a small irregular area of subpleural density at the posterior right apex and active process versus scarring cannot be differentiated. IMPRESSION: 1. No pulmonary embolus. 2. Cardiomegaly and findings to suggest chronic pulmonary vascular congestion. 3. Mild to moderate bibasilar atelectasis. 4. Small area of ill-defined opacity along the posterior right apex. Consider short-term 3 to 6 month follow-up examination to evaluate for stability. <Electronically signed by Macario Bryant > 08/07/21 1351 DD: Macario Bryant MD 08/07/21 1346 DT: TOÑO 08/07/21 1351 DS: SILAS 08/07/21 1346 08/07/21 1346 [~ rep ct labl] PROGNOSIS: Fair ACTIVITY: [As tolerated]. DIET: Cardiac DISPOSITION: 01 Home, Self-Care. DISCHARGE INSTRUCTIONS: Take doxycycline with plenty of fluid, avoid sun ITEMS TO FOLLOWUP ON ON OUTPATIENT: Follow-up with PCP in 3 to 5 days DISCHARGE CONDITION: [Stable]. TIME SPENT ON DISCHARGE: 40 minutes. Vital Signs/I&Os Vital Signs Date Time Temp Pulse Resp B/P (MAP) Pulse Ox O2 Delivery O2 Flow Rate FiO2 08/09/21 14:00 97.1 81 16 115/66 (82) 98 Nasal Cannula 3.0 I&O- Last 24 Hours up to 6 AM 08/09/21 06:00 Intake Total 1180 ml Output Total 725 ml Balance 455 ml Laboratory Data Labs 24H Laboratory Tests 2 08/09/21 05:12: Immature Granulocyte % (Auto) 0.2, Neutrophils (%) (Auto) 62.2, Lymphocytes (%) (Auto) 18.7L, Monocytes (%) (Auto) 15.9H, Eosinophils (%) (Auto) 2.3, Basophils (%) (Auto) 0.7, Neutrophils # (Auto) 3.8, Lymphocytes # (Auto) 1.2L, Monocytes # (Auto) 1.0H, Eosinophils # (Auto) 0.1, Basophils # (Auto) 0.0, Nucleated Red Blood Cells % (auto) 0.0, Anion Gap 0L, Glomerular Filtration Rate > 60.0, Calcium Level 8.4L, Magnesium Level 2.2, Total Bilirubin 0.5, Aspartate Amino Transf (AST/SGOT) 23, Alanine Aminotransferase (ALT/SGPT) 19, Alkaline Phosphatase 55, Total Protein 6.3L, Albumin 2.7L, Albumin/Globulin Ratio 0.8 CBC/BMP Laboratory Tests 08/09/21 05:12 Microbiology Microbiology 08/07/21 Blood Culture - Preliminary, Resulted No Growth after 48 hours. All Specime... 08/07/21 Blood Culture - Preliminary, Resulted No Growth after 48 hours. All Specime... 08/07/21 Respiratory Virus Panel (PCR) (TUAN) - Final, Complete Discharge Medications Scheduled Aspirin (Aspirin EC) 81 Mg Tablet.dr, 81 MG PO DAILY, (Reported) Atorvastatin Calcium (Atorvastatin Calcium) 80 Mg Tab, 80 MG PO QHS, (Reported) Doxycycline Hyclate (Doxycycline Hyclate) 100 Mg Capsule, 1 CAP PO BID Fluticasone Propionate (Flovent Hfa) 220 Mcg/Act Aer, 2 PUFF INH BID, (Reported) Gabapentin (Gabapentin) 300 Mg Capsule, 300 MG PO QID, (Reported) Lidocaine (Lidocaine) 30 Gm Cream..g., 1 DOSE TOP QHS, (Reported) APPLY TO LEFT LOWER LEG Metoprolol Succinate (Metoprolol Succinate) 25 Mg Tab.er.24h, 12.5 MG PO DAILY, (Reported) Multivitamins (Thera M Plus Tablet) 1 Tab Tab, 1 TAB PO DAILY, (Reported) Pantoprazole Sodium (Pantoprazole Sodium) 40 Mg Tablet.dr, 40 MG PO BID, (Reported) Prednisone (Prednisone) 10 Mg Tablet, 10 MG PO TAPER Take 4 tabs daily x 3 days, then 3 tabs daily x 3 days, then 2 tabs daily x 3 days, then 1 tab daily x 3 days and stop Torsemide (Torsemide) 10 Mg Tablet, 10 MG PO DAILY Umeclidinium [place] (Incruse Ellipta) 62.5 Mcg/Inh Inh, 1 PUFF INH DAILY, (Reported) Scheduled PRN Acetaminophen (Acetaminophen) 500 Mg Tab, 500 MG PO Q4H PRN for PAIN, (Reported) Albuterol Sulfate (Ventolin Hfa) 108 Mcg/Act Aer, 2 PUFFS INH QID PRN for SHORTNESS OF BREATH, (Reported) Ipratropium/Albuterol Sulfate (Iprat-Albut 0.5-3(2.5) mg/3 ml) 1 Leatha Leatha, 1 VIAL NEB Q6H PRN for SHORTNESS OF BREATH, (Reported) Allergies Coded Allergies: No Known Allergies (Unverified , 01/15/19) WINNIE KENNEDY DO Aug 09, 2021 19:37
--- NOTE | 2021-08-10 07:15 | ECGEPIP ---
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
== END 2021-08-09 15:15 | disposition home or self-care (01) | DRG 190 ==
LOC: M ED 08:47 → M ED INP 16:07 → M MSPAV 21:45
PROVIDERS: ADMIT Family Medicine; ATTEND Internal Medicine
DX: J44.1 Chronic obstructive pulmonary disease with (acute) exacerbation (principal); J96.01 Acute respiratory failure with hypoxia; E87.2 Acidosis; I50.32 Chronic diastolic (congestive) heart failure; N17.9 Acute kidney failure, unspecified; I25.10 Atherosclerotic heart disease of native coronary artery without angina pectoris; Z95.1 Presence of aortocoronary bypass graft; Z79.82 Long term (current) use of aspirin; Z79.899 Other long term (current) drug therapy; Z98.41 Cataract extraction status, right eye; K21.9 Gastro-esophageal reflux disease without esophagitis; R91.8 Other nonspecific abnormal finding of lung field

== ENCOUNTER → 2021-09-07 | Outpatient (REF) | payer MEDICARE, BC ==
[~2021-09-07] MED LIST changes: +ASPI81TA26 PO; +DOXY100C3 PO; +GABA-282 PO; +LIDO5CRE6 TOP; +PANT-23 PO; +TORS10TA3 PO
== END ==
LOC: M LAB REF 16:52
PROVIDERS: ATTEND Plastic Surgery Surgery of the Hand
DX: D49.2 Neoplasm of unspecified behavior of bone, soft tissue, and skin (principal)

== ENCOUNTER → 2021-09-13 | Outpatient (REF) | payer BC, MEDICARE, OTHER ==
[~2021-09-13] MED LIST changes: -CEFD1CAP8 PO; +CEFD300C41 PO; +FURO20TA2 PO
[2021-09-13 16:42] LABS: ALBUMIN 3.4 GM/DL (3.2-5.2); BILIRUBIN,TOTAL 0.9 MG/DL (0.2-1.0); CALCIUM LEVEL 9.1 MG/DL (8.8-10.2); CHOLESTEROL RISK RATIO 2.044 (<5); CREATININE FOR GFR 1.26 MG/DL (0.70-1.30); GLOMERULAR FILTRATION RATE 59.4 (>42); MAGNESIUM LEVEL 2.4 MG/DL (1.8-2.4); POTASSIUM SERUM 5.1 MEQ/L (3.5-5.1); TOTAL PROTEIN 6.9 GM/DL (6.4-8.2)
== END ==
LOC: M LABDRWCV 15:43
PROVIDERS: ATTEND Physician Assistant
DX: I25.10 Atherosclerotic heart disease of native coronary artery without angina pectoris (principal); I50.32 Chronic diastolic (congestive) heart failure; E78.00 Pure hypercholesterolemia, unspecified; E83.42 Hypomagnesemia

== ENCOUNTER → 2021-09-28 | Outpatient (CLI) | payer MEDICARE | LOC: M CLY 12:40 | PROVIDERS: ATTEND Family Medicine | DX: J44.9 Chronic obstructive pulmonary disease, unspecified (principal); I50.32 Chronic diastolic (congestive) heart failure; Z95.1 Presence of aortocoronary bypass graft; K21.9 Gastro-esophageal reflux disease without esophagitis; I25.10 Atherosclerotic heart disease of native coronary artery without angina pectoris | CPT/HCPCS: 71046; 80048; 85027; 85610; 85730; G0463 ==

== ENCOUNTER → 2021-09-28 | Outpatient (REF) | payer MEDICARE ==
[~2021-09-28] MED LIST changes: +CEFD1CAP8 PO; -CEFD300C41 PO; -FURO20TA2 PO
[2021-09-28 15:45] LABS: HEMATOCRIT 41.3 % (42.0-52.0); HEMOGLOBIN 12.3 g/dl (13.5-17.5); MEAN CORPUSCULAR HEMOGLOBIN 26.2 pg (27.0-33.0); MEAN CORPUSCULAR HGB CONC 29.8 g/dl (32.0-36.5); MEAN CORPUSCULAR VOLUME 88.1 fl (80.0-96.0); PLATELET COUNT, AUTOMATED 197 10^3/uL (150-450); RED BLOOD COUNT 4.69 10^6/uL (4.30-6.10); WHITE BLOOD COUNT 4.9 10^3/uL (4.0-10.0)
[2021-09-28 16:00] LABS: INR 1.06; PARTIAL THROMBOPLASTIN TIME 35.8 SECONDS (25.9-37.0); PROTHROMBIN TIME 14.2 SECONDS (12.7-14.5)
[2021-09-28 16:02] LABS: CALCIUM LEVEL 9.1 MG/DL (8.8-10.2); CREATININE FOR GFR 1.49 MG/DL (0.70-1.30); GLOMERULAR FILTRATION RATE 48.9 (>42); POTASSIUM SERUM 4.8 MEQ/L (3.5-5.1)
== END ==
LOC: M SFHCCLAY 12:36
PROVIDERS: ATTEND Family Medicine
DX: K21.9 Gastro-esophageal reflux disease without esophagitis (principal); I25.10 Atherosclerotic heart disease of native coronary artery without angina pectoris; J44.9 Chronic obstructive pulmonary disease, unspecified; I50.32 Chronic diastolic (congestive) heart failure

== ENCOUNTER → 2021-10-06 | Outpatient (CLI) | payer MEDICARE, BC ==
[~2021-10-06] MED LIST changes: +FURO20TA2 PO
== END ==
LOC: M LABSMTC 10:45
PROVIDERS: ATTEND Anesthesiology
DX: Z01.812 Encounter for preprocedural laboratory examination (principal); Z20.822 Contact with and (suspected) exposure to COVID-19

== ENCOUNTER 2021-10-11 06:12 | Day surgery (SDC) | payer OTHER, BC ==
[~2021-10-11] VITALS: Ht 195.6 cm; Wt 97.5 kg
[2021-10-11] VITALS (7 sets, daily range): BP systolic 100–142; BP diastolic 55–73; O2SAT 86–96
[~2021-10-11 06:12] MED LIST changes: +LIDOCAINE 1% MDV 20ML VIAL SQ PRN; +LR 1,000 ML IV ONE; +ceFAZolin SOD 2 GM in IV 1 EA IV ONE
[2021-10-11] MEDS ORDERED: LIDOCAINE 2% W/EPINEPHRINE 20ML VIAL **PRES FREE As Ordered ONE (07:11)
[2021-10-11] MEDS ORDERED: BACITRACIN OINTMENT 30GM TUBE As Ordered ONE (07:12)
[2021-10-11] MEDS ORDERED: propofoL 200 MG/20 ML VIAL As Ordered ONE ×2 (07:18→08:24)
[2021-10-11] MEDS ORDERED: EPINEPHrine INJ 1 MG/ML 1ML AMP As Ordered ONE (07:24)
[2021-10-11] MEDS ORDERED: SUCCINYLCHOLINE 100 MG/5 ML SYRINGE (J0330) As Ordered ONE (08:02)
[2021-10-11] MEDS ORDERED: ePHEDrine SULFATE 25 MG/5 ML(5MG/ML) SYRINGE As Ordered ONE (08:05)
[2021-10-11] MEDS ORDERED: fentaNYL 100 MCG/2 ML INJECTION (J3010) As Ordered ONE (08:32)
[2021-10-11] MEDS ORDERED: ONDANSETRON 4MG/2ML VIAL As Ordered ONE (08:33)
[2021-10-11] MEDS ORDERED: dexameTHASONE 4 MG/ML 1ML VIAL (J1100 PER 1MG) As Ordered ONE (08:33)
[2021-10-11] MEDS ORDERED: LIDOCAINE 2% 100MG/5ML SDV (FOR ANES.) As Ordered ONE (08:33)
[2021-10-11] MEDS ORDERED: ACETAMINOPHEN 1000MG 100ML IV BTL (OFIRMEV) (J0131 PER 10MG) As Ordered ONE (08:54)
--- NOTE | 2021-10-11 10:11 | ROOPDOC ---
[facility] Report Of Operation Report of Operation DATE OF PROCEDURE: 10/11/21 PREOPERATIVE DIAGNOSIS: Left ear malignant lesion POSTOPERATIVE DIAGNOSIS: same PROCEDURE: Excision malignant lesion left ear with full thickness skin graft closure. SURGEON: Dr Gonzales ANESTHESIA: General ESTIMATED BLOOD LOSS: 50 cc FINDINGS: Fungating lesion left upper ear 2x3 cm SPECIMENS: 1. Left ear mass FS. 2. Left ear mass margines 12, 3, 6 and 9 o'clock FS. 3 Deep margin FS. 4. Left ear additional deep margin (fresh). 5. additional margin 7-10 o'clock (fresh) COMPLICATIONS: none REPLACED: none DRAINS: none POSTOPERATIVE CONDITION: stable DESCRIPTION OF PROCEDURE: This is a 76 year-old male with slowly growing raised, pink, fungating lesion on the left upper ear. The lesion is now large and easily friable. Patient has difficult time controlling the bleeding. Patient is scheduled for excision of lesion left ear with possible full-thickness skin graft closure. Medical clearance obtained. Risks, benefits, and alternatives discussed with the patient. He is ready to proceed. Lesion measures 3 x 2 cm in diameter. After obtaining informed consent patient brought into the operating room, placed in supine position, perioperative antibiotics given, sequential stockings placed in the lower calves. General anesthesia is induced. He was prepped and draped in the usual sterile fashion. 2% lidocaine with epinephrine was infiltrated in the area, 1 cc. Lesion has been remeasured and marked with 4 mm margins. Incision carried out with 15 blade in elliptical fashion around the lesion. The lesion is full-thickness and in the middle of resection we identified the lesion is infiltrating the cartilage therefore piece of cartilage was included with the specimen and as well and we continued dissecting superiorly. Superior part at 12:00 cartilage also was invaded by the mass. After the lesion completely excised it was sent to pathology for frozen section. Additional margins at the 12, 3, 6 and 9:00 were also sent. Additional margins based on the previous frozen sections were done until all margins were clear peripheral and deep based on frozen section. Hemostasis is obtained using electrocautery and Surgicel. We measured the area from for full thickness skin graft from behind the ear. The area was infiltrated with 2% lidocaine with epinephrine and then elliptical in incision w as carried out to fit the received site. The skin was defatted using iris scissors. And there was inset into the defect on the left upper ear with interrupted 4-0 and 5-0 chromic sutures. Bolster dressing was created and sutured through and through through the ear with 3-0 nylon sutures. Donor site is closed in layers with interrupted 3-0 Vicryl and 4 Monocryl sutures. Steri-Strips applied as well as a pressure dressing. Patient tolerated procedure well and transferred to recovery room in stable condition. IVONE GONZALES DO Oct 11, 2021 10:11
[2021-10-11] MEDS ORDERED: NALOXONE INJ 0.4MG/1ML VIAL (J2310 PER 1MG) As Ordered ONE (10:33)
[2021-10-11] MEDS ORDERED: ONDANSETRON 4MG/2ML VIAL IV PRN (11:05)
[2021-10-11] MEDS ORDERED: LR 1,000 ML IV SCH (11:05)
[2021-10-11] MEDS ORDERED: fentaNYL 100 MCG/2 ML INJECTION (J3010) IV PRN (11:05)
[2021-10-11] MEDS ORDERED: PERCOCET 5MG/325MG TAB PO PRN (11:05)
--- NOTE | 2021-10-11 11:24 | REP ---
INDICATION: POST OP PACU COMPARISON: 09/28/2021 TECHNIQUE: Portable AP view of the chest FINDINGS: Evidence for prior sternotomy and CABG. Cardiomegaly. Chronic interstitial changes are appreciated with superimposed perihilar and lower lobe opacities (left greater than right). Effusion cannot be excluded. No pneumothorax. IMPRESSION: Chronic changes with suspected superimposed lower lobe opacities (left greater than right). Differential diagnosis includes pneumonia and pulmonary vascular congestion. <Electronically signed by Macairo Bryant > 10/11/21 1129
[2021-10-11] MEDS ORDERED: ALBUTEROL SULFATE 2.5 MG/0.5 ML INH NEB SOLN INH ONE (11:30)
[2021-10-11] MEDS ORDERED: MOM 30ML SUSPENSION UDC PO PRN (12:05)
[2021-10-11] MEDS ORDERED: ACETAMINOPHEN TAB 650MG DOSE (2X325MG) PO PRN (12:05)
[2021-10-11] MEDS ORDERED: FUROSEMIDE 20MG/2ML VIAL (J1940) IV ONE (12:05)
[2021-10-11] MEDS ORDERED: ALBUTEROL 90 MCG/ACT 8GM HFA INHALER INH PRN (12:05)
[2021-10-11 12:48] LABS: ABG BASE EXCESS 5.3 (-2.0-2.0); ABG HCO3 34.4 MEQ/L (22.0-26.0); ABG O2 SATURATION 98.6 % (95.0-99.0); ABG PARTIAL PRESSURE O2 142.4 mmHg (75.0-100.0); ABG STANDARD HCO3 29.3 MEQ/L (22.0-26.0); ABG TOTAL CO2 36.6 MEQ/L (23.0-31.0); ABG pH (ARTERIAL) 7.286 UNITS (7.350-7.450)
[2021-10-11 12:51] LABS: ABG PARTIAL PRESSURE CO2 73.8 mmHg (35.0-45.0)
[2021-10-11 13:04] LABS: HEMATOCRIT 39.9 % (42.0-52.0); HEMOGLOBIN 12.5 g/dl (13.5-17.5); MEAN CORPUSCULAR HEMOGLOBIN 27.8 pg (27.0-33.0); MEAN CORPUSCULAR HGB CONC 31.3 g/dl (32.0-36.5); MEAN CORPUSCULAR VOLUME 88.9 fl (80.0-96.0); PLATELET COUNT, AUTOMATED 147 10^3/uL (150-450); RED BLOOD COUNT 4.49 10^6/uL (4.30-6.10); WHITE BLOOD COUNT 5.8 10^3/uL (4.0-10.0)
[2021-10-11 13:36] LABS: ALBUMIN 3.5 GM/DL (3.2-5.2); BILIRUBIN,TOTAL 0.6 MG/DL (0.2-1.0); CALCIUM LEVEL 8.8 MG/DL (8.8-10.2); CREATININE FOR GFR 1.25 MG/DL (0.70-1.30); GLOMERULAR FILTRATION RATE 59.9 (>42); POTASSIUM SERUM 4.9 MEQ/L (3.5-5.1); TOTAL PROTEIN 6.9 GM/DL (6.4-8.2)
[2021-10-11 13:44] LABS: ABG HCO3 34.2 MEQ/L (22.0-26.0); ABG O2 SATURATION 95.4 % (95.0-99.0); ABG PARTIAL PRESSURE O2 80.8 mmHg (75.0-100.0); ABG STANDARD HCO3 29.9 MEQ/L (22.0-26.0); ABG TOTAL CO2 36.3 MEQ/L (23.0-31.0); ABG pH (ARTERIAL) 7.325 UNITS (7.350-7.450)
[2021-10-11 13:46] LABS: ABG PARTIAL PRESSURE CO2 67.2 mmHg (35.0-45.0)
[2021-10-11] MEDS: IPRATROPIUM 0.5MG/ALBUTEROL 2.5MG INH SOL UD 3ML (DUONEB) NEB SCH ×2 (14:00→20:00)
[2021-10-11] MEDS ORDERED: TORS10TA3 PO (14:14)
--- NOTE | 2021-10-11 15:41 | HPEPDOC ---
[facility] Medical History & Physical Date of Admission Oct 11, 2021 Date of Service: Oct 11, 2021 Attending Physician: DORA ADAMS MD History and Physical CHIEF COMPLAINT: Postop observation HISTORY OF PRESENT ILLNESS: 76-year-old M with a past medical history of COPD on 2 L at home, coronary artery disease status post CABG in 2006, diastolic congestive heart failure, L ear malignant lesion for which he presented for excision surgery with skin graft by plastic surgery under general anesthesia and is now being admitted to medicine for postop observation after noted prolonged induction and also prolonged period before return to alertness postop and acute on chronic hypoxemia. The patient tested negative for covid-19 preop and was saturating >94% on 2L pre-op. Postop he remained somnolent for much longer than anticipated and was hypoxemic requiring at least 4L NC to saturate >90%. He was placed on NRB with eventual return of baseline mentation and alertness. Of note, he did re ceived ~1.7L of fluids intraop and was noted to have bibasilar crackles on examination in the PACU. Anesthesia gave him 20mg of IV lasix and he is now being admitted to the PCU for observation i/s/o noted transient postop encephalopathy and acute on chronic hypoxemia. On my evaluation, he had bibasi lar crackles but otherwise saturating 93% on room air, was awake, fully oriented and conversational. Labs were notable for what appears to be a chronic respiratory acidosis with compensatory metabolic alkalosis with initial ABG 7.286/73.8/142 on NRB and later 7.325/67.2/80.8 on 4L NC, procalcitonin <0.05, WBC 5.8, hgb 12.5, Platelets 147, na 140, K 4.9, Cr 1.25 while CXR showed chronic changes with suspected superimposed lower lobe opacities (left greater than right c/f pulmonary vascular congestion vs. CAP in the correct clinical setting. I suspect that he has a mild HFpEF exacerbation following fluids in the OR and has chronic compensated hypercarbia at baseline. PAST MEDICAL HISTORY: COPD on 2 L CAD status post CABG in thousand and seven Diastolic congestive heart Candidal esophagitis Upper GI bleed Post-herpetic neuralgia L lateral leg and L lateral foot HLD L ear malignant lesion PAST SURGICAL HISTORY: CABG 03/2007 RIGHT HIP FX WITH PLATE AND SCREW COLONOSCOPY 08/2019 CATARACT RIGHT EYE 07/2020 L ear malignant lesion excision with skin graft closure SOCIAL HISTORY: Patient denies smoking Patient denies alcohol use Patient denies illicit drug use FAMILY HX: FATHER: 94 YRS, NO KNOWN MEDICAL PROBLEMS MOTHER: , HYPERTENSION, CARDIAC DISEASE, HEART SURGERY, DIAGNOSED WITH UNSPECIFIED HEART DISEASE 2 BROTHER(S) , 1 SISTER(S) . 1 SON(S) , 2 DAUGHTER(S) . ALLERGIES: Please see below. REVIEW OF SYSTEMS: 10 point ROS conducted, relevant findings are noted in HPI and was otherwise negative. PHYSICAL EXAMINATION: VITAL SIGNS: please see below General: NAD, comfortable, speaking in full sentences HEENT: PERRLA, EOMI, sclerae clear. 4L NC. Neck: supple, normal ROM, no JVD Respiratory: Has bibasilar wet crackles, otherwise clear in the apices without wheezing, rales or rhonchi CVS: RRR, normal S1, S2, no murmurs Abdomen: soft, no masses, no hepatosplenomegaly, BS+, no rebound tenderness Extremities: Mild dependent edema, pulses 2+, WWP Neuro: no focal neuro deficits, moving all 4 extremities, CN3-12 intact. Strength 5/5 in all 4 extremities. Psych: calm, cooperative, AAO x 3 LABORATORY DATA: See below. Reviewed above IMAGING: CXR CXR showed chronic changes with suspected superimposed lower lobe opacities (left greater than right c/f pulmonary vascular congestion vs. CAP in the correct clinical setting. MICROBIOLOGY: Please see below. ASSESSMENT: 76-year-old M with a past medical history of COPD on 2 L at home, coronary artery disease status post CABG in 2006, diastolic congestive heart failure, L ear malignant lesion for which he presented for excision surgery with skin graft by plastic surgery under general anesthesia and is now being admitted to medicine for postop observation after noted prolonged induction and also prolonged period before return to alertness postop and acute on chronic hypoxemia now being admitted for mild HFpEF exacerbation with acute on chronic hypercapnic hypoxemic respiratory failure. PLAN: HFpEF exacerbation i/s/o recent fluids intraop: -s/p lasix 20 IV post op per anesthesia -Will give 20 IV lasix once this evening at 6PM -Plan to resume home home PO diuretics tomorrow AM with torsemide 10mg daily Acute on chronic hypoxia: i/s/o mild fluid overload with vascular congestion postop -diuretic therapy as above -incentive spirometry Transient encephalopathy: likely metabolic, postop -with ongoing diuresis for CHF -No evidence of COPD exacerbation at this time time -f/u resp panel -No evidence of potential bacterial infection, procal is negative Suspicion of transient acute on chronic hypercapnic hypoxemic respiratory failure: -Improved compensated with metabolic acidosis, will monitor mentation and ABG as indicated -continue COPD meds as below -supplemental O2 for goal >89% COPD without evidence of acute exacerbation -Duonebs q6H. -Spiriva, albuterol mdi's -f/u respiratory panel -supplemental O2 to goal >89% L ear malignant lesion: -s/p excision with skin graft by plastic surgery. Dr. Siegel onboard CAD s/p CABG 2007: -c/w ASA, statin. HLD: -continue lipitor HTN: -continue toprol XL DVT ppx: TEDs and SCDs Dispo: admission expect to last less than 2 midnights Vital Signs Vital Signs Date Time Temp Pulse Resp B/P (MAP) Pulse Ox O2 Delivery O2 Flow Rate FiO2 10/11/21 13:10 81 18 120/74 (89) 90 Nasal Cannula 4.0 10/11/21 13:00 96.9 Laboratory Data Labs 24H Laboratory Tests 2 10/11/21 12:35: Nucleated Red Blood Cells % (auto) 0.0, Procalcitonin <0.05 10/11/21 12:36: Anion Gap 2L, Glomerular Filtration Rate 59.9, Calcium Level 8.8, Total Bilirubin 0.6, Aspartate Amino Transf (AST/SGOT) 22, Alanine Aminotransferase (ALT/SGPT) 19, Alkaline Phosphatase 59, Total Protein 6.9, Albumin 3.5, Albumin/Globulin Ratio 1.0 10/11/21 12:37: Blood Gas Bicarbonate Standard 29.3H, Arterial Blood pH 7.286L, Arterial Blood Partial Pressure CO2 73.8*H, Arterial Blood Partial Pressure O2 142.4H, Arterial Blood Total CO2 36.6H, Arterial Blood HCO3 34.4H, Arterial Blood Base Excess 5.3H, Arterial Blood Oxygen Saturation 98.6, Coronavirus (COVID-19)(PCR) NEGATIVE 10/11/21 13:34: Blood Gas Bicarbonate Standard 29.9H, Arterial Blood pH 7.325L, Arterial Blood Partial Pressure CO2 67.2*H, Arterial Blood Partial Pressure O2 80.8, Arterial Blood Total CO2 36.3H, Arterial Blood HCO3 34.2H, Arterial Blood Base Excess 6.0H, Arterial Blood Oxygen Saturation 95.4 CBC/BMP Laboratory Tests 10/11/21 12:35 10/11/21 12:36 Home Medications Scheduled Aspirin (Aspirin EC) 81 Mg Tablet.dr, 81 MG PO DAILY Atorvastatin Calcium (Atorvastatin Calcium) 80 Mg Tab, 80 MG PO QHS Fluticasone Propionate (Flovent Hfa) 220 Mcg/Act Aer, 2 PUFF INH BID Gabapentin (Gabapentin) 300 Mg Capsule, 300 MG PO QID Lidocaine (Lidocaine) 30 Gm Cream..g., 1 DOSE TOP QHS APPLY TO LEFT LOWER LEG Metoprolol Succinate (Metoprolol Succinate) 25 Mg Tab.er.24h, 12.5 MG PO BID Multivitamins (Thera M Plus Tablet) 1 Tab Tab, 1 TAB PO DAILY Torsemide (Torsemide) 10 Mg Tablet, 10 MG PO DAILY Umeclidinium [place] (Incruse Ellipta) 62.5 Mcg/Inh Inh, 1 PUFF INH DAILY Scheduled PRN Acetaminophen (Acetaminophen) 500 Mg Tab, 500 MG PO Q4H PRN for PAIN Albuterol Sulfate (Ventolin Hfa) 108 Mcg/Act Aer, 2 PUFFS INH QID PRN for SHORTNESS OF BREATH Ipratropium/Albuterol Sulfate (Iprat-Albut 0.5-3(2.5) mg/3 ml) 1 Leatha Leatha, 1 VIAL NEB Q6H PRN for SHORTNESS OF BREATH Allergies Coded Allergies: No Known Allergies (Unverified , 10/04/21) A-FIB/CHADSVASC A-FIB History Current/History of A-Fib/PAF?: No Current PO Anticoag Therapy: No Age/Risk Factor Scoring CHADSVASC: CHADSVASC Response (Comments) Value Age Risk Factor Age >/= 75 years old 2 Gender Risk Factor Male 0 Hx of CHF Yes 1 Hx of HTN Yes 1 Hx of Stroke/TIA/or VTE No 0 Hx of Diabetes No 0 Hx of Vascular Disease Yes 1 Total 5 Treatment Treatment ordered: NONE Reason Anticoagulant not given: Not indicated/[id number] DORA ADAMS MD Oct 11, 2021 15:41
[2021-10-11] MEDS: GABAPENTIN 300 MG CAP PO SCH ×2 (17:21→20:43)
[2021-10-11] MEDS: FLUTICASONE HFA 220 MCG 12 GM INHALER (FLOVENT) INH SCH (20:00)
[2021-10-11] MEDS ORDERED: ATORVASTATIN 20 MG TAB PO SCH (21:00)
[2021-10-12] VITALS: BP 111/59; O2SAT 94
[2021-10-12] MEDS: IPRATROPIUM 0.5MG/ALBUTEROL 2.5MG INH SOL UD 3ML (DUONEB) NEB SCH ×2 (02:12→09:15)
[2021-10-12 04:00] VITALS: BP 116/64; O2SAT 96
[2021-10-12 05:59] LABS: HEMATOCRIT 37.2 % (42.0-52.0); HEMOGLOBIN 11.4 g/dl (13.5-17.5); MEAN CORPUSCULAR HGB CONC 30.6 g/dl (32.0-36.5); MEAN CORPUSCULAR VOLUME 88.2 fl (80.0-96.0); RED BLOOD COUNT 4.22 10^6/uL (4.30-6.10); WHITE BLOOD COUNT 7.5 10^3/uL (4.0-10.0)
[2021-10-12 06:00] LABS: PLATELET COUNT, AUTOMATED 143 10^3/uL (150-450)
[2021-10-12 06:31] LABS: BLOOD UREA NITROGEN 20 MG/DL (7-18); CARBON DIOXIDE LEVEL 37 MEQ/L (21-32); CHLORIDE LEVEL 101 MEQ/L (98-107); CREATININE FOR GFR 1.01 MG/DL (0.70-1.30); GLOMERULAR FILTRATION RATE > 60.0 (>42); GLUCOSE, FASTING 90 MG/DL (70-100); MAGNESIUM LEVEL 2.5 MG/DL (1.8-2.4); SODIUM LEVEL 140 MEQ/L (136-145)
[2021-10-12 08:00] VITALS: BP 114/75
[2021-10-12] MEDS ORDERED: TIOTROPIUM INHALER/CAPSULE (SPIRIVA) INH SCH (08:00)
--- NOTE | 2021-10-12 08:33 | DS.PDOC ---
Discharge Summary General Date of Admission 10/11/2021 Date of Discharge 10/12/2021 Attending Physician: DORA ADAMS MD Specialist/Consultants Involve: IVONE GONZALES DO Discharge Summary PROCEDURES PERFORMED DURING STAY: L ear malignant lesion excision surgery with skin graft on 10/11/2021 ADMITTING DIAGNOSES: Acute on chronic hypoxemic respiratory failure postop Transient metabolic encephalopathy DISCHARGE DIAGNOSES: Transient acute on chronic hypercapnic hypoxemic respiratory failure post general anesthesia that improved as anesthesia wore off Transient metabolic encephalopathy Chronic hypoxemic respiratory failure on baseline 2L COPD Compensatory chronic metabolic alkalosis CAD status post CABG in thousand and seven Diastolic congestive heart Candidal esophagitis Upper GI bleed Post-herpetic neuralgia L lateral leg and L lateral foot HLD L ear malignant lesion COMPLICATIONS/CHIEF COMPLAINT: Left Ear Malignant Lesion. HISTORY OF PRESENT ILLNESS AND HOSPITAL COURSE: 76-year-old M with a past medical history of COPD on 2 L at home, coronary artery disease status post CABG in 2006, diastolic congestive heart failure, L ear malignant lesion for which he presented for excision surgery with skin graft by plastic surgery under general anesthesia and was admitted to medicine for postop observation after noted prolonged induction and also prolonged period before return to alertness postop and acute on chronic hypoxemia. The patient tested negative for covid-19 preop and was saturating >94% on 2L pre-op. Postop he remained somnolent for much longer than anticipated and was hypoxemic requiring at least 4L NC to saturate >90%. He was placed on NRB with eventual return of baseline mentation and alertness. Of note, he did received ~1.7L of fluids intraop and was noted to have bibasilar crackles on examination in the [facility]. Anesthesia gave him 20mg of IV lasix and he was admitted to the PCU for observation i/s/o noted transient postop encephalopathy and acute on chronic hypercarbic hypoxemic respiratory failure. On my initial evaluation, he had bibasilar crackles but otherwise saturating 93% on room air, was awake, fully oriented and conversational. Labs were notable for what appears to be a chronic respiratory acidosis with compensatory metabolic alkalosis with initial ABG 7.286/73.8/142 on NRB and later 7.325/67.2/80.8 on 4L NC, procalcitonin <0.05, WBC 5.8, hgb 12.5, Platelets 147, na 140, K 4.9, Cr 1.25 while CXR showed chronic changes with suspected superimposed lower lobe opacities (left greater than right c/f pulmonary vascular congestion vs. CAP in the correct clinical setting. I suspected that he mild pulmonary vascular congestion following fluids. It improved by day 2 after IV lasix and he was restored on his home PO loop diuretic and he was also back on 2L NC. He worked with PT and was cleared for home discharge, and his dressing was checked by Dr. Gonzales and cleared for home discharge. Of note, he had no clinical evidence suggestive of PNA and had a negative procalcitonin while proBNP was also within normal limits. DISCHARGE MEDICATIONS: Please see below. ALLERGIES: Please see below. PHYSICAL EXAMINATION ON DISCHARGE: VITAL SIGNS: Please see below. General: NAD, comfortable, speaking in full sentences HEENT: PERRLA, EOMI, sclerae clear. 2L NC. Neck: supple, normal ROM, no JVD. Dressing in place, c/d/i Respiratory: Clear to auscultation without wheezing, rales or rhonchi, on 2L NC CVS: RRR, normal S1, S2, no murmurs Abdomen: soft, no masses, no hepatosplenomegaly, BS+, no rebound tenderness Extremities: No LE edema, pulses 2+, WWP Neuro: no focal neuro deficits, moving all 4 extremities, CN3-12 intact. Strength 5/5 in all 4 extremities. Psych: calm, cooperative, AAO x 3 LABORATORY DATA: Please see below. IMAGING: CXR showed chronic changes with suspected superimposed lower lobe opacities (left greater than right c/f pulmonary vascular congestion vs. CAP in the correct clinical setting. PROGNOSIS: Good ACTIVITY: As tolerated DIET: 2g sodium DISCHARGE PLAN: Home with close plastics and PCP follow up. DISPOSITION: Home DISCHARGE INSTRUCTIONS: Home with close plastics and PCP follow up. Post op wound care plan per plastics. ITEMS TO FOLLOWUP ON ON OUTPATIENT: L ear post surgery wound care and follow up - Plastics PCP follow up within 1w Pulm follow up per outpatient schedule DISCHARGE CONDITION: Stable TIME SPENT ON DISCHARGE: 34 minutes. Vital Signs/I&Os Vital Signs Date Time Temp Pulse Resp B/P (MAP) Pulse Ox O2 Delivery O2 Flow Rate FiO2 10/12/21 04:00 2.0 10/12/21 04:00 99.2 78 20 116/64 (81) 92 Nasal Cannula I&O- Last 24 Hours up to 6 AM 10/12/21 06:00 Intake Total 2165 ml Output Total 2775 ml Balance -610 ml Laboratory Data Labs 24H Laboratory Tests 2 10/11/21 12:35: Nucleated Red Blood Cells % (auto) 0.0, Procalcitonin <0.05 10/11/21 12:36: Anion Gap 2L, Glomerular Filtration Rate 59.9, Calcium Level 8.8, Total Bilirubin 0.6, Aspartate Amino Transf (AST/SGOT) 22, Alanine Aminotransferase (ALT/SGPT) 19, Alkaline Phosphatase 59, PK-Oib-D-Type Natriuretic Peptide 134, Total Protein 6.9, Albumin 3.5, Albumin/Globulin Ratio 1.0 10/11/21 12:37: Blood Gas Bicarbonate Standard 29.3H, Arterial Blood pH 7.286L, Arterial Blood Partial Pressure CO2 73.8*H, Arterial Blood Partial Pressure O2 142.4H, Arterial Blood Total CO2 36.6H, Arterial Blood HCO3 34.4H, Arterial Blood Base Excess 5.3H, Arterial Blood Oxygen Saturation 98.6, Coronavirus (COVID-19)(PCR) NEGATIVE 10/11/21 13:34: Blood Gas Bicarbonate Standard 29.9H, Arterial Blood pH 7.325L, Arterial Blood Partial Pressure CO2 67.2*H, Arterial Blood Partial Pressure O2 80.8, Arterial Blood Total CO2 36.3H, Arterial Blood HCO3 34.2H, Arterial Blood Base Excess 6.0H, Arterial Blood Oxygen Saturation 95.4 10/12/21 05:20: Nucleated Red Blood Cells % (auto) 0.0, Anion Gap 2L, Glomerular Filtration Rate > 60.0, Calcium Level 9.0, Magnesium Level 2.5H CBC/BMP Laboratory Tests 10/11/21 12:35 10/11/21 12:36 10/12/21 05:20 Discharge Medications Scheduled Aspirin (Aspirin EC) 81 Mg Tablet.dr, 81 MG PO DAILY, (Reported) Atorvastatin Calcium (Atorvastatin Calcium) 80 Mg Tab, 80 MG PO QHS, (Reported) Fluticasone Propionate (Flovent Hfa) 220 Mcg/Act Aer, 2 PUFF INH BID, (Reported) Gabapentin (Gabapentin) 300 Mg Capsule, 300 MG PO QID, (Reported) Lidocaine (Lidocaine) 30 Gm Cream..g., 1 DOSE TOP QHS, (Reported) APPLY TO LEFT LOWER LEG Metoprolol Succinate (Metoprolol Succinate) 25 Mg Tab.er.24h, 12.5 MG PO BID, (Reported) Multivitamins (Thera M Plus Tablet) 1 Tab Tab, 1 TAB PO DAILY, (Reported) Torsemide (Torsemide) 10 Mg Tablet, 10 MG PO DAILY, (Reported) Umeclidinium [place] (Incruse Ellipta) 62.5 Mcg/Inh Inh, 1 PUFF INH DAILY, (Reported) Scheduled PRN Acetaminophen (Acetaminophen) 500 Mg Tab, 500 MG PO Q4H PRN for PAIN, (Reported) Albuterol Sulfate (Ventolin Hfa) 108 Mcg/Act Aer, 2 PUFFS INH QID PRN for SHORTNESS OF BREATH, (Reported) Ipratropium/Albuterol Sulfate (Iprat-Albut 0.5-3(2.5) mg/3 ml) 1 Leatha Leatha, 1 VIAL NEB Q6H PRN for SHORTNESS OF BREATH, (Reported) Allergies Coded Allergies: No Known Allergies (Unverified , 10/04/21) DORA ADAMS MD Oct 12, 2021 08:32
[2021-10-12] MEDS ORDERED: TORSEMIDE 10 MG TABLET PO SCH (09:00)
[2021-10-12] MEDS ORDERED: MULTIVITAMINS/MINERALS THERAP 1 TAB PO SCH (09:00)
[2021-10-12] MEDS ORDERED: ASPIRIN 81MG ENTERIC TABLET PO SCH (09:00)
[2021-10-12] MEDS ORDERED: METOPROLOL SUCC *XL* 12.5MG PER 1/2 TAB (TopROL *XL*) PO SCH (09:00)
[2021-10-12] MEDS: FLUTICASONE HFA 220 MCG 12 GM INHALER (FLOVENT) INH SCH (09:14)
[2021-10-12] MEDS: GABAPENTIN 300 MG CAP PO SCH (09:31)
--- NOTE | 2021-10-12 09:37 | IPNPDOC ---
Subjective General Date Seen: Oct 12, 2021 Subject Chief Complaint/History The patient is a 76-year-old male admitted with a reason for visit of Left Ear Malignant Lesion. Patient status post left ear malignant lesion excision with full-thickness skin graft coverage. He is feeling well this morning. Sitting up in a chair completely aware of the situation. No bleeding overnight. Minimal pain. Current Medications Current Medications Current Medications Medications (Trade) Dose Ordered Sig/Alex Route PRN Reason Start Time Stop Time Status Last Admin Dose Admin Acetaminophen (Tylenol Tab) 650 mg Q4H PRN PO MILD PAIN or TEMP > 101 10/11/21 12:05 Albuterol Sulfate (Proventil, Ventolin Hfa) 2 puff QID PRN INH SHORTNESS OF BREATH 10/11/21 12:05 Albuterol/ Ipratropium (Duoneb (Ipr 0.5mg/Alb 2.5mg)) 3 ml RQ6H NEB 10/11/21 14:00 10/12/21 02:12 Aspirin (Ecotrin) 81 mg DAILY PO 10/12/21 09:00 Atorvastatin Calcium (Lipitor) 80 mg QHS PO 10/11/21 21:00 10/11/21 20:43 Fentanyl Citrate (Sublimaze) 25 mcg Q5MP PRN IV PAIN LEVEL 8-10 10/11/21 11:05 10/11/21 13:05 DC Fluticasone Propionate (Flovent Hfa 220mcg) 2 puff RBID INH 10/11/21 20:00 10/12/21 09:14 Gabapentin (Neurontin) 300 mg QID PO 10/11/21 17:00 10/11/21 20:43 Lactated Ringer's 1,000 ml @ 100 mls/hr Q10H IV 10/11/21 11:05 10/11/21 13:05 DC Lidocaine HCl (LIDOCAINE 1% MDV 20ml) 0.1 ml ONCE PRN SQ DISCOMFORT BEFORE IV START 10/11/21 06:00 10/11/21 11:03 DC Magnesium Hydroxide (Milk Of Magnesia) 30 ml DAILY PRN PO CONSTIPATION 10/11/21 12:05 Metoprolol Succinate (TopROL XL) 12.5 mg BID PO 10/12/21 09:00 Multivitamins (Theragram-M) 1 tab DAILY PO 10/12/21 09:00 Ondansetron HCl (ZOFRAN INJection) 4 mg Q4HP PRN IV NAUSEA OR VOMITING 10/11/21 11:05 10/11/21 13:05 DC Oxycodone/ Acetaminophen (Percocet 5mg/ 325mg Tablet) 1 tab ASDIRECTED PRN PO PAIN LEVEL 1-4 10/11/21 11:05 10/11/21 13:05 DC Tiotropium [place] (Spiriva Handihaler) 1 inhalation DAILY@08 INH 10/12/21 08:00 10/12/21 09:14 Torsemide (Demadex) 10 mg DAILY PO 10/12/21 09:00 Allergies Coded Allergies: No Known Allergies (Unverified , 10/04/21) Objective Physical Examination Examination GENERAL APPEARANCE:Patient seen, laying in bed, awake, alert, and oriented. Comfortable, in no acute distress. SKIN: Warm and moist. Left ear with bolster dressing in place. Posterior ear with steri strips. Bulky dressing. Incisions intact. NECK: Supple, no thyromegaly. No obvious jugular venous distention. LUNGS: Clear to auscultation bilaterally. No wheezing appreciated. HEART: No chest wall abnormalities. Regular rate and rhythm with no murmurs appreciated. EXTREMITIES: No edema identified. No calf tenderness. Vital Signs Vital Signs Date Time Temp Pulse Resp B/P (MAP) Pulse Ox O2 Delivery O2 Flow Rate FiO2 10/12/21 08:00 97.9 74 18 114/75 (88) 90 Nasal Cannula 3.0 I&Os I&O- Last 24 Hours up to 6 AM 10/12/21 05:59 Intake Total 2165 ml Output Total 2775 ml Balance -610 ml Laboratory Data Labs 24H Laboratory Tests 2 10/11/21 12:35: Nucleated Red Blood Cells % (auto) 0.0, Procalcitonin <0.05 10/11/21 12:36: Anion Gap 2L, Glomerular Filtration Rate 59.9, Calcium Level 8.8, Total Bilirubin 0.6, Aspartate Amino Transf (AST/SGOT) 22, Alanine Aminotransferase (ALT/SGPT) 19, Alkaline Phosphatase 59, FC-Nuo-X-Type Natriuretic Peptide 134, T otal Protein 6.9, Albumin 3.5, Albumin/Globulin Ratio 1.0 10/11/21 12:37: Blood Gas Bicarbonate Standard 29.3H, Arterial Blood pH 7.286L, Arterial Blood Partial Pressure CO2 73.8*H, Arterial Blood Partial Pressure O2 142.4H, Arterial Blood Total CO2 36.6H, Arterial Blood HCO3 34.4H, Arterial Blood Base Excess 5.3H, Arterial Blood Oxygen Saturation 98.6, Coronavirus (COVID-19)(PCR) NEGATIVE 10/11/21 13:34: Blood Gas Bicarbonate Standard 29.9H, Arterial Blood pH 7.325L, Arterial Blood Partial Pressure CO2 67.2*H, Arterial Blood Partial Pressure O2 80.8, Arterial Blood Total CO2 36.3H, Arterial Blood HCO3 34.2H, Arterial Blood Base Excess 6.0H, Arterial Blood Oxygen Saturation 95.4 10/12/21 05:20: Nucleated Red Blood Cells % (auto) 0.0, Anion Gap 2L, Glomerular Filtration Rate > 60.0, Calcium Level 9.0, Magnesium Level 2.5H CBC/BMP Laboratory Tests 10/11/21 12:35 10/11/21 12:36 10/12/21 05:20 Impression Healing appropriately. Bolster dressing to stay in place for 1 week. Dressings changed today. At home: keep bulky dressing on on the left ear and behind the ear. May rewrap the Marcell dressing. Tylenol for pain prn. F/up with medical doctor regarding COPD Awaiting final pathology. F/up plastic surgery October 19. Plan / VTE VTE Prophylaxis Ordered?: Yes IVONE GONZALES DO Oct 12, 2021 09:37
[2021-10-12 12:00] VITALS: BP 107/58
== END 2021-10-12 14:20 | disposition home or self-care (01) ==
LOC: M SDC 06:12 → M PCU 14:54 → M SDC 10-12 14:20
PROVIDERS: ATTEND Plastic Surgery Surgery of the Hand
DX: C44.229 Squamous cell carcinoma of skin of left ear and external auricular canal (principal); J95.821 Acute postprocedural respiratory failure; G93.49 Other encephalopathy; Z79.82 Long term (current) use of aspirin; Z79.899 Other long term (current) drug therapy; J44.9 Chronic obstructive pulmonary disease, unspecified; Z99.81 Dependence on supplemental oxygen; Z95.1 Presence of aortocoronary bypass graft; I25.10 Atherosclerotic heart disease of native coronary artery without angina pectoris; I50.30 Unspecified diastolic (congestive) heart failure; E78.5 Hyperlipidemia, unspecified
CPT/HCPCS: 11643; 15260; 36415; 71045; 80048; 80053; 82803; 83735; 83880; 84145; 85027; 88305; 88331; 94640; 97116; 97161; J0131; J0330; J0690; J1100; J1940; J2310; J2405; J3010; U0002

== ENCOUNTER → 2021-12-21 | Outpatient (REF) | payer OTHER, BC, MEDICARE ==
[~2021-12-21] MED LIST changes: -CEFD1CAP8 PO; +CEFD300C41 PO; -LIDOCAINE 1% MDV 20ML VIAL SQ PRN; -LR 1,000 ML IV ONE; -ceFAZolin SOD 2 GM in IV 1 EA IV ONE
[2021-12-21 18:55] LABS: CALCIUM LEVEL 9.5 MG/DL (8.8-10.2); CREATININE FOR GFR 1.57 MG/DL (0.70-1.30); GLOMERULAR FILTRATION RATE 46.1 (>42); MAGNESIUM LEVEL 2.6 MG/DL (1.8-2.4); POTASSIUM SERUM 4.8 MEQ/L (3.5-5.1)
== END ==
LOC: M LABDRWCV 15:41
PROVIDERS: ATTEND Physician Assistant
DX: I50.32 Chronic diastolic (congestive) heart failure (principal); E83.42 Hypomagnesemia

== ENCOUNTER → 2022-01-12 | Outpatient (REF) | payer OTHER, BC, MEDICARE ==
[2022-01-12 16:43] LABS: BLOOD UREA NITROGEN 25 MG/DL (7-18); CALCIUM LEVEL 9.3 MG/DL (8.8-10.2); CARBON DIOXIDE LEVEL 41 MEQ/L (21-32); CHLORIDE LEVEL 101 MEQ/L (98-107); GLOMERULAR FILTRATION RATE 57.1 (>42); GLUCOSE, FASTING 73 MG/DL (70-100); POTASSIUM SERUM 4.8 MEQ/L (3.5-5.1); SODIUM LEVEL 140 MEQ/L (136-145)
== END ==
LOC: M LABDRWCV 15:41
PROVIDERS: ATTEND Physician Assistant
DX: I50.32 Chronic diastolic (congestive) heart failure (principal)

== ENCOUNTER → 2022-03-22 | Outpatient (REF) | payer OTHER, BC, MEDICARE ==
[2022-03-22 16:07] LABS: CALCIUM LEVEL 9.2 MG/DL (8.8-10.2); CREATININE FOR GFR 1.39 MG/DL (0.70-1.30); GLOMERULAR FILTRATION RATE 52.9 (>42); MAGNESIUM LEVEL 2.5 MG/DL (1.8-2.4); POTASSIUM SERUM 4.3 MEQ/L (3.5-5.1)
== END ==
LOC: M LABDRWCV 15:44
PROVIDERS: ATTEND Physician Assistant
DX: I50.32 Chronic diastolic (congestive) heart failure (principal); E83.42 Hypomagnesemia

== ENCOUNTER → 2022-03-29 | Outpatient (CLI) | payer OTHER, BC, MEDICARE ==
[2022-03-29 11:15] LABS: HEMATOCRIT 43.7 % (42.0-52.0); HEMOGLOBIN 13.1 g/dl (13.5-17.5); MEAN CORPUSCULAR HEMOGLOBIN 27.8 pg (27.0-33.0); MEAN CORPUSCULAR VOLUME 92.8 fl (80.0-96.0); PLATELET COUNT, AUTOMATED 153 10^3/uL (150-450); RED BLOOD COUNT 4.71 10^6/uL (4.30-6.10); WHITE BLOOD COUNT 5.6 10^3/uL (4.0-10.0)
[2022-03-29 11:46] LABS: BLOOD UREA NITROGEN 26 MG/DL (7-18); CALCIUM LEVEL 9.2 MG/DL (8.8-10.2); CARBON DIOXIDE LEVEL 38 MEQ/L (21-32); CHLORIDE LEVEL 106 MEQ/L (98-107); CREATININE FOR GFR 1.48 MG/DL (0.70-1.30); GLOMERULAR FILTRATION RATE 49.2 (>42); GLUCOSE, FASTING 114 MG/DL (70-100); POTASSIUM SERUM 4.4 MEQ/L (3.5-5.1); SODIUM LEVEL 143 MEQ/L (136-145)
== END ==
LOC: M LAB 10:46
PROVIDERS: ATTEND Physician Assistant
DX: I50.32 Chronic diastolic (congestive) heart failure (principal); R53.82 Chronic fatigue, unspecified

== ENCOUNTER → 2022-04-27 | Outpatient (REF) | payer OTHER, MEDICARE ==
[2022-04-27 16:50] LABS: CALCIUM LEVEL 9.3 MG/DL (8.8-10.2); CREATININE FOR GFR 1.38 MG/DL (0.70-1.30); GLOMERULAR FILTRATION RATE 53.3 (>42); POTASSIUM SERUM 4.4 MEQ/L (3.5-5.1)
== END ==
LOC: M LABDRWCV 15:29
PROVIDERS: ATTEND Physician Assistant
DX: I50.32 Chronic diastolic (congestive) heart failure (principal)

== ENCOUNTER 2022-06-03 15:14 | Inpatient (IN) | payer OTHER, MEDICARE ==
[~2022-06-03] VITALS: Ht 195.6 cm; Wt 99.0 kg
[2022-06-03] VITALS (21 sets, daily range): BP systolic 93–128; BP diastolic 50–81
[2022-06-03 16:07] LABS: BASO % 0.2 % (0.0-1.0); HEMATOCRIT 43.6 % (42.0-52.0); HEMOGLOBIN 12.9 g/dl (13.5-17.5); LYMPH # 0.6 10^3/uL (1.5-5.0); LYMPH % 5.9 % (24.0-44.0); MEAN CORPUSCULAR HEMOGLOBIN 27.5 pg (27.0-33.0); MEAN CORPUSCULAR HGB CONC 29.6 g/dl (32.0-36.5); MONO % 10.3 % (2.0-8.0); NEUTROPHILS # 7.9 10^3/uL (1.5-8.5); NEUTROPHILS % 83.3 % (36.0-66.0); PLATELET COUNT, AUTOMATED 144 10^3/uL (150-450); RED BLOOD COUNT 4.69 10^6/uL (4.30-6.10); WHITE BLOOD COUNT 9.5 10^3/uL (4.0-10.0)
[2022-06-03] MEDS ORDERED: GABA-282 PO (16:09)
[2022-06-03] MEDS ORDERED: PANT40TA29 PO (16:09)
[2022-06-03] MEDS ORDERED: LASI40TA9 PO (16:09)
[2022-06-03 16:28] LABS: ABG BASE EXCESS -4.6 (-2.0-2.0); ABG HCO3 26.2 MEQ/L (22.0-26.0); ABG O2 SATURATION 95.1 % (95.0-99.0); ABG PARTIAL PRESSURE O2 83.2 mmHg (75.0-100.0); ABG STANDARD HCO3 20.6 MEQ/L (22.0-26.0); ABG TOTAL CO2 28.6 MEQ/L (23.0-31.0)
[2022-06-03 16:29] LABS: ABG PARTIAL PRESSURE CO2 79.8 mmHg (35.0-45.0); ABG pH (ARTERIAL) 7.134 UNITS (7.350-7.450)
[2022-06-03 16:47] LABS: CK-MB VALUE MASS 2.3 NG/ML (<3.6); MB/CK RELATIVE INDEX 1.05 (< OR =4)
[2022-06-03 16:57] LABS: ALBUMIN 3.1 GM/DL (3.2-5.2); ALT/SGPT 19 U/L (12-78); BILIRUBIN,DIRECT 0.4 MG/DL (0.0-0.2); BILIRUBIN,TOTAL 0.9 MG/DL (0.2-1.0); BLOOD UREA NITROGEN 26 MG/DL (7-18); CALCIUM LEVEL 8.5 MG/DL (8.8-10.2); CARBON DIOXIDE LEVEL 31 MEQ/L (21-32); CHLORIDE LEVEL 107 MEQ/L (98-107); CREATININE FOR GFR 1.04 MG/DL (0.70-1.30); GLOMERULAR FILTRATION RATE > 60.0 (>42); GLUCOSE, FASTING 115 MG/DL (70-100); POTASSIUM SERUM 4.5 MEQ/L (3.5-5.1); SODIUM LEVEL 141 MEQ/L (136-145)
[2022-06-03] MEDS ORDERED: PIPERACILLIN/TAZOBACTAM SOD 4.5 GM in D5W MINI-BAG PLUS 50 ML IV ONE (17:00)
[2022-06-03] MEDS ORDERED: NS 3,100 ML in IV 1 EA IV ONE (17:00)
[2022-06-03] MEDS ORDERED: VANCOMYCIN HCL 1,000 MG, VIAL MATE ADAPTER 1 EACH in NS 250 ML IV SCH (17:35)
[2022-06-03 17:43] LABS: NT-PRO BNP 911 PG/ML (<450)
[2022-06-03] MEDS ORDERED: ETOMIDATE INJ 20MG/10ML VIAL IV ONE (17:50)
[2022-06-03] MEDS ORDERED: SUCCINYLCHOLINE INJ 200 MG/10 ML VIAL (J0330) IV ONE (17:50)
[2022-06-03] MEDS ORDERED: propofoL 1,000 MG in IV 1 EA IV SCH (17:50)
[2022-06-03] MEDS ORDERED: FURO20TA2 PO (17:59)
[2022-06-03] MEDS ORDERED: AZITHROMYCIN INJ 500 MG, VIAL MATE ADAPTER 1 EACH in NS 250 ML IV ONE (18:00)
[2022-06-03] MEDS ORDERED: HOME MED LIST COMPLETE! XX SCH (18:00)
[2022-06-03 18:06] LABS: BACTERIA, URINE NONE SEEN; HYALINE CAST, URINE NONE SEEN /lpf (0-1); MUCUS, URINE LARGE AMOUNT (NEGATIVE); SQUAMOUS EPITHELIAL CELL URINE SMALL AMOUNT /hpf (SMALL AMT); TRANSITIONAL EPI CELLS, URINE SMALL AMOUNT /hpf; WBC, URINE 0-1 /hpf (0-3)
[2022-06-03] MEDS ORDERED: VANCOMYCIN HCL 1,000 MG, VIAL MATE ADAPTER 1 EACH in NS 250 ML IV ONE ×2 (19:00→20:00)
[2022-06-03] MEDS ORDERED: fentaNYL CITRATE 1,000 MCG in NS 80 ML IV SCH (19:05)
[2022-06-03] MEDS ORDERED: PIPERACILLIN/TAZOBACTAM SOD 3.375 GM in D5W MINI-BAG PLUS 50 ML IV SCH (19:10)
[2022-06-03] MEDS ORDERED: LIDOCAINE 1% MDV 20ML VIAL As Ordered ONE (19:21)
[2022-06-03] MEDS: IPRATROPIUM 0.5MG/ALBUTEROL 2.5MG INH SOL UD 3ML (DUONEB) NEB SCH ×2 (20:00→23:53)
[2022-06-03] MEDS ORDERED: SUCCINYLCHOLINE 100 MG/5 ML SYRINGE (J0330) ONE (20:08)
[2022-06-03] MEDS: NS 1,000 ML IV SCH (20:23)
[2022-06-03] MEDS ORDERED: LIDOCAINE W/EPINEPHRINE 1% 20ML VIAL XX ONE (21:00)
[2022-06-03] MEDS ORDERED: LIDOCAINE 1% MDV 20ML VIAL XX ONE (21:00)
[2022-06-03] MEDS ORDERED: fentaNYL 100 MCG/2 ML INJECTION IV ONE ×2 (21:00→21:05)
[2022-06-03] MEDS ORDERED: fentaNYL 100 MCG/2 ML INJECTION As Ordered ONE (21:04)
[2022-06-03] MEDS ORDERED: MIDAZOLAM INJ 2MG/2ML VIAL (J2250 PER 1MG) IV STA (21:10)
[2022-06-03] MEDS ORDERED: LIDOCAINE W/EPINEPHRINE 1% 20ML VIAL As Ordered ONE (21:12)
[2022-06-03] MEDS: propofoL 1,000 MG in IV 1 EA IV SCH ×2 (21:57→23:38)
[2022-06-03] MEDS: CHLORHEXIDINE GLUCONATE 0.12 % 15ML UDC (PERIDEX ORAL RINSE) MT SCH (22:09)
[2022-06-03] MEDS: ENOXAPARIN 40MG/0.4ML SYRINGE (J1650 PER 10MG) SC SCH (22:10)
[2022-06-03 22:38] LABS: AMORPHOUS SEDIMENT, URINE LARGE AMOUNT (NEGATIVE); BACTERIA, URINE NONE SEEN; HYALINE CAST, URINE NONE SEEN /lpf (0-1); SQUAMOUS EPITHELIAL CELL URINE NONE SEEN /hpf (SMALL AMT); TRANSITIONAL EPI CELLS, URINE SMALL AMOUNT /hpf; WBC, URINE 0-1 /hpf (0-3)
[2022-06-03 23:29] LABS: ABG BASE EXCESS -1.6 (-2.0-2.0); ABG HCO3 27.3 MEQ/L (22.0-26.0); ABG O2 SATURATION 85.4 % (95.0-99.0); ABG PARTIAL PRESSURE O2 50.1 mmHg (75.0-100.0); ABG STANDARD HCO3 22.9 MEQ/L (22.0-26.0); ABG TOTAL CO2 29.3 MEQ/L (23.0-31.0)
[2022-06-03 23:31] LABS: ABG PARTIAL PRESSURE CO2 67.1 mmHg (35.0-45.0); ABG pH (ARTERIAL) 7.227 UNITS (7.350-7.450)
[2022-06-04] VITALS (26 sets, daily range): BP systolic 109–153; BP diastolic 56–82
[2022-06-04 00:14] LABS: ABG BASE EXCESS -3.1 (-2.0-2.0); ABG HCO3 25.1 MEQ/L (22.0-26.0); ABG O2 SATURATION 95.3 % (95.0-99.0); ABG PARTIAL PRESSURE CO2 59.6 mmHg (35.0-45.0); ABG PARTIAL PRESSURE O2 78.7 mmHg (75.0-100.0); ABG STANDARD HCO3 21.9 MEQ/L (22.0-26.0); ABG TOTAL CO2 26.9 MEQ/L (23.0-31.0); ABG pH (ARTERIAL) 7.242 UNITS (7.350-7.450)
[2022-06-04] MEDS ORDERED: REFRIGERATOR IV KEYS XX PRN (00:50)
[2022-06-04] MEDS ORDERED: MIDAZOLAM HCL 100 MG in D5W 80 ML IV SCH (01:00)
[2022-06-04] MEDS: PIPERACILLIN/TAZOBACTAM SOD 4.5 GM in D5W MINI-BAG PLUS 50 ML IV SCH ×4 (01:06→18:33)
[2022-06-04 02:45] LABS: ABG BASE EXCESS -1.8 (-2.0-2.0); ABG HCO3 25.3 MEQ/L (22.0-26.0); ABG PARTIAL PRESSURE CO2 53.5 mmHg (35.0-45.0); ABG PARTIAL PRESSURE O2 64.8 mmHg (75.0-100.0); ABG STANDARD HCO3 22.9 MEQ/L (22.0-26.0); ABG pH (ARTERIAL) 7.293 UNITS (7.350-7.450)
[2022-06-04] MEDS: IPRATROPIUM 0.5MG/ALBUTEROL 2.5MG INH SOL UD 3ML (DUONEB) NEB SCH ×6 (02:45→23:33)
[2022-06-04] MEDS: propofoL 1,000 MG in IV 1 EA IV SCH ×4 (03:14→16:15)
[2022-06-04 05:48] LABS: ABG BASE EXCESS -1.3 (-2.0-2.0); ABG HCO3 25.4 MEQ/L (22.0-26.0); ABG O2 SATURATION 92.2 % (95.0-99.0); ABG PARTIAL PRESSURE CO2 51.1 mmHg (35.0-45.0); ABG PARTIAL PRESSURE O2 62.5 mmHg (75.0-100.0); ABG STANDARD HCO3 23.3 MEQ/L (22.0-26.0); ABG pH (ARTERIAL) 7.314 UNITS (7.350-7.450)
[2022-06-04] MEDS: VANCOMYCIN HCL 750 MG, VIAL MATE ADAPTER 1 EACH in D5W 250 ML IV SCH ×2 (07:41→21:17)
[2022-06-04] MEDS: CHLORHEXIDINE GLUCONATE 0.12 % 15ML UDC (PERIDEX ORAL RINSE) MT SCH ×2 (07:41→21:12)
[2022-06-04] MEDS: PANTOPRAZOLE 40MG VIAL IV SCH (07:41)
[2022-06-04] MEDS: NS 1,000 ML IV SCH ×2 (07:41→15:05)
[2022-06-04 12:31] LABS: HEMATOCRIT 38.9 % (42.0-52.0); HEMOGLOBIN 11.8 g/dl (13.5-17.5); MEAN CORPUSCULAR HEMOGLOBIN 27.3 pg (27.0-33.0); MEAN CORPUSCULAR HGB CONC 30.3 g/dl (32.0-36.5); PLATELET COUNT, AUTOMATED 144 10^3/uL (150-450); RED BLOOD COUNT 4.32 10^6/uL (4.30-6.10); WHITE BLOOD COUNT 6.4 10^3/uL (4.0-10.0)
[2022-06-04 13:00] LABS: BLOOD UREA NITROGEN 22 MG/DL (7-18); CALCIUM LEVEL 8.3 MG/DL (8.8-10.2); CARBON DIOXIDE LEVEL 26 MEQ/L (21-32); CHLORIDE LEVEL 111 MEQ/L (98-107); CREATININE FOR GFR 0.93 MG/DL (0.70-1.30); GLOMERULAR FILTRATION RATE > 60.0 (>42); GLUCOSE, FASTING 147 MG/DL (70-100); POTASSIUM SERUM 3.6 MEQ/L (3.5-5.1); SODIUM LEVEL 141 MEQ/L (136-145)
[2022-06-04] MEDS: MIDAZOLAM INJ 2MG/2ML VIAL (J2250 PER 1MG) IV PRN ×3 (19:25→22:44)
[2022-06-04] MEDS: AZITHROMYCIN INJ 500 MG, VIAL MATE ADAPTER 1 EACH in NS 250 ML IV SCH (19:25)
[2022-06-04] MEDS: fentaNYL CITRATE 1,000 MCG in NS 80 ML IV SCH ×2 (20:14→21:00)
[2022-06-04] MEDS: ENOXAPARIN 40MG/0.4ML SYRINGE (J1650 PER 10MG) SC SCH (21:12)
[2022-06-05] VITALS (21 sets, daily range): BP systolic 105–169; BP diastolic 56–94
[2022-06-05] MEDS: MIDAZOLAM INJ 2MG/2ML VIAL (J2250 PER 1MG) IV PRN ×12 (00:27→23:34)
[2022-06-05] MEDS: PIPERACILLIN/TAZOBACTAM SOD 4.5 GM in D5W MINI-BAG PLUS 50 ML IV SCH ×5 (00:27→23:41)
[2022-06-05] MEDS: NS 1,000 ML IV SCH ×3 (01:05→21:05)
[2022-06-05] MEDS: IPRATROPIUM 0.5MG/ALBUTEROL 2.5MG INH SOL UD 3ML (DUONEB) NEB SCH ×5 (03:03→19:48)
[2022-06-05 04:55] LABS: ALBUMIN 2.4 GM/DL (3.2-5.2); ALT/SGPT 14 U/L (12-78); BILIRUBIN,TOTAL 0.6 MG/DL (0.2-1.0); BLOOD UREA NITROGEN 22 MG/DL (7-18); CARBON DIOXIDE LEVEL 27 MEQ/L (21-32); CHLORIDE LEVEL 113 MEQ/L (98-107); CREATININE FOR GFR 0.94 MG/DL (0.70-1.30); GLOMERULAR FILTRATION RATE > 60.0 (>42); GLUCOSE, FASTING 138 MG/DL (70-100); POTASSIUM SERUM 3.5 MEQ/L (3.5-5.1); SODIUM LEVEL 143 MEQ/L (136-145); TOTAL PROTEIN 5.6 GM/DL (6.4-8.2)
[2022-06-05 05:28] LABS: ABG BASE EXCESS 2.1 (-2.0-2.0); ABG HCO3 27.3 MEQ/L (22.0-26.0); ABG O2 SATURATION 95.3 % (95.0-99.0); ABG PARTIAL PRESSURE CO2 44.9 mmHg (35.0-45.0); ABG PARTIAL PRESSURE O2 75.4 mmHg (75.0-100.0); ABG STANDARD HCO3 26.3 MEQ/L (22.0-26.0); ABG TOTAL CO2 28.7 MEQ/L (23.0-31.0); ABG pH (ARTERIAL) 7.402 UNITS (7.350-7.450)
[2022-06-05] MEDS: VANCOMYCIN HCL 750 MG, VIAL MATE ADAPTER 1 EACH in D5W 250 ML IV SCH ×2 (09:31→20:11)
[2022-06-05] MEDS: PANTOPRAZOLE 40MG VIAL IV SCH (09:31)
[2022-06-05] MEDS: CHLORHEXIDINE GLUCONATE 0.12 % 15ML UDC (PERIDEX ORAL RINSE) MT SCH ×2 (09:31→20:10)
[2022-06-05] MEDS: BUDESONIDE 0.5 MG/2 ML INHALATION SUSPENSION INH SCH ×2 (10:57→19:48)
[2022-06-05] MEDS: SODIUM CHLORIDE HYPERTONIC 3% 15ML NEB SOL INH SCH ×3 (11:27→19:48)
[2022-06-05] MEDS: methylPREDNISolone 40MG 1ML VIAL IV SCH ×3 (11:53→23:41)
[2022-06-05] MEDS: FENTANYL IV SCH (15:28)
[2022-06-05] MEDS: [UNRECOGNIZED DRUG - OTHER] IV SCH (15:28)
[2022-06-05] MEDS ORDERED: FENTANYL DRIP LOCK BOX KEY 1 EACH XX PRN (15:30)
[2022-06-05] MEDS: ENOXAPARIN 40MG/0.4ML SYRINGE (J1650 PER 10MG) SC SCH (20:11)
[2022-06-05] MEDS: AZITHROMYCIN INJ 500 MG, VIAL MATE ADAPTER 1 EACH in NS 250 ML IV SCH (21:24)
[2022-06-06] VITALS (24 sets, daily range): BP systolic 116–166; BP diastolic 74–99; O2SAT 93–96
[2022-06-06] MEDS: MIDAZOLAM INJ 2MG/2ML VIAL (J2250 PER 1MG) IV PRN ×7 (01:43→09:40)
[2022-06-06] MEDS: IPRATROPIUM 0.5MG/ALBUTEROL 2.5MG INH SOL UD 3ML (DUONEB) NEB SCH ×6 (04:58→19:51)
[2022-06-06] MEDS: SODIUM CHLORIDE HYPERTONIC 3% 15ML NEB SOL INH SCH ×6 (04:59→19:52)
[2022-06-06] MEDS: NS 1,000 ML IV SCH (05:59)
[2022-06-06] MEDS: methylPREDNISolone 40MG 1ML VIAL IV SCH ×3 (05:59→17:06)
[2022-06-06] MEDS: PIPERACILLIN/TAZOBACTAM SOD 4.5 GM in D5W MINI-BAG PLUS 50 ML IV SCH ×3 (05:59→17:06)
[2022-06-06 06:20] LABS: ABG BASE EXCESS 3.9 (-2.0-2.0); ABG HCO3 29.5 MEQ/L (22.0-26.0); ABG O2 SATURATION 88.4 % (95.0-99.0); ABG PARTIAL PRESSURE O2 51.8 mmHg (75.0-100.0); ABG STANDARD HCO3 27.8 MEQ/L (22.0-26.0); ABG TOTAL CO2 30.9 MEQ/L (23.0-31.0); ABG pH (ARTERIAL) 7.406 UNITS (7.350-7.450)
[2022-06-06 06:55] LABS: HEMATOCRIT 40.1 % (42.0-52.0); HEMOGLOBIN 12.3 g/dl (13.5-17.5); MEAN CORPUSCULAR HEMOGLOBIN 26.9 pg (27.0-33.0); MEAN CORPUSCULAR HGB CONC 30.7 g/dl (32.0-36.5); MEAN CORPUSCULAR VOLUME 87.6 fl (80.0-96.0); PLATELET COUNT, AUTOMATED 172 10^3/uL (150-450); RED BLOOD COUNT 4.58 10^6/uL (4.30-6.10); WHITE BLOOD COUNT 5.3 10^3/uL (4.0-10.0)
[2022-06-06] MEDS: FENTANYL IV SCH (06:56)
[2022-06-06] MEDS: [UNRECOGNIZED DRUG - OTHER] IV SCH (06:56)
[2022-06-06] MEDS ORDERED: FUROSEMIDE 20MG/2ML VIAL (J1940) IV ONE (08:00)
[2022-06-06 08:01] LABS: ALBUMIN 2.7 GM/DL (3.2-5.2); ALT/SGPT 21 U/L (12-78); BILIRUBIN,TOTAL 0.7 MG/DL (0.2-1.0); BLOOD UREA NITROGEN 17 MG/DL (7-18); CALCIUM LEVEL 8.2 MG/DL (8.8-10.2); CARBON DIOXIDE LEVEL 28 MEQ/L (21-32); CHLORIDE LEVEL 110 MEQ/L (98-107); CREATININE FOR GFR 0.79 MG/DL (0.70-1.30); GLOMERULAR FILTRATION RATE > 60.0 (>42); GLUCOSE, FASTING 144 MG/DL (70-100); SODIUM LEVEL 142 MEQ/L (136-145); TOTAL PROTEIN 6.4 GM/DL (6.4-8.2)
[2022-06-06] MEDS: PANTOPRAZOLE 40MG VIAL IV SCH (08:25)
[2022-06-06] MEDS: CHLORHEXIDINE GLUCONATE 0.12 % 15ML UDC (PERIDEX ORAL RINSE) MT SCH ×2 (08:25→21:05)
[2022-06-06] MEDS: VANCOMYCIN HCL 750 MG, VIAL MATE ADAPTER 1 EACH in D5W 250 ML IV SCH (08:26)
[2022-06-06] MEDS: ACETYLCYSTEINE 20% 4 ML VIAL (200MG/ML) INH SCH ×2 (09:38→19:51)
[2022-06-06] MEDS: BUDESONIDE 0.5 MG/2 ML INHALATION SUSPENSION INH SCH ×2 (11:44→19:51)
[2022-06-06] MEDS: dexmedeTOMidine 200 MCG in IV 1 EA IV SCH ×5 (11:58→22:49)
[2022-06-06 12:14] LABS: MAGNESIUM LEVEL 2.3 MG/DL (1.8-2.4)
[2022-06-06 12:21] LABS: ABG BASE EXCESS 2.3 (-2.0-2.0); ABG HCO3 27.2 MEQ/L (22.0-26.0); ABG O2 SATURATION 94.4 % (95.0-99.0); ABG PARTIAL PRESSURE CO2 43.4 mmHg (35.0-45.0); ABG PARTIAL PRESSURE O2 68.7 mmHg (75.0-100.0); ABG STANDARD HCO3 26.4 MEQ/L (22.0-26.0); ABG TOTAL CO2 28.5 MEQ/L (23.0-31.0); ABG pH (ARTERIAL) 7.415 UNITS (7.350-7.450)
[2022-06-06 13:46] LABS: ABG BASE EXCESS 2.9 (-2.0-2.0); ABG HCO3 28.7 MEQ/L (22.0-26.0); ABG O2 SATURATION 94.9 % (95.0-99.0); ABG PARTIAL PRESSURE CO2 48.8 mmHg (35.0-45.0); ABG PARTIAL PRESSURE O2 75.2 mmHg (75.0-100.0); ABG TOTAL CO2 30.2 MEQ/L (23.0-31.0); ABG pH (ARTERIAL) 7.387 UNITS (7.350-7.450)
[2022-06-06 19:42] LABS: ABG BASE EXCESS 6.1 (-2.0-2.0); ABG HCO3 32.1 MEQ/L (22.0-26.0); ABG O2 SATURATION 95.7 % (95.0-99.0); ABG PARTIAL PRESSURE CO2 51.4 mmHg (35.0-45.0); ABG PARTIAL PRESSURE O2 75.7 mmHg (75.0-100.0); ABG TOTAL CO2 33.6 MEQ/L (23.0-31.0); ABG pH (ARTERIAL) 7.413 UNITS (7.350-7.450)
[2022-06-06] MEDS: ENOXAPARIN 40MG/0.4ML SYRINGE (J1650 PER 10MG) SC SCH (21:05)
[2022-06-06] MEDS: AZITHROMYCIN INJ 500 MG, VIAL MATE ADAPTER 1 EACH in NS 250 ML IV SCH (21:05)
[2022-06-07] VITALS (21 sets, daily range): BP systolic 107–148; BP diastolic 68–95
[2022-06-07] MEDS: PIPERACILLIN/TAZOBACTAM SOD 4.5 GM in D5W MINI-BAG PLUS 50 ML IV SCH ×5 (00:06→23:37)
[2022-06-07] MEDS: methylPREDNISolone 40MG 1ML VIAL IV SCH ×4 (00:07→21:20)
[2022-06-07] MEDS: SODIUM CHLORIDE HYPERTONIC 3% 15ML NEB SOL INH SCH ×6 (00:14→19:31)
[2022-06-07] MEDS: IPRATROPIUM 0.5MG/ALBUTEROL 2.5MG INH SOL UD 3ML (DUONEB) NEB SCH ×4 (00:14→11:08)
[2022-06-07] MEDS: dexmedeTOMidine 200 MCG in IV 1 EA IV SCH ×8 (01:21→17:04)
[2022-06-07 05:50] LABS: ABG HCO3 25.8 MEQ/L (22.0-26.0); ABG O2 SATURATION 99.4 % (95.0-99.0); ABG PARTIAL PRESSURE CO2 33.8 mmHg (35.0-45.0); ABG PARTIAL PRESSURE O2 146.7 mmHg (75.0-100.0); ABG STANDARD HCO3 27.2 MEQ/L (22.0-26.0); ABG TOTAL CO2 26.8 MEQ/L (23.0-31.0)
[2022-06-07] MEDS: BUDESONIDE 0.5 MG/2 ML INHALATION SUSPENSION INH SCH ×2 (06:02→19:31)
[2022-06-07] MEDS: ACETYLCYSTEINE 20% 4 ML VIAL (200MG/ML) INH SCH ×2 (06:12→19:32)
[2022-06-07 06:22] LABS: ALBUMIN 2.8 GM/DL (3.2-5.2); ALT/SGPT 24 U/L (12-78); BILIRUBIN,TOTAL 0.8 MG/DL (0.2-1.0); BLOOD UREA NITROGEN 21 MG/DL (7-18); CALCIUM LEVEL 8.7 MG/DL (8.8-10.2); CARBON DIOXIDE LEVEL 28 MEQ/L (21-32); CHLORIDE LEVEL 107 MEQ/L (98-107); GLOMERULAR FILTRATION RATE > 60.0 (>42); GLUCOSE, FASTING 167 MG/DL (70-100); POTASSIUM SERUM 4.6 MEQ/L (3.5-5.1); SODIUM LEVEL 139 MEQ/L (136-145); TOTAL PROTEIN 6.9 GM/DL (6.4-8.2)
[2022-06-07] MEDS: CHLORHEXIDINE GLUCONATE 0.12 % 15ML UDC (PERIDEX ORAL RINSE) MT SCH (08:14)
[2022-06-07] MEDS: PANTOPRAZOLE 40MG VIAL IV SCH (08:28)
[2022-06-07] MEDS: OLANZapine INTRAMUSCULAR 10MG VIAL IM PRN (10:30)
[2022-06-07] MEDS ORDERED: FUROSEMIDE 20MG/2ML VIAL (J1940) IV ONE (12:15)
[2022-06-07] MEDS: AZITHROMYCIN INJ 500 MG, VIAL MATE ADAPTER 1 EACH in NS 250 ML IV SCH (19:58)
[2022-06-07] MEDS: ENOXAPARIN 40MG/0.4ML SYRINGE (J1650 PER 10MG) SC SCH (21:20)
[2022-06-08] VITALS (15 sets, daily range): BP systolic 99–122; BP diastolic 63–82; O2SAT 95
[2022-06-08] MEDS: dexmedeTOMidine 200 MCG in IV 1 EA IV SCH ×2 (01:27→07:58)
[2022-06-08] MEDS: SODIUM CHLORIDE HYPERTONIC 3% 15ML NEB SOL INH SCH ×7 (03:09→23:26)
[2022-06-08] MEDS: PIPERACILLIN/TAZOBACTAM SOD 4.5 GM in D5W MINI-BAG PLUS 50 ML IV SCH (05:07)
[2022-06-08] MEDS: methylPREDNISolone 40MG 1ML VIAL IV SCH ×3 (05:07→21:56)
[2022-06-08 05:12] LABS: ALBUMIN 2.4 GM/DL (3.2-5.2); ALT/SGPT 33 U/L (12-78); BILIRUBIN,TOTAL 0.7 MG/DL (0.2-1.0); BLOOD UREA NITROGEN 33 MG/DL (7-18); CALCIUM LEVEL 8.7 MG/DL (8.8-10.2); CARBON DIOXIDE LEVEL 31 MEQ/L (21-32); CHLORIDE LEVEL 108 MEQ/L (98-107); CREATININE FOR GFR 0.81 MG/DL (0.70-1.30); GLOMERULAR FILTRATION RATE > 60.0 (>42); GLUCOSE, FASTING 143 MG/DL (70-100); POTASSIUM SERUM 4.8 MEQ/L (3.5-5.1); SODIUM LEVEL 143 MEQ/L (136-145); TOTAL PROTEIN 6.2 GM/DL (6.4-8.2)
[2022-06-08] MEDS: ACETYLCYSTEINE 20% 4 ML VIAL (200MG/ML) INH SCH (07:15)
[2022-06-08] MEDS: BUDESONIDE 0.5 MG/2 ML INHALATION SUSPENSION INH SCH ×2 (07:15→20:15)
[2022-06-08] MEDS: ALBUTEROL SULFATE 2.5 MG/0.5 ML INH NEB SOLN NEB SCH ×4 (11:25→23:26)
[2022-06-08] MEDS: cefTRIAXone SOD 1 GM in D5W MINI-BAG PLUS 50 ML IV SCH (12:47)
[2022-06-08] MEDS: ENOXAPARIN 40MG/0.4ML SYRINGE (J1650 PER 10MG) SC SCH (21:56)
[2022-06-09] MEDS: ALBUTEROL SULFATE 2.5 MG/0.5 ML INH NEB SOLN NEB SCH ×6 (03:21→23:47)
[2022-06-09] MEDS: SODIUM CHLORIDE HYPERTONIC 3% 15ML NEB SOL INH SCH ×6 (03:21→23:47)
[2022-06-09 04:00] VITALS: BP 119/72
[2022-06-09 04:22] LABS: HEMATOCRIT 44.9 % (42.0-52.0); MEAN CORPUSCULAR HGB CONC 31.2 g/dl (32.0-36.5); MEAN CORPUSCULAR VOLUME 86.7 fl (80.0-96.0); PLATELET COUNT, AUTOMATED 203 10^3/uL (150-450); RED BLOOD COUNT 5.18 10^6/uL (4.30-6.10); WHITE BLOOD COUNT 8.7 10^3/uL (4.0-10.0)
[2022-06-09 04:57] LABS: ALBUMIN 2.7 GM/DL (3.2-5.2); ALT/SGPT 31 U/L (12-78); BILIRUBIN,TOTAL 0.8 MG/DL (0.2-1.0); BLOOD UREA NITROGEN 42 MG/DL (7-18); CARBON DIOXIDE LEVEL 32 MEQ/L (21-32); CHLORIDE LEVEL 107 MEQ/L (98-107); CREATININE FOR GFR 0.97 MG/DL (0.70-1.30); GLOMERULAR FILTRATION RATE > 60.0 (>42); GLUCOSE, FASTING 130 MG/DL (70-100); POTASSIUM SERUM 4.4 MEQ/L (3.5-5.1); SODIUM LEVEL 141 MEQ/L (136-145)
[2022-06-09] MEDS: methylPREDNISolone 40MG 1ML VIAL IV SCH ×3 (05:49→21:32)
[2022-06-09] MEDS: BUDESONIDE 0.5 MG/2 ML INHALATION SUSPENSION INH SCH ×2 (08:49→20:00)
[2022-06-09] MEDS ORDERED: VARIBAR NECTAR 40% w/v 240ML SUSP BTL As Ordered ONE (12:00)
[2022-06-09] MEDS ORDERED: E-Z-PAQUE 96% w/w SUSP 176GM BTL As Ordered ONE (12:00)
[2022-06-09] MEDS ORDERED: BARIUM SULFATE 700 MG TABLET (E-Z-DISK) As Ordered ONE (12:00)
[2022-06-09] MEDS ORDERED: VARIBAR PUDDING 40% w/v 230ML TUBE As Ordered ONE (12:00)
[2022-06-09] MEDS: cefTRIAXone SOD 1 GM in D5W MINI-BAG PLUS 50 ML IV SCH (14:09)
[2022-06-09 14:25] VITALS: BP 146/91
[2022-06-09] MEDS: ENOXAPARIN 40MG/0.4ML SYRINGE (J1650 PER 10MG) SC SCH (21:32)
[2022-06-09 21:40] VITALS: BP 143/80
[2022-06-10] MEDS: SODIUM CHLORIDE HYPERTONIC 3% 15ML NEB SOL INH SCH ×4 (04:15→20:00)
[2022-06-10] MEDS: ALBUTEROL SULFATE 2.5 MG/0.5 ML INH NEB SOLN NEB SCH ×4 (04:15→20:00)
[2022-06-10] MEDS: methylPREDNISolone 40MG 1ML VIAL IV SCH ×3 (05:28→22:38)
[2022-06-10 06:00] VITALS: BP 136/89
[2022-06-10] MEDS: BUDESONIDE 0.5 MG/2 ML INHALATION SUSPENSION INH SCH ×2 (07:17→20:00)
[2022-06-10] MEDS: OLANZapine INTRAMUSCULAR 10MG VIAL IM PRN ×2 (08:00→21:28)
[2022-06-10 08:32] LABS: ALT/SGPT 33 U/L (12-78); BILIRUBIN,TOTAL 1.1 MG/DL (0.2-1.0); BLOOD UREA NITROGEN 33 MG/DL (7-18); CALCIUM LEVEL 8.9 MG/DL (8.8-10.2); CARBON DIOXIDE LEVEL 30 MEQ/L (21-32); CHLORIDE LEVEL 107 MEQ/L (98-107); CREATININE FOR GFR 0.84 MG/DL (0.70-1.30); GLOMERULAR FILTRATION RATE > 60.0 (>42); GLUCOSE, FASTING 104 MG/DL (70-100); POTASSIUM SERUM 4.2 MEQ/L (3.5-5.1); SODIUM LEVEL 141 MEQ/L (136-145); TOTAL PROTEIN 6.6 GM/DL (6.4-8.2)
[2022-06-10] MEDS ORDERED: ALPRAZolam 0.25 MG TAB PO ONE (11:55)
[2022-06-10] MEDS ORDERED: OLANZapine INTRAMUSCULAR 10MG VIAL IM ONE (11:55)
[2022-06-10] MEDS: cefTRIAXone SOD 1 GM in D5W MINI-BAG PLUS 50 ML IV SCH (13:00)
[2022-06-10] MEDS: diphenhydrAMINE 25MG CAP PO PRN (20:45)
[2022-06-10] MEDS: ACETAMINOPHEN TAB 650MG DOSE (2X325MG) PO PRN (20:45)
[2022-06-10] MEDS: ENOXAPARIN 40MG/0.4ML SYRINGE (J1650 PER 10MG) SC SCH (20:45)
[2022-06-10 22:00] VITALS: BP 139/89
[2022-06-11] MEDS ORDERED: OLANZapine INTRAMUSCULAR 10MG VIAL IM ONE (02:00)
[2022-06-11] MEDS ORDERED: HALOPERIDOL 5MG/ML VIAL (J1630 PER 1) IM STA (03:18)
[2022-06-11 03:33] VITALS: BP 154/88
[2022-06-11] MEDS: SODIUM CHLORIDE HYPERTONIC 3% 15ML NEB SOL INH SCH ×7 (03:40→23:19)
[2022-06-11] MEDS: ALBUTEROL SULFATE 2.5 MG/0.5 ML INH NEB SOLN NEB SCH ×7 (03:40→23:19)
[2022-06-11] MEDS: methylPREDNISolone 40MG 1ML VIAL IV SCH (05:35)
[2022-06-11 06:00] VITALS: BP 154/88
[2022-06-11 07:38] LABS: BASO % 0.1 % (0.0-1.0); HEMATOCRIT 45.8 % (42.0-52.0); HEMOGLOBIN 14.3 g/dl (13.5-17.5); LYMPH # 0.8 10^3/uL (1.5-5.0); LYMPH % 7.7 % (24.0-44.0); MEAN CORPUSCULAR HGB CONC 31.2 g/dl (32.0-36.5); MEAN CORPUSCULAR VOLUME 86.4 fl (80.0-96.0); MONO # 0.8 10^3/uL (0.0-0.8); MONO % 7.6 % (2.0-8.0); NEUTROPHILS # 8.8 10^3/uL (1.5-8.5); NEUTROPHILS % 83.5 % (36.0-66.0); PLATELET COUNT, AUTOMATED 215 10^3/uL (150-450); WHITE BLOOD COUNT 10.5 10^3/uL (4.0-10.0)
[2022-06-11] MEDS: BUDESONIDE 0.5 MG/2 ML INHALATION SUSPENSION INH SCH ×2 (08:04→20:09)
[2022-06-11 08:21] LABS: BLOOD UREA NITROGEN 29 MG/DL (7-18); CALCIUM LEVEL 9.4 MG/DL (8.8-10.2); CARBON DIOXIDE LEVEL 30 MEQ/L (21-32); CHLORIDE LEVEL 105 MEQ/L (98-107); CREATININE FOR GFR 0.74 MG/DL (0.70-1.30); GLOMERULAR FILTRATION RATE > 60.0 (>42); GLUCOSE, FASTING 142 MG/DL (70-100); POTASSIUM SERUM 4.4 MEQ/L (3.5-5.1); SODIUM LEVEL 139 MEQ/L (136-145)
[2022-06-11] MEDS: OLANZapine INTRAMUSCULAR 10MG VIAL IM PRN (10:47)
[2022-06-11] MEDS: cefTRIAXone SOD 1 GM in D5W MINI-BAG PLUS 50 ML IV SCH (12:44)
[2022-06-11 14:00] VITALS: BP 153/88
[2022-06-11] MEDS: predniSONE 20 MG TAB PO SCH ×2 (17:49→20:27)
[2022-06-11] MEDS: ENOXAPARIN 40MG/0.4ML SYRINGE (J1650 PER 10MG) SC SCH (20:26)
[2022-06-11] MEDS: ACETAMINOPHEN TAB 650MG DOSE (2X325MG) PO PRN (20:27)
[2022-06-11] MEDS: diphenhydrAMINE 25MG CAP PO PRN (20:27)
[2022-06-11 20:48] VITALS: BP 156/98
[2022-06-12] MEDS: OLANZapine INTRAMUSCULAR 10MG VIAL IM PRN ×2 (02:40→18:05)
[2022-06-12] MEDS: SODIUM CHLORIDE HYPERTONIC 3% 15ML NEB SOL INH SCH ×6 (03:11→23:33)
[2022-06-12] MEDS: ALBUTEROL SULFATE 2.5 MG/0.5 ML INH NEB SOLN NEB SCH ×6 (03:11→23:33)
[2022-06-12 06:15] VITALS: BP 151/96
[2022-06-12 06:18] LABS: HEMATOCRIT 43.1 % (42.0-52.0); HEMOGLOBIN 13.9 g/dl (13.5-17.5); MEAN CORPUSCULAR HEMOGLOBIN 27.6 pg (27.0-33.0); MEAN CORPUSCULAR HGB CONC 32.3 g/dl (32.0-36.5); MEAN CORPUSCULAR VOLUME 85.5 fl (80.0-96.0); PLATELET COUNT, AUTOMATED 188 10^3/uL (150-450); RED BLOOD COUNT 5.04 10^6/uL (4.30-6.10); WHITE BLOOD COUNT 9.9 10^3/uL (4.0-10.0)
[2022-06-12] MEDS: BUDESONIDE 0.5 MG/2 ML INHALATION SUSPENSION INH SCH ×2 (08:38→20:59)
[2022-06-12] MEDS: predniSONE 20 MG TAB PO SCH ×3 (09:06→20:34)
[2022-06-12 09:33] LABS: ABG BASE EXCESS 6.3 (-2.0-2.0); ABG HCO3 31.8 MEQ/L (22.0-26.0); ABG O2 SATURATION 96.7 % (95.0-99.0); ABG PARTIAL PRESSURE CO2 48.6 mmHg (35.0-45.0); ABG PARTIAL PRESSURE O2 84.9 mmHg (75.0-100.0); ABG STANDARD HCO3 30.1 MEQ/L (22.0-26.0); ABG TOTAL CO2 33.2 MEQ/L (23.0-31.0); ABG pH (ARTERIAL) 7.433 UNITS (7.350-7.450)
[2022-06-12] MEDS: MULTIVITAMINS/MINERALS THERAP 1 TAB PO SCH (13:03)
[2022-06-12] MEDS: ASPIRIN 81MG ENTERIC TABLET PO SCH (13:03)
[2022-06-12] MEDS: METOPROLOL SUCC *XL* 12.5MG PER 1/2 TAB (TopROL *XL*) PO SCH ×2 (13:03→20:35)
[2022-06-12] MEDS: cefTRIAXone SOD 1 GM in D5W MINI-BAG PLUS 50 ML IV SCH (13:04)
[2022-06-12 14:00] VITALS: BP 142/92
[2022-06-12 19:11] VITALS: BP 141/90
[2022-06-12] MEDS: ENOXAPARIN 40MG/0.4ML SYRINGE (J1650 PER 10MG) SC SCH (20:35)
[2022-06-12] MEDS: ATORVASTATIN 20 MG TAB PO SCH (20:35)
[2022-06-13] MEDS: ALBUTEROL SULFATE 2.5 MG/0.5 ML INH NEB SOLN NEB SCH ×5 (03:10→19:47)
[2022-06-13] MEDS: SODIUM CHLORIDE HYPERTONIC 3% 15ML NEB SOL INH SCH ×5 (03:10→19:46)
[2022-06-13 06:15] VITALS: BP 126/76
[2022-06-13] MEDS: BUDESONIDE 0.5 MG/2 ML INHALATION SUSPENSION INH SCH ×2 (07:52→19:46)
[2022-06-13 08:22] LABS: BASO % 0.3 % (0.0-1.0); EOS % 0.3 % (0.0-3.0); HEMATOCRIT 45.2 % (42.0-52.0); HEMOGLOBIN 14.3 g/dl (13.5-17.5); LYMPH # 0.9 10^3/uL (1.5-5.0); LYMPH % 10.1 % (24.0-44.0); MEAN CORPUSCULAR HEMOGLOBIN 27.8 pg (27.0-33.0); MEAN CORPUSCULAR HGB CONC 31.6 g/dl (32.0-36.5); MEAN CORPUSCULAR VOLUME 87.8 fl (80.0-96.0); MONO # 0.7 10^3/uL (0.0-0.8); MONO % 7.6 % (2.0-8.0); NEUTROPHILS # 7.2 10^3/uL (1.5-8.5); NEUTROPHILS % 80.5 % (36.0-66.0); PLATELET COUNT, AUTOMATED 121 10^3/uL (150-450); RED BLOOD COUNT 5.15 10^6/uL (4.30-6.10); WHITE BLOOD COUNT 8.9 10^3/uL (4.0-10.0)
[2022-06-13] MEDS: MULTIVITAMINS/MINERALS THERAP 1 TAB PO SCH (08:27)
[2022-06-13] MEDS: ASPIRIN 81MG ENTERIC TABLET PO SCH (08:27)
[2022-06-13] MEDS: predniSONE 20 MG TAB PO SCH ×2 (08:27→20:15)
[2022-06-13] MEDS: METOPROLOL SUCC *XL* 12.5MG PER 1/2 TAB (TopROL *XL*) PO SCH ×2 (08:28→20:16)
[2022-06-13 08:50] LABS: ALT/SGPT 32 U/L (12-78); BILIRUBIN,TOTAL 1.1 MG/DL (0.2-1.0); BLOOD UREA NITROGEN 30 MG/DL (7-18); CALCIUM LEVEL 9.3 MG/DL (8.8-10.2); CARBON DIOXIDE LEVEL 32 MEQ/L (21-32); CHLORIDE LEVEL 104 MEQ/L (98-107); CREATININE FOR GFR 0.78 MG/DL (0.70-1.30); GLOMERULAR FILTRATION RATE > 60.0 (>42); GLUCOSE, FASTING 97 MG/DL (70-100); MAGNESIUM LEVEL 2.3 MG/DL (1.8-2.4); POTASSIUM SERUM 4.3 MEQ/L (3.5-5.1); SODIUM LEVEL 140 MEQ/L (136-145); TOTAL PROTEIN 6.2 GM/DL (6.4-8.2)
[2022-06-13] MEDS: cefTRIAXone SOD 1 GM in D5W MINI-BAG PLUS 50 ML IV SCH (12:13)
[2022-06-13 14:14] VITALS: BP 104/71
[2022-06-13 18:21] VITALS: BP 121/69
[2022-06-13] MEDS: diphenhydrAMINE 25MG CAP PO PRN (20:15)
[2022-06-13] MEDS: ENOXAPARIN 40MG/0.4ML SYRINGE (J1650 PER 10MG) SC SCH (20:16)
[2022-06-13] MEDS: ATORVASTATIN 20 MG TAB PO SCH (20:16)
[2022-06-13] MEDS: ACETAMINOPHEN TAB 650MG DOSE (2X325MG) PO PRN (20:18)
[2022-06-13] MEDS ORDERED: QUEtiapine FUMARATE 25 MG TAB PO PRN (20:20)
[2022-06-13 22:00] VITALS: BP 137/83
[2022-06-14] MEDS: ALBUTEROL SULFATE 2.5 MG/0.5 ML INH NEB SOLN NEB SCH ×7 (00:03→23:52)
[2022-06-14] MEDS: SODIUM CHLORIDE HYPERTONIC 3% 15ML NEB SOL INH SCH ×7 (00:04→23:52)
[2022-06-14 06:00] VITALS: BP 118/70
[2022-06-14] MEDS: BUDESONIDE 0.5 MG/2 ML INHALATION SUSPENSION INH SCH ×2 (07:19→19:12)
[2022-06-14 07:56] LABS: ALBUMIN 2.7 GM/DL (3.2-5.2); ALT/SGPT 28 U/L (12-78); BILIRUBIN,TOTAL 0.8 MG/DL (0.2-1.0); BLOOD UREA NITROGEN 35 MG/DL (7-18); CALCIUM LEVEL 9.3 MG/DL (8.8-10.2); CARBON DIOXIDE LEVEL 34 MEQ/L (21-32); CHLORIDE LEVEL 103 MEQ/L (98-107); CREATININE FOR GFR 0.78 MG/DL (0.70-1.30); GLOMERULAR FILTRATION RATE > 60.0 (>42); GLUCOSE, FASTING 133 MG/DL (70-100); MAGNESIUM LEVEL 2.3 MG/DL (1.8-2.4); POTASSIUM SERUM 4.9 MEQ/L (3.5-5.1); SODIUM LEVEL 141 MEQ/L (136-145); TOTAL PROTEIN 5.9 GM/DL (6.4-8.2)
[2022-06-14] MEDS: METOPROLOL SUCC *XL* 12.5MG PER 1/2 TAB (TopROL *XL*) PO SCH ×2 (08:24→20:37)
[2022-06-14] MEDS: ASPIRIN 81MG ENTERIC TABLET PO SCH (08:24)
[2022-06-14] MEDS: predniSONE 20 MG TAB PO SCH ×2 (08:24→20:36)
[2022-06-14] MEDS: MULTIVITAMINS/MINERALS THERAP 1 TAB PO SCH (08:24)
[2022-06-14] MEDS: ACETAMINOPHEN TAB 650MG DOSE (2X325MG) PO PRN ×2 (08:24→20:36)
[2022-06-14] MEDS: cefTRIAXone SOD 1 GM in D5W MINI-BAG PLUS 50 ML IV SCH (12:53)
[2022-06-14 14:09] VITALS: BP 112/67
[2022-06-14] MEDS: diphenhydrAMINE 25MG CAP PO PRN (20:35)
[2022-06-14] MEDS: ATORVASTATIN 20 MG TAB PO SCH (20:35)
[2022-06-14] MEDS: ENOXAPARIN 40MG/0.4ML SYRINGE (J1650 PER 10MG) SC SCH (20:37)
[2022-06-14 22:00] VITALS: BP 109/68
[2022-06-15] MEDS: ALBUTEROL SULFATE 2.5 MG/0.5 ML INH NEB SOLN NEB SCH ×3 (03:38→11:31)
[2022-06-15] MEDS: SODIUM CHLORIDE HYPERTONIC 3% 15ML NEB SOL INH SCH ×3 (03:38→11:30)
[2022-06-15 06:00] VITALS: BP 112/66
[2022-06-15 07:24] LABS: HEMATOCRIT 41.6 % (42.0-52.0); HEMOGLOBIN 12.7 g/dl (13.5-17.5); MEAN CORPUSCULAR HEMOGLOBIN 27.4 pg (27.0-33.0); MEAN CORPUSCULAR HGB CONC 30.5 g/dl (32.0-36.5); MEAN CORPUSCULAR VOLUME 89.7 fl (80.0-96.0); PLATELET COUNT, AUTOMATED 173 10^3/uL (150-450); RED BLOOD COUNT 4.64 10^6/uL (4.30-6.10); WHITE BLOOD COUNT 13.9 10^3/uL (4.0-10.0)
[2022-06-15] MEDS: BUDESONIDE 0.5 MG/2 ML INHALATION SUSPENSION INH SCH (07:25)
[2022-06-15 08:03] LABS: ALBUMIN 2.8 GM/DL (3.2-5.2); ALT/SGPT 26 U/L (12-78); BILIRUBIN,TOTAL 0.9 MG/DL (0.2-1.0); BLOOD UREA NITROGEN 36 MG/DL (7-18); CARBON DIOXIDE LEVEL 34 MEQ/L (21-32); CHLORIDE LEVEL 103 MEQ/L (98-107); CREATININE FOR GFR 0.74 MG/DL (0.70-1.30); GLOMERULAR FILTRATION RATE > 60.0 (>42); GLUCOSE, FASTING 123 MG/DL (70-100); MAGNESIUM LEVEL 2.2 MG/DL (1.8-2.4); POTASSIUM SERUM 4.8 MEQ/L (3.5-5.1); SODIUM LEVEL 140 MEQ/L (136-145)
[2022-06-15 09:00] VITALS: BP 112/70
[2022-06-15] MEDS: METOPROLOL SUCC *XL* 12.5MG PER 1/2 TAB (TopROL *XL*) PO SCH (09:00)
[2022-06-15] MEDS: MULTIVITAMINS/MINERALS THERAP 1 TAB PO SCH (09:39)
[2022-06-15] MEDS: ASPIRIN 81MG ENTERIC TABLET PO SCH (09:40)
[2022-06-15] MEDS: predniSONE 20 MG TAB PO SCH (09:40)
[2022-06-15] MEDS ORDERED: BUDE0.5S6 INH (15:12)
[2022-06-15] MEDS ORDERED: PRED10TA2 PO (15:12)
[2022-06-15] MEDS ORDERED: AZIT-12 PO (16:41)
[2022-06-15] MEDS ORDERED: ALBU8.5H INH (16:41)
[2022-06-15] MEDS ORDERED: PRED20TA PO (16:41)
[2022-06-15] MEDS ORDERED: ALBU2.5V10 INH (16:41)
[2022-06-15] MEDS ORDERED: IPRA0.00 INH (16:41)
[2022-06-23] MEDS ORDERED: predniSONE 10 MG TAB PO SCH (09:00)
== END 2022-06-15 17:00 | disposition home or self-care (01) | DRG 208 ==
LOC: M ED 15:14 → M ED INP 19:01 → M ICU 20:43 → M MS5PR 06-09 14:25
PROVIDERS: ADMIT Internal Medicine; ATTEND Family Medicine
PROC: 5A1945Z Respiratory Ventilation, 24-96 Consecutive Hours (ICD-10-PCS; principal; 2022-06-03)
PROC: 0BJ08ZZ Inspection of Tracheobronchial Tree, Via Natural or Artificial Opening Endoscopic (ICD-10-PCS; 2022-06-03)
DX: J96.02 Acute respiratory failure with hypercapnia (principal); J69.0 Pneumonitis due to inhalation of food and vomit; J14 Pneumonia due to Hemophilus influenzae; J44.0 Chronic obstructive pulmonary disease with (acute) lower respiratory infection; E87.2 Acidosis; I50.32 Chronic diastolic (congestive) heart failure; J44.1 Chronic obstructive pulmonary disease with (acute) exacerbation; B02.29 Other postherpetic nervous system involvement; E78.5 Hyperlipidemia, unspecified; I25.10 Atherosclerotic heart disease of native coronary artery without angina pectoris; Z99.81 Dependence on supplemental oxygen; Z95.1 Presence of aortocoronary bypass graft; Z79.82 Long term (current) use of aspirin; Z79.899 Other long term (current) drug therapy; Z98.41 Cataract extraction status, right eye; Z87.891 Personal history of nicotine dependence; J96.01 Acute respiratory failure with hypoxia; Z20.822 Contact with and (suspected) exposure to COVID-19

== ENCOUNTER 2022-06-18 22:38 | Inpatient (IN) | payer OTHER, MEDICARE ==
[~2022-06-18] VITALS: Ht 195.6 cm; Wt 89.5 kg
[~2022-06-18 22:38] MED LIST changes: +ALBU2.5V10 INH; +ALBU8.5H INH; +AZIT-12 PO; +BUDE0.5S6 INH; +IPRA0.00 INH; +LASI40TA9 PO; +PRED20TA PO
[2022-06-18 23:50] LABS: RSV AMPLIFICATION NEGATIVE (NEGATIVE)
[2022-06-18 23:53] LABS: VENOUS BASE EXCESS 5.8 (-2.0-2.0); VENOUS HCO3 32.9 MEQ/L (23.0-27.0); VENOUS O2 SATURATION 74.7 % (60.0-80.0); VENOUS PARTIAL PRESSURE CO2 57.7 mmHg (38.0-50.0); VENOUS PARTIAL PRESSURE O2 38.2 mmHg (30.0-50.0); VENOUS PH 7.374 UNITS (7.330-7.430); VENOUS STANDARD HCO3 29.1 MEQ/L; VENOUS TOTAL CO2 34.7 MEQ/L (24.0-28.0)
[2022-06-19 00:12] LABS: BASO % 0.1 % (0.0-1.0); HEMATOCRIT 43.6 % (42.0-52.0); HEMOGLOBIN 13.6 g/dl (13.5-17.5); LYMPH # 0.6 10^3/uL (1.5-5.0); LYMPH % 5.2 % (24.0-44.0); MEAN CORPUSCULAR HEMOGLOBIN 27.4 pg (27.0-33.0); MEAN CORPUSCULAR HGB CONC 31.2 g/dl (32.0-36.5); MEAN CORPUSCULAR VOLUME 87.9 fl (80.0-96.0); MONO # 0.8 10^3/uL (0.0-0.8); MONO % 7.1 % (2.0-8.0); NEUTROPHILS # 9.8 10^3/uL (1.5-8.5); NEUTROPHILS % 86.1 % (36.0-66.0); PLATELET COUNT, AUTOMATED 161 10^3/uL (150-450); RED BLOOD COUNT 4.96 10^6/uL (4.30-6.10); WHITE BLOOD COUNT 11.3 10^3/uL (4.0-10.0)
[2022-06-19 00:34] LABS: CK-MB VALUE MASS 2.3 NG/ML (<3.6); MB/CK RELATIVE INDEX 2.99 (< OR =4)
[2022-06-19 00:42] LABS: ALBUMIN 3.2 GM/DL (3.2-5.2); ALT/SGPT 33 U/L (12-78); BILIRUBIN,DIRECT 0.4 MG/DL (0.0-0.2); BILIRUBIN,TOTAL 1.1 MG/DL (0.2-1.0); BLOOD UREA NITROGEN 33 MG/DL (7-18); CALCIUM LEVEL 9.3 MG/DL (8.8-10.2); CARBON DIOXIDE LEVEL 33 MEQ/L (21-32); CHLORIDE LEVEL 102 MEQ/L (98-107); CREATININE FOR GFR 0.86 MG/DL (0.70-1.30); GLOMERULAR FILTRATION RATE > 60.0 (>42); GLUCOSE, FASTING 132 MG/DL (70-100); NT-PRO BNP 456 PG/ML (<450); SODIUM LEVEL 140 MEQ/L (136-145); THYROID STIMULATING HORMONE 0.861 uIU/ML (0.358-3.740); TOTAL PROTEIN 6.7 GM/DL (6.4-8.2)
[2022-06-19] MEDS ORDERED: BUDE0.5S6 NEB (00:42)
[2022-06-19] MEDS ORDERED: INCR1INH INH (00:42)
[2022-06-19] MEDS ORDERED: FLUT22IN PO (00:42)
[2022-06-19] MEDS ORDERED: AZIT-10 PO (00:42)
[2022-06-19] MEDS ORDERED: PANT40TA29 PO (00:42)
[2022-06-19] MEDS ORDERED: PRED20TA PO (00:44)
[2022-06-19] MEDS ORDERED: HOME MED LIST COMPLETE! XX SCH (00:45)
[2022-06-19] MEDS ORDERED: MOM 30ML SUSPENSION UDC PO PRN (02:35)
[2022-06-19] MEDS ORDERED: IPRATROPIUM 0.5MG/ALBUTEROL 2.5MG INH SOL UD 3ML (DUONEB) INH PRN (02:35)
[2022-06-19] MEDS ORDERED: ALBUTEROL SULFATE 2.5 MG/0.5 ML INH NEB SOLN INH PRN (02:35)
[2022-06-19] MEDS ORDERED: ALBUTEROL 90 MCG/ACT 8GM HFA INHALER INH PRN (02:35)
[2022-06-19 05:05] VITALS: BP 130/80
[2022-06-19] MEDS: FLUTICASONE HFA 220 MCG 12 GM INHALER (FLOVENT) INH SCH ×2 (08:16→20:00)
[2022-06-19] MEDS: MULTIVITAMINS/MINERALS THERAP 1 TAB PO SCH (09:12)
[2022-06-19] MEDS: DOCUSATE SODIUM 100MG CAPSULE PO SCH ×2 (09:12→20:13)
[2022-06-19] MEDS: PANTOPRAZOLE 40MG TAB (PROTONIX) PO SCH ×2 (09:12→20:13)
[2022-06-19] MEDS: ASPIRIN 81MG ENTERIC TABLET PO SCH (09:12)
[2022-06-19] MEDS: ENOXAPARIN 40MG/0.4ML SYRINGE (J1650 PER 10MG) SC SCH (09:13)
[2022-06-19] MEDS: METOPROLOL SUCC *XL* 12.5MG PER 1/2 TAB (TopROL *XL*) PO SCH ×2 (12:49→21:00)
[2022-06-19 14:00] VITALS: BP 102/64
[2022-06-19] MEDS: ATORVASTATIN 20 MG TAB PO SCH (20:13)
[2022-06-19 23:27] VITALS: BP 108/65
[2022-06-20 05:35] VITALS: BP 103/65
[2022-06-20 06:49] LABS: HEMATOCRIT 42.5 % (42.0-52.0); HEMOGLOBIN 13.2 g/dl (13.5-17.5); MEAN CORPUSCULAR HEMOGLOBIN 27.4 pg (27.0-33.0); MEAN CORPUSCULAR HGB CONC 31.1 g/dl (32.0-36.5); MEAN CORPUSCULAR VOLUME 88.2 fl (80.0-96.0); PLATELET COUNT, AUTOMATED 152 10^3/uL (150-450); RED BLOOD COUNT 4.82 10^6/uL (4.30-6.10)
[2022-06-20 07:25] LABS: BLOOD UREA NITROGEN 30 MG/DL (7-18); CALCIUM LEVEL 8.8 MG/DL (8.8-10.2); CARBON DIOXIDE LEVEL 35 MEQ/L (21-32); CHLORIDE LEVEL 104 MEQ/L (98-107); CREATININE FOR GFR 0.74 MG/DL (0.70-1.30); GLOMERULAR FILTRATION RATE > 60.0 (>42); GLUCOSE, FASTING 89 MG/DL (70-100); POTASSIUM SERUM 3.9 MEQ/L (3.5-5.1); SODIUM LEVEL 142 MEQ/L (136-145)
[2022-06-20] MEDS: FLUTICASONE HFA 220 MCG 12 GM INHALER (FLOVENT) INH SCH ×2 (08:26→19:39)
[2022-06-20] MEDS: METOPROLOL SUCC *XL* 12.5MG PER 1/2 TAB (TopROL *XL*) PO SCH ×2 (09:00→21:00)
[2022-06-20] MEDS: ASPIRIN 81MG ENTERIC TABLET PO SCH (09:15)
[2022-06-20] MEDS: ENOXAPARIN 40MG/0.4ML SYRINGE (J1650 PER 10MG) SC SCH (09:15)
[2022-06-20] MEDS: PANTOPRAZOLE 40MG TAB (PROTONIX) PO SCH ×2 (09:16→21:55)
[2022-06-20] MEDS: DOCUSATE SODIUM 100MG CAPSULE PO SCH ×2 (09:16→21:55)
[2022-06-20] MEDS: MULTIVITAMINS/MINERALS THERAP 1 TAB PO SCH (09:16)
[2022-06-20 10:02] LABS: RENAL EPITHELIAL CELLS, URINE SMALL AMOUNT /hpf; SQUAMOUS EPITHELIAL CELL URINE SMALL AMOUNT /hpf (SMALL AMT)
[2022-06-20 10:03] LABS: AMORPHOUS SEDIMENT, URINE MOD AMOUNT (NEGATIVE); BACTERIA, URINE SMALL AMOUNT; HYALINE CAST, URINE NONE SEEN /lpf (0-1)
[2022-06-20 14:00] VITALS: BP 113/73
[2022-06-20] MEDS: ACETAMINOPHEN TAB 650MG DOSE (2X325MG) PO PRN (21:55)
[2022-06-20] MEDS: ATORVASTATIN 20 MG TAB PO SCH (21:55)
[2022-06-20 22:07] VITALS: BP 95/60
[2022-06-21 06:00] VITALS: BP 100/63
[2022-06-21] MEDS: FLUTICASONE HFA 220 MCG 12 GM INHALER (FLOVENT) INH SCH ×2 (07:16→20:16)
[2022-06-21 08:38] VITALS: BP 98/64
[2022-06-21] MEDS: DOCUSATE SODIUM 100MG CAPSULE PO SCH ×2 (08:38→21:17)
[2022-06-21] MEDS: METOPROLOL SUCC *XL* 12.5MG PER 1/2 TAB (TopROL *XL*) PO SCH (08:38)
[2022-06-21] MEDS: MULTIVITAMINS/MINERALS THERAP 1 TAB PO SCH (08:38)
[2022-06-21] MEDS: PANTOPRAZOLE 40MG TAB (PROTONIX) PO SCH ×2 (08:38→21:18)
[2022-06-21] MEDS: ASPIRIN 81MG ENTERIC TABLET PO SCH (08:38)
[2022-06-21] MEDS: ENOXAPARIN 40MG/0.4ML SYRINGE (J1650 PER 10MG) SC SCH (08:38)
[2022-06-21 14:00] VITALS: BP 123/70
[2022-06-21] MEDS: ATORVASTATIN 20 MG TAB PO SCH (21:17)
[2022-06-21] MEDS: ACETAMINOPHEN TAB 650MG DOSE (2X325MG) PO PRN (21:18)
[2022-06-21 22:00] VITALS: BP 123/75
[2022-06-22 06:00] VITALS: BP 128/76
[2022-06-22] MEDS: FLUTICASONE HFA 220 MCG 12 GM INHALER (FLOVENT) INH SCH ×2 (07:39→20:09)
[2022-06-22 08:00] VITALS: BP 128/76
[2022-06-22] MEDS: MULTIVITAMINS/MINERALS THERAP 1 TAB PO SCH (08:43)
[2022-06-22] MEDS: PANTOPRAZOLE 40MG TAB (PROTONIX) PO SCH ×2 (08:43→21:09)
[2022-06-22] MEDS: ASPIRIN 81MG ENTERIC TABLET PO SCH (08:43)
[2022-06-22] MEDS: ENOXAPARIN 40MG/0.4ML SYRINGE (J1650 PER 10MG) SC SCH (08:44)
[2022-06-22] MEDS: DOCUSATE SODIUM 100MG CAPSULE PO SCH ×2 (09:00→21:09)
[2022-06-22] MEDS: ATORVASTATIN 20 MG TAB PO SCH (21:09)
[2022-06-22] MEDS: ACETAMINOPHEN TAB 650MG DOSE (2X325MG) PO PRN (21:09)
[2022-06-23 06:35] VITALS: BP 124/75
[2022-06-23] MEDS: FLUTICASONE HFA 220 MCG 12 GM INHALER (FLOVENT) INH SCH (07:24)
[2022-06-23] MEDS ORDERED: ALBU2.5V10 NEB (08:25)
[2022-06-23] MEDS ORDERED: ALBU6.7H6 INH (08:25)
[2022-06-23] MEDS ORDERED: DOXY-342 PO (08:25)
[2022-06-23] MEDS: MULTIVITAMINS/MINERALS THERAP 1 TAB PO SCH (09:36)
[2022-06-23] MEDS: ENOXAPARIN 40MG/0.4ML SYRINGE (J1650 PER 10MG) SC SCH (09:37)
[2022-06-23] MEDS: PANTOPRAZOLE 40MG TAB (PROTONIX) PO SCH (09:37)
[2022-06-23] MEDS: ASPIRIN 81MG ENTERIC TABLET PO SCH (09:37)
[2022-06-23] MEDS: DOCUSATE SODIUM 100MG CAPSULE PO SCH (09:37)
== END 2022-06-23 10:37 | disposition home health service (06) | DRG 92 ==
LOC: EDBD 22:38 → EDSEX 22:38 → M ED 22:38 → M ED INP 06-19 02:31 → ENRESERV 06-19 03:56 → M MS5PR 06-19 05:19
PROVIDERS: ADMIT Family Medicine; ATTEND General Practice
DX: R29.6 Repeated falls (principal); I50.32 Chronic diastolic (congestive) heart failure; J96.11 Chronic respiratory failure with hypoxia; I25.10 Atherosclerotic heart disease of native coronary artery without angina pectoris; Z95.1 Presence of aortocoronary bypass graft; Z99.81 Dependence on supplemental oxygen; Z66 Do not resuscitate; J44.9 Chronic obstructive pulmonary disease, unspecified; M62.81 Muscle weakness (generalized); Z79.82 Long term (current) use of aspirin; Z79.899 Other long term (current) drug therapy; Z98.41 Cataract extraction status, right eye; R62.7 Adult failure to thrive

== ENCOUNTER → 2022-09-27 | Outpatient (REF) | payer OTHER, MEDICARE ==
[~2022-09-27] MED LIST changes: +ALBU2.5V10 NEB; +ALBU6.7H6 INH; +AZIT-10 PO; +BUDE0.5S6 NEB; +DOXY100C81 PO; +FLUT22IN PO
[2022-09-27 17:34] LABS: HEMATOCRIT 41.1 % (42.0-52.0); HEMOGLOBIN 12.3 g/dl (13.5-17.5); MEAN CORPUSCULAR HEMOGLOBIN 29.4 pg (27.0-33.0); MEAN CORPUSCULAR HGB CONC 29.9 g/dl (32.0-36.5); MEAN CORPUSCULAR VOLUME 98.3 fl (80.0-96.0); PLATELET COUNT, AUTOMATED 217 10^3/uL (150-450); RED BLOOD COUNT 4.18 10^6/uL (4.30-6.10); WHITE BLOOD COUNT 5.7 10^3/uL (4.0-10.0)
[2022-09-27 17:52] LABS: MAGNESIUM LEVEL 2.2 MG/DL (1.8-2.4)
[2022-09-27 18:02] LABS: ALBUMIN 3.7 G/DL (3.2-5.2); ALKALINE PHOSPHATASE 56 U/L (46-116); ALT/SGPT 14 U/L (7.0-40); AST/SGOT 19 U/L (<34); BILIRUBIN,TOTAL 0.7 MG/DL (0.3-1.2); BLOOD UREA NITROGEN 24 MG/DL (9-23); CALCIUM LEVEL 9.3 MG/DL (8.3-10.6); CARBON DIOXIDE LEVEL 32 MMOL/L (20-31); CHLORIDE LEVEL 105 MMOL/L (98-107); CHOLESTEROL LEVEL 120 MG/DL (<200); CHOLESTEROL RISK RATIO 2.32 (<5); CREATININE FOR GFR 1.08 MG/DL (0.70-1.30); GLOMERULAR FILTRATION RATE > 60.0 (>42); GLUCOSE, FASTING 107 MG/DL (74-106); HDL CHOLESTEROL 51.6 MG/DL (>40); LDL CHOLESTEROL 51.6 MG/DL (<100); NON-HDL-C 68 MG/DL; POTASSIUM SERUM 4.3 MMOL/L (3.5-5.1); SODIUM LEVEL 142 MMOL/L (136-145); TOTAL PROTEIN 6.8 G/DL (5.7-8.2); TRIGLYCERIDES LEVEL 84 MG/DL (<150)
== END ==
LOC: M LABDRWCV 16:41
PROVIDERS: ATTEND Physician Assistant
DX: I25.10 Atherosclerotic heart disease of native coronary artery without angina pectoris (principal); I50.32 Chronic diastolic (congestive) heart failure; E78.00 Pure hypercholesterolemia, unspecified

== ENCOUNTER → 2022-12-28 | Outpatient (REF) | payer OTHER, MEDICARE ==
[2022-12-28 18:12] LABS: BLOOD UREA NITROGEN 22 MG/DL (9-23); CALCIUM LEVEL 9.4 MG/DL (8.3-10.6); CARBON DIOXIDE LEVEL 32 MMOL/L (20-31); CHLORIDE LEVEL 106 MMOL/L (98-107); CREATININE FOR GFR 1.01 MG/DL (0.70-1.30); GLOMERULAR FILTRATION RATE > 60.0 (>42); GLUCOSE, FASTING 81 MG/DL (74-106); POTASSIUM SERUM 4.4 MMOL/L (3.5-5.1); SODIUM LEVEL 143 MMOL/L (136-145)
== END ==
LOC: M LABDRWCV 16:53
PROVIDERS: ATTEND Physician Assistant
DX: I50.32 Chronic diastolic (congestive) heart failure (principal)

== ENCOUNTER → 2023-03-06 | Outpatient (CLI) | payer OTHER | LOC: M CLY 10:50 | PROVIDERS: ATTEND Physician Assistant | DX: M17.11 Unilateral primary osteoarthritis, right knee (principal); M19.071 Primary osteoarthritis, right ankle and foot; W19.XXXA Unspecified fall, initial encounter; Y99.9 Unspecified external cause status ==

== ENCOUNTER → 2023-09-25 | Outpatient (REF) | payer OTHER, MEDICARE ==
[~2023-09-25] MED LIST changes: +CEFD1CAP9 PO; -CEFD300C41 PO; -DOXY100C81 PO; +DOXY100C82 PO
[2023-09-25 18:33] LABS: HEMOGLOBIN 12.6 g/dl (13.5-17.5); MEAN CORPUSCULAR HEMOGLOBIN 30.7 pg (27.0-33.0); MEAN CORPUSCULAR HGB CONC 30.7 g/dl (32.0-36.5); MEAN CORPUSCULAR VOLUME 99.8 fl (80.0-96.0); PLATELET COUNT, AUTOMATED 175 10^3/uL (150-450); RED BLOOD COUNT 4.11 10^6/uL (4.30-6.10); WHITE BLOOD COUNT 5.8 10^3/uL (4.0-10.0)
[2023-09-25 18:59] LABS: ALBUMIN 3.8 G/DL (3.2-5.2); ALKALINE PHOSPHATASE 53 U/L (46-116); ALT/SGPT 23 U/L (7.0-40); AST/SGOT 22 U/L (<34); BILIRUBIN,TOTAL 0.9 MG/DL (0.3-1.2); BLOOD UREA NITROGEN 29 MG/DL (9-23); CALCIUM LEVEL 9.2 MG/DL (8.3-10.6); CARBON DIOXIDE LEVEL 30 MMOL/L (20-31); CHLORIDE LEVEL 106 MMOL/L (98-107); CHOLESTEROL LEVEL 127 MG/DL (<200); CHOLESTEROL RISK RATIO 2.15 (<5); CREATININE FOR GFR 1.07 MG/DL (0.70-1.30); GLOMERULAR FILTRATION RATE > 60.0 (>42); GLUCOSE, FASTING 103 MG/DL (74-106); LDL CHOLESTEROL 50.8 MG/DL (<100); MAGNESIUM LEVEL 2.3 MG/DL (1.8-2.4); POTASSIUM SERUM 4.6 MMOL/L (3.5-5.1); SODIUM LEVEL 140 MMOL/L (136-145); TOTAL PROTEIN 6.9 G/DL (5.7-8.2); TRIGLYCERIDES LEVEL 86 MG/DL (<150)
== END ==
LOC: M LABDRWCV 17:29
PROVIDERS: ATTEND Physician Assistant
DX: I25.10 Atherosclerotic heart disease of native coronary artery without angina pectoris (principal); I50.32 Chronic diastolic (congestive) heart failure; E78.00 Pure hypercholesterolemia, unspecified

== ENCOUNTER → 2024-02-18 | Outpatient (CLI) | payer OTHER | LOC: M RAD 09:10 | PROVIDERS: ATTEND Internal Medicine Pulmonary Disease | DX: Z12.2 Encounter for screening for malignant neoplasm of respiratory organs (principal); Z87.891 Personal history of nicotine dependence; J98.11 Atelectasis; J43.9 Emphysema, unspecified ==

== ENCOUNTER → 2024-03-26 | Outpatient (REF) | payer OTHER, MEDICARE ==
[2024-03-26 18:25] LABS: BLOOD UREA NITROGEN 30 MG/DL (9-23); CALCIUM LEVEL 9.6 MG/DL (8.3-10.6); CARBON DIOXIDE LEVEL 33 MMOL/L (20-31); CHLORIDE LEVEL 105 MMOL/L (98-107); CREATININE FOR GFR 1.15 MG/DL (0.70-1.30); GLOMERULAR FILTRATION RATE > 60.0 (>42); GLUCOSE, FASTING 98 MG/DL (74-106); POTASSIUM SERUM 4.8 MMOL/L (3.5-5.1); SODIUM LEVEL 141 MMOL/L (136-145)
== END ==
LOC: M LABDRWCV 16:50
PROVIDERS: ATTEND Physician Assistant
DX: I50.32 Chronic diastolic (congestive) heart failure (principal)

== ENCOUNTER → 2024-10-21 | Outpatient (REF) | payer OTHER ==
[~2024-10-21] MED LIST changes: +GABA-1172 PO; -GABA-282 PO; -MIDO2.5T PO; +MIDO2.5T3 PO
[2024-10-21 12:11] LABS: HEMATOCRIT 43.5 % (42.0-52.0); HEMOGLOBIN 13.4 g/dl (13.5-17.5); MEAN CORPUSCULAR HEMOGLOBIN 28.1 pg (27.0-33.0); MEAN CORPUSCULAR HGB CONC 30.8 g/dl (32.0-36.5); MEAN CORPUSCULAR VOLUME 91.2 fl (80.0-96.0); PLATELET COUNT, AUTOMATED 175 10^3/uL (150-450); RED BLOOD COUNT 4.77 10^6/uL (4.30-6.10); WHITE BLOOD COUNT 5.3 10^3/uL (4.0-10.0)
[2024-10-21 12:15] LABS: ALBUMIN 3.9 G/DL (3.2-5.2); ALKALINE PHOSPHATASE 56 U/L (40-129); ALT/SGPT 15 U/L (7.0-40); AST/SGOT 20 U/L (<34); BILIRUBIN,TOTAL 0.8 MG/DL (0.3-1.2); BLOOD UREA NITROGEN 31 MG/DL (9-23); CALCIUM LEVEL 9.5 MG/DL (8.3-10.6); CARBON DIOXIDE LEVEL 32 MMOL/L (20-31); CHLORIDE LEVEL 107 MMOL/L (98-107); CHOLESTEROL LEVEL 125 MG/DL (<200); CHOLESTEROL RISK RATIO 2.14 (<5); CREATININE FOR GFR 1.19 MG/DL (0.70-1.30); GLOMERULAR FILTRATION RATE > 60.0 (>42); GLUCOSE, FASTING 107 MG/DL (74-106); HDL CHOLESTEROL 58.4 MG/DL (>40); LDL CHOLESTEROL 53.2 MG/DL (<100); MAGNESIUM LEVEL 2.2 MG/DL (1.8-2.4); NON-HDL-C 66.6 MG/DL; POTASSIUM SERUM 4.7 MMOL/L (3.5-5.1); SODIUM LEVEL 144 MMOL/L (136-145); TOTAL PROTEIN 7.5 G/DL (5.7-8.2); TRIGLYCERIDES LEVEL 67 MG/DL (<150)
== END ==
LOC: M LABDRWCV 11:41
PROVIDERS: ATTEND Physician Assistant
DX: I25.10 Atherosclerotic heart disease of native coronary artery without angina pectoris (principal); I50.32 Chronic diastolic (congestive) heart failure; E78.00 Pure hypercholesterolemia, unspecified; E83.42 Hypomagnesemia

== ENCOUNTER → 2024-12-23 | Outpatient (CLI) | payer OTHER | LOC: M CARPUL 12:45 | PROVIDERS: ATTEND Physician Assistant | DX: I77.810 Thoracic aortic ectasia (principal); I35.1 Nonrheumatic aortic (valve) insufficiency; I34.0 Nonrheumatic mitral (valve) insufficiency ==

== ENCOUNTER → 2025-04-23 | Outpatient (REF) | payer OTHER ==
[~2025-04-23] MED LIST changes: +DOXY-442 PO; -DOXY100C82 PO
[2025-04-23 18:14] LABS: CALCIUM LEVEL 9.3 MG/DL (8.3-10.6); CARBON DIOXIDE LEVEL 30.0 MMOL/L (20-31); CHLORIDE LEVEL 105.0 MMOL/L (98-107); CREATININE FOR GFR 1.04 MG/DL (0.70-1.30); GLOMERULAR FILTRATION RATE 73.0 (>42); MAGNESIUM LEVEL 2.1 MG/DL (1.8-2.4); POTASSIUM SERUM 4.6 MMOL/L (3.5-5.1); SODIUM LEVEL 145.0 MMOL/L (136-145)
== END ==
LOC: M LABDRWCV 17:38
PROVIDERS: ATTEND Physician Assistant
DX: I50.32 Chronic diastolic (congestive) heart failure (principal)

== ENCOUNTER 2025-06-26 09:49 | Emergency (ER) | payer OTHER ==
[~2025-06-26] VITALS: Ht 193 cm; Wt 89.2 kg
[2025-06-26 11:10] LABS: VENOUS BASE EXCESS 1.5 (-2.0-2.0); VENOUS HCO3 30.0 MMOL/L (23.0-27.0); VENOUS O2 SATURATION 72.1 % (60.0-80.0); VENOUS PARTIAL PRESSURE CO2 65.4 mmHg (38.0-50.0); VENOUS PARTIAL PRESSURE O2 38.7 mmHg (30.0-50.0); VENOUS PH 7.279 UNITS (7.330-7.430); VENOUS STANDARD HCO3 25.2 MMOL/L; VENOUS TOTAL CO2 32.0 MMOL/L (24.0-28.0)
[2025-06-26 11:13] LABS: BASO # 0.0 10^3/uL (0.0-0.2); BASO % 0.4 % (0.0-1.0); EOS # 0.2 10^3/uL (0.0-0.5); EOS % 2.8 % (0.0-3.0); LYMPH # 0.6 10^3/uL (1.5-5.0); LYMPH % 8.2 % (24.0-44.0); MONO # 0.6 10^3/uL (0.0-0.8); MONO % 7.8 % (2.0-8.0); NEUTROPHILS # 5.7 10^3/uL (1.5-8.5); NEUTROPHILS % 80.4 % (36.0-66.0); PLATELET COUNT, AUTOMATED 168 10^3/uL (150-450)
[2025-06-26 11:24] LABS: INR 1.05
[2025-06-26 11:39] LABS: CK-MB VALUE MASS 3.1 NG/ML (<3.6)
[2025-06-26 11:41] LABS: ALT/SGPT 18.0 U/L (7.0-40); AST/SGOT 18.0 U/L (<34); CALCIUM LEVEL 9.5 MG/DL (8.3-10.6); CARBON DIOXIDE LEVEL 34.0 MMOL/L (20-31); CHLORIDE LEVEL 102.0 MMOL/L (98-107); CPK CREATINE PHOSPHOKINASE 52.0 U/L (46-171); CREATININE FOR GFR 1.06 MG/DL (0.70-1.30); GLOMERULAR FILTRATION RATE 71.4 (>42); MB/CK RELATIVE INDEX 5.96 (< OR =4); POTASSIUM SERUM 4.4 MMOL/L (3.5-5.1); SODIUM LEVEL 145.0 MMOL/L (136-145)
[2025-06-26] MEDS ORDERED: THERTAB52 PO (11:42)
[2025-06-26] MEDS ORDERED: ANOR1AER INH (11:42)
[2025-06-26] MEDS ORDERED: VENTAER INH (11:42)
[2025-06-26] MEDS ORDERED: ACET250T18 PO (11:42)
[2025-06-26] MEDS ORDERED: IPRA0.00 INH (11:42)
[2025-06-26] MEDS ORDERED: FLUT12AE3 INH (11:42)
[2025-06-26] MEDS ORDERED: D 101000 PO (11:42)
[2025-06-26] MEDS ORDERED: ARNU1INH3 INH (11:42)
[2025-06-26] MEDS ORDERED: HOME MED LIST COMPLETE! XX SCH (11:45)
[2025-06-26] MEDS: IPRATROPIUM 0.5 MG/ALBUTEROL 2.5 MG INH SOL UD 3 ML NEB ONE (12:01)
[2025-06-26] MEDS: cefTRIAXone SOD 1 GM in DEXTROSE 5% (D5W) ADV/MINI-BAG 50 ML IV ONE (12:11)
[2025-06-26 12:42] LABS: CK-MB VALUE MASS 2.9 NG/ML (<3.6)
[2025-06-26 12:44] LABS: CPK CREATINE PHOSPHOKINASE 49.0 U/L (46-171); MB/CK RELATIVE INDEX 5.91 (< OR =4)
[2025-06-26] MEDS: DOXYCYCLINE HYCLATE 100 MG TABLET PO ONE (12:56)
[2025-06-26 13:30] VITALS: BP 107/67
[2025-06-26] MEDS ORDERED: CEFD1CAP9 PO (13:41)
[2025-06-26] MEDS ORDERED: DOXY-441 PO (13:41)
[2025-06-26 13:45] VITALS: TEMP 96.6; O2SAT 95
== END 2025-06-26 14:12 | disposition home or self-care (01) ==
LOC: M ED 09:49
DX: J18.9 Pneumonia, unspecified organism (principal); I49.3 Ventricular premature depolarization; K21.9 Gastro-esophageal reflux disease without esophagitis; E78.5 Hyperlipidemia, unspecified; I10 Essential (primary) hypertension; Z87.891 Personal history of nicotine dependence; Z79.1 Long term (current) use of non-steroidal anti-inflammatories (NSAID); Z79.2 Long term (current) use of antibiotics; Z79.52 Long term (current) use of systemic steroids; Z79.02 Long term (current) use of antithrombotics/antiplatelets; Z79.899 Other long term (current) drug therapy; Z95.0 Presence of cardiac pacemaker
CPT/HCPCS: 71045; 80048; 80076; 82550; 82553; 82803; 83605; 83880; 84145; 84443; 84484; 85025; 85610; 87040; 87486; 87581; 87633; 87798; 93005; 93041; 94640; 94760; 96374; 99285; J0696

== ENCOUNTER 2025-07-23 14:19 | Emergency (ER) | payer OTHER ==
[~2025-07-23] VITALS: Ht 193 cm; Wt 91.8 kg
[~2025-07-23 14:19] MED LIST changes: +ACET250T18 PO; +ANOR1AER INH; +ARNU1INH3 INH; +D 101000 PO; +DOXY-441 PO; +ELIQ5TAB PO; +FLUT12AE3 INH; +THERTAB52 PO
[2025-07-23] MEDS: NS (Normal Saline) 0.9% 1,000 ML IV ONE (16:27)
[2025-07-23 16:36] LABS: BASO # 0.0 10^3/uL (0.0-0.2); BASO % 0.2 % (0.0-1.0); EOS # 0.2 10^3/uL (0.0-0.5); EOS % 1.0 % (0.0-3.0); LYMPH # 0.2 10^3/uL (1.5-5.0); LYMPH % 1.1 % (24.0-44.0); MONO # 0.7 10^3/uL (0.0-0.8); MONO % 3.5 % (2.0-8.0); NEUTROPHILS # 17.4 10^3/uL (1.5-8.5); NEUTROPHILS % 93.7 % (36.0-66.0); PLATELET COUNT, AUTOMATED 235 10^3/uL (150-450)
[2025-07-23 16:43] LABS: KETONE, URINE AUTO RFX TRACE mg/dL (NEGATIVE); LEUKOCYTE ESTERASE UR AUTO RFX NEGATIVE (NEGATIVE); MUCUS, URINE RFX SMALL (NEGATIVE); NITRITE, URINE AUTO RFX NEGATIVE (NEGATIVE); RBC, URINE AUTO RFX 1 /HPF (0-3); SQUAM EPITHELIAL CELL UR AURFX 0 /HPF (0-6); WBC, URINE AUTO RFX 2 /HPF (0-3)
[2025-07-23 17:03] LABS: ALT/SGPT 28.0 U/L (7.0-40); AST/SGOT 27.0 U/L (<34); CALCIUM LEVEL 8.9 MG/DL (8.3-10.6); CARBON DIOXIDE LEVEL 33.0 MMOL/L (20-31); CHLORIDE LEVEL 101.0 MMOL/L (98-107); CREATININE FOR GFR 1.14 MG/DL (0.70-1.30); GLOMERULAR FILTRATION RATE 65.4 (>42); POTASSIUM SERUM 4.2 MMOL/L (3.5-5.1); SODIUM LEVEL 140.0 MMOL/L (136-145)
[2025-07-23] MEDS ORDERED: ISOVUE-370 76% 100 ML VIAL As Ordered ONE (17:37)
[2025-07-23] MEDS: MAGNESIUM CITRATE 300 ML BTL PO ONE (20:45)
[2025-07-23 21:14] VITALS: BP 100/60; TEMP 97.3; O2SAT 99
== END 2025-07-23 21:16 | disposition home or self-care (01) ==
LOC: M ED 14:19
DX: K52.9 Noninfective gastroenteritis and colitis, unspecified (principal); K56.41 Fecal impaction; K40.90 Unilateral inguinal hernia, without obstruction or gangrene, not specified as recurrent; D72.829 Elevated white blood cell count, unspecified; K44.9 Diaphragmatic hernia without obstruction or gangrene; K57.30 Diverticulosis of large intestine without perforation or abscess without bleeding; N28.1 Cyst of kidney, acquired; I10 Essential (primary) hypertension; J44.9 Chronic obstructive pulmonary disease, unspecified; E78.5 Hyperlipidemia, unspecified; M47.812 Spondylosis without myelopathy or radiculopathy, cervical region; Z87.891 Personal history of nicotine dependence; Z79.1 Long term (current) use of non-steroidal anti-inflammatories (NSAID); Z79.82 Long term (current) use of aspirin; Z79.01 Long term (current) use of anticoagulants; Z79.02 Long term (current) use of antithrombotics/antiplatelets; Z79.2 Long term (current) use of antibiotics; Z79.899 Other long term (current) drug therapy
CPT/HCPCS: 36415; 74018; 74177; 80048; 80076; 81001; 83690; 85025; 99285; Q9967

== ENCOUNTER → 2025-09-11 | Outpatient (CLI) | payer OTHER | LOC: M RAD 08:50 | PROVIDERS: ATTEND Internal Medicine Pulmonary Disease | DX: J18.9 Pneumonia, unspecified organism (principal) ==

== ENCOUNTER → 2025-10-20 | Outpatient (REF) | payer OTHER | LOC: M SFHCCAPE 14:52 | PROVIDERS: ATTEND Physician Assistant Medical | DX: Z53.9 Procedure and treatment not carried out, unspecified reason (principal); I26.99 Other pulmonary embolism without acute cor pulmonale ==

== ENCOUNTER → 2025-10-20 | Outpatient (REF) | payer OTHER ==
[2025-10-20 18:07] LABS: ALT/SGPT 15.0 U/L (7.0-40); AST/SGOT 24.0 U/L (<34); CALCIUM LEVEL 9.3 MG/DL (8.3-10.6); CARBON DIOXIDE LEVEL 32.0 MMOL/L (20-31); CHLORIDE LEVEL 105.0 MMOL/L (98-107); CHOLESTEROL LEVEL 121.0 MG/DL (<200); CHOLESTEROL RISK RATIO 2.09 (<5); CREATININE FOR GFR 1.07 MG/DL (0.70-1.30); GLOMERULAR FILTRATION RATE 70.6 (>42); LDL CHOLESTEROL 51.6 MG/DL (<100); MAGNESIUM LEVEL 2.3 MG/DL (1.8-2.4); NON-HDL-C 63.2 MG/DL; POTASSIUM SERUM 4.5 MMOL/L (3.5-5.1); SODIUM LEVEL 141.0 MMOL/L (136-145); TRIGLYCERIDES LEVEL 58.0 MG/DL (<150)
[2025-10-20 18:09] LABS: PLATELET COUNT, AUTOMATED 167 10^3/uL (150-450)
== END ==
LOC: M LABDRWCV 17:04
PROVIDERS: ATTEND Physician Assistant
DX: I25.10 Atherosclerotic heart disease of native coronary artery without angina pectoris (principal); I50.32 Chronic diastolic (congestive) heart failure; E78.00 Pure hypercholesterolemia, unspecified; E83.42 Hypomagnesemia